=== PATIENT | male | born 1980 | race Caucasian/White ===

== ENCOUNTER 2018-05-25 21:44 | Emergency (ER) | payer MEDICAID, OTHER ==
[~2018-05-25] VITALS: Ht 198.1 cm; Wt 122.5 kg
[2018-05-25 22:03] VITALS: BP 152/96
[2018-05-26] MEDS ORDERED: KETOROLAC TROMETH 60MG/2ML VIAL IM ONE (01:30)
== END 2018-05-26 02:44 | disposition home or self-care (01) ==
LOC: ER 21:49
DX: L03.115 Cellulitis of right lower limb (principal)
CPT/HCPCS: 73630; 96372; 99283; J1885

== ENCOUNTER 2020-06-05 09:16 | Emergency (ER) | payer MEDICAID ==
[~2020-06-05] VITALS: Ht 198.1 cm; Wt 131.5 kg
[2020-06-05] MEDS ORDERED: NITROGLYCERIN 0.4 MG SL TAB SL ONE (09:45)
[2020-06-05] MEDS ORDERED: MORPHINE SULFATE 4 MG/ML SYR/VIAL IV ONE (09:45)
[2020-06-05] MEDS ORDERED: ONDANSETRON HCL 4 MG/2 ML VIAL IV ONE (09:45)
[2020-06-05] MEDS ORDERED: ASPirin 81 mg TAB PO ONE (09:45)
[2020-06-05] MEDS ORDERED: SODIUM CHLORIDE 0.9% 500 ML IV ONE (09:45)
[2020-06-05 10:17] LABS: Albumin 3.4 g/dL (3.4-5.0); Anion Gap 10 (5-15); Blood Urea Nitrogen 8 mg/dL (7-18); Carbon Dioxide 20 mmol/L (21-32); Chloride 103 mmol/L (98-107); Glucose 121 mg/dL (74-106); Magnesium 1.7 mg/dL (1.6-2.6); Potassium 3.5 mmol/L (3.5-5.1); Sodium 133 mmol/L (136-145)
[2020-06-05 10:24] LABS: Alanine Aminotransferase 67 U/L (16-61); Alkaline Phosphatase 71 U/L (45-117); Aspartate Aminotransferase 76 U/L (15-37); BUN/Creatinine Ratio 12.7; Bilirubin, Total 2.4 mg/dL (0.2-1.0); GFR African American 182 mL/min; GFR Non-African American 151 mL/min; Total Protein 8.9 g/dL (6.4-8.2)
[2020-06-05 10:27] LABS: Eosinophils # (auto) 0 10 ^3/uL (0-0.8); Monocytes # (auto) 0.9 10 ^3/uL (0-1.3); Monocytes % (auto) 14.8 % (0.0-12.0); Neutrophils # (auto) 4.2 10 ^3/uL (1.6-8.6)
[2020-06-05 10:32] LABS: INR 1.07 (0.9-1.15); Partial Thromboplastin Time 30.4 sec (23.0-31.2)
[2020-06-05 10:35] LABS: Basophils # (auto) 0.1 10 ^3/uL (0-0.2); Eosinophils % (auto) 0.3 % (0.0-7.0); Hematocrit 46.3 % (41.0-53.0); Hemoglobin 16.2 g/dL (13.5-17.5); Lymphocytes % (auto) 16.4 % (10.0-50.0); Mean Corpuscular Hemoglobin 34.5 pg (28.0-32.0); Mean Corpuscular Volume 98.5 fL (80.0-100.0); Neutrophils % (auto) 67.5 % (37.0-80.0); Nucleated Red Blood Cells % 0.1 %; Platelet Count (auto) 117 10^3/uL (140-450); Red Cell Distribution Width 16.3 % (11.8-14.3); White Blood Cell 6.2 10^3/uL (4.4-10.8)
[2020-06-05 12:00] VITALS: BP 139/87
[2020-06-05] MEDS ORDERED: CARISOPRODOL 350 MG TAB PO ONE (12:30)
== END 2020-06-05 12:50 | disposition home or self-care (01) ==
LOC: ER 09:16
DX: R07.89 Other chest pain (principal); R74.8 Abnormal levels of other serum enzymes; F10.10 Alcohol abuse, uncomplicated; F17.210 Nicotine dependence, cigarettes, uncomplicated
CPT/HCPCS: 36415; 71045; 76705; 80053; 80320; 82962; 83735; 84484; 85025; 85610; 85730; 93005; 96374; 96375; 99285; J2270; J2405; J7030

== ENCOUNTER 2020-10-30 20:17 | Emergency (ER) | payer MEDICAID ==
[~2020-10-30] VITALS: Ht 198.1 cm; Wt 136.1 kg
[2020-10-30 20:40] VITALS: BP 150/70
[2020-10-30 21:17] LABS: Urine Bacteria NONE SEEN /hpf (None Seen); Urine Blood Negative /uL (Negative); Urine Specific Gravity 1.006 (1.001-1.035); Urine WBC 2 /hpf (0 - 3)
[2020-10-30 21:22] LABS: Amphetamine Screen, Urine NEGATIVE (NEGATIVE); Barbiturate Scree,Urine NEGATIVE (NEGATIVE); Benzodiazephine Screen, Urine NEGATIVE (NEGATIVE); Cannabinoid Screen, Urine NEGATIVE (NEGATIVE); Cocaine Screen, Urine NEGATIVE (NEGATIVE); Opiate Scree,Urine NEGATIVE (NEGATIVE); Phencyclidine Screen, Urine NEGATIVE (NEGATIVE)
== END 2020-10-30 22:47 | disposition left against medical advice (07) ==
LOC: EDBD 20:17 → ER 20:27
DX: F10.129 Alcohol abuse with intoxication, unspecified (principal); Z53.21 Procedure and treatment not carried out due to patient leaving prior to being seen by health care provider; Y90.8 Blood alcohol level of 240 mg/100 ml or more
CPT/HCPCS: 80307; 81001

== ENCOUNTER 2020-11-08 23:22 | Emergency (ER) | payer MEDICAID ==
[~2020-11-08] VITALS: Ht 198.1 cm; Wt 133.8 kg
[2020-11-09 01:50] LABS: Basophils # (auto) 0.4 10 ^3/uL (0-0.2); Basophils % (auto) 3.6 % (0.0-2.0); Eosinophils # (auto) 0 10 ^3/uL (0-0.8); Eosinophils % (auto) 0.4 % (0.0-7.0); Hematocrit 47.4 % (41.0-53.0); Hemoglobin 16.6 g/dL (13.5-17.5); Lymphocytes # (auto) 3.1 10 ^3/uL (0.4-5.4); Lymphocytes % (auto) 28.7 % (10.0-50.0); Mean Corpuscular Hemoglobin 34.8 pg (28.0-32.0); Mean Corpuscular Hgb Conc. 35.1 g/dL (32.0-36.0); Mean Corpuscular Volume 99.1 fL (80.0-100.0); Monocytes # (auto) 0.9 10 ^3/uL (0-1.3); Monocytes % (auto) 7.9 % (0.0-12.0); Neutrophils # (auto) 6.5 10 ^3/uL (1.6-8.6); Neutrophils % (auto) 59.4 % (37.0-80.0); Nucleated Red Blood Cells % 0.1 %; Red Blood Cells 4.78 10^6/uL (4.5-5.90); Red Cell Distribution Width 15.4 % (11.8-14.3); White Blood Cell 10.9 10^3/uL (4.4-10.8)
[2020-11-09 02:26] LABS: Potassium 3.3 mmol/L (3.5-5.1)
[2020-11-09 02:32] LABS: Albumin 3.7 g/dL (3.4-5.0); BUN/Creatinine Ratio 10.9; Calcium 8.1 mg/dL (8.5-10.1)
[2020-11-09 02:35] LABS: Bilirubin, Total 2.1 mg/dL (0.2-1.0); Total Protein 8.8 g/dL (6.4-8.2)
[2020-11-09 02:55] LABS: Blood Alcohol 338.9 mg/dL (0-5)
[2020-11-09] MEDS ORDERED: SODIUM CHLORIDE 0.9% 1,000 ML IV ONE ×2 (06:45)
[2020-11-09] MEDS ORDERED: THIAMINE 100mg/ml INJ (200mg/2ml VIAL) IV ONE (06:45)
[2020-11-09 09:30] VITALS: BP 138/77
== END 2020-11-09 10:12 | disposition home or self-care (01) ==
LOC: ER 23:22
DX: F10.139 Alcohol abuse with withdrawal, unspecified (principal); F17.210 Nicotine dependence, cigarettes, uncomplicated; Y90.8 Blood alcohol level of 240 mg/100 ml or more
CPT/HCPCS: 36415; 70450; 80053; 80320; 83735; 85025; 96361; 96374; 99284; J3411

== ENCOUNTER 2021-08-05 20:10 | Emergency (ER) | payer MEDICAID ==
[~2021-08-05] VITALS: Ht 198.1 cm; Wt 127.0 kg
[2021-08-05 20:12] VITALS: BP 135/81
== END 2021-08-05 23:15 | disposition left against medical advice (07) ==
LOC: ER 20:10
DX: S80.11XA Contusion of right lower leg, initial encounter (principal); F10.10 Alcohol abuse, uncomplicated; F17.210 Nicotine dependence, cigarettes, uncomplicated; W20.8XXA Other cause of strike by thrown, projected or falling object, initial encounter; Y93.89 Activity, other specified; Y92.89 Other specified places as the place of occurrence of the external cause; Y99.0 Civilian activity done for income or pay; Y90.9 Presence of alcohol in blood, level not specified
CPT/HCPCS: 73590

== ENCOUNTER 2021-08-25 01:03 | Emergency (ER) | payer MEDICAID ==
[~2021-08-25] VITALS: Ht 188 cm; Wt 119.7 kg
[2021-08-25] MEDS: PANTOPRAZOLE 40mg/50ML NS AE 50 ML IV SCH ×3 (01:48→16:14)
[2021-08-25] MEDS ORDERED: AMIODARONE HCL (50 MG/ ML) 3 ML VIAL IV ONE (02:04)
[2021-08-25] MEDS ORDERED: cefTRIAXone SOD 1,000 MG VL IV ONE (02:30)
[2021-08-25 03:05] LABS: Basophils # (auto) 0 10 ^3/uL (0-0.2); Eosinophils # (auto) 0 10 ^3/uL (0-0.8); Lymphocytes # (auto) 0.4 10 ^3/uL (0.4-5.4); Mean Corpuscular Volume 94.8 fL (80.0-100.0); Monocytes # (auto) 0.8 10 ^3/uL (0-1.3); Nucleated Red Blood Cells % 0.1 %; Red Blood Cells 3.66 10^6/uL (4.5-5.90)
[2021-08-25 03:08] LABS: Basophils % (auto) 0.6 % (0.0-2.0); Hematocrit 34.6 % (41.0-53.0); Hemoglobin 12.5 g/dL (13.5-17.5); Lymphocytes % (auto) 4.6 % (10.0-50.0); Mean Corpuscular Hemoglobin 34.1 pg (28.0-32.0); Monocytes % (auto) 8.6 % (0.0-12.0); Neutrophils # (auto) 7.6 10 ^3/uL (1.6-8.6); Neutrophils % (auto) 86.2 % (37.0-80.0); Red Cell Distribution Width 16.9 % (11.8-14.3); White Blood Cell 8.8 10^3/uL (4.4-10.8)
[2021-08-25 03:27] LABS: Lactic Acid w/Reflex 5.7 mmol/L (0.4-2.0)
[2021-08-25 03:30] LABS: Albumin 2.6 g/dL (3.4-5.0); BUN/Creatinine Ratio 5.1; Calcium 7.4 mg/dL (8.5-10.1); Potassium 4.5 mmol/L (3.5-5.1)
[2021-08-25 03:33] LABS: Bilirubin, Total 12.8 mg/dL (0.2-1.0); Total Protein 7.5 g/dL (6.4-8.2)
[2021-08-25] MEDS ORDERED: LACTULOSE 20Gm/30ML SOLN PO ONE (03:45)
[2021-08-25] MEDS ORDERED: AMIODARONE HCL 150 MG in D5W 5% 100 ML IV ONE (04:45)
[2021-08-25 04:50] LABS: INR 1.49 (0.9-1.15)
[2021-08-25] MEDS ORDERED: ONDANSETRON HCL 4 MG/2 ML VIAL IV PRN (10:45)
[2021-08-25] MEDS ORDERED: FOLIC ACID 1 MG in D5W 5% 50 ML INJ SCH (10:45)
[2021-08-25] MEDS ORDERED: PHYTONADIONE(VitK) ORAL Susp 5mg/5ml(1mg/ml) PO ONE (10:45)
[2021-08-25] MEDS ORDERED: SODIUM CHLORIDE 0.9% 1,000 ML IV ONE (10:45)
[2021-08-25 11:31] LABS: Eosinophils # (auto) 0 10 ^3/uL (0-0.8); Eosinophils % (auto) 0.1 % (0.0-7.0); Lymphocytes # (auto) 0.7 10 ^3/uL (0.4-5.4); White Blood Cell 7.6 10^3/uL (4.4-10.8)
[2021-08-25 11:32] LABS: Basophils # (auto) 0.2 10 ^3/uL (0-0.2); Basophils % (auto) 2.5 % (0.0-2.0); Hematocrit 33.6 % (41.0-53.0); Hemoglobin 11.9 g/dL (13.5-17.5); Lymphocytes % (auto) 8.9 % (10.0-50.0); Mean Corpuscular Hemoglobin 33.4 pg (28.0-32.0); Mean Corpuscular Hgb Conc. 35.5 g/dL (32.0-36.0); Mean Corpuscular Volume 94.1 fL (80.0-100.0); Monocytes # (auto) 0.7 10 ^3/uL (0-1.3); Monocytes % (auto) 9.4 % (0.0-12.0); Neutrophils % (auto) 79.1 % (37.0-80.0); Nucleated Red Blood Cells % 0.1 %; Red Blood Cells 3.57 10^6/uL (4.5-5.90); Red Cell Distribution Width 16.3 % (11.8-14.3)
[2021-08-25] MEDS: THIAMINE 100mg/ml INJ (200mg/2ml VIAL) IV SCH (11:54)
[2021-08-25] MEDS: LACTULOSE 20Gm/30ML SOLN PO SCH ×3 (12:00→18:00)
[2021-08-26] MEDS: PANTOPRAZOLE 40mg/50ML NS AE 50 ML IV SCH (01:48)
[2021-08-26] MEDS: LACTULOSE 20Gm/30ML SOLN PO SCH (01:48)
[2021-08-26] MEDS ORDERED: LORazepam 2MG/ML-1ML VIAL IV ONE (08:30)
[2021-08-26] MEDS ORDERED: PANTOPRAZOLE 40 MG/10 ML VIAL INJ IV ONE (10:00)
[2021-08-26] MEDS ORDERED: metroNIDAZOLE 500MG/100ML 100 ML IV ONE (10:00)
[2021-08-26] MEDS ORDERED: cefTRIAXone 1GM/50ML D5W 50 ML IV ONE (10:00)
[2021-08-26] MEDS ORDERED: chlordiazePOXIDE HCL 5 MG CAP PO ONE (10:00)
[2021-08-26 11:22] VITALS: BP 141/77
[2021-08-26] MEDS: THIAMINE 100mg/ml INJ (200mg/2ml VIAL) IV SCH (12:03)
== END 2021-08-26 12:19 | disposition short-term general hospital (02) ==
LOC: ER 01:03 → EDBD 01:03 → ER 08-26 12:19
DX: K92.2 Gastrointestinal hemorrhage, unspecified (principal); K70.9 Alcoholic liver disease, unspecified; K72.90 Hepatic failure, unspecified without coma; I47.1 Supraventricular tachycardia; R51.9 Headache, unspecified; Z20.822 Contact with and (suspected) exposure to COVID-19
CPT/HCPCS: 36415; 70450; 71045; 71250; 74176; 80053; 82140; 83605; 83880; 84484; 85025; 85610; 86850; 86900; 86901; 87426; 93005; 96361; 96365; 96367; 96375; 99291; C9113; J0282; J0696; J2060; J3411; J3430; J7060

== ENCOUNTER 2021-10-11 18:11 | Emergency (ER) | payer MEDICAID ==
[~2021-10-11] VITALS: Ht 198.1 cm; Wt 0.5 kg
[2021-10-11 18:57] VITALS: BP 105/66
[2021-10-11 19:51] LABS: Basophils # (auto) 0.2 10 ^3/uL (0-0.2); Basophils % (auto) 2.1 % (0.0-2.0); Eosinophils # (auto) 0.1 10 ^3/uL (0-0.8); Eosinophils % (auto) 0.9 % (0.0-7.0); Hematocrit 33.5 % (41.0-53.0); Hemoglobin 11.1 g/dL (13.5-17.5); Lymphocytes # (auto) 3.6 10 ^3/uL (0.4-5.4); Lymphocytes % (auto) 30.4 % (10.0-50.0); Mean Corpuscular Hemoglobin 32.3 pg (28.0-32.0); Mean Corpuscular Hgb Conc. 33.1 g/dL (32.0-36.0); Mean Corpuscular Volume 97.6 fL (80.0-100.0); Monocytes # (auto) 1.1 10 ^3/uL (0-1.3); Monocytes % (auto) 9.2 % (0.0-12.0); Neutrophils # (auto) 6.8 10 ^3/uL (1.6-8.6); Neutrophils % (auto) 57.4 % (37.0-80.0); Red Blood Cells 3.44 10^6/uL (4.5-5.90); Red Cell Distribution Width 15.8 % (11.8-14.3); White Blood Cell 11.8 10^3/uL (4.4-10.8)
[2021-10-11 20:07] LABS: BUN/Creatinine Ratio 10.1; Calcium 8.8 mg/dL (8.5-10.1); Magnesium 1.9 mg/dL (1.6-2.6); Potassium 3.6 mmol/L (3.5-5.1)
[2021-10-11 20:10] LABS: Bilirubin, Total 3.6 mg/dL (0.2-1.0); Total Protein 8.2 g/dL (6.4-8.2)
[2021-10-11] MEDS ORDERED: SODIUM CHLORIDE 0.9% 1,000 ML IV ONE (21:15)
[2021-10-24] MEDS ORDERED: DISU1TAB PO (13:47)
== END 2021-10-12 01:31 | disposition home or self-care (01) ==
LOC: ER 18:11
DX: Z00.00 Encounter for general adult medical examination without abnormal findings (principal); F10.10 Alcohol abuse, uncomplicated; F12.10 Cannabis abuse, uncomplicated
CPT/HCPCS: 36415; 74176; 80053; 80320; 83605; 83690; 83735; 84484; 85025; 96360; 99285; J7030; 93005

== ENCOUNTER 2021-10-29 12:23 | Day surgery (SDC) | payer MEDICAID ==
[~2021-10-29] VITALS: Ht 198.1 cm; Wt 122.5 kg
[~2021-10-29 12:23] MED LIST: DISU1TAB PO
[2021-10-29] MEDS ORDERED: MIDAZOLAM HCL 2MG/2ML 2ml VIAL (1mg/ml) ONE (12:57)
[2021-10-29] MEDS ORDERED: fentaNYL CITRATE 100 MCG/2 ML VL ONE (12:57)
[2021-10-29] MEDS ORDERED: LIDOCAINE VISCOUS 2% 15ML UD ONE (13:07)
[2021-10-29] MEDS ORDERED: PROPOFOL 10 MG/ML 20 ML IV ONE (13:28)
[2021-10-29] MEDS ORDERED: DexAMETHasone SOD PHOS 10MG/1ML VIAL INJ ONE (13:28)
[2021-10-29 14:05] LABS: Basophils # (auto) 0.1 10 ^3/uL (0-0.2); Eosinophils # (auto) 0.1 10 ^3/uL (0-0.8); Eosinophils % (auto) 0.9 % (0.0-7.0); Hematocrit 30.4 % (41.0-53.0); Hemoglobin 10.2 g/dL (13.5-17.5); Lymphocytes # (auto) 1.7 10 ^3/uL (0.4-5.4); Lymphocytes % (auto) 22.7 % (10.0-50.0); Mean Corpuscular Hemoglobin 32.2 pg (28.0-32.0); Mean Corpuscular Hgb Conc. 33.5 g/dL (32.0-36.0); Mean Corpuscular Volume 96.2 fL (80.0-100.0); Monocytes # (auto) 0.9 10 ^3/uL (0-1.3); Monocytes % (auto) 12.7 % (0.0-12.0); Neutrophils # (auto) 4.6 10 ^3/uL (1.6-8.6); Neutrophils % (auto) 62.7 % (37.0-80.0); Red Blood Cells 3.16 10^6/uL (4.5-5.90); Red Cell Distribution Width 14.6 % (11.8-14.3); White Blood Cell 7.4 10^3/uL (4.4-10.8)
[2021-10-29 15:10] VITALS: BP 131/86
== END 2021-10-29 15:20 | disposition home or self-care (01) ==
LOC: GI 12:23
PROVIDERS: ATTEND Internal Medicine Gastroenterology
DX: K70.30 Alcoholic cirrhosis of liver without ascites (principal); K76.6 Portal hypertension; K31.89 Other diseases of stomach and duodenum; K29.70 Gastritis, unspecified, without bleeding; K44.9 Diaphragmatic hernia without obstruction or gangrene; K29.80 Duodenitis without bleeding; I10 Essential (primary) hypertension; E03.9 Hypothyroidism, unspecified; G89.29 Other chronic pain; F41.9 Anxiety disorder, unspecified; F32.A Depression, unspecified; Z87.891 Personal history of nicotine dependence; Z20.822 Contact with and (suspected) exposure to COVID-19
CPT/HCPCS: 36415; 43235; 85025; J1100; J2250; J2704; J3010; U0003; 43239; 99152

== ENCOUNTER 2021-12-31 16:19 | Emergency (ER) | payer MEDICAID ==
[~2021-12-31] VITALS: Ht 198.1 cm; Wt 125.0 kg
[2021-12-31 16:29] VITALS: BP 139/80
== END 2021-12-31 20:48 | disposition left against medical advice (07) ==
LOC: ER 16:19
DX: R56.9 Unspecified convulsions (principal); Z53.21 Procedure and treatment not carried out due to patient leaving prior to being seen by health care provider
CPT/HCPCS: 93005

== ENCOUNTER 2022-05-20 11:33 | Emergency (ER) | payer MEDICAID ==
[~2022-05-20] VITALS: Ht 198.1 cm; Wt 100.0 kg
[2022-05-20 13:14] VITALS: BP 124/61
== END 2022-05-20 15:01 | disposition home or self-care (01) ==
LOC: ER 11:33
DX: S39.012A Strain of muscle, fascia and tendon of lower back, initial encounter (principal); R07.89 Other chest pain; F17.210 Nicotine dependence, cigarettes, uncomplicated; F10.90 Alcohol use, unspecified, uncomplicated; W18.39XA Other fall on same level, initial encounter; Y93.89 Activity, other specified; Y92.89 Other specified places as the place of occurrence of the external cause; Y99.8 Other external cause status
CPT/HCPCS: 71111; 72100; 93005

== ENCOUNTER 2022-05-26 13:32 | Emergency (ER) | payer MEDICAID ==
[~2022-05-26] VITALS: Ht 198.1 cm; Wt 114.2 kg
[2022-05-26] MEDS ORDERED: CYCL-837 PO (18:39)
[2022-05-26 18:59] VITALS: BP 119/61
== END 2022-05-26 19:01 | disposition home or self-care (01) ==
LOC: ER 13:32
DX: S20.219A Contusion of unspecified front wall of thorax, initial encounter (principal); F17.210 Nicotine dependence, cigarettes, uncomplicated; F10.90 Alcohol use, unspecified, uncomplicated; W18.09XA Striking against other object with subsequent fall, initial encounter; Y93.89 Activity, other specified; Y92.89 Other specified places as the place of occurrence of the external cause; Y99.8 Other external cause status
CPT/HCPCS: 71045

== ENCOUNTER 2023-06-04 08:59 | Emergency (ER) | payer MEDICAID ==
[~2023-06-04] VITALS: Ht 198.1 cm; Wt 106.7 kg
[~2023-06-04 08:59] MED LIST changes: +CYCL-837 PO
[2023-06-04 09:00] VITALS: TEMP 99.1
[2023-06-04 09:27] LABS: Basophils # (auto) 0 10 ^3/uL (0-0.2); Basophils % (auto) 0.6 % (0.0-2.0); Eosinophils # (auto) 0 10 ^3/uL (0-0.8); Eosinophils % (auto) 0.7 % (0.0-7.0); Hematocrit 34.8 % (41.0-53.0); Hemoglobin 11.5 g/dL (13.5-17.5); Lymphocytes # (auto) 1.2 10 ^3/uL (0.4-5.4); Lymphocytes % (auto) 23.5 % (10.0-50.0); Mean Corpuscular Hemoglobin 30.4 pg (28.0-32.0); Mean Corpuscular Hgb Conc. 33.2 g/dL (32.0-36.0); Mean Corpuscular Volume 91.7 fL (80.0-100.0); Monocytes # (auto) 0.6 10 ^3/uL (0-1.3); Monocytes % (auto) 12.3 % (0.0-12.0); Neutrophils # (auto) 3.3 10 ^3/uL (1.6-8.6); Neutrophils % (auto) 62.9 % (37.0-80.0); Nucleated Red Blood Cells % 0.1 %; Red Cell Distribution Width 17.1 % (11.8-14.3); White Blood Cell 5.2 10^3/uL (4.4-10.8)
[2023-06-04 09:30] VITALS: PULSE 74; RESP 18; O2SAT 98
[2023-06-04] MEDS: LORazepam 2MG/ML-1ML VIAL IV ONE (09:34)
[2023-06-04] MEDS: levETIRAcetam 1000 mg/100ml 100 ML IV ONE (09:34)
[2023-06-04 09:40] LABS: INR 1.21 (0.9-1.15); Partial Thromboplastin Time 33.3 SEC (24.5-34.5); Prothrombin Time 12.5 sec (9.3-11.8)
[2023-06-04 09:42] LABS: Alanine Aminotransferase 59 U/L (7-40); Alkaline Phosphatase 197 U/L (46-116); Anion Gap 9 (5-15); BUN/Creatinine Ratio 9.1 (10.0-20.0); Blood Urea Nitrogen 5 mg/dL (9-23); Calcium 9.2 mg/dL (8.5-10.1); Carbon Dioxide 21 mmol/L (20-30); Chloride 107 mmol/L (98-107); Glucose 126 mg/dL (74-106); Potassium 3.8 mmol/L (3.5-5.1); Sodium 137 mmol/L (136-145)
[2023-06-04 09:43] LABS: Total Protein 7.1 g/dL (5.7-8.2)
[2023-06-04 09:53] LABS: Aspartate Aminotransferase 93 U/L (13-40)
[2023-06-04 09:54] LABS: Amphetamine Screen, Urine Neg (NEGATIVE); Barbiturate Scree,Urine Neg (NEGATIVE); Benzodiazephine Screen, Urine Neg (NEGATIVE); Cocaine Screen, Urine Neg (NEGATIVE); Opiate Scree,Urine Neg (NEGATIVE); Phencyclidine Screen, Urine Neg (NEGATIVE)
[2023-06-04 09:55] LABS: Cannabinoid Screen, Urine Neg (NEGATIVE)
[2023-06-04 10:00] VITALS: BP 129/66; PULSE 71; RESP 11; O2SAT 97
[2023-06-04] MEDS ORDERED: CHL10C PO (10:17)
== END 2023-06-04 10:51 | disposition home or self-care (01) ==
LOC: ER 08:59
DX: K70.9 Alcoholic liver disease, unspecified (principal); F10.139 Alcohol abuse with withdrawal, unspecified; R56.9 Unspecified convulsions; F17.210 Nicotine dependence, cigarettes, uncomplicated; K21.9 Gastro-esophageal reflux disease without esophagitis; Y90.8 Blood alcohol level of 240 mg/100 ml or more
CPT/HCPCS: 36415; 80053; 80307; 80320; 85025; 85610; 85730; 96365; 96375; 99284; J1953; J2060

== ENCOUNTER 2023-08-25 16:49 | Emergency (ER) | payer MEDICAID ==
[~2023-08-25] VITALS: Ht 198.1 cm; Wt 105.0 kg
[~2023-08-25 16:49] MED LIST changes: +CHL10C PO; -DISU1TAB PO; +DISU250T8 PO
[2023-08-25 16:53] VITALS: BP 122/69; PULSE 92; RESP 16
== END 2023-08-26 01:09 | disposition home or self-care (01) ==
LOC: EDBD 16:49 → ER 16:49
DX: G40.909 Epilepsy, unspecified, not intractable, without status epilepticus (principal); F17.210 Nicotine dependence, cigarettes, uncomplicated; F10.90 Alcohol use, unspecified, uncomplicated; Y90.0 Blood alcohol level of less than 20 mg/100 ml

== ENCOUNTER 2023-09-30 09:33 | Inpatient (IN) | payer MEDICAID ==
[2023-09-30] VITALS (7 sets, daily range): BP systolic 117–143; BP diastolic 73–87; PULSE 59–69; RESP 18; TEMP 97.9–98.5; O2SAT 94–97
[~2023-09-30] VITALS: Ht 198.1 cm; Wt 109.5 kg
[2023-09-30] MEDS: SODIUM CHLORIDE 0.9% 1,000 ML IV ONE (10:18)
[2023-09-30] MEDS: IOHEXOL 300 MG/ML 100ML BOTTLE IJ ONE (10:48)
[2023-09-30 10:53] LABS: Basophils # (auto) 0.1 10 ^3/uL (0-0.2); Basophils % (auto) 2.5 % (0.0-2.0); Eosinophils # (auto) 0 10 ^3/uL (0-0.8); Eosinophils % (auto) 0.6 % (0.0-7.0); Hematocrit 32.8 % (41.0-53.0); Hemoglobin 10.6 g/dL (13.5-17.5); Lymphocytes # (auto) 1.7 10 ^3/uL (0.4-5.4); Lymphocytes % (auto) 39.2 % (10.0-50.0); Mean Corpuscular Hemoglobin 28.1 pg (28.0-32.0); Mean Corpuscular Hgb Conc. 32.3 g/dL (32.0-36.0); Monocytes # (auto) 0.8 10 ^3/uL (0-1.3); Neutrophils # (auto) 1.7 10 ^3/uL (1.6-8.6); Neutrophils % (auto) 39.7 % (37.0-80.0); Nucleated Red Blood Cells % 0.1 %; Red Blood Cells 3.77 10^6/uL (4.5-5.90); White Blood Cell 4.3 10^3/uL (4.4-10.8)
[2023-09-30 11:09] LABS: Alanine Aminotransferase 59 U/L (7-40); Albumin 3.8 g/dL (3.2-4.8); Alkaline Phosphatase 123 U/L (46-116); Anion Gap 9 (5-15); Aspartate Aminotransferase 123 U/L (13-40); Bilirubin, Total 3.6 mg/dL (0.2-1.0); Blood Urea Nitrogen 8 mg/dL (9-23); Calcium 8.5 mg/dL (8.5-10.1); Carbon Dioxide 21 mmol/L (20-30); Chloride 114 mmol/L (98-107); Glucose 112 mg/dL (74-106); Potassium 3.7 mmol/L (3.5-5.1); Sodium 144 mmol/L (136-145); Total Protein 7.2 g/dL (5.7-8.2)
[2023-09-30 11:15] LABS: INR 1.13 (0.9-1.15); Prothrombin Time 11.9 sec (9.3-11.8)
[2023-09-30 11:17] LABS: Blood Alcohol 316.8 mg/dL (<10)
[2023-09-30] MEDS: PANTOPRAZOLE 40 MG/10 ML VIAL INJ IV ONE (12:44)
[2023-09-30] MEDS: LACTULOSE 20Gm/30ML SOLN PO ONE ×2 (12:44→14:46)
[2023-09-30] MEDS: KETOROLAC TROMETH 30 MG/ML 1ML VIAL IV ONE (12:44)
[2023-09-30] MEDS ORDERED: ONDANSETRON HCL 4 MG/2 ML VIAL IV PRN (14:00)
[2023-09-30] MEDS ORDERED: MORPHINE SULFATE INJ 2 MG/ml SYRG IV PRN (14:00)
[2023-09-30] MEDS ORDERED: NITROGLYCERIN 0.4 MG SL TAB SL PRN (14:00)
[2023-09-30] MEDS ORDERED: LORazepam 2MG/ML-1ML VIAL IV PRN ×3 (14:00→21:30)
[2023-09-30] MEDS ORDERED: DOCUSATE SOD 100 MG CAP PO PRN (14:00)
[2023-09-30] MEDS: LACTULOSE 20Gm/30ML SOLN PO SCH (14:45)
[2023-09-30] MEDS: chlordiazePOXIDE HCL 25 MG CAP PO SCH (14:46)
[2023-09-30] MEDS: levETIRAcetam 1000 mg/100ml 100 ML IV ONE (14:49)
[2023-09-30] MEDS: PANTOPRAZOLE 40mg/50ML NS AE 50 ML IV SCH (14:50)
[2023-09-30] MEDS: PANTOPRAZOLE 80 MG in SODIUM CHL 0.9% 100 ML IV ONE (15:02)
[2023-09-30] MEDS: cefTRIAXone 1GM/50ML D5W 50 ML IV ONE (15:10)
[2023-09-30] MEDS: OCTREOTIDE ACETATE 100 MCG in SODIUM CHL 0.9% 50 ML IV ONE (15:23)
[2023-09-30] MEDS: SODIUM CHLORIDE 0.9% 1,000 ML IV SCH (16:07)
[2023-09-30 16:49] LABS: % Iron Saturation 22.9 % (20-55)
[2023-09-30 17:05] LABS: Ferritin 22.6 ng/mL (22-322); Folate (Folic Acid) 10.61 ng/mL (>5.38)
[2023-09-30] MEDS: FOLIC ACID 1 MG, MAGNESIUM SULF SDV 50% 8 MEQ, MULTIPLE VITAMIN 10 ML, THIAMINE INJ 100... INJ SCH (18:04)
[2023-09-30] MEDS: OCTREOTIDE ACETATE 500 MCG in SODIUM CHL 0.9% 99 ML IV SCH (18:05)
[2023-09-30] MEDS ORDERED: levETIRAcetam 1000 mg/100ml 100 ML IV SCH (22:00)
[2023-10-01] VITALS (9 sets, daily range): BP systolic 112–162; BP diastolic 67–89; PULSE 56–67; RESP 14–19; TEMP 97.7–98.3; O2SAT 96–98
[2023-10-01 00:26] LABS: Hemoglobin 9.4 g/dL (13.5-17.5)
[2023-10-01 00:27] LABS: Hematocrit 28.6 % (41.0-53.0)
[2023-10-01] MEDS: MORPHINE SULFATE INJ 2 MG/ml SYRG IV PRN (05:41)
[2023-10-01 06:51] LABS: Eosinophils # (auto) 0 10 ^3/uL (0-0.8); Hemoglobin 9.3 g/dL (13.5-17.5); Monocytes # (auto) 0.4 10 ^3/uL (0-1.3); Neutrophils # (auto) 1.2 10 ^3/uL (1.6-8.6); Nucleated Red Blood Cells % 0.4 %; White Blood Cell 2.6 10^3/uL (4.4-10.8)
[2023-10-01 06:57] LABS: Basophils # (auto) 0 10 ^3/uL (0-0.2); Basophils % (auto) 1.4 % (0.0-2.0); Hematocrit 28.2 % (41.0-53.0); Lymphocytes % (auto) 38.2 % (10.0-50.0); Mean Corpuscular Hemoglobin 28.7 pg (28.0-32.0); Mean Corpuscular Hgb Conc. 32.9 g/dL (32.0-36.0); Mean Corpuscular Volume 87.2 fL (80.0-100.0); Monocytes % (auto) 14.6 % (0.0-12.0); Neutrophils % (auto) 44.8 % (37.0-80.0); Red Blood Cells 3.24 10^6/uL (4.5-5.90)
[2023-10-01 07:09] LABS: Red Cell Distribution Width 20.2 % (11.8-14.3)
[2023-10-01 07:12] LABS: Alanine Aminotransferase 64 U/L (7-40); Albumin 3.3 g/dL (3.2-4.8); Alkaline Phosphatase 108 U/L (46-116); Anion Gap 8 (5-15); Aspartate Aminotransferase 163 U/L (13-40); BUN/Creatinine Ratio 12.8 (10.0-20.0); Blood Urea Nitrogen 6 mg/dL (9-23); Calcium 8.1 mg/dL (8.5-10.1); Carbon Dioxide 21 mmol/L (20-30); Chloride 111 mmol/L (98-107); Glucose 94 mg/dL (74-106); Potassium 3.9 mmol/L (3.5-5.1); Sodium 140 mmol/L (136-145)
[2023-10-01 07:13] LABS: Bilirubin, Total 4.8 mg/dL (0.2-1.0); Total Protein 6.5 g/dL (5.7-8.2)
[2023-10-01] MEDS: cefTRIAXone 1GM/50ML D5W 50 ML IV SCH (09:06)
[2023-10-01] MEDS: chlordiazePOXIDE HCL 25 MG CAP PO SCH (09:07)
[2023-10-01 13:44] LABS: Hemoglobin 10.2 g/dL (13.5-17.5)
[2023-10-01 13:46] LABS: Hematocrit 31.2 % (41.0-53.0)
[2023-10-01 16:06] LABS: Hematocrit 30.3 % (41.0-53.0)
[2023-10-01] MEDS ORDERED: LORazepam 2MG/ML-1ML VIAL IV PRN (20:15)
[2023-10-01 22:21] LABS: Hematocrit 30.8 % (41.0-53.0)
[2023-10-02] VITALS (7 sets, daily range): BP systolic 120–157; BP diastolic 70–78; PULSE 52–67; RESP 18–20; TEMP 97.9–98.7; O2SAT 94–99
[2023-10-02] MEDS: chlordiazePOXIDE HCL 25 MG CAP PO SCH (10:27)
[2023-10-02 21:45] LABS: Basophils # (auto) 0 10 ^3/uL (0-0.2); Eosinophils # (auto) 0.1 10 ^3/uL (0-0.8); Lymphocytes # (auto) 0.9 10 ^3/uL (0.4-5.4); Monocytes # (auto) 0.5 10 ^3/uL (0-1.3)
[2023-10-02 21:48] LABS: Basophils % (auto) 0.7 % (0.0-2.0); Eosinophils % (auto) 1.9 % (0.0-7.0); Hematocrit 30.5 % (41.0-53.0); Hemoglobin 10.1 g/dL (13.5-17.5); Lymphocytes % (auto) 25.1 % (10.0-50.0); Mean Corpuscular Hemoglobin 28.9 pg (28.0-32.0); Mean Corpuscular Hgb Conc. 33.2 g/dL (32.0-36.0); Monocytes % (auto) 15.3 % (0.0-12.0); Nucleated Red Blood Cells % 0.2 %; Red Blood Cells 3.51 10^6/uL (4.5-5.90); Red Cell Distribution Width 19.6 % (11.8-14.3); White Blood Cell 3.5 10^3/uL (4.4-10.8)
[2023-10-02 21:53] LABS: Alanine Aminotransferase 50 U/L (7-40); Albumin 3.2 g/dL (3.2-4.8); Alkaline Phosphatase 110 U/L (46-116); Anion Gap 6 (5-15); Aspartate Aminotransferase 102 U/L (13-40); BUN/Creatinine Ratio 11.8 (10.0-20.0); Blood Urea Nitrogen 6 mg/dL (9-23); Calcium 8.7 mg/dL (8.7-10.4); Carbon Dioxide 21 mmol/L (20-30); Chloride 108 mmol/L (98-107); Glucose 96 mg/dL (74-106); Potassium 3.9 mmol/L (3.5-5.1)
[2023-10-02 21:54] LABS: Bilirubin, Total 5.9 mg/dL (0.2-1.0); Total Protein 6.6 g/dL (5.7-8.2)
[2023-10-02 21:57] LABS: Sodium 135 mmol/L (136-145)
[2023-10-03 01:18] VITALS: BP 146/80; PULSE 60; RESP 18; TEMP 98.4; O2SAT 93
[2023-10-03] MEDS: chlordiazePOXIDE HCL 25 MG CAP PO SCH (06:42)
[2023-10-03 08:00] VITALS: PULSE 82
[2023-10-03 09:00] VITALS: BP 134/77; PULSE 61; RESP 18; TEMP 98.2; O2SAT 99
[2023-10-03] MEDS ORDERED: PANTOPRAZOLE 40 MG TAB PO ONE (12:00)
[2023-10-03] MEDS: PHYTONADIONE (VIT K)10 MG/ML 1ML VIAL SUBCUT ONE (12:18)
[2023-10-03] MEDS: PANTOPRAZOLE 40 MG TAB PO ONE (12:23)
[2023-10-03 13:00] VITALS: BP 127/75; PULSE 54; RESP 20; TEMP 98; O2SAT 97
[2023-10-03 17:00] VITALS: BP 145/87; PULSE 56; RESP 20; TEMP 98; O2SAT 98
[2023-10-03] MEDS: SUCRALFATE 1 GM TAB PO SCH (19:17)
[2023-10-03 21:00] VITALS: BP 151/83; PULSE 61; RESP 18; TEMP 98.2; O2SAT 96
[2023-10-04] VITALS (8 sets, daily range): BP systolic 115–158; BP diastolic 66–85; PULSE 52–74; RESP 16–20; TEMP 97.7–98.4; O2SAT 96–99
[2023-10-04] MEDS ORDERED: PANTOPRAZOLE 40 MG TAB PO SCH (06:00)
[2023-10-04] MEDS: PANTOPRAZOLE 40 MG TAB PO SCH (06:15)
[2023-10-04] MEDS: PHYTONADIONE (VIT K)10 MG/ML 1ML VIAL SUBCUT ONE (12:35)
[2023-10-05] VITALS (7 sets, daily range): BP systolic 134–140; BP diastolic 74–88; PULSE 52–63; RESP 16–18; TEMP 97.8–98.8; O2SAT 96–100
[2023-10-05] MEDS ORDERED: CYCLOBENZAPRINE HCL 10 MG TAB PO PRN (07:45)
[2023-10-05 07:58] LABS: Eosinophils # (auto) 0.1 10 ^3/uL (0-0.8); Hemoglobin 9.8 g/dL (13.5-17.5); Monocytes # (auto) 0.6 10 ^3/uL (0-1.3); Neutrophils # (auto) 1.5 10 ^3/uL (1.6-8.6)
[2023-10-05 08:00] LABS: Basophils # (auto) 0.1 10 ^3/uL (0-0.2); Basophils % (auto) 1.5 % (0.0-2.0); Eosinophils % (auto) 3.1 % (0.0-7.0); Hematocrit 29.2 % (41.0-53.0); Lymphocytes # (auto) 1.2 10 ^3/uL (0.4-5.4); Lymphocytes % (auto) 35.3 % (10.0-50.0); Mean Corpuscular Hemoglobin 29.2 pg (28.0-32.0); Mean Corpuscular Hgb Conc. 33.4 g/dL (32.0-36.0); Mean Corpuscular Volume 87.4 fL (80.0-100.0); Monocytes % (auto) 17.6 % (0.0-12.0); Neutrophils % (auto) 42.5 % (37.0-80.0); Nucleated Red Blood Cells % 0.1 %; Red Blood Cells 3.34 10^6/uL (4.5-5.90); White Blood Cell 3.5 10^3/uL (4.4-10.8)
[2023-10-05 08:01] LABS: Red Cell Distribution Width 20.1 % (11.8-14.3)
[2023-10-05 08:09] LABS: Chloride 110 mmol/L (98-107); Sodium 137 mmol/L (136-145)
[2023-10-05 08:10] LABS: Anion Gap 6 (5-15); Carbon Dioxide 21 mmol/L (20-30)
[2023-10-05 08:15] LABS: BUN/Creatinine Ratio 12.3 (10.0-20.0); Blood Urea Nitrogen 7 mg/dL (9-23); Glucose 83 mg/dL (74-106)
[2023-10-05] MEDS: PHYTONADIONE (VIT K)10 MG/ML 1ML VIAL SUBCUT ONE (12:15)
[2023-10-05] MEDS ORDERED: hydrOXYzine 25 MG TAB or CAP PO PRN (17:45)
[2023-10-06 08:30] VITALS: BP 126/74; PULSE 60; RESP 20; TEMP 97.5; O2SAT 95
[2023-10-06] MEDS: THIAMINE HCL 100 MG TAB PO SCH (09:48)
[2023-10-06] MEDS: MULTIPLE VITAMIN TAB PO SCH (09:48)
[2023-10-06] MEDS: SERTRALINE HCL 50 MG TAB PO SCH (09:49)
[2023-10-06] MEDS ORDERED: SERT25TA84 PO (12:19)
[2023-10-06] MEDS ORDERED: LACT10PA2 PO (12:19)
[2023-10-06] MEDS ORDERED: HYDR-4924 PO (12:19)
[2023-10-06 13:00] VITALS: BP 135/71; PULSE 64; RESP 16; TEMP 98.3; O2SAT 96
== END 2023-10-06 14:50 | disposition home or self-care (01) | DRG 347 ==
LOC: ER 09:33 → OVERFLOW 14:06 → WEST WING 16:56
PROVIDERS: ADMIT Nurse Practitioner Family; ATTEND Nurse Practitioner Acute Care
PROC: 30233R1 Transfusion of Nonautologous Platelets into Peripheral Vein, Percutaneous Approach (ICD-10-PCS; principal; 2023-09-30)
DX: S22.059A Unspecified fracture of T5-T6 vertebra, initial encounter for closed fracture (principal); K70.40 Alcoholic hepatic failure without coma; D69.6 Thrombocytopenia, unspecified; K76.82 Hepatic encephalopathy; G40.409 Other generalized epilepsy and epileptic syndromes, not intractable, without status epilepticus; S20.212A Contusion of left front wall of thorax, initial encounter; E03.9 Hypothyroidism, unspecified; F10.239 Alcohol dependence with withdrawal, unspecified; F17.210 Nicotine dependence, cigarettes, uncomplicated; F32.A Depression, unspecified; F41.9 Anxiety disorder, unspecified; H11.33 Conjunctival hemorrhage, bilateral; H57.02 Anisocoria; S00.83XA Contusion of other part of head, initial encounter; K70.10 Alcoholic hepatitis without ascites; K70.30 Alcoholic cirrhosis of liver without ascites; W18.39XA Other fall on same level, initial encounter; Y93.89 Activity, other specified; Y92.89 Other specified places as the place of occurrence of the external cause; Y99.8 Other external cause status; F10.229 Alcohol dependence with intoxication, unspecified; Z56.0 Unemployment, unspecified; Z91.51 Personal history of suicidal behavior; Y90.8 Blood alcohol level of 240 mg/100 ml or more
CPT/HCPCS: 36415; 70450; 70486; 70545; 70547; 70551; 71250; 71260; 74177; 80048; 80053; 80320; 82140; 82607; 82728; 82746; 83540; 83550; 83615; 84443; 85014; 85018; 85025; 85045; 85049; 85610; 86850; 86900; 86901; 95819; 97110; 97116; 97163; 97530; G0378; J1885; J2470; J3430

== ENCOUNTER 2023-12-13 14:26 | Inpatient (IN) | payer MEDICAID ==
[~2023-12-13] VITALS: Ht 198.1 cm; Wt 104.2 kg
[~2023-12-13 14:26] MED LIST changes: +HYDR-4924 PO; +LACT10PA2 PO; +SERT25TA84 PO
[2023-12-13 14:57] LABS: Basophils # (auto) 0.1 10 ^3/uL (0-0.2); Eosinophils # (auto) 0.1 10 ^3/uL (0-0.8); Hemoglobin 8.1 g/dL (13.5-17.5); Monocytes # (auto) 0.6 10 ^3/uL (0-1.3); Neutrophils # (auto) 2.1 10 ^3/uL (1.6-8.6); Nucleated Red Blood Cells % 0.1 %; Platelet Count (auto) 76 10^3/uL (140-450); Red Blood Cells 3.06 10^6/uL (4.5-5.90)
[2023-12-13 14:59] LABS: Basophils % (auto) 1.4 % (0.0-2.0); Eosinophils % (auto) 1.6 % (0.0-7.0); Lymphocytes # (auto) 1.8 10 ^3/uL (0.4-5.4); Lymphocytes % (auto) 38.5 % (10.0-50.0); Mean Corpuscular Hemoglobin 26.5 pg (28.0-32.0); Mean Corpuscular Hgb Conc. 32.4 g/dL (32.0-36.0); Mean Corpuscular Volume 81.8 fL (80.0-100.0); Monocytes % (auto) 12.6 % (0.0-12.0); Neutrophils % (auto) 45.9 % (37.0-80.0); Red Cell Distribution Width 25.8 % (11.8-14.3); White Blood Cell 4.7 10^3/uL (4.4-10.8)
[2023-12-13 15:06] LABS: Chloride 115 mmol/L (98-107); Potassium 3.8 mmol/L (3.5-5.1); Sodium 145 mmol/L (136-145)
[2023-12-13 15:07] LABS: Anion Gap 12 (5-15); Calcium 8.7 mg/dL (8.7-10.4); Carbon Dioxide 18 mmol/L (20-30)
[2023-12-13 15:12] LABS: BUN/Creatinine Ratio 16.7 (10.0-20.0); Blood Urea Nitrogen 10 mg/dL (9-23); Glucose 111 mg/dL (74-106)
[2023-12-13 15:24] LABS: Blood Alcohol 437.1 mg/dL (<10)
[2023-12-13 15:28] LABS: Anisocytosis Moderate; Platelet Estimate Decreased
[2023-12-14] VITALS (7 sets, daily range): BP systolic 118–142; BP diastolic 51–79; PULSE 62–91; RESP 15–18; TEMP 98–98.9; O2SAT 95–100
[2023-12-14] MEDS: FOLIC ACID 1 MG, MAGNESIUM SULF SDV 50% 8 MEQ, MULTIPLE VITAMIN 10 ML, THIAMINE INJ 100... INJ SCH (00:14)
[2023-12-14] MEDS: SODIUM CHLORIDE 0.9% 1,000 ML IV ONE ×2 (02:09→05:03)
[2023-12-14] MEDS: FUROSEMIDE 20 MG/2 ML VIAL IV ONE (02:32)
[2023-12-14] MEDS: THIAMINE 100mg/ml INJ (200mg/2ml VIAL) IV ONE (02:32)
[2023-12-14] MEDS: levETIRAcetam 500 MG TAB PO SCH (02:33)
[2023-12-14] MEDS: LEVOTHYROXINE SODIUM 25 MCG TAB PO SCH (06:09)
[2023-12-14 06:36] LABS: Alanine Aminotransferase 25 U/L (7-40); Albumin 3.2 g/dL (3.2-4.8); Alkaline Phosphatase 108 U/L (46-116); Anion Gap 11 (5-15); Aspartate Aminotransferase 52 U/L (13-40); BUN/Creatinine Ratio 18.2 (10.0-20.0); Blood Urea Nitrogen 8 mg/dL (9-23); Carbon Dioxide 21 mmol/L (20-30); Chloride 113 mmol/L (98-107); Glucose 83 mg/dL (74-106); Potassium 3.8 mmol/L (3.5-5.1); Sodium 145 mmol/L (136-145)
[2023-12-14 06:39] LABS: Eosinophils # (auto) 0 10 ^3/uL (0-0.8); Hemoglobin 7.8 g/dL (13.5-17.5); Mean Corpuscular Hemoglobin 26.8 pg (28.0-32.0); Monocytes # (auto) 0.5 10 ^3/uL (0-1.3)
[2023-12-14 06:43] LABS: Basophils # (auto) 0 10 ^3/uL (0-0.2); Basophils % (auto) 1.3 % (0.0-2.0); Eosinophils % (auto) 1.3 % (0.0-7.0); Hematocrit 23.6 % (41.0-53.0); Lymphocytes # (auto) 1.3 10 ^3/uL (0.4-5.4); Mean Corpuscular Hgb Conc. 32.8 g/dL (32.0-36.0); Mean Corpuscular Volume 81.5 fL (80.0-100.0); Monocytes % (auto) 14.2 % (0.0-12.0); Neutrophils # (auto) 1.7 10 ^3/uL (1.6-8.6); Neutrophils % (auto) 47.2 % (37.0-80.0); Nucleated Red Blood Cells % 0.2 %; Platelet Count (auto) 66 10^3/uL (140-450); White Blood Cell 3.7 10^3/uL (4.4-10.8)
[2023-12-14 06:53] LABS: Calcium 8.3 mg/dL (8.7-10.4)
[2023-12-14 07:45] LABS: Red Cell Distribution Width 26.2 % (11.8-14.3)
[2023-12-14] MEDS: FERROUS SULFATE 325mg EC TAB PO SCH (08:44)
[2023-12-14] MEDS: LACTULOSE 20Gm/30ML SOLN PO SCH (10:36)
[2023-12-14] MEDS: SPIRONOLACTONE 25 MG TAB PO SCH (10:37)
[2023-12-14 10:48] LABS: Anisocytosis Moderate
[2023-12-14 10:53] LABS: Platelet Estimate Decreased
[2023-12-14] MEDS ORDERED: PANT40T PO (13:04)
[2023-12-14] MEDS ORDERED: IBUP1TAB5 PO (13:04)
[2023-12-14] MEDS ORDERED: GABA-1250 PO (13:04)
[2023-12-14] MEDS: PANTOPRAZOLE 40 MG/10 ML VIAL INJ IV ONE (16:17)
[2023-12-14] MEDS: OCTREOTIDE ACETATE 100 MCG in SODIUM CHL 0.9% 50 ML IV ONE (17:40)
[2023-12-14] MEDS: ONDANSETRON HCL 4 MG/2 ML VIAL IV PRN (17:56)
[2023-12-14] MEDS: OCTREOTIDE ACETATE 500 MCG in SODIUM CHL 0.9% 99 ML IV SCH (17:58)
[2023-12-14] MEDS: PANTOPRAZOLE 40 MG/10 ML VIAL INJ IV SCH (21:23)
[2023-12-14] MEDS: LORazepam 2MG/ML-1ML VIAL IV PRN (21:23)
[2023-12-14] MEDS: SUCRALFATE 1 GM/10 ML ORAL SUSP GT SCH (22:00)
[2023-12-14] MEDS: levETIRAcetam 500 mg/100ml 100 ML IV ONE (22:56)
[2023-12-15] VITALS (11 sets, daily range): BP systolic 106–158; BP diastolic 57–78; PULSE 54–78; RESP 14–18; TEMP 97.8–98.5; O2SAT 95–100
[2023-12-15 06:27] LABS: Basophils # (auto) 0 10 ^3/uL (0-0.2); Eosinophils # (auto) 0 10 ^3/uL (0-0.8); Lymphocytes # (auto) 0.9 10 ^3/uL (0.4-5.4); Neutrophils # (auto) 0.9 10 ^3/uL (1.6-8.6)
[2023-12-15 06:31] LABS: Basophils % (auto) 0.9 % (0.0-2.0); Eosinophils % (auto) 1.8 % (0.0-7.0); Hematocrit 20.3 % (41.0-53.0); Lymphocytes % (auto) 40.8 % (10.0-50.0); Mean Corpuscular Hemoglobin 26.9 pg (28.0-32.0); Mean Corpuscular Hgb Conc. 33.1 g/dL (32.0-36.0); Mean Corpuscular Volume 81.2 fL (80.0-100.0); Monocytes # (auto) 0.3 10 ^3/uL (0-1.3); Monocytes % (auto) 15.6 % (0.0-12.0); Neutrophils % (auto) 40.9 % (37.0-80.0); Nucleated Red Blood Cells % 0.1 %; Platelet Count (auto) 46 10^3/uL (140-450); White Blood Cell 2.2 10^3/uL (4.4-10.8)
[2023-12-15 06:36] LABS: INR 1.27 (0.9-1.15); Partial Thromboplastin Time 31.9 SEC (24.5-34.5); Prothrombin Time 13.2 sec (9.3-11.8)
[2023-12-15 06:48] LABS: Alanine Aminotransferase 24 U/L (7-40); Albumin 2.8 g/dL (3.2-4.8); Alkaline Phosphatase 103 U/L (46-116); Anion Gap 6 (5-15); Aspartate Aminotransferase 51 U/L (13-40); BUN/Creatinine Ratio 17.6 (10.0-20.0); Blood Urea Nitrogen 9 mg/dL (9-23); Calcium 7.9 mg/dL (8.7-10.4); Carbon Dioxide 22 mmol/L (20-30); Chloride 109 mmol/L (98-107); Glucose 77 mg/dL (74-106); Lipase 25 U/L (12-53); Magnesium 1.4 mg/dL (1.6-2.6); Potassium 4.4 mmol/L (3.5-5.1); Sodium 137 mmol/L (136-145)
[2023-12-15 06:49] LABS: Bilirubin, Total 2.6 mg/dL (0.2-1.0); Total Protein 5.4 g/dL (5.7-8.2)
[2023-12-15 07:11] LABS: Hemoglobin 6.7 g/dL (13.5-17.5); Red Cell Distribution Width 25.8 % (11.8-14.3)
[2023-12-15 07:36] LABS: Platelet Estimate Markedly Decreased
[2023-12-15 07:39] LABS: Ovalocytes FEW
[2023-12-15 07:42] LABS: Anisocytosis Moderate
[2023-12-15] MEDS: PANTOPRAZOLE 40mg/50ML NS AE 50 ML IV SCH (10:30)
[2023-12-15 13:00] LABS: Triglycerides 76 mg/dL (< 150)
[2023-12-15 13:01] LABS: LDL Cholesterol 65 mg/dL (< 100)
[2023-12-15 13:02] LABS: Cholesterol 117 mg/dL (< 200); HDL Cholesterol 37 mg/dL (40-59)
[2023-12-15 16:38] LABS: Hematocrit 23.2 % (41.0-53.0); Hemoglobin 7.6 g/dL (13.5-17.5)
[2023-12-15] MEDS: MAGNESIUM SULFATE 1GM/100ML 100 ML IV SCH (17:18)
[2023-12-15] MEDS: MORPHINE SULFATE INJ 2 MG/ml SYRG IV PRN (19:36)
[2023-12-15] MEDS: SUCRALFATE 1 GM/10 ML ORAL SUSP PO SCH (19:49)
[2023-12-15] MEDS: levETIRAcetam 500 mg/100ml 100 ML IV SCH (23:00)
[2023-12-16] VITALS (11 sets, daily range): BP systolic 114–157; BP diastolic 66–86; PULSE 49–96; RESP 11–24; TEMP 98–98.8; O2SAT 94–100
[2023-12-16 06:30] LABS: Basophils # (auto) 0 10 ^3/uL (0-0.2); Eosinophils # (auto) 0.1 10 ^3/uL (0-0.8); Lymphocytes # (auto) 0.7 10 ^3/uL (0.4-5.4); Monocytes # (auto) 0.3 10 ^3/uL (0-1.3); Neutrophils # (auto) 0.8 10 ^3/uL (1.6-8.6)
[2023-12-16 06:33] LABS: Basophils % (auto) 1.2 % (0.0-2.0); Eosinophils % (auto) 2.8 % (0.0-7.0); Hematocrit 22.1 % (41.0-53.0); Hemoglobin 7.4 g/dL (13.5-17.5); Lymphocytes % (auto) 37.9 % (10.0-50.0); Mean Corpuscular Hemoglobin 27.3 pg (28.0-32.0); Mean Corpuscular Hgb Conc. 33.5 g/dL (32.0-36.0); Mean Corpuscular Volume 81.5 fL (80.0-100.0); Monocytes % (auto) 17.5 % (0.0-12.0); Neutrophils % (auto) 40.6 % (37.0-80.0); Nucleated Red Blood Cells % 0.1 %; Platelet Count (auto) 44 10^3/uL (140-450); Red Blood Cells 2.72 10^6/uL (4.5-5.90)
[2023-12-16 06:44] LABS: Alanine Aminotransferase 33 U/L (7-40); Albumin 2.9 g/dL (3.2-4.8); Alkaline Phosphatase 104 U/L (46-116); Anion Gap 7 (5-15); Aspartate Aminotransferase 75 U/L (13-40); BUN/Creatinine Ratio 13.2 (10.0-20.0); Blood Urea Nitrogen 7 mg/dL (9-23); Calcium 7.9 mg/dL (8.7-10.4); Carbon Dioxide 21 mmol/L (20-30); Chloride 107 mmol/L (98-107); Glucose 88 mg/dL (74-106); Magnesium 1.5 mg/dL (1.6-2.6); Potassium 3.7 mmol/L (3.5-5.1); Sodium 135 mmol/L (136-145)
[2023-12-16 06:45] LABS: Bilirubin, Total 3.7 mg/dL (0.2-1.0); Total Protein 5.6 g/dL (5.7-8.2)
[2023-12-16 07:44] LABS: Red Cell Distribution Width 24.2 % (11.8-14.3); White Blood Cell 1.9 10^3/uL (4.4-10.8)
[2023-12-16] MEDS ORDERED: SODIUM CHLORIDE LOCK 10 ML ONE (10:56)
[2023-12-16] MEDS: LIDOCAINE VISCOUS 2% 15ML UD ONE (13:19)
[2023-12-16] MEDS: fentaNYL CITRATE 100 MCG/2 ML VL ONE (13:20)
[2023-12-16] MEDS: MIDAZOLAM HCL 5 MG/ML-1ML VIAL ONE (13:20)
[2023-12-16] MEDS: diphenhdrAMINE HCL 50 MG/1 ML VL ONE (13:20)
[2023-12-16] MEDS: MAGNESIUM SULFATE 1GM/100ML 100 ML IV SCH (15:20)
[2023-12-16] MEDS: SUCRALFATE 1 GM/10 ML ORAL SUSP GT SCH (17:26)
[2023-12-16] MEDS: PANTOPRAZOLE 40 MG/10 ML VIAL INJ IV SCH (21:44)
[2023-12-17] VITALS (8 sets, daily range): BP systolic 121–130; BP diastolic 58–74; PULSE 55–74; RESP 16–19; TEMP 98.1–99.2; O2SAT 96–98
[2023-12-17 07:05] LABS: Alanine Aminotransferase 37 U/L (7-40); Alkaline Phosphatase 112 U/L (46-116); Anion Gap 7 (5-15); BUN/Creatinine Ratio 11.1 (10.0-20.0); Blood Urea Nitrogen 6 mg/dL (9-23); Calcium 8.4 mg/dL (8.7-10.4); Carbon Dioxide 21 mmol/L (20-30); Chloride 109 mmol/L (98-107); Glucose 91 mg/dL (74-106); Magnesium 1.5 mg/dL (1.6-2.6); Potassium 3.9 mmol/L (3.5-5.1); Sodium 137 mmol/L (136-145)
[2023-12-17 07:06] LABS: Albumin 3.1 g/dL (3.2-4.8); Aspartate Aminotransferase 68 U/L (13-40)
[2023-12-17 07:07] LABS: Basophils # (auto) 0 10 ^3/uL (0-0.2); Bilirubin, Total 3.7 mg/dL (0.2-1.0); Eosinophils # (auto) 0.1 10 ^3/uL (0-0.8); Lymphocytes # (auto) 0.8 10 ^3/uL (0.4-5.4); Monocytes # (auto) 0.4 10 ^3/uL (0-1.3); Platelet Count (auto) 55 10^3/uL (140-450); Total Protein 5.8 g/dL (5.7-8.2); White Blood Cell 2.5 10^3/uL (4.4-10.8)
[2023-12-17 07:11] LABS: Basophils % (auto) 0.8 % (0.0-2.0); Eosinophils % (auto) 2.6 % (0.0-7.0); Hematocrit 23.8 % (41.0-53.0); Hemoglobin 7.9 g/dL (13.5-17.5); Lymphocytes % (auto) 30.6 % (10.0-50.0); Mean Corpuscular Hemoglobin 27.5 pg (28.0-32.0); Mean Corpuscular Hgb Conc. 33.2 g/dL (32.0-36.0); Mean Corpuscular Volume 82.9 fL (80.0-100.0); Monocytes % (auto) 15.5 % (0.0-12.0); Neutrophils # (auto) 1.3 10 ^3/uL (1.6-8.6); Neutrophils % (auto) 50.5 % (37.0-80.0); Nucleated Red Blood Cells % 0.2 %; Red Blood Cells 2.87 10^6/uL (4.5-5.90)
[2023-12-17 07:15] LABS: Red Cell Distribution Width 24.1 % (11.8-14.3)
[2023-12-17] MEDS: PANTOPRAZOLE 40 MG TAB PO SCH (17:15)
[2023-12-17] MEDS: levETIRAcetam 500 MG TAB PO SCH (22:32)
[2023-12-17] MEDS: SUCRALFATE 1 GM/10 ML ORAL SUSP PO SCH (22:32)
[2023-12-17] MEDS: MAGNESIUM OXIDE 400 MG TAB PO SCH (22:32)
[2023-12-18 01:16] VITALS: BP 109/57; PULSE 72; RESP 18; TEMP 98.6; O2SAT 95
[2023-12-18 05:00] VITALS: BP 111/61; PULSE 68; RESP 18; TEMP 98.7; O2SAT 93
[2023-12-18 07:04] LABS: Alkaline Phosphatase 116 U/L (46-116); Anion Gap 8 (5-15); Calcium 8.8 mg/dL (8.7-10.4); Carbon Dioxide 20 mmol/L (20-30); Chloride 109 mmol/L (98-107); Glucose 85 mg/dL (74-106); Magnesium 1.3 mg/dL (1.6-2.6); Potassium 3.6 mmol/L (3.5-5.1); Sodium 137 mmol/L (136-145)
[2023-12-18 07:05] LABS: Albumin 3.1 g/dL (3.2-4.8); BUN/Creatinine Ratio 9.3 (10.0-20.0); Blood Urea Nitrogen < 5 mg/dL (9-23)
[2023-12-18 07:06] LABS: Bilirubin, Total 3.5 mg/dL (0.2-1.0); Total Protein 5.9 g/dL (5.7-8.2)
[2023-12-18 07:32] LABS: Alanine Aminotransferase 34 U/L (7-40); Aspartate Aminotransferase 52 U/L (13-40)
[2023-12-18 07:37] LABS: Hematocrit 23.8 % (41.0-53.0); Hemoglobin 8.2 g/dL (13.5-17.5); Mean Corpuscular Hemoglobin 28.4 pg (28.0-32.0); Mean Corpuscular Hgb Conc. 34.4 g/dL (32.0-36.0); Mean Corpuscular Volume 82.5 fL (80.0-100.0); Red Blood Cells 2.88 10^6/uL (4.5-5.90)
[2023-12-18 07:41] LABS: Platelet Count (auto) 60 10^3/uL (140-450)
[2023-12-18 07:48] LABS: Band Neutrophils % (manual) 0; Basophils % (manual) 0 (0.0-2.0); Blast Cells 0; Metamyelocytes % 0; Myelocytes % 0; Promyelocytes % 0; Reactive Lymphocytes 0; Red Cell Distribution Width 25.1 % (11.8-14.3)
[2023-12-18 08:00] VITALS: PULSE 66; RESP 18; O2SAT 97
[2023-12-18 09:00] VITALS: BP 113/58; PULSE 66; RESP 16; TEMP 98.1; O2SAT 97
[2023-12-18] MEDS: THIAMINE HCL 100 MG TAB PO SCH (09:35)
[2023-12-18] MEDS: MAGNESIUM SULFATE 1GM/100ML 100 ML IV SCH (09:35)
[2023-12-18] MEDS: MULTIPLE VITAMIN TAB PO SCH (09:35)
[2023-12-18] MEDS: FOLIC ACID 1 MG TAB PO SCH (09:35)
[2023-12-18 09:40] LABS: Eosinophils % (manual) 1 (0-7); Lymphocytes % (manual) 31 (10.0-50.0); Monocytes % (manual) 17 (0-12)
[2023-12-18 09:41] LABS: Anisocytosis Moderate; Platelet Estimate Decreased
[2023-12-18 13:00] VITALS: BP 108/54; PULSE 69; RESP 16; TEMP 98.5; O2SAT 98
[2023-12-18] MEDS ORDERED: THIA100T10 PO (14:24)
[2023-12-18] MEDS ORDERED: PANT40TA2 PO (14:24)
[2023-12-18] MEDS ORDERED: FOLI-119 PO (14:24)
[2023-12-18] MEDS ORDERED: MULTTAB99 PO (14:24)
[2023-12-18] MEDS ORDERED: SUCR1TAB31 OR (14:24)
[2023-12-18] MEDS ORDERED: MAGN400T27 PO (14:28)
[2023-12-18] MEDS ORDERED: KEP500T PO (14:28)
[2023-12-18] MEDS ORDERED: LEVO25TA6 PO (14:28)
[2023-12-18 14:29] VITALS: BP 113/61; PULSE 66; RESP 16; TEMP 98.1; O2SAT 97
== END 2023-12-18 15:05 | disposition home or self-care (01) | DRG 242 ==
LOC: ER 14:26 → EDBD 14:26 → OVERFLOW 21:29 → EAST 12-14 11:48
PROVIDERS: ADMIT Nurse Practitioner; ATTEND Internal Medicine Geriatric Medicine
PROC: 30233N1 Transfusion of Nonautologous Red Blood Cells into Peripheral Vein, Percutaneous Approach (ICD-10-PCS; 2023-12-15)
PROC: 0DB68ZX Excision of Stomach, Via Natural or Artificial Opening Endoscopic, Diagnostic (ICD-10-PCS; 2023-12-16)
PROC: 0DB98ZX Excision of Duodenum, Via Natural or Artificial Opening Endoscopic, Diagnostic (ICD-10-PCS; principal; 2023-12-16 13:16)
DX: K22.11 Ulcer of esophagus with bleeding (principal); K76.82 Hepatic encephalopathy; K76.6 Portal hypertension; D62 Acute posthemorrhagic anemia; K25.4 Chronic or unspecified gastric ulcer with hemorrhage; K70.9 Alcoholic liver disease, unspecified; G40.909 Epilepsy, unspecified, not intractable, without status epilepticus; K26.4 Chronic or unspecified duodenal ulcer with hemorrhage; E03.9 Hypothyroidism, unspecified; F10.229 Alcohol dependence with intoxication, unspecified; F10.239 Alcohol dependence with withdrawal, unspecified; K31.9 Disease of stomach and duodenum, unspecified; K44.9 Diaphragmatic hernia without obstruction or gangrene; K74.60 Unspecified cirrhosis of liver; F17.210 Nicotine dependence, cigarettes, uncomplicated; Z79.899 Other long term (current) drug therapy; Z91.199 Patient's noncompliance with other medical treatment and regimen due to unspecified reason; Y90.8 Blood alcohol level of 240 mg/100 ml or more
CPT/HCPCS: 36415; 43239; 80048; 80053; 80061; 80320; 82140; 83690; 83735; 83880; 84443; 85007; 85014; 85018; 85025; 85027; 85610; 85730; 86850; 86900; 86901; 86920; 87081; 93005; 96361; 96365; 96375; 99291; G0378; J2250; J2405; J2470

== ENCOUNTER 2023-12-22 13:23 | Emergency (ER) | payer MEDICAID ==
[~2023-12-22] VITALS: Ht 185.4 cm; Wt 100.0 kg
[~2023-12-22 13:23] MED LIST changes: +FOLI-119 PO; +GABA-1250 PO; +KEP500T PO; +LEVO25TA6 PO; +MAGN400T27 PO; +MULTTAB99 PO; +PANT40T PO; +PANT40TA2 PO; +SUCR1TAB31 OR; +THIA100T10 PO
[2023-12-22] MEDS: SODIUM CHLORIDE 0.9% 1,000 ML IV ONE (14:30)
[2023-12-22] MEDS: ONDANSETRON HCL 4 MG/2 ML VIAL IV ONE (14:30)
[2023-12-22] MEDS: FAMOTIDINE (10MG/ML) 2ML VL IV ONE (14:30)
[2023-12-22 15:07] LABS: Basophils # (auto) 0.1 10 ^3/uL (0-0.2); Eosinophils # (auto) 0 10 ^3/uL (0-0.8); Hemoglobin 8.5 g/dL (13.5-17.5); Lymphocytes # (auto) 1.8 10 ^3/uL (0.4-5.4); Monocytes # (auto) 0.7 10 ^3/uL (0-1.3)
[2023-12-22 15:09] LABS: Basophils % (auto) 1.8 % (0.0-2.0); Eosinophils % (auto) 0.7 % (0.0-7.0); Hematocrit 25.5 % (41.0-53.0); Lymphocytes % (auto) 37.8 % (10.0-50.0); Mean Corpuscular Hemoglobin 27.2 pg (28.0-32.0); Mean Corpuscular Hgb Conc. 33.5 g/dL (32.0-36.0); Mean Corpuscular Volume 81.3 fL (80.0-100.0); Neutrophils % (auto) 43.7 % (37.0-80.0); Nucleated Red Blood Cells % 0.1 %; Platelet Count (auto) 110 10^3/uL (140-450); Red Blood Cells 3.14 10^6/uL (4.5-5.90); White Blood Cell 4.7 10^3/uL (4.4-10.8)
[2023-12-22 15:15] LABS: Red Cell Distribution Width 24.9 % (11.8-14.3)
[2023-12-22 15:27] LABS: Alanine Aminotransferase 37 U/L (7-40); Albumin 3.7 g/dL (3.2-4.8); Alkaline Phosphatase 127 U/L (46-116); Anion Gap 12 (5-15); Aspartate Aminotransferase 69 U/L (13-40); BUN/Creatinine Ratio 19.1 (10.0-20.0); Bilirubin, Total 2.2 mg/dL (0.2-1.0); Blood Alcohol 286.5 mg/dL (<10); Blood Urea Nitrogen 9 mg/dL (9-23); Calcium 8.5 mg/dL (8.7-10.4); Carbon Dioxide 20 mmol/L (20-30); Chloride 113 mmol/L (98-107); Glucose 106 mg/dL (74-106); Potassium 3.7 mmol/L (3.5-5.1); Sodium 145 mmol/L (136-145); Total Protein 6.9 g/dL (5.7-8.2)
[2023-12-22 18:10] VITALS: BP 147/82; PULSE 77; RESP 18; TEMP 98; O2SAT 97
== END 2023-12-22 18:11 | disposition home or self-care (01) ==
LOC: ER 13:23 → EDBD 13:23 → EDUNIT# 13:23 → ER 18:11
DX: F10.129 Alcohol abuse with intoxication, unspecified (principal); F17.210 Nicotine dependence, cigarettes, uncomplicated; R56.9 Unspecified convulsions; E03.9 Hypothyroidism, unspecified; W19.XXXA Unspecified fall, initial encounter
CPT/HCPCS: 36415; 70450; 71046; 80053; 80320; 84484; 85025

== ENCOUNTER 2024-02-24 03:01 | Inpatient (IN) | payer MEDICAID ==
[~2024-02-24] VITALS: Ht 198.1 cm; Wt 132.4 kg
--- NOTE | 2024-02-24 04:47 | ED.PDOC ---
History of Present Illness HPI Comments A 44 year old male presents to the ED with a chief complaint of bilateral leg swelling onset 1 week. Patient states he was discharged from [facility] ([facility] about 1 week ago and shortly after began experiencing swelling. Patient has a past medical history of CHF, liver cirrhosis, GI bleed, seizure. He noticed swelling has worsen making it difficult to walk. No other symptoms or modifying factors present at this time. Chief Complaint: Lower Extremity Time Seen by MD: 04:37 Primary Care Provider: HOLLI Mckeon Notes: Medications, Allergies Allergies: Coded Allergies: NO KNOWN ALLERGIES (Unverified , 01/02/13) Home Meds Active Scripts Magnesium Oxide (Mgo) 400 Mg Tab, 400 MG PO DAILY for 10 Days, #10 TAB Prov:LATESHA SAMANO MD 12/18/23 Levothyroxine Sodium (Levothyroxine Sodium) 25 Mcg Tab, 25 MCG PO QAM@0600 for 30 Days, #30 TAB Prov:LATESHA SAMANO MD 12/18/23 Levetiracetam (KEPPRA TABLET) 500 Mg Tb, 500 MG PO BID for 30 Days, #60 TAB Prov:LATESHA SAMANO MD 12/18/23 Pantoprazole Sodium Sesquihydr (Protonix) 40 Mg Tab, 40 MG PO DAILY, #30 TAB Prov:LATESHA SAMANO MD 12/18/23 Folic Acid (Folic Acid) 1 Mg Tab, 1 MG PO DAILY for 30 Days, #30 TAB Prov:LATESHA SAMANO MD 12/18/23 Multiple Vitamin (Mvi Tab) 1 Tab Tb, 1 TAB PO DAILY for 30 Days, #30 TAB Prov:LATESHA ASMANO MD 12/18/23 Sucralfate (CARAFATE) 1 Gm Tab, 1 GM OR QIDACHS for 30 Days, #120 TAB Prov:LATESHA SAMANO MD 12/18/23 Thiamine Hcl (VITAMIN B-1) 100 Mg Tb, 100 MG PO DAILY for 30 Days, #30 TAB Prov:LATESHA SAMANO MD 12/18/23 Hydroxyzine HCl (Hydroxyzine Hydrochloride) 25 Mg Tab, 25 MG PO Q8HP PRN for 30 Days, #90 TAB Prov:RITA WEBB NP 10/06/23 Sertraline Hcl (Zoloft) 25 Mg Tab, 1 TAB PO DAILY, #30 TAB 2 Refills Prov:RITA WEBB NP 10/06/23 Lactulose (Lactulose) 10 Gm Jorge, 10 GM PO BID for 30 Days, #10 PACK Prov:RITA WEBB NP 10/06/23 Chlordiazepoxide Hcl (Ni-1) (I (Librium) 10 Mg Cap, 10 MG PO BID for 5 Days, #10 CAP Prov:WON LAZAR MD 06/04/23 Cyclobenzaprine Hcl (Cyclobenzaprine Hcl) 5 Mg Tab, 1 TAB PO TID PRN, #30 TAB Prov:LOC MAHER 05/26/22 Reported Medications Gabapentin (Gabapentin) 300 Mg Cap, 1 CAP PO TID 12/14/23 Pantoprazole Sodium Sesquihydr (Pantoprazole Sodium) 40 Mg Tab, 1 TAB PO BID 12/14/23 Disulfiram (DISULFIRAM) 250 Mg Tab, 250 MG PO BID, TAB 10/24/21 Information Source: Patient Mode of Arrival: Ambulatory Severity: Moderate Timing: Weeks Duration: Since onset Prehospital treatment: None Past Medical History PAST MEDICAL HISTORY: CHF, Liver, Seizures, Thyroid Surgical History: Denies all surgeries Family History Family History: Reviewed,noncontributory to illness Social History Smoker: Cigarettes Alcohol: Heavy Drugs: Denies Drug Use Lives In: Home Constitutional: denies: chills, diaphoresis, fatigue, fever, malaise, sweats, weakness, others EENTM: denies: blurred vision, double vision, ear bleeding, ear discharge, ear drainage, ear pain, ear ringing, eye pain, eye redness, hearing loss, mouth pain, mouth swelling, nasal discharge, nose bleeding, nose congestion, nose pain, photophobia, tearing, throat pain, throat swelling, voice changes, others Respiratory: denies: cough, hemoptysis, orthopnea, SOB at rest, shortness of breath, SOB with excertion, stridor, wheezing, others Cardiovascular: denies: chest pain, dizzy spells, diaphoresis, Dyspnea on exertion, edema, irregular heart beat, left arm pain, lightheadedness, palpitations, PND, syncope, others Gastrointestinal: denies: abdomen distended, abdominal pain, blood streaked bowels, constipated, diarrhea, dysphagia, difficulty swallowing, hematemesis, melena, nausea, poor appetite, poor fluid intake, rectal bleeding, rectal pain, vomiting, others Genitourinary: denies: burning, dysuria, flank pain, frequency, hematuria, incontinence, penile discharge, penile sore, pain, testicle pain, testicle swelling, urgency, others Neurological: denies: dizziness, fainting, headache, left sided numbness, left sided weakness, numbness, paresthesia, pre-existing deficit, right sided numbness, right sided weakness, seizure, speech problems, tingling, tremors, weakness, others Musculoskeletal: reports: others (bilateral leg swelling); denies: back pain, gout, joint pain, joint swelling, muscle pain, muscle stiffness, neck pain Integumetry: denies: bruises, change in color, change in hair/nails, dryness, laceration, lesions, lumps, rash, wounds, others Allergic/Immunocompromised: denies: Difficulty Healing, Frequent Infections, Hives, Itching, others Hematologic/Lymphatic: denies: anemia, blood clots, easy bleeding, easy bruising, swollen glands, others Endocrine: denies: excessive hunger, excessive sweating, excessive thirst, excessive urination, flushing, intolerance to cold, intolerance to heat, unexplained weight gain, unexplained weight loss, others Psychiatric: denies: anxiety, bipolar disorder, depression, hopeless, panic disorder, schizophrenia, sleepless, suicidal, others All Other Systems: Reviewed and Negative Physical Exam General Appearance: Moderate Distress, Normal HEENT: Normal ENT Inspection, Pharynx Normal, Scleral Icterus (L) (Bilateral), Scleral Icterus (R), TMs Normal Neck: Full Range of Motion, Non-Tender, Normal, Normal Inspection Respiratory: Chest Non-Tender, Lungs Clear, No Accessory Muscle Use, No Respiratory Distress, Normal Breath Sounds Cardiovascular: No Edema, No JVD, No Murmur, No Gallop, Normal Peripheral Pulses, Regular Rate/Rhythm Breast Exam: Deferred Gastrointestinal: Diffuse, Distended (Positive fluid wave with anasarca), No Organomegaly, Non Tender, No Pulsatile Mass, Normal Bowel Sounds, Soft Genitalia: Deferred Pelvic: Deferred Rectal: Deferred Extremities: No calf tenderness, Normal capillary refill, Normal inspection, Normal range of motion, Non-tender, No pedal edema Musculoskeletal : Apperance: Normal Neurologic: Alert, 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 Was a procedure done?: No EKG EKG : [place]: Normal Cardiac Rhythm: NSR Hypertrophy: RVH Differential Dx Considerations may include: Cirrhosis malignancy electrolyte imbalance congestive heart failure X-Ray, Labs, Meds, VS Vital Signs Date Time Temp Pulse Resp B/P (MAP) Pulse Ox O2 Delivery O2 Flow Rate FiO2 02/24/24 05:27 98.4 85 18 127/69 (88) 98.4 02/24/24 05:27 89 17 97 Room Air* 0 21 02/24/24 05:12 84 02/24/24 03:16 99.1 105 16 138/78 (98) 96 Lab Test 02/24/24 05:04 Range/Units White Blood Count 6.1 4.4-10.8 10^3/uL Red Blood Count 2.99 L 4.5-5.90 10^6/uL Hemoglobin 8.2 L 13.5-17.5 g/dL Hematocrit 25.4 L 41.0-53.0 % Mean Corpuscular Volume 85.1 80.0-100.0 fL Mean Corpuscular Hemoglobin 27.4 L 28.0-32.0 pg Mean Corpuscular Hemoglobin Concent 32.2 32.0-36.0 g/dL Red Cell Distribution Width 26.5 H 11.8-14.3 % Platelet Count 146 140-450 10^3/uL Mean Platelet Volume 8.2 6.9-10.8 fL Neutrophils (%) (Auto) 70.8 37.0-80.0 % Lymphocytes (%) (Auto) 16.0 10.0-50.0 % Monocytes (%) (Auto) 9.7 0.0-12.0 % Eosinophils (%) (Auto) 1.3 0.0-7.0 % Basophils (%) (Auto) 2.2 H 0.0-2.0 % Neutrophils # (Auto) 4.3 1.6-8.6 10 ^3/uL Lymphocytes # (Auto) 1.0 0.4-5.4 10 ^3/uL Monocytes # (Auto) 0.6 0-1.3 10 ^3/uL Eosinophils # (Auto) 0.1 0-0.8 10 ^3/uL Basophils # (Auto) 0.1 0-0.2 10 ^3/uL Nucleated Red Blood Cells 0.0 % Platelet Estimate Pending Lactic Acid Level Pending Ammonia Pending Troponin I High Sensitivity Pending Plasma/Serum Blood Alcohol < 3.0 <10 mg/dL [address] [address] Ph: [phone] DIAGNOSTIC IMAGING Diagnostic Imaging Report : [id number] Signed PATIENT: JIMBO EDOUARD ACCT: [id number] UNIT: [id number] : 1980 LOC: ER ROOM / BED: / AGE / SEX: 44 / M ADM STATUS: REG ER SERVICE 8 ORDERING PHYSICIAN: YOLANDA ANTONIO MD PROCEDURE(s): CXRP - CHEST PORTABLE REASON: leg swelling ORDER NUMBER(s): [id number], ACCESSION NUMBER(s): [id number] CHEST RADIOGRAPH Indication: leg swelling Technique: Single frontal view of the chest was obtained COMPARISON: XY CHEST XRAY 1 VIEW on DOS: 05/26/22, CXRP on DOS: 08/25/21, CHEST PORTABLE on DOS: 08/25/21 FINDINGS: Lines and Tubes: None Lungs: Right lower lobe airspace disease. Pleura: No effusion. No pneumothorax. Cardiomediastinal contours: Unremarkable Bones: Unremarkable IMPRESSION: Right lower lobe airspace disease ATED BY: ZACHERY RODRIGUEZ MD DICTATED DATE/TIME: 02/24/24527 SIGNED BY: ZACHERY RODRIGUEZ MD SIGNED DATE/TIME: 02/24/24527 CC: [address] [address] Ph: [phone] DIAGNOSTIC IMAGING Diagnostic Imaging Report : [id number] Signed PATIENT: JIMBO EDOUARD ACCT: [id number] UNIT: [id number] : 1980 LOC: ER ROOM / BED: / AGE / SEX: 44 / M ADM STATUS: REG ER SERVICE 0449 ORDERING PHYSICIAN: YOLANDA ANOTNIO MD PROCEDURE(s): CXRP - CHEST PORTABLE REASON: leg swelling ORDER NUMBER(s): [id number], ACCESSION NUMBER(s): [id number] CHEST RADIOGRAPH Indication: leg swelling Technique: Single frontal view of the chest was obtained COMPARISON: XY CHEST XRAY 1 VIEW on DOS: 05/26/22, CXRP on DOS: 08/25/21, CHEST PORTABLE on DOS: 08/25/21 FINDINGS: Lines and Tubes: None Lungs: Right lower lobe airspace disease. Pleura: No effusion. No pneumothorax. Cardiomediastinal contours: Unremarkable Bones: Unremarkable IMPRESSION: Right lower lobe airspace disease ATED BY: ZACHERY RODRIGUEZ MD DICTATED DATE/TIME: 02/24/24527 SIGNED BY: ZACHERY RODRIGUEZ MD SIGNED DATE/TIME: 02/24/24527 CC: Hemoglobin is 8.2. Alcohol level is less than three. The patient was placed on Zosyn for right lower lobe airspace disease. He was diuresed with 80 mg of Lasix IV. Labs are pending. The patient will be admitted to the hospitalist for further evaluation and care. Time of 1ST Reevaluation: 05:07 Reevaluation 1ST: Unchanged Patient Education/Counseling: Diagnosis, Treatment, Prognosis Family Education/Counseling: Diagnosis, Treatment, Prognosis Departure 1 Departure Time of Disposition: 05:51 Impression: Primary Impression: Alcoholic liver disease Additional Impressions: Ascites Qualified Codes: K70.31 - Alcoholic cirrhosis of liver with ascites Anasarca Peripheral edema Disposition: ADMITTED INPATIENT Admit to: Tele Condition: Guarded Critical Care Note Critical Care Time?: Yes (55 min-critical care time only) Stability Stability form required: No I personally scribed for YOLANDA ANTONIO MD ([email or web address]) on 02/24/24 at 04:47. Electronically submitted by Janet Clemons ([email or web address]). I personally scribed for YOLANDA ANTONIO MD ([email or web address]) on 02/24/24 at 05:17. Electronically submitted by Janet Clemons ([email or web address]). I personally scribed for YOLANDA ANTONIO MD ([email or web address]) on 02/24/24 at 05:43. Electronically submitted by Janet Clemons ([email or web address]). YOLANDA ANTONIO MD Feb 24, 2024 04:47
--- NOTE | 2024-02-24 05:15 | ECG ---
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
[2024-02-24 05:16] LABS: Eosinophils # (auto) 0.1 10 ^3/uL (0-0.8); Hemoglobin 8.2 g/dL (13.5-17.5); Monocytes # (auto) 0.6 10 ^3/uL (0-1.3); White Blood Cell 6.1 10^3/uL (4.4-10.8)
[2024-02-24 05:17] LABS: Basophils # (auto) 0.1 10 ^3/uL (0-0.2); Basophils % (auto) 2.2 % (0.0-2.0); Eosinophils % (auto) 1.3 % (0.0-7.0); Hematocrit 25.4 % (41.0-53.0); Mean Corpuscular Hemoglobin 27.4 pg (28.0-32.0); Mean Corpuscular Hgb Conc. 32.2 g/dL (32.0-36.0); Mean Corpuscular Volume 85.1 fL (80.0-100.0); Monocytes % (auto) 9.7 % (0.0-12.0); Neutrophils # (auto) 4.3 10 ^3/uL (1.6-8.6); Neutrophils % (auto) 70.8 % (37.0-80.0); Platelet Count (auto) 146 10^3/uL (140-450); Red Blood Cells 2.99 10^6/uL (4.5-5.90)
[2024-02-24 05:27] VITALS: PULSE 89; RESP 17; O2SAT 97
--- NOTE | 2024-02-24 05:29 | DVH ---
Exam: CT CT AB PEL WO CON-NO ORAL OR IV History: ascites Comparison Study: None available at time of dictation. Technique: Multidetector spiral CT of the abdomen and pelvis was performed from lung bases to pubic s ymphysis. Imaging was performed without intravenous contrast. Coronal and sagittal multiplanar refor mats were obtained from the axial data set by the technologist. Radiation Dose : 1. Abdomen/Pelvis: CTDIvol 24.7 mGy, DLP 1351.4 mGy*cm. Findings: Evaluation of vasculature and solid organs is limited due to lack of intravenous contrast use. Lung Bases: Patchy right middle lobe opacities. Visualized portions of the heart and pericardium are unremarkable. Liver: The liver is small in size with a nodular contour consistent with cirrhosis. Gallbladder and Biliary Tree: Gallstones. No biliary ductal dilatation. Spleen: Measures 15.3 cm Pancreas: The pancreas is grossly unremarkable. Adrenal Glands: Unremarkable Kidneys: Kidneys are unremarkable without calculi or hydronephrosis. GI tract: The stomach is grossly normal in appearance. No evidence of small bowel wall thickening or abnormal dilatation to suggest bowel obstruction. The colon is unremarkable. The appendix is not vi sualized, however no inflammatory changes in the right lower quadrant to suggest acute appendicitis. Peritoneum/mesentery/retroperitoneum. No evidence of free intraperitoneal air. Moderate abdominopelvi c ascites. No suspicious lymphadenopathy. Abdominal Wall: Diffuse soft tissue edema. Vasculature: The visualized abdominal aorta is normal in size and caliber. Evaluation of abdominal a nd pelvic vessels is limited due to lack of intravenous contrast. Multiple portosystemic collaterals noted. Urinary Bladder: Grossly unremarkable for degree of distention. Pelvic Organs: Unremarkable Musculoskeletal: No aggressive focal bony lesions, acute fractures or dislocation. There is anterior wedge compression deformity of the L1 and L2 vertebral bodies. IMPRESSION: 1. Cirrhosis and sequelae of portal hypertension. 2. Moderate abdominopelvic ascites. 3. Body wall anasarca. 4. Cholelithiasis.
[2024-02-24 05:31] LABS: Red Cell Distribution Width 26.5 % (11.8-14.3)
--- NOTE | 2024-02-24 05:32 | DVH ---
CHEST RADIOGRAPH Indication: leg swelling Technique: Single frontal view of the chest was obtained COMPARISON: XY CHEST XRAY 1 VIEW on DOS: 05/26/22, CXRP on DOS: 08/25/21, CHEST PORTABLE on DOS: 2 FINDINGS: Lines and Tubes: None Lungs: Right lower lobe airspace disease. Pleura: No effusion. No pneumothorax. Cardiomediastinal contours: Unremarkable Bones: Unremarkable IMPRESSION: Right lower lobe airspace disease
[2024-02-24] MEDS: FUROSEMIDE 100 MG/10ML VIAL IV ONE (06:01)
[2024-02-24 06:27] LABS: Anisocytosis Moderate; Platelet Estimate Adequate
[2024-02-24 06:28] LABS: Large Platelets FEW; Stomatocytes Few; Target Cell FEW
[2024-02-24] MEDS: AZITHROMYCIN 500MG/ 250ML 250 ML IV ONE (06:30)
[2024-02-24 06:32] VITALS: TEMP 98.1
[2024-02-24 06:52] LABS: Urine Bacteria None Seen /hpf (None Seen)
[2024-02-24 06:58] LABS: Urine Blood Negative /uL (Negative); Urine Clarity Clear (Clear); Urine Color Colorless (Yellow); Urine Protein, UAD Negative (Negative); Urine Specific Gravity 1.005 (1.001-1.035); Urine Urobilinogen Normal (Negative); Urine WBC <1 /hpf (0 - 3); Urine pH 6.5 (5.0-9.0)
[2024-02-24 07:12] LABS: Amphetamine Screen, Urine Neg (NEGATIVE)
[2024-02-24 07:13] LABS: Barbiturate Scree,Urine Neg (NEGATIVE); Benzodiazephine Screen, Urine Neg (NEGATIVE); Cannabinoid Screen, Urine Neg (NEGATIVE); Cocaine Screen, Urine Neg (NEGATIVE); Opiate Scree,Urine Neg (NEGATIVE); Phencyclidine Screen, Urine Neg (NEGATIVE)
[2024-02-24] MEDS ORDERED: LORazepam 0.5 MG TAB PO PRN (08:45)
[2024-02-24] MEDS ORDERED: HYDROcodone-ACET 5/325MG TAB PO PRN (08:45)
[2024-02-24] MEDS ORDERED: NITROGLYCERIN 0.4 MG SL TAB SL PRN (08:45)
[2024-02-24] MEDS ORDERED: ONDANSETRON HCL 4 MG/2 ML VIAL IV PRN (08:45)
[2024-02-24] MEDS ORDERED: TEMAZEPAM 15 MG CAP PO PRN (08:45)
[2024-02-24] MEDS ORDERED: ACETAMINOPHEN 325 MG TAB PO PRN (08:45)
[2024-02-24] MEDS ORDERED: MORPHINE SULFATE INJ 2 MG/ml SYRG IV PRN ×2 (08:45)
[2024-02-24] MEDS ORDERED: MAALOX PLUS or MAALOX 30 ML PO PRN (08:45)
[2024-02-24] MEDS ORDERED: DOCUSATE SOD 100 MG CAP PO PRN (08:45)
--- NOTE | 2024-02-24 08:53 | DVHHP2 ---
History of Present Illness Reason for Visit: leg swelling History of Present Illness 44-year-old obese patient with a past medical history of CHF liver disease seizures and thyroid disorders comes to the ED with complaints of stating that he has been having severe bilateral leg swelling patient is diagnosed with a history of liver cirrhosis unknown with stage also states that due to the cirrhosis he has had multiple episodes GI bleeding usually upper GI bleeding patient as of now has complaints of continued weakness difficulty managing the swelling and fluid management patient states he was recently at another hospital therefore about a week and then discharged about a week ago after which patient had continuing worsening affect came here for evaluation ED recommended the patient be admitted for further evaluation and treatment Cardiovascular: CHF, HTN Hepatobiliary: Cirrhosis Review of Systems Constitutional: Yes: Weakness; No: Fever, Chills, Sweats, Malaise, Other Eyes: No: Pain, Vision change, Conjunctivae inflammation, Eyelid inflammation, Other, Redness ENT: No: Ear pain, Ear discharge, Nose pain, Nose discharge, Nose congestion, Mouth pain, Mouth swelling, Throat pain, Throat swelling, Other Respiratory: Cough, Shortness of breath; No: Dry, SOB with excertion, Wheezing, Hemoptysis, Pleuritic Pain, Sputum, Wheezing, Other Cardiovascular: No: Chest Pain, Palpitations, Orthopnea, Paroxysmal Noc. Dyspnea, Edema, Lt Headedness, Other Gastrointestinal: No: Nausea, Vomiting, Abdominal Pain, Diarrhea, Constipation, Melena, Hematochezia, Other Genitourinary: No Dysuria, No Frequency, No Incontinence, No Hematuria, No Retention, No Other Musculoskeletal: leg pain; No: other, neck pain, shoulder pain, arm pain, back pain, hand pain, foot pain Skin: No: Rash, Lesions, Jaundice, Bruising, Other Neurological: No: Weakness, Numbness, Incoordination, Change in speech, Confusion, Seizures, Other Allergies: Coded Allergies: NO KNOWN ALLERGIES (Unverified , 01/02/13) Exam Vital Signs Vital Signs Date Time Temp Pulse Resp B/P (MAP) Pulse Ox O2 Delivery O2 Flow Rate FiO2 02/24/24 07:25 Room Air* 0 21 02/24/24 07:15 80 13 108/54 (72) 100 02/24/24 06:32 98.1 98.1 General Appearance: Alert, Oriented X3, mild distress HEENT: Atraumatic, PERRLA, EOMI Respiratory: Clear to auscultation, Normal air movement Cardiovascular: Regular rate, Normal S1, Normal S2 Abdominal: Normal bowel sounds, Soft, No tenderness Extremities: No clubbing (2+ edema ), No cyanosis Skin: No rashes Neuro: Normal gait, Normal speech Psych/Mental Status: Mental status NL, Mood NL Labs/Xrays Labs Test 02/24/24 07:55 02/24/24 06:51 02/24/24 05:04 Range/Units Troponin I High Sensitivity 52 </=54 ng/L Urine Color Colorless Yellow Urine Clarity Clear Clear Urine pH 6.5 5.0-9.0 Urine Specific [place] 1.005 1.001-1.035 Urine Protein Negative Negative Urine Ketones Negative Negative Urine Blood Negative Negative /uL Urine Nitrite Negative Negative Urine Bilirubin Negative Negative Urine Urobilinogen Normal Negative mg/dL Urine Leukocyte Esterase Negative Negative /uL Urine RBC None seen 0 - 3 /hpf Urine WBC <1 0 - 3 /hpf Urine Squamous Epithelial Cells None seen <5 /hpf Urine Bacteria None seen None Seen /hpf Urine Glucose Normal Normal mg/dL Urine Opiates Screen Neg NEGATIVE Urine Fentanyl Screen Neg NEGATIVE Urine Barbiturates Screen Neg NEGATIVE Urine Phencyclidine Screen Neg NEGATIVE Urine Amphetamines Screen Neg NEGATIVE Urine Benzodiazepines Screen Neg NEGATIVE Urine Cocaine Screen Neg NEGATIVE Urine Cannabinoids Screen Neg NEGATIVE White Blood Count 6.1 4.4-10.8 10^3/uL Red Blood Count 2.99 L 4.5-5.90 10^6/uL Hemoglobin 8.2 L 13.5-17.5 g/dL Hematocrit 25.4 L 41.0-53.0 % Mean Corpuscular Volume 85.1 80.0-100.0 fL Mean Corpuscular Hemoglobin 27.4 L 28.0-32.0 pg Mean Corpuscular Hemoglobin Concent 32.2 32.0-36.0 g/dL Red Cell Distribution Width 26.5 H 11.8-14.3 % Platelet Count 146 140-450 10^3/uL Mean Platelet Volume 8.2 6.9-10.8 fL Neutrophils (%) (Auto) 70.8 37.0-80.0 % Lymphocytes (%) (Auto) 16.0 10.0-50.0 % Monocytes (%) (Auto) 9.7 0.0-12.0 % Eosinophils (%) (Auto) 1.3 0.0-7.0 % Basophils (%) (Auto) 2.2 H 0.0-2.0 % Neutrophils # (Auto) 4.3 1.6-8.6 10 ^3/uL Lymphocytes # (Auto) 1.0 0.4-5.4 10 ^3/uL Monocytes # (Auto) 0.6 0-1.3 10 ^3/uL Eosinophils # (Auto) 0.1 0-0.8 10 ^3/uL Basophils # (Auto) 0.1 0-0.2 10 ^3/uL Nucleated Red Blood Cells 0.0 % Platelet Estimate Adequate Large Platelets Few Poikilocytosis (manual) Slight Anisocytosis (manual) Moderate Target Cells Few Stomatocytes Few Schistocytes Few Lactic Acid Level 1.5 0.4-2.0 mmol/L Ammonia 46 H 11-32 umol/L Plasma/Serum Blood Alcohol < 3.0 <10 mg/dL Assessment/Plan Assessment/Plan Admit to Tele Acute on chronic CHF exacerbation Continue with home medications Monitor for fluid signs of overload Patient takes diuretics at home We will increase the doses here Lasix b.i.d. IV Acute management of fluid balance Patient with elevated troponin in the setting of anemia and CHF expansion of the heart suspected this is demand ischemia unlikely to need Cardiology however Cardiology will be placed just in case Anticoagulation to be held just in case bleed due to anemia and H&H being below 9 History of liver cirrhosis due to alcohol use Patient with elevated ammonia Unsure if patient is compliant to taking medications We will restart patient's home medication of lactulose 10 g b.i.d. Patient with history of esophageal bleeding GI bleeding currently H&H show signs of anemia Monitor H&H and a daily basis patient not acutely bleeding at this point in time we will continue with medications at home including sucralfate And b.i.d. Protonix Patient also takes medications for basic management Continue with home medications including thiamine Hydroxyzine Librium Folic acid History of seizures we will continue with medications Keppra History of thyroid disorder we will continue with medication levothyroxine history of depression continue with medications Zoloft Plan discussed with: Patient My Orders Orders - FLORENTIN GALVEZ MD Procedure Category Date Status Time Gabapentin Capsule PHA 02/24/24 Transmitted (Neurontin Capsule) 14:00 Levetiracetam Tablet PHA 02/24/24 Transmitted (Keppra Tablet) 10:00 Levothyroxine Tablet PHA 02/25/24 Transmitted (Synthroid Tablet) 06:00 Multiple Vitamin PHA 02/24/24 Verified Tablet (Mvi Tab) 10:00 Pantoprazole Tablet PHA 02/24/24 Verified (Protonix Tablet) 10:00 Sucralfate Tab PHA 02/24/24 Verified (Carafate Tab) 11:30 Thiamine Tab PHA 02/24/24 Verified 10:00 (Nf) Chlordiazepoxide PHA 02/24/24 Verified Hcl (Ni-1) (I (Cecilia 10:00 (Nf) Cyclobenzaprine PHA 02/24/24 Verified Hcl 08:45 (Nf) Folic Acid PHA 02/24/24 Verified 10:00 (Nf) Hydroxyzine Hcl PHA 02/24/24 Verified (Hydroxyzine Hydroc 08:45 (Nf) Lactulose PHA 02/24/24 Verified 10:00 (Nf) Magnesium Oxide PHA 02/24/24 Verified (Mgo) 10:00 (Nf) Sertraline Hcl PHA 02/24/24 Verified (Zoloft) 10:00 Admit ADMIT 02/24/24 Verified 08:37 Code Status CODE 02/24/24 Verified 08:37 Vital Signs [facility] 02/24/24 Verified 08:37 Review Orders With [facility] 02/24/24 Verified Adm. 08:37 Consistent DIET 02/24/24 Verified Carb(Ccho)Diabetes Breakfast Lorazepam Tablet PHA 02/24/24 Verified (Ativan Tablet) 08:45 Alum & Mag PHA 02/24/24 Verified Hydrox-Simethicone 08:45 Docusate Sodium PHA 02/24/24 Verified Capsule (Colace 08:45 Acetaminophen Tablet PHA 02/24/24 Verified (Tylenol Tablet) 08:45 Temazepam (Restoril) PHA 02/24/24 Verified 08:45 Notify Of Changes [facility] 02/24/24 Verified From Base 08:37 Advance Directive [facility] 02/24/24 Verified 08:37 Basic Metabolic Panel LAB 02/25/24 Verified 04:00 Complete Blood Count LAB 02/25/24 Verified 04:00 Patient Condition ORDERS 02/24/24 Verified 08:37 Allergies BERT 02/24/24 Verified 08:37 Hydrocodone-Acet PHA 02/24/24 Verified 5/325mg Tab ([place] 08:45 Ondansetron Hcl [facility] 02/24/24 Verified (Zofran) 08:45 Morphine 2mg Iv Q4hprn [facility] 02/24/24 Verified 08:45 Nitroglycerin [facility] 02/24/24 Verified Sublingual (Ntrostat 08:45 Morphine Sulfate [facility] 02/24/24 Verified Injection 08:45 Stat Ekg For Chest [facility] 02/24/24 Verified Pain 08:37 Notify Md Of Changes [facility] 02/24/24 Verified From Base 08:37 Financial Wellness Coach For [facility] 02/24/24 Verified 24 Hours 08:37 Emergency Dysrhythmia [facility] 02/24/24 Verified Protocol 08:37 Rhythm Strips Once [facility] 02/24/24 Verified Every Shift 08:37 Oxygen By Nasal RT 02/24/24 Verified Cannula 08:37 * Cardiology Consult CONS 02/24/24 Verified 08:37 Problem List: (1) Acute on chronic combined systolic (congestive) and diastolic (congestive) heart failure (2) Seizure disorder (3) Ascites (4) Anasarca (5) Alcoholic liver disease (6) Anemia (7) Elevated liver enzymes (8) Musculoskeletal chest pain (9) Chest wall pain Date of Service: Feb 24, 2024 Billing Provider: FLORENTIN GALVEZ MD Common Visit Codes: 96232-AYNPWHG INP/OBS CARE (HIGH) FLORENTIN GALVEZ MD Feb 24, 2024 08:53
[2024-02-24] MEDS ORDERED: hydrOXYzine 25 MG TAB or CAP PO PRN (09:30)
[2024-02-24] MEDS ORDERED: CYCLOBENZAPRINE HCL 10 MG TAB PO PRN (09:30)
[2024-02-24] MEDS: levETIRAcetam 500 MG TAB PO SCH (10:31)
[2024-02-24] MEDS: MAGNESIUM OXIDE 400 MG TAB PO SCH (10:31)
[2024-02-24] MEDS: LACTULOSE 20Gm/30ML SOLN PO SCH (10:31)
[2024-02-24] MEDS: FOLIC ACID 1 MG TAB PO SCH (10:31)
[2024-02-24] MEDS: SERTRALINE HCL 50 MG TAB PO SCH (10:32)
[2024-02-24] MEDS: PANTOPRAZOLE 40 MG TAB PO SCH (10:32)
[2024-02-24] MEDS: THIAMINE HCL 100 MG TAB PO SCH (10:37)
[2024-02-24] MEDS: MULTIPLE VITAMIN TAB PO SCH (10:37)
[2024-02-24] MEDS: CHLORDIAZEPOXIDE HCL PO SCH (10:42)
[2024-02-24] MEDS: chlordiazePOXIDE HCL 5 MG CAP ONE (10:48)
[2024-02-24] MEDS: SUCRALFATE 1 GM TAB PO SCH (11:09)
[2024-02-24 14:00] VITALS: BP 135/78; PULSE 71; RESP 11; O2SAT 100
[2024-02-24] MEDS: GABAPENTIN 300 MG CAP PO SCH (14:00)
[2024-02-25] MEDS ORDERED: LEVOTHYROXINE SODIUM 25 MCG TAB PO SCH (06:00)
== END 2024-02-24 14:48 | disposition left against medical advice (07) | DRG 194 ==
LOC: ER 03:01 → OVERFLOW 08:37
PROVIDERS: ADMIT Hospitalist; ATTEND Hospitalist
DX: I11.0 Hypertensive heart disease with heart failure (principal); K70.31 Alcoholic cirrhosis of liver with ascites; I50.33 Acute on chronic diastolic (congestive) heart failure; I50.9 Heart failure, unspecified; E66.9 Obesity, unspecified; F17.210 Nicotine dependence, cigarettes, uncomplicated; F32.A Depression, unspecified; Z79.899 Other long term (current) drug therapy; Z68.33 Body mass index [BMI] 33.0-33.9, adult; R60.1 Generalized edema; R07.89 Other chest pain; G40.909 Epilepsy, unspecified, not intractable, without status epilepticus; D64.9 Anemia, unspecified
CPT/HCPCS: 36415; 71045; 74176; 80307; 80320; 81001; 82140; 83605; 84484; 85025; 93005; 99291; G0378

== ENCOUNTER 2024-08-10 13:11 | Emergency (ER) | payer MEDICAID ==
[~2024-08-10] VITALS: Ht 198.1 cm; Wt 90.9 kg
--- NOTE | 2024-08-10 13:25 | ED.PDOC ---
HPI (NEURO) HPI Comments 44 year old male ELIAS presents to the ED with chief complaint of seizures. EMS reports patient was witnessed by friend to have had a seizure today lasting around 1 minutes along with a previous one happening last night. EMS relays that the patient was post-ictal upon their arrival, but patient's mentation improved upon arrival to the ED. EMS states that the patient has history of seizures, but needs to cook pickled meat his Keppra as he has been out for a few days. Patient notes he also has some bilateral leg swelling. Patient denies any chest pain, SOB, head injury, dizziness, headache, N/V, or fever. Time Seen by MD: 13:21 Primary Care Provider: HOLLI Mckeon Notes: Nurses Notes, Collar Folder Operator Notes, Medications, Allergies Information Source: Patient, Emergency Med Personnel Mode of Arrival: EMS Severity: Moderate Timing: Hours Duration: Minutes Prehospital treatment: None Seizure Location: Generalized Onset: At rest Circumstances: Spontaneous Before: Normal During: LOC After: Confusion History of: Seizure Disorder Past Medical History PAST MEDICAL HISTORY: CHF, Liver, Seizures, Thyroid Surgical History: Denies all surgeries Family History Family History: Reviewed,noncontributory to illness Social History Smoker: Cigarettes Alcohol: Heavy Drugs: Denies Drug Use Lives In: Home Constitutional: denies: chills, diaphoresis, fatigue, fever, malaise, sweats, weakness, others EENTM: denies: blurred vision, double vision, ear bleeding, ear discharge, ear drainage, ear pain, ear ringing, eye pain, eye redness, hearing loss, mouth pain, mouth swelling, nasal discharge, nose bleeding, nose congestion, nose pain, photophobia, tearing, throat pain, throat swelling, voice changes, others Respiratory: denies: cough, hemoptysis, orthopnea, SOB at rest, shortness of breath, SOB with excertion, stridor, wheezing, others Cardiovascular: denies: chest pain, dizzy spells, diaphoresis, Dyspnea on exertion, edema, irregular heart beat, left arm pain, lightheadedness, palpitations, PND, syncope, others Gastrointestinal: denies: abdomen distended, abdominal pain, blood streaked bowels, constipated, diarrhea, dysphagia, difficulty swallowing, hematemesis, melena, nausea, poor appetite, poor fluid intake, rectal bleeding, rectal pain, vomiting, others Genitourinary: denies: burning, dysuria, flank pain, frequency, hematuria, incontinence, penile discharge, penile sore, pain, testicle pain, testicle swelling, urgency, others Neurological: reports: seizure; denies: dizziness, fainting, headache, left sided numbness, left sided weakness, numbness, paresthesia, pre-existing deficit, right sided numbness, right sided weakness, speech problems, tingling, tremors, weakness, others Musculoskeletal: reports: others (Bilateral leg swelling); denies: back pain, gout, joint pain, joint swelling, muscle pain, muscle stiffness, neck pain Integumetry: denies: bruises, change in color, change in hair/nails, dryness, laceration, lesions, lumps, rash, wounds, others Allergic/Immunocompromised: denies: Difficulty Healing, Frequent Infections, Hives, Itching, others Hematologic/Lymphatic: denies: anemia, blood clots, easy bleeding, easy bruising, swollen glands, others Endocrine: denies: excessive hunger, excessive sweating, excessive thirst, excessive urination, flushing, intolerance to cold, intolerance to heat, unexplained weight gain, unexplained weight loss, others Psychiatric: denies: anxiety, bipolar disorder, depression, hopeless, panic disorder, schizophrenia, sleepless, suicidal, others All Other Systems: Reviewed and Negative Physical Exam General Appearance: Moderate Distress, Normal HEENT: Normal ENT Inspection, Pharynx Normal, TMs Normal Neck: Full Range of Motion, Non-Tender, Normal, Normal Inspection Respiratory: Chest Non-Tender, Lungs Clear, No Accessory Muscle Use, No Respiratory Distress, Normal Breath Sounds Cardiovascular: No Edema, No JVD, No Murmur, No Gallop, Normal Peripheral Pulses, Regular Rate/Rhythm Breast Exam: Deferred Gastrointestinal: No Organomegaly, Non Tender, No Pulsatile Mass, Normal Bowel Sounds, Soft Genitalia: Deferred Pelvic: Deferred Rectal: Deferred Extremities: No calf tenderness, Normal capillary refill, Normal inspection, Normal range of motion, Non-tender, No pedal edema Musculoskeletal : Apperance: Normal Neurologic: worm packer II-XII nml as Tested, Disoriented (For about 15 minutes in the ER later became normal answering all questions), No Motor Deficits, Normal Affect, Normal Mood, No Sensory Deficits Cerebellar Function: NOT DONE Reflexes: NOT DONE Skin: Dry, Normal Color, Warm Peripheral Pulses: 3+ Radial (R), 3+ Radial (L) Lymphatic: No Adenopathy Was a procedure done? Was a procedure done?: No Differential Diagnosis (SZ) Seizure: Psychogenic Seizure, Closed Head Injury, CVA/TIA X-Ray, Labs, Meds, VS Vital Signs Date Time Temp Pulse Resp B/P (MAP) Pulse Ox O2 Delivery O2 Flow Rate FiO2 08/10/24 16:00 97.8 84 18 108/45 (66) 96 97.8 08/10/24 16:00 88 08/10/24 13:40 80 20 98 Room Air* 0 21 08/10/24 13:40 97.6 80 20 123/68 (86) 98 97.6 08/10/24 13:15 97.7 86 16 144/72 (96) 100 97.7 Lab Test 08/10/24 15:09 Range/Units White Blood Count 4.7 4.4-10.8 10^3/uL Red Blood Count 3.69 L 4.5-5.90 10^6/uL Hemoglobin 9.9 L 13.5-17.5 g/dL Hematocrit 29.7 L 41.0-53.0 % Mean Corpuscular Volume 80.5 80.0-100.0 fL Mean Corpuscular Hemoglobin 26.8 L 28.0-32.0 pg Mean Corpuscular Hemoglobin Concent 33.3 32.0-36.0 g/dL Red Cell Distribution Width 22.8 H 11.8-14.3 % Platelet Count 103 L 140-450 10^3/uL Mean Platelet Volume 7.5 6.9-10.8 fL Neutrophils (%) (Auto) 49.4 37.0-80.0 % Lymphocytes (%) (Auto) 36.8 10.0-50.0 % Monocytes (%) (Auto) 11.1 0.0-12.0 % Eosinophils (%) (Auto) 1.7 0.0-7.0 % Basophils (%) (Auto) 1.0 0.0-2.0 % Neutrophils # (Auto) 2.3 1.6-8.6 10 ^3/uL Lymphocytes # (Auto) 1.7 0.4-5.4 10 ^3/uL Monocytes # (Auto) 0.5 0-1.3 10 ^3/uL Eosinophils # (Auto) 0.1 0-0.8 10 ^3/uL Basophils # (Auto) 0 0-0.2 10 ^3/uL Nucleated Red Blood Cells 0.1 % Sodium Level 147 H 136-145 mmol/L Potassium Level 3.7 3.5-5.1 mmol/L Chloride Level 113 H 98-107 mmol/L Carbon Dioxide Level 22 20-31 mmol/L Anion Gap 12 5-15 Blood Urea Nitrogen 9 9-23 mg/dL Creatinine 0.64 L 0.700-1.30 mg/dL Glomerular Filtration Rate Calc 120 >90 mL/min BUN/Creatinine Ratio 14.1 10.0-20.0 Serum Glucose 109 H 74-106 mg/dL Calcium Level 8.9 8.7-10.4 mg/dL Current Medications Medications (Trade) Dose Ordered Sig/Johnnie Route Start Time Stop Time Status Last Admin Levetiracetam 100 ml @ 400 mls/hr ONCE ONCE IV 08/10/24 14:15 08/10/24 14:29 DC 08/10/24 14:17 Patient initially postictal. More alert as time went by. Vitals stable. No sign of distress. Answering questions. Was given Keppra. He is comfortable. No sign of any injury. Sodium is slightly elevated. Was told to drink plenty of fluids. CT of the head reviewed does not show any acute changes. WBC within normal limits. Saturation pristine on room air. Continue monitoring. Explained to the patient at 3:40 pm that everything is normal reviewed the labs imaging. Was told to follow up with his primary care physician. Was told to come back if there is any problem. Time of 1ST Reevaluation: 14:21 Reevaluation 1ST: Unchanged Time of 2ND Reevaluation: 15:38 Reevaluation 2ND: Improved Patient Education/Counseling: Diagnosis, Treatment Family Education/Counseling: No Family Present Additional Information The following tests were ordered, and results were reviewed by me: Additional Information was gathered from interviewing the following independent historians: I reviewed and agreed with the following test results read by other providers: I discussed treatment and results with medical personnel and: patient Comprehensive systems review obtained and negative except for what is stated in the HPI. Departure 1 Departure Time of Disposition: 15:41 Impression: Primary Impression: Metabolic encephalopathy Additional Impression: Seizure disorder Disposition: 01 HOME / SELF CARE / HOMELESS Condition: Good Discharged With: Self Comments Spoke to and examined patient at 1321, discussing treatment plan at this time. Critical Care Note Critical Care Time?: No Stability Stability form required: No Heart Score Heart Score: Heart Score Response (Comments) Value History N/A 0 EKG N/A 0 Age N/A 0 Risk Factors N/A 0 Troponin N/A 0 Total 0 I personally scribed for WILLIAMS BOYCE MD ([email or web address]) on 08/10/24 at 13:25. Electronically submitted by Shemar Siddiqui ([email or web address]). WILLIAMS BOYCE MD August 10, 2024 13:25
[2024-08-10 13:40] VITALS: PULSE 80; RESP 20; O2SAT 98
[2024-08-10] MEDS: levETIRAcetam 1000 mg/100ml 100 ML IV ONE (14:17)
[2024-08-10 15:18] LABS: Eosinophils # (auto) 0.1 10 ^3/uL (0-0.8); Hemoglobin 9.9 g/dL (13.5-17.5); Lymphocytes # (auto) 1.7 10 ^3/uL (0.4-5.4); Platelet Count (auto) 103 10^3/uL (140-450)
[2024-08-10 15:20] LABS: Basophils # (auto) 0 10 ^3/uL (0-0.2); Eosinophils % (auto) 1.7 % (0.0-7.0); Hematocrit 29.7 % (41.0-53.0); Lymphocytes % (auto) 36.8 % (10.0-50.0); Mean Corpuscular Hemoglobin 26.8 pg (28.0-32.0); Mean Corpuscular Hgb Conc. 33.3 g/dL (32.0-36.0); Mean Corpuscular Volume 80.5 fL (80.0-100.0); Monocytes # (auto) 0.5 10 ^3/uL (0-1.3); Monocytes % (auto) 11.1 % (0.0-12.0); Neutrophils # (auto) 2.3 10 ^3/uL (1.6-8.6); Neutrophils % (auto) 49.4 % (37.0-80.0); Nucleated Red Blood Cells % 0.1 %; Red Blood Cells 3.69 10^6/uL (4.5-5.90); White Blood Cell 4.7 10^3/uL (4.4-10.8)
[2024-08-10 15:21] LABS: Red Cell Distribution Width 22.8 % (11.8-14.3)
[2024-08-10 15:31] LABS: Anion Gap 12 (5-15); Carbon Dioxide 22 mmol/L (20-31); Potassium 3.7 mmol/L (3.5-5.1)
[2024-08-10 15:32] LABS: Calcium 8.9 mg/dL (8.7-10.4); Chloride 113 mmol/L (98-107); Sodium 147 mmol/L (136-145)
--- NOTE | 2024-08-10 15:32 | DVH ---
EXAM: CT HEAD WITHOUT CONTRAST INDICATION: S/P SEIZURE TECHNIQUE: CT of the head without intravenous contrast. Radiation Dose Information: CT Dose: CTDI volume is 59.67 mGy. Dose-length product is 1175.79 mGy*cm The dose indicators for CT are the volume Computed Tomography (CT) Dose Index (CTDIvol) and the Dose Length Product (DLP), and are measured in units of mGy and mGy-cm, respectively. These indicators are not patient dose, but values generated from the CT scanner acquisition factors. The report includes radiation exposure data for exposures received during this examination. COMPARISON: CT HEAD WITHOUT CONTRAST on DOS: 12/22/23, CT HEAD WITHOUT CONTRAST on DOS: 11/01/23, CT HEA D WITHOUT CONTRAST on DOS: 09/30/23 FINDINGS: There is no evidence of acute intracranial hemorrhage, extra-axial collection, mass effect, midline s hift, herniation or hydrocephalus. The ventricles, sulci and cisterns are age appropriate. The armstrong-white differentiation is intact. Patchy periventricular and subcortical white matter hypoattenuation is nonspecific but may be related to small vessel ischemic disease. The visualized paranasal sinuses and mastoid air cells are clear. The surrounding soft tissues and osseous structures are unremarkable. IMPRESSION: 1. No acute intracranial hemorrhage 2. No CT findings of territorial ischemia. 3. No CT findings of intracranial mass or mass effect 4. No significant change from 12/22/2023.
[2024-08-10 15:37] LABS: BUN/Creatinine Ratio 14.1 (10.0-20.0); Blood Urea Nitrogen 9 mg/dL (9-23)
[2024-08-10 15:38] LABS: Glucose 109 mg/dL (74-106)
[2024-08-10 16:00] VITALS: BP 108/45; PULSE 88; RESP 18; TEMP 97.8; O2SAT 96
== END 2024-08-10 17:00 | disposition home or self-care (01) ==
LOC: EDUNIT# 13:11 → EDBD 13:11 → ER 13:18
DX: G93.41 Metabolic encephalopathy (principal); G40.909 Epilepsy, unspecified, not intractable, without status epilepticus; I50.9 Heart failure, unspecified; F17.210 Nicotine dependence, cigarettes, uncomplicated
CPT/HCPCS: 36415; 70450; 80048; 85025; 96365; 99285; J1953

== ENCOUNTER 2024-10-03 12:35 | Inpatient (IN) | payer MEDICAID ==
[~2024-10-03] VITALS: Ht 180.3 cm; Wt 102.9 kg
[2024-10-03] MEDS: FUROSEMIDE 40 MG/4 ML VIAL IV ONE (13:00)
--- NOTE | 2024-10-03 13:04 | ED.PDOC ---
Musculoskeletal HPI Comments 44 y.o male with PMHx of CHF, liver cirrhosis, and seizures, presents to the ED via EMS for a chief complaint of bilateral leg swelling associated with nausea and vomiting that started 3 days ago. Patient reports spontaneous onset of swelling which he has had in the past and was treated for at the hospital. Patient at this time denies any water pill use. Patient denies chest pain, SOB, fever, chills. Time Seen by MD: 12:57 Primary Care Provider: GARRETT Reviewed Notes: Nurses Notes, Livestock Laborer Notes, Medications, Allergies Allergies: Coded Allergies: NO KNOWN ALLERGIES (Unverified , 01/02/13) Home Meds Active Scripts Magnesium Oxide (Mgo) 400 Mg Tab, 400 MG PO DAILY for 10 Days, #10 TAB Prov:LATESHA SAMANO MD 12/18/23 Levothyroxine Sodium (Levothyroxine Sodium) 25 Mcg Tab, 25 MCG PO QAM@0600 for 30 Days, #30 TAB Prov:LATESHA SAMANO MD 12/18/23 Levetiracetam (KEPPRA TABLET) 500 Mg Tb, 500 MG PO BID for 30 Days, #60 TAB Prov:LATESHA SAMANO MD 12/18/23 Pantoprazole Sodium Sesquihydr (Protonix) 40 Mg Tab, 40 MG PO DAILY, #30 TAB Prov:LATESHA SAMANO MD 12/18/23 Folic Acid (Folic Acid) 1 Mg Tab, 1 MG PO DAILY for 30 Days, #30 TAB Prov:LATESHA SAMANO MD 12/18/23 Multiple Vitamin (Mvi Tab) 1 Tab Tb, 1 TAB PO DAILY for 30 Days, #30 TAB Prov:LATESHA SAMANO MD 12/18/23 Sucralfate (CARAFATE) 1 Gm Tab, 1 GM OR QIDACHS for 30 Days, #120 TAB Prov:LATESHA SAMANO MD 12/18/23 Thiamine Hcl (VITAMIN B-1) 100 Mg Tb, 100 MG PO DAILY for 30 Days, #30 TAB Prov:LATESHA SAMANO MD 12/18/23 Hydroxyzine HCl (Hydroxyzine Hydrochloride) 25 Mg Tab, 25 MG PO Q8HP PRN for 30 Days, #90 TAB Prov:RITA WEBB NP 10/06/23 Sertraline Hcl (Zoloft) 25 Mg Tab, 1 TAB PO DAILY, #30 TAB 2 Refills Prov:RITA WEBB NP 10/06/23 Lactulose (Lactulose) 10 Gm Jorge, 10 GM PO BID for 30 Days, #10 PACK Prov:RITA WEBB HYDRAMATIC MECHANIC 10/06/23 Chlordiazepoxide Hcl (Ni-1) (I (Librium) 10 Mg Cap, 10 MG PO BID for 5 Days, #10 CAP Prov:WON LAZAR MD 06/04/23 Cyclobenzaprine Hcl (Cyclobenzaprine Hcl) 5 Mg Tab, 1 TAB PO TID PRN, #30 TAB Prov:LOC MAHER 05/26/22 Reported Medications Gabapentin (Gabapentin) 300 Mg Cap, 1 CAP PO TID 12/14/23 Pantoprazole Sodium Sesquihydr (Pantoprazole Sodium) 40 Mg Tab, 1 TAB PO BID 12/14/23 Disulfiram (DISULFIRAM) 250 Mg Tab, 250 MG PO BID, TAB 10/24/21 Information Source: Patient, Emergency Med Personnel Mode of Arrival: EMS Location: Bilateral Extremity Location: Foot, Leg Severity: Moderate Able to Move Extremity: No Bear Weight: Limited Pain: Mild Mechanism: None Circumstances: Spontaneous Symptoms: Swelling DVT Risk Factors: CHF Associated signs and symptoms: Swelling Past Medical History PAST MEDICAL HISTORY: CHF, Liver, Seizures, Thyroid Surgical History: Denies all surgeries Family History Family History: Reviewed,noncontributory to illness Social History Smoker: Cigarettes Alcohol: Heavy Drugs: Denies Drug Use Lives In: Home Constitutional: denies: chills, diaphoresis, fatigue, fever, malaise, sweats, weakness, others EENTM: denies: blurred vision, double vision, ear bleeding, ear discharge, ear drainage, ear pain, ear ringing, eye pain, eye redness, hearing loss, mouth pain, mouth swelling, nasal discharge, nose bleeding, nose congestion, nose pain, photophobia, tearing, throat pain, throat swelling, voice changes, others Respiratory: denies: cough, hemoptysis, orthopnea, SOB at rest, shortness of breath, SOB with excertion, stridor, wheezing, others Cardiovascular: denies: chest pain, dizzy spells, diaphoresis, Dyspnea on exertion, edema, irregular heart beat, left arm pain, lightheadedness, palpitations, PND, syncope, others Gastrointestinal: reports: nausea, vomiting; denies: abdomen distended, abdominal pain, blood streaked bowels, constipated, diarrhea, dysphagia, difficulty swallowing, hematemesis, melena, poor appetite, poor fluid intake, rectal bleeding, rectal pain, others Genitourinary: denies: burning, dysuria, flank pain, frequency, hematuria, incontinence, penile discharge, penile sore, pain, testicle pain, testicle swelling, urgency, others Neurological: denies: dizziness, fainting, headache, left sided numbness, left sided weakness, numbness, paresthesia, pre-existing deficit, right sided numbness, right sided weakness, seizure, speech problems, tingling, tremors, weakness, others Musculoskeletal: reports: others (bilateral lower extremity swelling ); denies: back pain, gout, joint pain, joint swelling, muscle pain, muscle stiffness, neck pain Integumetry: denies: bruises, change in color, change in hair/nails, dryness, laceration, lesions, lumps, rash, wounds, others Allergic/Immunocompromised: denies: Difficulty Healing, Frequent Infections, Hives, Itching, others Hematologic/Lymphatic: denies: anemia, blood clots, easy bleeding, easy bruisin g, swollen glands, others Endocrine: denies: excessive hunger, excessive sweating, excessive thirst, excessive urination, flushing, intolerance to cold, intolerance to heat, unexplained weight gain, unexplained weight loss, others Psychiatric: denies: anxiety, bipolar disorder, depression, hopeless, panic disorder, schizophrenia, sleepless, suicidal, others All Other Systems: Reviewed and Negative Physical Exam General Appearance: Moderate Distress HEENT: Normal ENT Inspection, Pharynx Normal, TMs Normal Neck: Full Range of Motion, Non-Tender, Normal, Normal Inspection Respiratory: Chest Non-Tender, Lungs Clear, No Accessory Muscle Use, No Respiratory Distress, Normal Breath Sounds Cardiovascular: No Edema, No JVD, No Murmur, No Gallop, Normal Peripheral Pulses, Regular Rate/Rhythm Breast Exam: Deferred Gastrointestinal: No Organomegaly, Non Tender, No Pulsatile Mass, Normal Bowel Sounds, Soft Genitalia: Deferred Pelvic: Deferred Rectal: Deferred Extremities: No calf tenderness, Normal capillary refill, Normal inspection, Normal range of motion, Non-tender, No pedal edema Musculoskeletal : Apperance: Normal Neurologic: Alert, agricultural education teacher II-XII nml as Tested, No Motor Deficits, Normal Affect, Normal Mood, No Sensory Deficits Cerebellar Function: Normal Reflexes: Normal Skin: Dry, Normal Color, Warm Lymphatic: No Adenopathy Was a procedure done? Was a procedure done?: No Differential Diagnosis EXT Differential Diagnosis: Cellulitis, CHF, Deep Vein Thrombosis, Gout X-Ray, Labs, Meds, VS Vital Signs Date Time Temp Pulse Resp B/P (MAP) Pulse Ox O2 Delivery O2 Flow Rate FiO2 10/03/24 12:42 98.6 84 16 146/86 (106) 97 98.6 Lab Test 10/03/24 13:32 Range/Units White Blood Count Pending Red Blood Count Pending Hemoglobin Pending Hematocrit Pending Mean Corpuscular Volume Pending Mean Corpuscular Hemoglobin Pending Mean Corpuscular Hemoglobin Concent Pending Red Cell Distribution Width Pending Platelet Count Pending Mean Platelet Volume Pending Neutrophils (%) (Auto) Pending Lymphocytes (%) (Auto) Pending Monocytes (%) (Auto) Pending Basophils (%) (Auto) Pending Neutrophils # (Auto) Pending Lymphocytes # (Auto) Pending Monocytes # (Auto) Pending Prothrombin Time 13.3 H 9.3-11.8 sec Prothrombin Time INR 1.29 H 0.9-1.15 Activated Partial Thromboplast Time 32.2 24.5-34.5 SEC Sodium Level 136 136-145 mmol/L Potassium Level 4.2 3.5-5.1 mmol/L Chloride Level 108 H 98-107 mmol/L Carbon Dioxide Level 17 L 20-31 mmol/L Anion Gap 11 5-15 Blood Urea Nitrogen 9 9-23 mg/dL Creatinine 0.47 L 0.700-1.30 mg/dL Glomerular Filtration Rate Calc 132 >90 mL/min BUN/Creatinine Ratio 19.1 10.0-20.0 Serum Glucose 103 74-106 mg/dL Calcium Level 8.9 8.7-10.4 mg/dL Total Bilirubin 4.4 H 0.2-1.0 mg/dL Aspartate Amino Transferase (AST) 71 H 13-40 U/L Alanine Aminotransferase (ALT) 31 7-40 U/L Alkaline Phosphatase 110 46-116 U/L Ammonia 124 *H 11-32 umol/L Total Protein 6.8 5.7-8.2 g/dL Albumin 3.5 3.2-4.8 g/dL EXAM: XY CHEST TWO VIEWS ROUTINE IMPRESSION: 1. New small left pleural effusion, etiology unknown. 2. Chronic superior endplate compression fracture of T11. The patient's chemistry panel is within normal limits. The ammonia level is elevated at 124 The INR is 1.29 The patient's diagnosis acute hepatic encephalopathy Also bilateral leg edema Images Reviewed?: Images reviewed and evaluated by me Time of 1ST Reevaluation: 13:30 Reevaluation 1ST: Unchanged Patient Education/Counseling: Diagnosis, Treatment, Prognosis Family Education/Counseling: No Family Present Departure 1 Departure Time of Disposition: 14:35 Impression: Primary Impression: Bilateral leg edema Additional Impressions: Pleural effusion, left Hepatic encephalopathy Disposition: ADMITTED INPATIENT Admit to: [facility] Condition: Fair Critical Care Note Critical Care Time?: Yes (45 min-critical care time only) Stability Stability form required: Yes Unstable for transfer: Telemetry monitoring (Telemetry monitoring required), ED Physician Assesment (Clinical assesment) I personally scribed for WON LAZAR MD ([email or web address]) on 10/03/24 at 13:04. Electronically submitted by Carrie Castro ([facility]). I personally scribed for WON LAZAR MD ([email or web address]) on 10/03/24 at 14:01. Electronically submitted by Carrie Castro ([facility]). WON LAZAR MD Oct 03, 2024 13:04
--- NOTE | 2024-10-03 13:55 | DVH ---
EXAM: XY CHEST TWO VIEWS ROUTINE HISTORY: weakness COMPARISON: XY CHEST TWO VIEWS ROUTINE on DOS: 12/22/23, CT scan of the abdomen and pelvis dated 02/23. TECHNIQUE: Frontal and lateral views of the chest were performed. FINDINGS: There is a new small left pleural effusion. The right lung is clear. No pneumothorax or pulmonary bashir ma. The heart is not enlarged. There is a chronic mild superior endplate compression fracture of T 11. IMPRESSION: 1. New small left pleural effusion, etiology unknown. 2. Chronic superior endplate compression fracture of T11.
[2024-10-03 14:19] LABS: Alanine Aminotransferase 31 U/L (7-40); Alkaline Phosphatase 110 U/L (46-116); Calcium 8.9 mg/dL (8.7-10.4); Glucose 103 mg/dL (74-106); Potassium 4.2 mmol/L (3.5-5.1)
[2024-10-03 14:20] LABS: Albumin 3.5 g/dL (3.2-4.8); Anion Gap 11 (5-15); BUN/Creatinine Ratio 19.1 (10.0-20.0); Bilirubin, Total 4.4 mg/dL (0.2-1.0); Blood Urea Nitrogen 9 mg/dL (9-23); Carbon Dioxide 17 mmol/L (20-31); Chloride 108 mmol/L (98-107); INR 1.29 (0.9-1.15); Partial Thromboplastin Time 32.2 SEC (24.5-34.5); Prothrombin Time 13.3 sec (9.3-11.8); Sodium 136 mmol/L (136-145); Total Protein 6.8 g/dL (5.7-8.2)
[2024-10-03 15:58] LABS: Mean Corpuscular Volume 66.6 fL (80.0-100.0)
[2024-10-03 16:03] LABS: Hematocrit 20.9 % (41.0-53.0); Mean Corpuscular Hemoglobin 20.7 pg (28.0-32.0)
[2024-10-03 16:07] LABS: Hemoglobin 6.5 g/dL (13.5-17.5)
[2024-10-03 17:15] LABS: Total Cells Counted 100.0 (100)
[2024-10-03 17:16] LABS: Anisocytosis Slight
[2024-10-03 20:15] LABS: Total Iron Binding Capacity 363.0 ug/dL (250-425)
[2024-10-03 20:16] LABS: Iron 25.0 ug/dL (65-175)
[2024-10-04] VITALS (13 sets, daily range): BP systolic 115–161; BP diastolic 53–89; PULSE 64–76; RESP 16–19; TEMP 97.4–98.6; O2SAT 98–100
--- NOTE | 2024-10-04 04:18 | DVHHP2 ---
History of Present Illness Reason for Visit: Leg swelling History of Present Illness 44-year-old male presents for evaluation of leg swelling. Patient reports a two day history of noticing his lower extremities become swollen. Reports increased fatigue as well. Denies shortness or breath or chest pain. Denies any history of congestive heart failure. He does have a history of liver cirrhosis. Past Medical History Liver cirrhosis, seizures, thyroid disease Past Surgical History Denies Family History Noncontributory Smoke: <1 pack per day ALCOHOL: heavy Drugs: None Review of Systems Review of Systems Review of systems are currently negative otherwise addressed in HPI. Allergies: Coded Allergies: NO KNOWN ALLERGIES (Unverified , 01/02/13) Medications Current Medications Medications Dose Ordered Sig/Johnnie Route Start Time Stop Time Status Last Admin Dose Admin Lactulose 30 ml BID PO 10/03/24 22:00 Pantoprazole Sodium 40 mg DAILY@0600 PO 10/04/24 06:00 Levetiracetam 500 mg BID PO 10/03/24 22:00 Levothyroxine Sodium 25 mcg QAM@0600 PO 10/04/24 06:00 Gabapentin 300 mg TID PO 10/03/24 22:00 Furosemide 40 mg DAILY IV 10/04/24 10:00 UNV Exam Vital Signs Vital Signs Date Time Temp Pulse Resp B/P (MAP) Pulse Ox O2 Delivery O2 Flow Rate FiO2 10/04/24 02:24 98.3 74 16 144/77 (99) 100 98.3 Exam Gen: 44-year-old male in mild distress Skin: Warm, dry, jaundice, no rash. HEENT: Normocephalic atraumatic, mucous membranes moist and pink. Neck: Cervical and supraclavicular nodes normal without enlargement, trachea is midline, thyroid gland is normal without masses. Pulmonary: Clear to auscultation and percussion bilaterally. Cardiac: Regular rate and rhythm. No murmur Abdomen: Soft, nontender, nondistended, bowel sounds present all 4 quadrants, no guarding, no rigidity, no organomegaly. Extremities: No cyanosis, clubbing, plus two bilateral pedal edema Neuro: Cranial nerves II through XII grossly intact, normal affect and speech, no focal motor deficits. Labs/Xrays ORDERING PHYSICIAN: WON LAZAR MD PROCEDURE(s): CXR2 - CHEST TWO VIEWS ROUTINE REASON: weakness ORDER NUMBER(s): [id number], ACCESSION NUMBER(s): [id number] EXAM: XY CHEST TWO VIEWS ROUTINE HISTORY: weakness COMPARISON: XY CHEST TWO VIEWS ROUTINE on DOS: 12/22/23, CT scan of the abdomen and pelvis dated 02/24/2024. TECHNIQUE: Frontal and lateral views of the chest were performed. FINDINGS: There is a new small left pleural effusion. The right lung is clear. No pneumothorax or pulmonary edema. The heart is not enlarged. There is a chronic mild superior endplate compression fracture of T11. IMPRESSION: 1. New small left pleural effusion, etiology unknown. 2. Chronic superior endplate compression fracture of T11. Labs Test 10/03/24 15:35 10/03/24 13:32 Range/Units White Blood Count 3.4 L 4.4-10.8 10^3/uL Red Blood Count 3.14 L 4.5-5.90 10^6/uL Hemoglobin 6.5 *L 13.5-17.5 g/dL Hematocrit 20.9 L 41.0-53.0 % Mean Corpuscular Volume 66.6 L 80.0-100.0 fL Mean Corpuscular Hemoglobin 20.7 L 28.0-32.0 pg Mean Corpuscular Hemoglobin Concent 31.0 L 32.0-36.0 g/dL Red Cell Distribution Width 25.9 H 11.8-14.3 % Platelet Count 95 L 140-450 10^3/uL Mean Platelet Volume 8.2 6.9-10.8 fL Neutrophils (%) (Auto) 37.0-80.0 % Lymphocytes (%) (Auto) 10.0-50.0 % Monocytes (%) (Auto) 0.0-12.0 % Basophils (%) (Auto) 0.0-2.0 % Neutrophils # (Auto) 1.6-8.6 10 ^3/uL Lymphocytes # (Auto) 0.4-5.4 10 ^3/uL Monocytes # (Auto) 0-1.3 10 ^3/uL Differential Total Cells Counted 100.0 100 Neutrophils % (Manual) 76 37.0-80.0 Band Neutrophils % (Manual) 2 Lymphocytes % (Manual) 15 10.0-50.0 Monocytes % (Manual) 7 0-12 Eosinophils % (Manual) 0 0-7 Basophils % (Manual) 0 0.0-2.0 Metamyelocytes % (manual) 0 Myelocytes % (Manual) 0 Promyelocytes % (Manual) 0 Blast Cells % (Manual) 0 Reactive Lymphocytes 0 Platelet Estimate Decreased Hypochromasia (manual) Moderate Anisocytosis (manual) Slight Microcytosis Moderate Prothrombin Time 13.3 H 9.3-11.8 sec Prothrombin Time INR 1.29 H 0.9-1.15 Activated Partial Thromboplast Time 32.2 24.5-34.5 SEC Sodium Level 136 136-145 mmol/L Potassium Level 4.2 3.5-5.1 mmol/L Chloride Level 108 H 98-107 mmol/L Carbon Dioxide Level 17 L 20-31 mmol/L Anion Gap 11 5-15 Blood Urea Nitrogen 9 9-23 mg/dL Creatinine 0.47 L 0.700-1.30 mg/dL Glomerular Filtration Rate Calc 132 >90 mL/min BUN/Creatinine Ratio 19.1 10.0-20.0 Serum Glucose 103 74-106 mg/dL Calcium Level 8.9 8.7-10.4 mg/dL Iron Level 25 L 65-175 ug/dL Total Iron Binding Capacity 363 250-425 ug/dL Percent Iron Saturation 6.9 L 20-55 % Total Bilirubin 4.4 H 0.2-1.0 mg/dL Aspartate Amino Transferase (AST) 71 H 13-40 U/L Alanine Aminotransferase (ALT) 31 7-40 U/L Alkaline Phosphatase 110 46-116 U/L Ammonia 124 *H 11-32 umol/L Total Protein 6.8 5.7-8.2 g/dL Albumin 3.5 3.2-4.8 g/dL Assessment/Plan Assessment/Plan Assessment Symptomatic anemia Liver cirrhosis Hyperammonemia Hepatic encephalopathy Leg edema rule out heart failure Small pleural effusion Plan Admit the patient to [facility] to the hospitalist Transfuse 1 unit of packed red cells Lactulose Echocardiogram pending IV Lasix Continue treatment per orders. Plan discussed with: Patient My Orders Orders - CAITLYN VERDE AGACNP Procedure Category Date Status Time Admit ADMIT 10/03/24 Transmitted 19:15 Lactulose Oral PHA 10/03/24 In Process 22:00 Type And Screen BBK 10/03/24 In Process 19:51 Stool Occult Blood LAB 10/03/24 Logged 19:51 Pantoprazole Tablet PHA 10/04/24 In Process (Protonix Tablet) 06:00 Levetiracetam Tablet PHA 10/03/24 In Process (Keppra Tablet) 22:00 Levothyroxine Tablet PHA 10/04/24 In Process (Synthroid Tablet) 06:00 Gabapentin Capsule PHA 10/03/24 In Process (Neurontin Capsule) 22:00 Antibody BBK 10/03/24 In Process Identification 21:51 Furosemide Injection PHA 10/04/24 Logged (Lasix Injection) 10:00 Packedcell-Noactive BBK 10/04/24 Logged Bleeding 04:12 Date of Service: Oct 03, 2024 Billing Provider: CAITLYN VERDE Common Visit Codes: [id number] INP/OBS CARE (HIGH) CAITLYN VERDE Oct 04, 2024 04:18
[2024-10-04] MEDS ORDERED: PATIENTS OWN MEDICATION (Folic Acid 1 MG) PO SCH (10:00)
[2024-10-04 10:09] LABS: Nucleated Red Blood Cells % 0.1 %
[2024-10-04 10:11] LABS: Hematocrit 20.1 % (41.0-53.0); Mean Corpuscular Hemoglobin 20.7 pg (28.0-32.0); Mean Corpuscular Volume 66.2 fL (80.0-100.0)
[2024-10-04 10:19] LABS: Hemoglobin 6.3 g/dL (13.5-17.5)
[2024-10-04 10:25] LABS: Magnesium 1.7 mg/dL (1.6-2.6)
[2024-10-04] MEDS: SUCRALFATE 1 GM/10 ML ORAL SUSP GT SCH (10:53)
[2024-10-04] MEDS: THIAMINE HCL 100 MG TAB PO SCH (10:53)
[2024-10-04] MEDS: PANTOPRAZOLE 40 MG/10 ML VIAL INJ IV SCH ×2 (10:54→15:07)
[2024-10-04] MEDS: FOLIC ACID 1 MG TAB PO SCH (10:54)
[2024-10-04] MEDS: FUROSEMIDE 40 MG/4 ML VIAL IV SCH (10:55)
[2024-10-04] MEDS: LEVOTHYROXINE SODIUM 25 MCG TAB PO SCH (10:55)
[2024-10-04 11:02] LABS: Anisocytosis Moderate
[2024-10-04] MEDS: LACTULOSE 20Gm/30ML SOLN PO SCH ×2 (11:08→15:08)
[2024-10-04] MEDS: levETIRAcetam 500 MG TAB PO SCH (11:09)
[2024-10-04] MEDS: PANTOPRAZOLE 40 MG TAB PO SCH (11:09)
[2024-10-04] MEDS: GABAPENTIN 300 MG CAP PO SCH (11:10)
[2024-10-04 11:36] LABS: Alanine Aminotransferase 25 U/L (7-40); Albumin 3.7 g/dL (3.2-4.8); Alkaline Phosphatase 115 U/L (46-116); Anion Gap 8 (5-15); BUN/Creatinine Ratio 18.0 (10.0-20.0); Blood Urea Nitrogen 11 mg/dL (9-23); Calcium 9.1 mg/dL (8.7-10.4); Glucose 88 mg/dL (74-106); Potassium 3.7 mmol/L (3.5-5.1); Sodium 137 mmol/L (136-145); Total Protein 7.2 g/dL (5.7-8.2)
[2024-10-04 11:38] LABS: Bilirubin, Total 4.1 mg/dL (0.2-1.0); Carbon Dioxide 20 mmol/L (20-31); Chloride 109 mmol/L (98-107)
--- NOTE | 2024-10-04 11:49 | DVH ---
Bilateral lower extremity venous duplex Clinical History: dvt , edema Comparison: None Findings: Duplex Doppler evaluation of the deep venous systems of both lower extremities from the common femora l veins to the popliteal veins including color Doppler and spectral/pulsed waveform analysis was perf ormed. RIGHT SIDE: The common femoral vein demonstrates appropriate compressibility and waveform variability. There is compressibility/patency of the great saphenous vein at the proximal thigh. The femoral vein demonstrates appropriate compressibility and waveform variability. The deep femoral vein demonstrates appropriate compressibility and waveform variability. The popliteal vein demonstrates appropriate compressibility and waveform variability. There is normal compressibility at the tibioperoneal trunk. LEFT SIDE: The common femoral vein demonstrates appropriate compressibility and waveform variability. There is compressibility/patency of the great saphenous vein at the proximal thigh. The femoral vein demonstrates appropriate compressibility and waveform variability. The deep femoral vein demonstrates appropriate compressibility and waveform variability. The popliteal vein demonstrates appropriate compressibility and waveform variability. There is normal compressibility at the tibioperoneal trunk. IMPRESSION: No right or left femoropopliteal venous thrombosis. If clinical concern/symptoms persist or worsen, short-interval follow-up study is suggested. END IMPRESSION:
--- NOTE | 2024-10-04 14:34 | DVHPNRES ---
Progress Note Date Seen: Oct 04, 2024 Resident Creating Document: HUSSEIN VALADEZ RESIDENT Medical Necessity Reason Pt with a Central, PICC or Fol: No Subjective Review of Systems 44-year-old male presents for the evaluation of leg swelling since 30 of September. The patient reports history of loose to seeing his lower extremities becoming swollen. He reports feeling increased fatigue as well. He denies shortness of breath or chest pain. Patient reports he also has a history of liver cirrhosis. PMH: Liver cirrhosis, seizures, thyroid disease, chf PSH: Surgery for broken jaw 1.5 years ago due to seizures Family history: Reviewed and noncontributory Social history: Patient is homeless. He quit smoking 1 month ago. He used to smoke 1 pack per day before that for 4 years. Patient reports drinking 0.5 gal vodka per day before he was diagnosed of liver cirrhosis 3 years ago. Currently feces been awhile he has quit, but his last alcohol intake was 2 beers( 12 oz each on 30 of September). He denies any drug use. Home medication: The patient reports taking tramadol for his back pain he has been having since the past 2 months for broken ribs on the right side during a seizure event. He states he is homeless and has taken no other medication as he not been able to go collect them. ROS: Patient seen and reviewed by me in the bedside. Overnight events reviewed. Patient reports he feels tired since yesterday. He reports he still has the same amount of swelling in his legs. Rest of the ROS negative. Objective vital signs Vital Sign Date Time Temp Pulse Resp B/P (MAP) Pulse Ox O2 Delivery O2 Flow Rate FiO2 10/04/24 14:14 98.1 67 18 120/62 98.1 10/04/24 13:00 100 10/04/24 09:26 Room Air* 0 21 medications Current Medications Medications Dose Ordered Sig/Johnnie Route Start Time Stop Time Status Last Admin Dose Admin Levetiracetam 500 mg BID PO 10/03/24 22:00 10/04/24 11:36 500 MG Levothyroxine Sodium 25 mcg QAM@0600 PO 10/04/24 06:00 10/04/24 10:55 25 MCG Gabapentin 300 mg TID PO 10/03/24 22:00 Furosemide 40 mg DAILY IV 10/04/24 10:00 10/04/24 10:55 40 MG Thiamine HCl 100 mg DAILY PO 10/04/24 10:00 10/04/24 10:53 100 MG Patient Own Medication 1 mg DAILY PO 10/04/24 10:00 UNV Folic Acid 1 mg DAILY PO 10/04/24 10:00 10/04/24 10:54 1 MG Lactulose 30 ml QID PO 10/04/24 12:00 Pantoprazole Sodium 40 mg DAILY IV 10/04/24 12:00 Sucralfate 1 gm QIDACHS PO 10/04/24 17:00 Examination Physical examination: Patient is lying in bed General Appearance: Alert, Oriented X3, Cooperative, No acute distress HEENT: Atraumatic, PERRLA, EOMI, Mucous membrane dry, pallor Respiratory: Clear to auscultation, Normal air movement Cardiovascular: Regular rate, Normal S1, Normal S2, No murmurs, no chest wall tenderness Abdominal: Normal bowel sounds, Soft, No tenderness, No hepatospenomegaly, No masses Extremities: No clubbing, No cyanosis, 2+ edema, Normal pulses, Skin: No rashes, No breakdown, significant pedal Edema of b/l legs up to the knee, pitting, +2 Neuro: Normal gait, Normal speech, Strength at 5/5 X4 ext, Normal tone, Sensation intact, Cranial nerves 3-12 NL, Reflexes 2+ Psych/Mental Status: Mental status NL, Mood NL laboratory and microbiology Laboratory Tests 10/04/24 09:45 10/04/24 08:53 Test 10/04/24 08:53 Range/Units Serum Glucose 88 74-106 mg/dL Labs and/or images reviewed: Labs reviewed by me, Image(s) reviewed by me Problem List/Assessment/Plan Problem List/Assessment/Plan # ? Hepatic encephalopathy due to liver cirrhosis # pancytopenia likely from liver cirrhosis # transaminitis # hyperammonemia - Meld score 15 - maddreys discriminant score 14.7 - Elevated Ammonia - Lactulose 30 ml q.i.d. ordered - Monitor labs # Microcytic, hypochromic Anemia , symptomatic (hemoglobin 6.5) -Blood transfusion ordered -Iron panel -GI consultation done -stool occult blood -monitor H & H # ? acute versus chronic, systolic versus diastolic CHF # medication noncompliance - echocardiogram done - BNP mildly elevated GI prophylaxis: Protonix DVT prophylaxis:SCDs Diet: low-salt diet Goals of care discussed with the patient for more than 27 minutes: Full code status Case discussed with Dr. Pena, patient and nurse. Plan discussed with: Patient, Other (RN) Date of Service: Oct 04, 2024 Billing Provider: VERONICA PENA MD Common Visit Codes: [id number] INP/OBS CARE(HIGH) HUSSEIN VALADEZ RESIDENT Oct 04, 2024 14:34 CHELE GLEZ RESIDENT Oct 04, 2024 16:07 VERONICA PENA MD Oct 04, 2024 22:26
[2024-10-04] MEDS: MAGNESIUM SULFATE 1GM/100ML 100 ML IV ONE (15:27)
[2024-10-04] MEDS: SUCRALFATE 1 GM TAB PO SCH (17:09)
[2024-10-04 22:11] LABS: Hematocrit 19.9 % (41.0-53.0)
[2024-10-04 22:17] LABS: Hemoglobin 6.3 g/dL (13.5-17.5)
--- NOTE | 2024-10-04 22:36 | DVHINCON2 ---
Date of service: Oct 04, [address] Loera Reason for Consultation Anemia History of Present Illness 44-year-old male presents for evaluation of leg swelling. Patient reports a two day history of noticing his lower extremities become swollen. Reports increased fatigue as well. Denies shortness or breath or chest pain. Denies any history of congestive heart failure. He does have a history of liver cirrhosis. Patient has a long-term history of chronic heavy alcohol abuse and has failed rehab in the past His last hospitalization here was for a alcohol-related seizure disorder in November and at that time he had anemia and upper GI bleed Patient stated he did not come for alcoholic related problems this time. He has cut back on his alcohol but did drink three beers over the September 30 weekend. Patient noted increasing pedal edema and mild scleral icterus. He denies any recent aspirin or NSAID use. He has had two previous endoscopies the latest one documented below. He has never had a colonoscopy He denies any nausea vomiting no hematemesis no abdominal pain no bright red blood per rectum or melena Operative Report DATE OF OPERATION: 12/16/23 PROCEDURE: Upper Endoscopy with biopsy. PREOPERATIVE INDICATION: The patient is a 43 -year-old male undergoing endoscopy for upper GI bleed with anemia POSTOPERATIVE DIAGNOSES: 1. 1-2 cm sliding-type hiatal hernia with mild grade a erosive esophagitis 2. Multiple small to medium gastric antral and duodenal bulb ulcers with a lar diallo antral gastric ulcer with overlying eschar but no active bleeding or oozing or visible vessel 3. Mild portal hypertension gastropathy in the proximal stomach otherwise normal examination up to the 2nd and 3rd part of the duodenal There were no esophageal or gastric varices and no fresh or old blood in the stomach Past Medical History Past Medical History Liver cirrhosis, seizures, thyroid disease Past Surgical History Past Surgical History EGD Family History: Alcoholism G8 MOTHER G8 FATHER Family History Family History Noncontributory Social History Smoke: <1 pack per day ALCOHOL: heavy Drugs: None Allergies: Coded Allergies: NO KNOWN ALLERGIES (Unverified , 01/02/13) Home Meds Active Scripts Magnesium Oxide (Mgo) 400 Mg Tab, 400 MG PO DAILY for 10 Days, #10 TAB Prov:LATESHA SAMANO MD 12/18/23 Levothyroxine Sodium (Levothyroxine Sodium) 25 Mcg Tab, 25 MCG PO QAM@0600 for 30 Days, #30 TAB Prov:LATESHA SAMANO MD 12/18/23 Levetiracetam (KEPPRA TABLET) 500 Mg Tb, 500 MG PO BID for 30 Days, #60 TAB Prov:LATESHA SAMANO MD 12/18/23 Pantoprazole Sodium Sesquihydr (Protonix) 40 Mg Tab, 40 MG PO DAILY, #30 TAB Prov:LATESHA SAMANO MD 12/18/23 Folic Acid (Folic Acid) 1 Mg Tab, 1 MG PO DAILY for 30 Days, #30 TAB Prov:LATESHA SAMANO MD 12/18/23 Multiple Vitamin (Mvi Tab) 1 Tab Tb, 1 TAB PO DAILY for 30 Days, #30 TAB Prov:LATESHA SAMANO MD 12/18/23 Sucralfate (CARAFATE) 1 Gm Tab, 1 GM OR QIDACHS for 30 Days, #120 TAB Prov:LATESHA SAMANO MD 12/18/23 Thiamine Hcl (VITAMIN B-1) 100 Mg Tb, 100 MG PO DAILY for 30 Days, #30 TAB Prov:LATESHA SAMANO MD 12/18/23 Hydroxyzine HCl (Hydroxyzine Hydrochloride) 25 Mg Tab, 25 MG PO Q8HP PRN for 30 Days, #90 TAB Prov:RITA WEBB SYSTEM CONFIGURATION SPECIALIST 10/06/23 Sertraline Hcl (Zoloft) 25 Mg Tab, 1 TAB PO DAILY, #30 TAB 2 Refills Prov:RITA WEBB SYSTEM CONFIGURATION SPECIALIST 10/06/23 Lactulose (Lactulose) 10 Gm Jorge, 10 GM PO BID for 30 Days, #10 PACK Prov:RITA WEBB SYSTEM CONFIGURATION SPECIALIST 10/06/23 Chlordiazepoxide Hcl (Ni-1) (I (Librium) 10 Mg Cap, 10 MG PO BID for 5 Days, #10 CAP Prov:WON LAZAR MD 06/04/23 Cyclobenzaprine Hcl (Cyclobenzaprine Hcl) 5 Mg Tab, 1 TAB PO TID PRN, #30 TAB Prov:LOC MAHER 05/26/22 Reported Medications Gabapentin (Gabapentin) 300 Mg Cap, 1 CAP PO TID 12/14/23 Pantoprazole Sodium Sesquihydr (Pantoprazole Sodium) 40 Mg Tab, 1 TAB PO BID 12/14/23 Disulfiram (DISULFIRAM) 250 Mg Tab, 250 MG PO BID, TAB 10/24/21 Current Medications Current Medications Medications (Trade) Dose Ordered Sig/Johnnie Route PRN Reason Start Time Stop Time Status Last Admin Pantoprazole Sodium (Protonix Tablet) 40 mg DAILY@0600 PO 10/04/24 06:00 10/04/24 12:22 DC Levothyroxine Sodium (Synthroid Tablet) 25 mcg QAM@0600 PO 10/04/24 06:00 10/04/24 10:55 Furosemide (Lasix Injection) 40 mg DAILY IV 10/04/24 10:00 10/04/24 10:55 Pantoprazole Sodium (Protonix) 40 mg DAILY IV 10/04/24 10:00 10/04/24 12:23 DC 10/04/24 10:54 Sucralfate (Carafate Susp) 1 gm TID@0600,1130,2200 GT 10/04/24 11:30 10/04/24 12:23 DC 10/04/24 10:53 Thiamine HCl 100 mg DAILY PO 10/04/24 10:00 10/04/24 10:53 Patient Own Medication 1 mg DAILY PO 10/04/24 10:00 UNV Folic Acid 1 mg DAILY PO 10/04/24 10:00 10/04/24 10:54 Lactulose 30 ml QID PO 10/04/24 12:00 10/04/24 17:09 Pantoprazole Sodium (Protonix) 40 mg DAILY IV 10/04/24 12:00 10/04/24 15:07 Sucralfate (Carafate Tab) 1 gm QIDACHS PO 10/04/24 17:00 10/04/24 21:33 Vital Signs Vital Signs Date Time Temp Pulse Resp B/P (MAP) Pulse Ox O2 Delivery O2 Flow Rate FiO2 10/04/24 21:00 98.6 71 18 142/72 (95) 99 98.6 10/04/24 20:18 Room Air* 0 21 Physical Exam Gen: 44-year-old male in no distress; awake and alert HEENT: Normocephalic atraumatic, mucous membranes moist and pink. Pulmonary: Clear to auscultation and percussion bilaterally. Cardiac: Regular rate and rhythm. No murmur Abdomen: Soft, nontender, nondistended, bowel sounds present all 4 quadrants, no guarding, no rigidity, no organomegaly. Extremities: No cyanosis, clubbing, plus two bilateral pedal edema Neuro: Cranial nerves II through XII grossly intact, normal affect and speech, no focal motor deficits. Labs/Diagnostic Data Labs Test 10/04/24 21:38 10/04/24 19:40 10/04/24 09:46 10/04/24 09:45 Range/Units Hemoglobin 6.3 *L 13.5-17.5 g/dL Hematocrit 19.9 L 41.0-53.0 % Stool Occult Blood Negative Negative Stool Occult Blood Sample #3 Negative Lactic Acid Level 1.1 0.4-2.0 mmol/L Ammonia 71 H 11-32 umol/L White Blood Count 3.2 L 4.4-10.8 10^3/uL Red Blood Count 3.04 L 4.5-5.90 10^6/uL Mean Corpuscular Volume 66.2 L 80.0-100.0 fL Mean Corpuscular Hemoglobin 20.7 L 28.0-32.0 pg Mean Corpuscular Hemoglobin Concent 31.2 L 32.0-36.0 g/dL Red Cell Distribution Width 26.4 H 11.8-14.3 % Platelet Count 104 L 140-450 10^3/uL Mean Platelet Volume 8.1 6.9-10.8 fL Neutrophils (%) (Auto) 56.5 37.0-80.0 % Lymphocytes (%) (Auto) 26.7 10.0-50.0 % Monocytes (%) (Auto) 12.9 H 0.0-12.0 % Eosinophils (%) (Auto) 2.8 0.0-7.0 % Basophils (%) (Auto) 1.1 0.0-2.0 % Neutrophils # (Auto) 1.8 1.6-8.6 10 ^3/uL Lymphocytes # (Auto) 0.9 0.4-5.4 10 ^3/uL Monocytes # (Auto) 0.4 0-1.3 10 ^3/uL Eosinophils # (Auto) 0.1 0-0.8 10 ^3/uL Basophils # (Auto) 0 0-0.2 10 ^3/uL Nucleated Red Blood Cells 0.1 % Platelet Estimate Decreased Hypochromasia (manual) Marked Anisocytosis (manual) Moderate Microcytosis Marked Magnesium Level 1.7 1.6-2.6 mg/dL Vitamin B12 Level 1019 H 211-911 pg/mL Folic Acid 9.34 >5.38 ng/mL Plasma/Serum Blood Alcohol < 3.0 <10 mg/dL Test 10/04/24 08:57 10/04/24 08:53 10/04/24 04:56 10/03/24 15:35 Range/Units Thyroid Stimulating Hormone (TSH) 1.36 0.55-4.78 uIU/mL Sodium Level 137 136-145 mmol/L Potassium Level 3.7 3.5-5.1 mmol/L Chloride Level 109 H 98-107 mmol/L Carbon Dioxide Level 20 20-31 mmol/L Anion Gap 8 5-15 Blood Urea Nitrogen 11 9-23 mg/dL Creatinine 0.61 L 0.700-1.30 mg/dL Glomerular Filtration Rate Calc 122 >90 mL/min BUN/Creatinine Ratio 18.0 10.0-20.0 Serum Glucose 88 74-106 mg/dL Calcium Level 9.1 8.7-10.4 mg/dL Total Bilirubin 4.1 H 0.2-1.0 mg/dL Aspartate Amino Transferase (AST) 48 H 13-40 U/L Alanine Aminotransferase (ALT) 25 7-40 U/L Alkaline Phosphatase 115 46-116 U/L Total Protein 7.2 5.7-8.2 g/dL Albumin 3.7 3.2-4.8 g/dL B-Type Natriuretic Peptide 100.27 0-100 pg/mL Differential Total Cells Counted 100.0 100 Neutrophils % (Manual) 76 37.0-80.0 Band Neutrophils % (Manual) 2 Lymphocytes % (Manual) 15 10.0-50.0 Monocytes % (Manual) 7 0-12 Eosinophils % (Manual) 0 0-7 Basophils % (Manual) 0 0.0-2.0 Metamyelocytes % (manual) 0 Myelocytes % (Manual) 0 Promyelocytes % (Manual) 0 Blast Cells % (Manual) 0 Reactive Lymphocytes 0 Test 10/03/24 13:32 Range/Units Prothrombin Time 13.3 H 9.3-11.8 sec Prothrombin Time INR 1.29 H 0.9-1.15 Activated Partial Thromboplast Time 32.2 24.5-34.5 SEC Iron Level 25 L 65-175 ug/dL Total Iron Binding Capacity 363 250-425 ug/dL Percent Iron Saturation 6.9 L 20-55 % CXR IMPRESSION: 1. New small left pleural effusion, etiology unknown. 2. Chronic superior endplate compression fracture of T11. Problems(with codes): (1) Pleural effusion, left (2) Bilateral leg edema (3) Hepatic encephalopathy (4) Seizure disorder (5) Acute on chronic combined systolic (congestive) and diastolic (congestive) heart failure (6) Elevated liver enzymes (7) Anemia (8) Alcoholic liver disease Plan/Recommendation Plan Patient is being transfused 2 units PRBC Protonix 40 mg IV q.12 hours Carafate 1 g p.o. 4 times a day Lactulose 30 mL p.o. twice a day Monitor labs DC aspirin NSAIDs smoking alcohol MELD score is 15 points suggestive of good prognosis Maddrey discrimination function is 14.7 points also suggestive of good prognosis and patient does not need steroids Possible endoscopy on 10/05/2024 if the patient is stable and willing He also might need a colonoscopy for colon cancer screening once medically stabilized Plan discussed with: Patient MARLENE WILKERSON MD Oct 04, 2024 22:36
--- NOTE | 2024-10-04 23:40 | DVH ---
CLINICAL INFORMATION: 44 years old, Male; elevated liver tests. TECHNIQUE: Grayscale sonographic imaging of the right upper quadrant of the abdomen was performed, a ssisted by color Doppler techniques. COMPARISON: None FINDINGS: The gallbladder wall measures 1.7 mm in thickness, within normal limits. There is choleli thiasis.The common bile duct measures 5.6 mm in diameter, within normal limits. The liver demonstrates a nodular contour and increased echogenicity. There is hepatopetal flow. The pancreas is partly obscured, likely by bowel gas. The right kidney measures 12.07 cm. There is no hydronephrosis. Right renal cortical echogenicity and cortical thickness are within normal limits. IMPRESSION: 1. Cholelithiasis without sonographic evidence of acute cholecystitis. 2. Nodular hepatic contour raises the possibility of cirrhosis in the appropriate clinical setting. Increased hepatic echogenicity may reflect hepatic steatosis or intrinsic hepatocellular disease.
[2024-10-05] VITALS (15 sets, daily range): BP systolic 121–144; BP diastolic 59–83; PULSE 65–77; RESP 17–70; TEMP 97.4–99.5; O2SAT 95–100
[2024-10-05 03:51] LABS: Urine Amorphous Crystal FEW /hpf (None Seen); Urine Protein, UAD Negative (Negative)
[2024-10-05 04:03] LABS: Amphetamine Screen, Urine Neg (NEGATIVE); Barbiturate Scree,Urine Neg (NEGATIVE); Benzodiazephine Screen, Urine Neg (NEGATIVE); Cannabinoid Screen, Urine Neg (NEGATIVE); Cocaine Screen, Urine Neg (NEGATIVE); Opiate Scree,Urine Neg (NEGATIVE); Phencyclidine Screen, Urine Neg (NEGATIVE)
[2024-10-05 05:26] LABS: Hematocrit 21.5 % (41.0-53.0)
[2024-10-05 05:29] LABS: Mean Corpuscular Hemoglobin 22.1 pg (28.0-32.0); Mean Corpuscular Volume 68.8 fL (80.0-100.0); Nucleated Red Blood Cells % 0.0 %
[2024-10-05 05:37] LABS: Hemoglobin 6.9 g/dL (13.5-17.5)
[2024-10-05 05:43] LABS: Alanine Aminotransferase 23 U/L (7-40); Alkaline Phosphatase 97 U/L (46-116); Anion Gap 9 (5-15); BUN/Creatinine Ratio 12.3 (10.0-20.0); Carbon Dioxide 20 mmol/L (20-31); Glucose 80 mg/dL (74-106); Magnesium 1.7 mg/dL (1.6-2.6); Potassium 3.8 mmol/L (3.5-5.1); Sodium 138 mmol/L (136-145); Total Protein 5.9 g/dL (5.7-8.2)
[2024-10-05 05:44] LABS: Albumin 3.0 g/dL (3.2-4.8); Bilirubin, Total 5.6 mg/dL (0.2-1.0); Blood Urea Nitrogen 7 mg/dL (9-23); Calcium 8.0 mg/dL (8.7-10.4); Chloride 109 mmol/L (98-107)
[2024-10-05 06:32] LABS: Anisocytosis Moderate
[2024-10-05 06:33] LABS: Ovalocytes FEW
--- NOTE | 2024-10-05 09:22 | DVHPNRES ---
Progress Note Date Seen: Oct 05, 2024 Resident Creating Document: HUSSEIN VALADEZ RESIDENT Medical Necessity Reason Pt with a Central, PICC or Fol: No Subjective Review of Systems 44-year-old male presents for the evaluation of leg swelling since 30 of September. The patient reports history of loose to seeing his lower extremities becoming swollen. He reports feeling increased fatigue as well. He denies shortness of breath or chest pain. Patient reports he also has a history of liver cirrhosis. PMH: Liver cirrhosis, seizures, thyroid disease, chf, gastric ulcers PSH: Surgery for broken jaw 1.5 years ago due to seizures Family history: Reviewed and noncontributory Social history: Patient is homeless. He quit smoking 1 month ago. He used to smoke 1 pack per day before that for 4 years. Patient reports drinking 0.5 gal vodka per day before he was diagnosed of liver cirrhosis 3 years ago. Currently feces been awhile he has quit, but his last alcohol intake was 2 beers( 12 oz each on 30 of September). He denies any drug use. Home medication: The patient reports taking tramadol for his back pain he has been having since the past 2 months for broken ribs on the right side during a seizure event. He states he is homeless and has taken no other medication as he not been able to go collect them. ROS: Patient seen and reviewed by me in the bedside. Overnight events reviewed. Patient reports he feeling better. He passed stool three times yesterday. He reports the swelling in his legs have slightly subsided as well. Absence of any dizziness, confusion, fatigue. Rest of the ROS negative. Objective vital signs Vital Sign Date Time Temp Pulse Resp B/P (MAP) Pulse Ox O2 Delivery O2 Flow Rate FiO2 10/05/24 08:59 97.4 71 18 144/83 (103) 100 97.4 10/04/24 20:18 Room Air* 0 21 Total Intake and Output 10/04/24 10/04/24 10/05/24 15:00 23:00 07:00 Intake Total 300 ml 700 ml Output Total 300 ml Balance 0 ml 700 ml medications Current Medications Medications Dose Ordered Sig/Johnnie Route Start Time Stop Time Status Last Admin Dose Admin Levetiracetam 500 mg BID PO 10/03/24 22:00 10/04/24 21:33 500 MG Levothyroxine Sodium 25 mcg QAM@0600 PO 10/04/24 06:00 10/04/24 10:55 25 MCG Gabapentin 300 mg TID PO 10/03/24 22:00 10/04/24 21:33 300 MG Furosemide 40 mg DAILY IV 10/04/24 10:00 10/04/24 10:55 40 MG Thiamine HCl 100 mg DAILY PO 10/04/24 10:00 10/04/24 10:53 100 MG Patient Own Medication 1 mg DAILY PO 10/04/24 10:00 UNV Folic Acid 1 mg DAILY PO 10/04/24 10:00 10/04/24 10:54 1 MG Lactulose 30 ml QID PO 10/04/24 12:00 10/04/24 17:09 30 ML Pantoprazole Sodium 40 mg DAILY IV 10/04/24 12:00 10/04/24 15:07 40 MG Sucralfate 1 gm QIDACHS PO 10/04/24 17:00 10/04/24 21:33 1 GM Iron Sucrose 110 ml @ 110 mls/hr DAILY@1200 IV 10/05/24 12:00 10/09/24 12:59 Examination Physical examination: Patient is lying in bed General Appearance: Alert, Oriented X3, Cooperative, No acute distress HEENT: Atraumatic, PERRLA, EOMI, Mucous membrane dry, pallor Respiratory: Clear to auscultation, Normal air movement Cardiovascular: Regular rate, Normal S1, Normal S2, No murmurs, no chest wall tenderness Abdominal: Normal bowel sounds, Soft, No tenderness, No hepatospenomegaly, No masses Extremities: No clubbing, No cyanosis, 2+ edema, Normal pulses, Skin: No rashes, No breakdown, significant pedal Edema of b/l legs up to the knee, pitting, +2 Neuro: Normal gait, Normal speech, Strength at 5/5 X4 ext, Normal tone, Sensation intact, Cranial nerves 3-12 NL, Reflexes 2+ Psych/Mental Status: Mental status NL, Mood NL laboratory and microbiology Laboratory Tests 10/05/24 04:42 Test 10/05/24 04:42 Range/Units Serum Glucose 80 74-106 mg/dL Labs and/or images reviewed: Labs reviewed by me, Image(s) reviewed by me Problem List/Assessment/Plan Problem List/Assessment/Plan # ? Hepatic encephalopathy due to liver cirrhosis # pancytopenia likely from liver cirrhosis # transaminitis # hyperammonemia - Meld score 15 - Maddreys discriminant score 14.7 - Elevated Ammonia , trending down - Lactulose 30 ml q.i.d. ordered - Monitor labs - GI on board, EGD done, showed pre-pyloric antral gastric ulcer with the no active bleeding along with mild gastroduodenitis -ultrasound showed nodular hepatic contour like cirrhosis appearing # cholelithiasis without evidence of cholecystitis-outpatient follow up, evident on ultrasound # Microcytic, hypochromic Anemia , symptomatic (hemoglobin 6.9) -Blood transfusion 3 PRBCs so far, ordered if necessary -Iron panel -IV Iron given -GI consultation done suggested endoscopy on today (10/05/2024) -stool occult blood was negative -monitor H & H # mild gastroduodenitis and mild gastropathy # mild hiatal hernia with irregular squamocolumnar junction -evident on EGD done today -Protonix Carafate for now -outpatient follow up for biopsy results -elective colonoscopy and outpatient # ? acute versus chronic, systolic versus diastolic CHF # medication noncompliance - echocardiogram done - BNP mildly elevated GI prophylaxis: Protonix DVT prophylaxis:SCDs Diet: low-salt diet Goals of care discussed with the patient for more than 27 minutes: Full code status Case discussed with Dr. Pena, patient and nurse. Plan discussed with: Patient, Other (RN) Date of Service: Oct 05, 2024 Billing Provider: VERONICA PENA MD Common Visit Codes: [id number] INP/OBS CARE(HIGH) HUSSEIN VALADEZ RESIDENT Oct 05, 2024 09:22 CHELE GLEZ RESIDENT Oct 05, 2024 16:43 VERONICA PENA MD Oct 05, 2024 22:53
[2024-10-05] MEDS ORDERED: fentaNYL CITRATE 100 MCG/2 ML VL ONE (12:51)
[2024-10-05] MEDS ORDERED: PROPOFOL 10 MG/ML 20 ML IV ONE (12:51)
--- NOTE | 2024-10-05 14:35 | DVHOP2 ---
Operative Report DATE OF OPERATION: 10/05/24 PROCEDURE: Upper Endoscopy with biopsy. PREOPERATIVE INDICATION: The patient is a 44 -year-old male undergoing endoscopy for evaluation and anemia and history of peptic ulcer disease and cirrhosis POSTOPERATIVE DIAGNOSES: 1. Patient had a 1-1.5 cm pre-pyloric antral gastric ulcer at the 12 o'clock position which was Otoniel classification C with no visible vessel and no active bleeding 2. Mild gastroduodenitis and mild gastropathy more prominent in the proximal stomach 3. 1 cm sliding-type hiatal hernia with slightly irregular squamocolumnar junction otherwise normal examination up to the 2nd and 3rd part of the duodenum with no active bleeding PROCEDURE PERFORMED BY: Marlene Delgado GI NURSE: Hallie SCOPE: Olympus videoendoscope. ASA CLASS: 3 PREOPERATIVE MEDICATIONS: Mac connor, Dr. Pena PROCEDURE IN DETAIL: After obtaining an informed consent, the patient was placed on left lateral decubitus position. The patient was then sedated with the above medications. A bite block was placed between his teeth. The endoscope was then passed through the oropharynx, into the esophagus, and through the stomach and pylorus up to the second and third part of the duodenum. The endoscope was then withdrawn. The 2nd and 3rd part of the duodenal were normal. Duodenal bulb showed mild duodenitis. Duodenal biopsies were obtained. The pre-pyloric area antrum and body showed mild gastritis. There was a 1-1.5 cm deep pre-pyloric antral gastric ulcer with surrounding gastritis and erythema. This was Otoniel classification C with no visible vessel no active bleeding. Gastric biopsies were obtained around the ulcer and from the body On retroflexion there was mild gastropathy in the proximal stomach. The endoscope was then withdrawn into distal esophagus where the patient had a 1 cm sliding-type hiatal hernia There was no significant esophagitis and no esophageal varices noted. There was no fresh or old blood in the upper GI tract The patient tolerated the procedure well without difficulty. COMPLICATIONS : None SPECIMENS: Duodenal biopsies Gastric biopsies DISPOSITION: Transfer back to floor Stable PLAN: 1. Await for biopsy result 2. Will place pt on Protonix 40 mg bid 3. Carafate 1 g p.o. 4 times a day 4. DC aspirin NSAIDs smoking alcohol 5. Resume GI soft diet advance as tolerated 6. Outpatient follow up with me in my clinic in 2-4 weeks for ongoing management of his chronic liver disease and to discuss elective screening colonoscopy in future MARLENE DELGADO MD Oct 05, 2024 14:35
[2024-10-05] MEDS: IRON SUCROSE COMPLEX 110 ML IV SCH (15:14)
[2024-10-05] MEDS: PANTOPRAZOLE 40 MG TAB PO SCH (16:29)
[2024-10-05 16:38] LABS: Hematocrit 24.5 % (41.0-53.0); Hemoglobin 7.8 g/dL (13.5-17.5)
--- NOTE | 2024-10-05 16:44 | DVHSR ---
APPROVED REPORT EXAM: Two-dimensional and M-mode echocardiogram with Doppler and color Doppler. Blood Pressure: 111/69 mmHg INDICATION Dyspnea Heart Failure EF RISK FACTORS Height: 5'11", Weight: 230 DIMENSIONS LVDd6.2 (3.8-5.7cm)LA (2D)5.6 (1.9-4.0cm)Aortic Root4.2 (2.0-3.7cm) LVDs4.3 (2.5-4.0cm)LA (MM) (1.9-4.0cm)Aortic Cusp Exc2.5 (1.5-2.0cm) EF (%) 60.0 (55-70%)Rt. Atrium4.4 (1.9-4.0cm)Asc. Aorta3.8 cm IVSd1.3 (0.7-1.1cm)RV (D)4.7 (1.8-2.4cm) PWd1.2 (0.7-1.1cm) Mitral Valve MitralMitral Stenosis E wave1.19m/sMV Mean GR.mmHg A wave0.91m/sMV Peak GR.mmHg E/A ratio1.32D MVAcm2 DECEL [id number] 1/2 [place] Aortic Valve Aortic ValveAortic Stenosis V11.06m/Pa Mean GR.7mmHg V21.98m/Pa Peak GR.16mmHg LVOT Diameter2.6 (1.8-2.4cm)Doppler AVA2.84cm2 Pulmonic Valve V21.16m/s Tricuspid Valve TR Velocity2.68m/s [id number] Other Information Quality : Technically LimitedRhythm : Conclusion LVEF 50-55%, mild LVH, mild diastolic dysfunction Right ventricle mildly dilated, normal function Left atrium moderately dilated, right atrium mildly dilated Mild pulmonary hypertension
[2024-10-05 16:54] LABS: Wright Stain Ready for Review
[2024-10-06 01:00] VITALS: BP 123/49; PULSE 76; RESP 18; TEMP 98.2; O2SAT 94
[2024-10-06 05:00] VITALS: BP 119/60; PULSE 77; RESP 20; TEMP 98.1; O2SAT 97
[2024-10-06 06:49] LABS: Alanine Aminotransferase 22 U/L (7-40); Alkaline Phosphatase 92 U/L (46-116); Anion Gap 9 (5-15); BUN/Creatinine Ratio 14.3 (10.0-20.0); Blood Urea Nitrogen 10 mg/dL (9-23); Calcium 8.9 mg/dL (8.7-10.4); Carbon Dioxide 21 mmol/L (20-31); Glucose 85 mg/dL (74-106); Potassium 4.2 mmol/L (3.5-5.1); Sodium 138 mmol/L (136-145); Total Protein 5.8 g/dL (5.7-8.2)
[2024-10-06 06:52] LABS: Albumin 3.0 g/dL (3.2-4.8); Bilirubin, Total 4.9 mg/dL (0.2-1.0); Chloride 108 mmol/L (98-107)
[2024-10-06 07:15] LABS: Hemoglobin 7.7 g/dL (13.5-17.5)
[2024-10-06 07:18] LABS: Hematocrit 23.6 % (41.0-53.0); Mean Corpuscular Hemoglobin 22.6 pg (28.0-32.0); Mean Corpuscular Volume 69.2 fL (80.0-100.0)
[2024-10-06 08:44] LABS: Anisocytosis Moderate; Total Cells Counted 100.0 (100)
[2024-10-06 08:45] LABS: Ovalocytes FEW; Tear Drop Cells FEW
[2024-10-06 09:00] VITALS: BP 121/62; PULSE 70; RESP 18; TEMP 98.9; O2SAT 97
[2024-10-06] MEDS: SPIRONOLACTONE 25 MG TAB PO SCH (10:17)
[2024-10-06] MEDS ORDERED: SPIR25TA PO (10:43)
[2024-10-06 12:15] VITALS: BP 121/62; PULSE 70; RESP 18; TEMP 37.2; O2SAT 97
--- NOTE | 2024-10-06 12:46 | DVHDSRES ---
Discharge Summary Date of Admission Resident Creating Document: HUSSEIN VALADEZ RESIDENT Oct 03, 2024 at 19:15 Date of Discharge: Oct 06, 2024 Admitting Diagnosis # ? Hepatic encephalopathy due to liver cirrhosis Labs/Diagnostic Data: Laboratory Results Test 10/06/24 08:22 10/06/24 04:53 10/05/24 16:18 10/05/24 15:01 Ammonia 94 umol/L (11-32) White Blood Count 3.1 10^3/uL (4.4-10.8) Red Blood Count 3.41 10^6/uL (4.5-5.90) Hemoglobin 7.7 g/dL (13.5-17.5) Hematocrit 23.6 % (41.0-53.0) Mean Corpuscular Volume 69.2 fL (80.0-100.0) Mean Corpuscular Hemoglobin 22.6 pg (28.0-32.0) Mean Corpuscular Hemoglobin Concent 32.7 g/dL (32.0-36.0) Red Cell Distribution Width 27.4 % (11.8-14.3) Platelet Count 105 10^3/uL (140-450) Mean Platelet Volume 8.3 fL (6.9-10.8) Neutrophils (%) (Auto) % (37.0-80.0) Lymphocytes (%) (Auto) % (10.0-50.0) Monocytes (%) (Auto) % (0.0-12.0) Basophils (%) (Auto) % (0.0-2.0) Neutrophils # (Auto) 10 ^3/uL (1.6-8.6) Lymphocytes # (Auto) 10 ^3/uL (0.4-5.4) Monocytes # (Auto) 10 ^3/uL (0-1.3) Differential Total Cells Counted 100.0 (100) Neutrophils % (Manual) 45 (37.0-80.0) Band Neutrophils % (Manual) 1 Lymphocytes % (Manual) 33 (10.0-50.0) Monocytes % (Manual) 19 (0-12) Eosinophils % (Manual) 2 (0-7) Basophils % (Manual) 0 (0.0-2.0) Metamyelocytes % (manual) 0 Myelocytes % (Manual) 0 Promyelocytes % (Manual) 0 Blast Cells % (Manual) 0 Reactive Lymphocytes 0 Platelet Estimate Decreased Hypochromasia (manual) Moderate Anisocytosis (manual) Moderate Microcytosis Marked Tear Drop Cells Few Ovalocytes Few Sodium Level 138 mmol/L (136-145) Potassium Level 4.2 mmol/L (3.5-5.1) Chloride Level 108 mmol/L (98-107) Carbon Dioxide Level 21 mmol/L (20-31) Anion Gap 9 (5-15) Blood Urea Nitrogen 10 mg/dL (9-23) Creatinine 0.70 mg/dL (0.700-1.30) Glomerular Filtration Rate Calc 117 mL/min (>90) BUN/Creatinine Ratio 14.3 (10.0-20.0) Serum Glucose 85 mg/dL (74-106) Calcium Level 8.9 mg/dL (8.7-10.4) Total Bilirubin 4.9 mg/dL (0.2-1.0) Aspartate Amino Transferase (AST) 45 U/L (13-40) Alanine Aminotransferase (ALT) 22 U/L (7-40) Alkaline Phosphatase 92 U/L (46-116) Total Protein 5.8 g/dL (5.7-8.2) Albumin 3.0 g/dL (3.2-4.8) Reticulocyte Count (auto) 1.71 % (0.5-1.5) Miscellaneous Referred Test ( Tmp Sent to [facility] Test 10/05/24 04:42 10/05/24 03:30 10/04/24 19:40 10/04/24 09:46 Eosinophils (%) (Auto) 4.2 % (0.0-7.0) Eosinophils # (Auto) 0.1 10 ^3/uL (0-0.8) Basophils # (Auto) 0 10 ^3/uL (0-0.2) Nucleated Red Blood Cells 0.0 % Schistocytes Few Magnesium Level 1.7 mg/dL (1.6-2.6) Direct Bilirubin 1.3 mg/dL (<0.3) Urine Color Yellow (Yellow) Urine Clarity Clear (Clear) Urine pH 6.5 (5.0-9.0) Urine Specific [place] 1.006 (1.001-1.035) Urine Protein Negative (Negative) Urine Ketones Negative (Negative) Urine Blood Negative /uL (Negative) Urine Nitrite Negative (Negative) Urine Bilirubin Negative (Negative) Urine Urobilinogen 3 mg/dL (Negative) Urine Leukocyte Esterase Trace /uL (Negative) Urine RBC None seen /hpf (0 - 3) Urine Microscopic WBC 6 /HPF (0-3) Urine Squamous Epithelial Cells None seen /hpf (<5) Urine Amorphous Crystals Few /hpf (None Seen) Urine Bacteria None seen /hpf (None Seen) Urine Glucose Normal mg/dL (Normal) Urine Opiates Screen Neg (NEGATIVE) Urine Fentanyl Screen Neg (NEGATIVE) Urine Barbiturates Screen Neg (NEGATIVE) Urine Phencyclidine Screen Neg (NEGATIVE) Urine Amphetamines Screen Neg (NEGATIVE) Urine Benzodiazepines Screen Neg (NEGATIVE) Urine Cocaine Screen Neg (NEGATIVE) Urine Cannabinoids Screen Neg (NEGATIVE) Stool Occult Blood Negative (Negative) Stool Occult Blood Sample #3 (Negative) Lactic Acid Level 1.1 mmol/L (0.4-2.0) Test 10/04/24 09:45 10/04/24 08:57 10/04/24 04:56 10/03/24 13:32 Vitamin B12 Level 1019 pg/mL (211-911) Folic Acid 9.34 ng/mL (>5.38) Plasma/Serum Blood Alcohol < 3.0 mg/dL (<10) Thyroid Stimulating Hormone (TSH) 1.36 uIU/mL (0.55-4.78) B-Type Natriuretic Peptide 100.27 pg/mL (0-100) Prothrombin Time 13.3 sec (9.3-11.8) Prothrombin Time INR 1.29 (0.9-1.15) Activated Partial Thromboplast Time 32.2 SEC (24.5-34.5) Iron Level 25 ug/dL (65-175) Total Iron Binding Capacity 363 ug/dL (250-425) Percent Iron Saturation 6.9 % (20-55) Other Laboratory Tests 10/06/24 04:53 Brief Hx & Hospital Course: 44-year-old male presents for the evaluation of leg swelling since 30 of September. The patient reports history of loose to seeing his lower extremities becoming swollen. He reports feeling increased fatigue as well. He denies shortness of breath or chest pain. Patient reports he also has a history of liver cirrhosis. PMH: Liver cirrhosis, seizures, thyroid disease, chf, gastric ulcers PSH: Surgery for broken jaw 1.5 years ago due to seizures Family history: Reviewed and noncontributory Social history: Patient is homeless. He quit smoking 1 month ago. He used to smoke 1 pack per day before that for 4 years. Patient reports drinking 0.5 gal vodka per day before he was diagnosed of liver cirrhosis 3 years ago. Currently feces been awhile he has quit, but his last alcohol intake was 2 beers( 12 oz each on 30 of September). He denies any drug use. Home medication: The patient reports taking tramadol for his back pain he has been having since the past 2 months for broken ribs on the right side during a seizure event. He states he is homeless and has taken no other medication as he not been able to go collect them. Brief history of hospitalization: Patient had possible hepatic encephalopathy due to liver cirrhosis, pancytopenia likely from liver cirrhosis, transaminitis, hyperammonemia. Meld score was 15 and mattress discriminant score was 14.7. Patient had elevated ammonia trending down and was prescribed lactulose 30 mL q.i.d.. Labs were monitored and GI on board endoscopy was done showed pre-pyloric antral gastric ulcer with no active bleeding along with mild gastroduodenitis. ultrasound showed nodular hepatic contour like cirrhosis appearing. Patient also has cholelithiasis without evidence of cholecystitis Seen in ultrasound,for which outpatient follow-up has been suggested. for patient's microcytic, hypochromic anemia, symptomatic patient received blood transfusion 3 PRBCs. Iron panel was ordered. GI consultation was done and an endoscopy was done That showed antral gastric ulcer, gastroduodenitis. Nonbleeding. Stool occult blood was negative. Hemoglobin was monitored. EGD done, showed, Mild gastroduodenitis gastropathy,mild antral hernia with irregular squamocolumnar junction, obtained biopsies incised outpatient follow-up. Protonix Carafate was given. Outpatient follow up for biopsy results have been counseled to the patient. An elective colonoscopy and follow up in 2-[address] Delgado has been communicated. For possible acute versus chronic systolic versus diastolic CHF, and echocardiogram was done, BNP was mildly elevated. Patient is now stable for discharge and he has been counseled on the cessation of alcohol completely. He understands the need of colonoscopy to find out the cause of his low hemoglobin levels and has communicated he will follow-up. we are discharging the patient in cyclobenzaprine, disulfiram, folic acid, gabapentin, hydroxyzine, lactulose, levetiracetam, levothyroxine, magnesium oxide, multiple vitamin tablets, pantoprazole, sertraline, spironolactone, sucralfate, and thiamine. Physical examination: Patient is lying in bed General Appearance: Alert, Oriented X3, Cooperative, No acute distress HEENT: Atraumatic, PERRLA, EOMI, Mucous membrane moist, pallor Respiratory: Clear to auscultation, Normal air movement Cardiovascular: Regular rate, Normal S1, Normal S2, No murmurs, no chest wall tenderness Abdominal: Normal bowel sounds, Soft, No tenderness, No hepatospenomegaly, No masses Extremities: No clubbing, No cyanosis, 2+ edema, Normal pulses, Skin: No rashes, No breakdown, no swelling Neuro: Normal gait, Normal speech, Strength at 5/5 X4 ext, Normal tone, Sensation intact, Cranial nerves 3-12 NL, Reflexes 2+ Psych/Mental Status: Mental status NL, Mood NL Operations or Procedures EXAM: XY CHEST TWO VIEWS ROUTINE IMPRESSION: 1. New small left pleural effusion, etiology unknown. 2. Chronic superior endplate compression fracture of T11. Bilateral lower extremity venous duplex IMPRESSION: No right or left femoropopliteal venous thrombosis. If clinical concern/symptoms persist or worsen, short-interval follow-up study is suggested. END IMPRESSION: ORDERING PHYSICIAN: MARLENE DELGADO MD PROCEDURE(s): GBUS - GALLBLADDER IMPRESSION: 1. Cholelithiasis without sonographic evidence of acute cholecystitis. 2. Nodular hepatic contour raises the possibility of cirrhosis in the appropriate clinical setting. Increased hepatic echogenicity may reflect hepatic steatosis or intrinsic hepatocellular disease. PROCEDURE: Upper Endoscopy with biopsy. PREOPERATIVE INDICATION: The patient is a 44 -year-old male undergoing endoscopy for evaluation and anemia and history of peptic ulcer disease and cirrhosis POSTOPERATIVE DIAGNOSES: 1. Patient had a 1-1.5 cm pre-pyloric antral gastric ulcer at the 12 o'clock position which was Otoniel classification C with no visible vessel and no active bleeding 2. Mild gastroduodenitis and mild gastropathy more prominent in the proximal stomach 3. 1 cm sliding-type hiatal hernia with slightly irregular squamocolumnar junction otherwise normal examination up to the 2nd and 3rd part of the duodenum with no active bleeding PROCEDURE PERFORMED BY: Marlene Delgado EXAM: Two-dimensional and M-mode echocardiogram with Doppler and color Doppler. Blood Pressure: 111/69 mmHg INDICATION Dyspnea Heart Failure EF RISK FACTORS Height: 5'11", Weight: 230 DIMENSIONS LVDd 6.2 (3.8-5.7cm) LA (2D) 5.6 (1.9-4.0cm) Aortic Root 4.2 (2.0- 3.7cm) LVDs 4.3 (2.5-4.0cm) LA (MM) (1.9-4.0cm) Aortic Cusp Exc 2.5 (1.5- 2.0cm) EF (%) 60.0 (55-70%) Rt. Atrium 4.4 (1.9-4.0cm) Asc. Aorta 3.8 cm IVSd 1.3 (0.7-1.1cm) RV (D) 4.7 (1.8-2.4cm) PWd 1.2 (0.7-1.1cm) Mitral Valve Mitral Mitral Stenosis E wave 1.19m/s MV Mean GR. mmHg A wave 0.91m/s MV Peak GR. mmHg E/A ratio 1.3 2D MVA cm2 DECEL Time 269ms PRESS 1/2 Time ms Aortic Valve Aortic Valve Aortic Stenosis V1 1.06m/s AO Mean GR. 7mmHg V2 1.98m/s AO Peak GR. 16mmHg LVOT Diameter 2.6 (1.8-2.4cm) Doppler JOSE 2.84cm2 Pulmonic Valve V2 1.16m/s Tricuspid Valve TR Velocity 2.68m/s RVSP 37mmHg Other Information Quality : Technically Limited Rhythm : Conclusion LVEF 50-55%, mild LVH, mild diastolic dysfunction Right ventricle mildly dilated, normal function Left atrium moderately dilated, right atrium mildly dilated Mild pulmonary hypertension SIGNED BY: TRA SOSA MD SIGNED DATE/TIME: 10/05/24 0557 Condition at Discharge: Stable Final Diagnosis/Problems List # ? Hepatic encephalopathy due to liver cirrhosis # pancytopenia likely from liver cirrhosis # transaminitis # hyperammonemia # cholelithiasis without evidence of cholecystitis-outpatient follow up, evident on ultrasound # Microcytic, hypochromic Anemia , symptomatic # mild gastroduodenitis and mild gastropathy # mild hiatal hernia with irregular squamocolumnar junction # ? chronic, systolic versus diastolic CHF, # medication noncompliance Discharge Disposition: Home Discharge Instruct/Medications Diet: Consistent carbohydrate, Cardiac 2g Na,low cholest Activity: No Restrictions, As Tolerated Follow Up/Referral: follow up in discharge clinic in 1 week, PCP in 1 week and GI doctor in 2-4 weeks Medications: as per emr Scheduled Disulfiram (Disulfiram), 250 MG PO BID, (Reported) Folic Acid (Folic Acid), 1 MG PO DAILY Gabapentin (Gabapentin), 1 CAP PO TID, (Reported) Lactulose (Lactulose), 10 GM PO BID Levetiracetam (Keppra Tablet), 500 MG PO BID Levothyroxine Sodium (Levothyroxine Sodium), 25 MCG PO QAM@0600 Magnesium Oxide (Mgo), 400 MG PO DAILY Multiple Vitamin (Mvi Tab), 1 TAB PO DAILY Pantoprazole Sodium Sesquihydr (Pantoprazole Sodium), 1 TAB PO BID, (Reported) Pantoprazole Sodium Sesquihydr (Protonix), 40 MG PO DAILY Sertraline Hcl (Zoloft), 1 TAB PO DAILY Spironolactone (Aldactone), 1 TAB PO DAILY Sucralfate (Carafate), 1 GM OR QIDACHS Thiamine Hcl (Vitamin B-1), 100 MG PO DAILY Scheduled PRN Cyclobenzaprine Hcl (Cyclobenzaprine Hcl), 1 TAB PO TID PRN Hydroxyzine HCl (Hydroxyzine Hydrochloride), 25 MG PO Q8HP PRN Discontinued Medications Chlordiazepoxide Hcl (Ni-1) (I (Librium), 10 MG PO BID Discharge Statement: "Patient was advised to return to the ER or call 911 if any headaches, dizziness, shortness of breath, chest pain, abdominal pain, bleeding, fevers, or worsening of medical condition. Patient was counseled about treatment plan, medications, possible side effects, patientverbalized understanding. All questions were answered to the best of my ability. This discharge took greater then 30 minutes in planning, reviewing documentation, counseling the patient, and discussing with other team members." ASSESSMENT ASSESSMENT Assessment # ? Hepatic encephalopathy due to liver cirrhosis # pancytopenia likely from liver cirrhosis # transaminitis # hyperammonemia # cholelithiasis without evidence of cholecystitis-outpatient follow up, evident on ultrasound # Microcytic, hypochromic Anemia , symptomatic (hemoglobin 6.9) # mild gastroduodenitis and mild gastropathy # mild hiatal hernia with irregular squamocolumnar junction # ? acute versus chronic, systolic versus diastolic CHF # medication noncompliance Date of Service: Oct 06, 2024 Billing Provider: VERONICA PENNINGTON MD Common Visit Codes: 63967-PCI/OBS DISCH DAY >30min HUSSEIN VALADEZ RESIDENT Oct 06, 2024 12:46 CHELE GLEZ RESIDENT Oct 06, 2024 18:03 VERONICA PENNINGTON MD Oct 07, 2024 07:38
[2024-10-06 13:00] VITALS: BP 118/61; PULSE 68; RESP 18; TEMP 98.3; O2SAT 99
--- NOTE | 2024-10-06 21:17 | DVHPN2 ---
Progress Note - Dictate Date Seen: Oct 06, 2024 (Late entryPatient seen at bedside at 9:30 a.m.) Medical Necessity Reason Pt with a Central, PICC or Fol: No Subjective Patient seen at bedside resting comfortably No new complaints He is tolerating a diet No active GI bleeding , hemoglobin stable at 7.7 EGD findings discussed with patient vital signs Vital Sign Date Time Temp Pulse Resp B/P (MAP) Pulse Ox O2 Delivery O2 Flow Rate FiO2 10/06/24 13:00 98.3 68 18 118/61 (80) 99 98.3 10/06/24 08:05 Room Air* 0 21 Total Intake and Output 10/05/24 10/05/24 10/06/24 15:00 23:00 07:00 Intake Total 325 ml 240 ml 600 ml Output Total 3025 ml Balance -2700 ml 240 ml 600 ml medications Current Medications Medications Dose Ordered Sig/Johnnie Route Start Time Stop Time Status Last Admin Dose Admin Patient Own Medication 1 mg DAILY PO 10/04/24 10:00 UNV objective Gen: 44-year-old male in no distress; awake and alert HEENT: Normocephalic atraumatic, mucous membranes moist and pink. Pulmonary: Clear to auscultation and percussion bilaterally. Cardiac: Regular rate and rhythm. No murmur Abdomen: Soft, nontender, nondistended, bowel sounds present all 4 quadrants, no guarding, no rigidity, no organomegaly. Extremities: No cyanosis, clubbing, plus two bilateral pedal edema Neuro: Cranial nerves II through XII grossly intact, normal affect and speech, no focal motor deficits. laboratory and microbiology Laboratory Tests 10/06/24 04:53 Test 10/06/24 04:53 Range/Units Serum Glucose 85 74-106 mg/dL Problems(with codes): (1) Acute on chronic combined systolic (congestive) and diastolic (congestive) heart failure (2) Elevated liver enzymes (3) Pleural effusion, left (4) Bilateral leg edema (5) Hepatic encephalopathy (6) Metabolic encephalopathy (7) Anemia (8) Alcoholic liver disease (9) Seizure disorder Prognosis Plan Protonix 40 mg p.o. twice a day Carafate 1 g p.o. twice a day DC aspirin NSAIDs smoking alcohol Advance diet as tolerated Outpatient follow up with me to discuss results and also consider elective screening colonoscopy Discharge planning will be initiated by hospitalist today Dietary Evaluation Review Comments: 1. iron supplement for anemia, 2. Follow 2g NA diet, texture as tolearted . 3. monitor PO intake. and updated labs Expected Outcomes/Goals: improved nutrition status, gradual wt loss Plan discussed with: Patient MARLENE WILKERSON MD Oct 06, 2024 21:17
== END 2024-10-06 12:55 | disposition home or self-care (01) ==
LOC: EDBD 12:35 → ER 12:35 → OVERFLOW 19:15 → CENTRAL 10-04 08:49
PROVIDERS: ADMIT Internal Medicine; ATTEND Internal Medicine
PROC: 30233N1 Transfusion of Nonautologous Red Blood Cells into Peripheral Vein, Percutaneous Approach (ICD-10-PCS; 2024-10-04)
PROC: 0DB68ZX Excision of Stomach, Via Natural or Artificial Opening Endoscopic, Diagnostic (ICD-10-PCS; 2024-10-05)
PROC: 0DB98ZX Excision of Duodenum, Via Natural or Artificial Opening Endoscopic, Diagnostic (ICD-10-PCS; principal; 2024-10-05 13:38)
DX: K74.60 Unspecified cirrhosis of liver (principal); I50.43 Acute on chronic combined systolic (congestive) and diastolic (congestive) heart failure; D61.818 Other pancytopenia; D50.9 Iron deficiency anemia, unspecified; F17.210 Nicotine dependence, cigarettes, uncomplicated; F10.10 Alcohol abuse, uncomplicated; K25.9 Gastric ulcer, unspecified as acute or chronic, without hemorrhage or perforation; K76.82 Hepatic encephalopathy; K29.70 Gastritis, unspecified, without bleeding; K29.80 Duodenitis without bleeding; K80.20 Calculus of gallbladder without cholecystitis without obstruction; R74.01 Elevation of levels of liver transaminase levels; K29.90 Gastroduodenitis, unspecified, without bleeding; K44.9 Diaphragmatic hernia without obstruction or gangrene; K31.9 Disease of stomach and duodenum, unspecified; Z91.148 Patient's other noncompliance with medication regimen for other reason; Y90.0 Blood alcohol level of less than 20 mg/100 ml
CPT/HCPCS: 36415; 43239; 71046; 76705; 80053; 80307; 80320; 81001; 82140; 82248; 82270; 82607; 82746; 83540; 83550; 83605; 83735; 83880; 84443; 85007; 85014; 85018; 85025; 85027; 85045; 85610; 85730; 86850; 86870; 86900; 86901; 86902; 86922; 93306; 93970; 99291; G0378; J1756; J2470; J2704

== ENCOUNTER 2024-10-10 02:23 | Emergency (ER) | payer MEDICAID ==
[~2024-10-10] VITALS: Ht 198.1 cm; Wt 118.0 kg
[~2024-10-10 02:23] MED LIST changes: -CHL10C PO; +SPIR25TA PO
[2024-10-10] MEDS: ACETAMINOPHEN 325 MG TAB PO ONE (03:04)
[2024-10-10] MEDS: IOHEXOL 300 MG/ML 100ML BOTTLE IJ ONE (03:15)
--- NOTE | 2024-10-10 03:49 | ED.PDOC ---
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 Factors N/A 0 Troponin N/A 0 Total 0 I personally scribed for LORENZA WONG MD ([email or web address]) on 10/10/24 at 03:49. Electronically submitted by Fredy Eaton ([email or web address]). I personally scribed for LORENZA WONG MD ([email or web address]) on 10/10/24 at 04:32. Electronically submitted by Fredy Eaton ([email or web address]). LORENZA WONG MD Oct 10, 2024 03:49
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
--- NOTE | 2024-10-10 04:16 | DVH ---
Exam: CT CT CHEST/AB/PL W CON- IV ONLY History: CHEST PAIN, ABDOMINAL PAIN, TRAUMA Comparison Study: CT CT CHEST/AB/PL W CON- IV ONLY on DOS: 09/30/23 Technique: Multidetector spiral CT of the chest, abdomen and pelvis was performed from lower neck to pubic symphysis. Intravenous contrast was administered during this examination. Portal venous imagi ng was obtained. Axial, coronal and sagittal multiplanar reformats were performed by the technologist on a separate workstation. Radiation Dose : 1. Chest/Abdomen/Pelvis: CTDIvol 66.97 mGy, DLP 3150.1 mGy*cm. Findings: Lower neck: Normal thyroid. Lungs: No focal consolidation, pleural effusion or pneumothorax. Incidentally noted 2.5 x 1.8 cm cyst ic near water attenuation structure right of midline within the soft tissues of the back at the level of the cervicothoracic junction, likely representing a sebaceous cyst. A similar cystic lesion measu ring 1.4 cm is noted within the subcutaneous soft tissues of the back posteriorly adjacent to the pos terior 7th intercostal space. Heart/Vascular Structures: Normal heart size. No pericardial effusion. Lymph Nodes: No adenopathy Pleura: No pleural effusion or significant pneumothorax. Liver: Cirrhotic liver morphology. Otherwise normal size. No focal lesions. Normal hepatic vascular enhancement. Multiple collateral vessels noted adjacent to the splenic hilum and within the central upper abdomen, consistent with sequelae of cirrhosis and portal venous hypertension. Gallbladder and Biliary Tree: Cholelithiasis. Spleen: Unremarkable Pancreas: The pancreas is normal in appearance without focal lesions or abnormal enhancement. Adrenal Glands: Unremarkable Kidneys: Kidneys demonstrate normal symmetric enhancement without focal lesions, calculi or hydroneph rosis. Bladder: Unremarkable Bowel: The stomach is grossly normal in appearance. Small bowel and colon are normal in caliber and d istribution. The appendix is not visualized; however, no secondary findings of acute appendicitis id entified. Ascites: Absent Lymphadenopathy: No mesenteric, retroperitoneal or periportal lymphadenopathy. Abdominal Wall and Mesentery: Unremarkable. Vasculature: The visualized abdominal aorta is normal in size and caliber. Abdominal and pelvic vess els demonstrate normal enhancement. Pelvic Organs: Unremarkable Musculoskeletal: Mildly displaced acute to subacute appearing posterior left 11th and 12th rib fractu res. No aggressive focal bony lesions, acute fractures or dislocation. IMPRESSION: 1. No acute findings involving the chest, abdomen or pelvis. 2. Cirrhotic liver morphology and multiple collateral vessels consistent with sequelae of portal veno us hypertension. 3. Cholelithiasis. 4. Acute to subacute appearing posterior left 11th and 12th rib fractures with mild displacement.
[2024-10-10 04:21] LABS: Hemoglobin 8.6 g/dL (13.5-17.5); Mean Corpuscular Hemoglobin 23.0 pg (28.0-32.0)
[2024-10-10 04:22] LABS: Potassium 4.1 mmol/L (3.5-5.1); Sodium 145 mmol/L (136-145)
[2024-10-10 04:23] LABS: Anion Gap 11 (5-15); Carbon Dioxide 21 mmol/L (20-31)
[2024-10-10 04:25] LABS: Hematocrit 27.0 % (41.0-53.0); Mean Corpuscular Volume 72.5 fL (80.0-100.0)
[2024-10-10 04:28] LABS: BUN/Creatinine Ratio 22.2 (10.0-20.0); Blood Urea Nitrogen 12 mg/dL (9-23); Glucose 99 mg/dL (74-106)
[2024-10-10 04:35] VITALS: BP 133/80; PULSE 86; RESP 18; TEMP 98.9
[2024-10-10 04:39] LABS: Calcium 8.6 mg/dL (8.7-10.4); Chloride 113 mmol/L (98-107)
[2024-10-10 05:01] VITALS: O2SAT 98
[2024-10-10 05:11] LABS: Anisocytosis Moderate; Total Cells Counted 100.0 (100)
== END 2024-10-10 05:06 | disposition home or self-care (01) ==
LOC: EDBD 02:23 → EDUNIT# 02:23 → ER 02:23
DX: S09.93XA Unspecified injury of face, initial encounter (principal); R07.89 Other chest pain; I50.9 Heart failure, unspecified; K74.60 Unspecified cirrhosis of liver; Z59.00 Homelessness unspecified; Z79.899 Other long term (current) drug therapy; Y08.89XA Assault by other specified means, initial encounter; Y93.89 Activity, other specified; Y92.89 Other specified places as the place of occurrence of the external cause; Y99.8 Other external cause status
CPT/HCPCS: 36415; 70450; 70480; 71260; 74177; 80048; 84484; 85007; 85027; 99285; Q9967

== ENCOUNTER 2024-10-19 10:59 | Emergency (ER) | payer MEDICAID ==
[~2024-10-19] VITALS: Ht 198.1 cm; Wt 107.0 kg
[2024-10-19 11:15] VITALS: TEMP 98.1
--- NOTE | 2024-10-19 11:31 | ECG ---
[facility] Test Date: 2024-10-19 Test Time: 11:30:07 Pat Name: JIMBO EDOUARD Department: ER Room: Gender: M [employer]: : 1980 Requested By: AMENA MENDENHALL Order Number: [id number] Reading MD: Alexandru Patterson Measurements Intervals [place]us Rate: 73 P: -29 NE: 172 QRS: 13 QRSD: 105 T: 8 QT: 435 QTc: 480 Interpretive Statements Sinus rhythm Borderline ST depression, inferior leads Borderline prolonged QT interval Electronically Signed On 10-19-2024 17:03:01 PDT by Alexandru Patterson Please click the below link to view image of tracing.
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
[2024-10-19 12:08] VITALS: BP 130/77; PULSE 63; RESP 18; O2SAT 98
--- NOTE | 2024-10-19 12:08 | DVH ---
XY CHEST PORTABLE, HISTORY: b/l leg swelling COMPARISON: XY CHEST PORTABLE on DOS: 02/24/24, XY CHEST XRAY 1 VIEW on DOS: 05/26/22, CXRP on DOS: XY CHEST PORTABLE on DOS: 02/24/24, XY CHEST XRAY 1 VIEW on DOS: 05/26/22, CXRP on DOS: 08/25/21 TECHNICAL DATA: 1 view of the chest was obtained. FINDINGS: Lines and tubes: None Cardiomediastinal silhouette: normal Pulmonary vasculature: normal Lung expansion: normal Lung airspace: normal Lung interstitium: normal Pleura: normal Pneumothorax: no Bones: Unremarkable Other: no IMPRESSION: No acute intrathoracic abnormality.
[2024-10-19] MEDS: FUROSEMIDE 100 MG/10ML VIAL IV ONE (12:15)
[2024-10-19 12:37] LABS: Hemoglobin 8.4 g/dL (13.5-17.5); Mean Corpuscular Hemoglobin 23.4 pg (28.0-32.0); Nucleated Red Blood Cells % 0.1 %
[2024-10-19 12:39] LABS: Hematocrit 25.9 % (41.0-53.0); Mean Corpuscular Volume 72.2 fL (80.0-100.0)
[2024-10-19 12:46] LABS: Urine Protein, UAD TRACE (Negative)
[2024-10-19 12:54] LABS: Alanine Aminotransferase 28 U/L (7-40); Albumin 3.8 g/dL (3.2-4.8); Alkaline Phosphatase 105 U/L (46-116); Anion Gap 11 (5-15); BUN/Creatinine Ratio 18.0 (10.0-20.0); Bilirubin, Total 2.0 mg/dL (0.2-1.0); Blood Urea Nitrogen 11 mg/dL (9-23); Calcium 9.0 mg/dL (8.7-10.4); Carbon Dioxide 23 mmol/L (20-31); Chloride 114 mmol/L (98-107); Glucose 82 mg/dL (74-106); Potassium 3.9 mmol/L (3.5-5.1); Sodium 148 mmol/L (136-145); Total Protein 7.1 g/dL (5.7-8.2)
[2024-10-19] MEDS ORDERED: cefTRIAXone 1GM/50ML D5W 50 ML IV ONE (13:30)
[2024-10-19 13:52] LABS: Anisocytosis Moderate
[2024-10-19] MEDS ORDERED: FURO1TAB33 PO (14:12)
[2024-10-19] MEDS ORDERED: CEPH500T PO (14:12)
== END 2024-10-19 14:06 | disposition left against medical advice (07) ==
LOC: ER 10:59
DX: K74.60 Unspecified cirrhosis of liver (principal); R60.0 Localized edema; D64.9 Anemia, unspecified; D69.6 Thrombocytopenia, unspecified; N39.0 Urinary tract infection, site not specified; F10.10 Alcohol abuse, uncomplicated; I25.2 Old myocardial infarction; I50.9 Heart failure, unspecified; N18.9 Chronic kidney disease, unspecified; Z79.899 Other long term (current) drug therapy
CPT/HCPCS: 36415; 71045; 80053; 81001; 83880; 84484; 85025; 93005; 96374; 99285; J1938

== ENCOUNTER 2024-10-20 11:30 | Inpatient (IN) | payer MEDICAID ==
[~2024-10-20] VITALS: Ht 198.1 cm; Wt 102.2 kg
[~2024-10-20 11:30] MED LIST changes: +CEPH500T PO; +FURO1TAB33 PO
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
[2024-10-20 12:08] LABS: Hematocrit 26.1 % (41.0-53.0); Hemoglobin 8.4 g/dL (13.5-17.5); Mean Corpuscular Hemoglobin 23.2 pg (28.0-32.0); Mean Corpuscular Volume 72.2 fL (80.0-100.0); Nucleated Red Blood Cells % 0.1 %
[2024-10-20] MEDS: THIAMINE 100mg/ml INJ (200mg/2ml VIAL) IV ONE (12:09)
[2024-10-20 12:19] LABS: Potassium 3.6 mmol/L (3.5-5.1)
[2024-10-20 12:21] LABS: Anion Gap 10 (5-15); Calcium 8.7 mg/dL (8.7-10.4); Carbon Dioxide 24 mmol/L (20-31); Chloride 114 mmol/L (98-107); Sodium 148 mmol/L (136-145)
--- NOTE | 2024-10-20 12:23 | DVH ---
INDICATION: sob TECHNIQUE: Frontal view of the chest. COMPARISON: XY CHEST PORTABLE on DOS: 10/19/24, XY CHEST PORTABLE on DOS: 02/24/24, XY CHEST XRAY 1 EW on DOS: 05/26/22, CXRP on DOS: 08/25/21, CHEST PORTABLE on DOS: 08/25/21 FINDINGS: Small left pleural effusion. The heart and mediastinal contours are grossly unremarkable. The lung s are clear. The bony structures of the chest are intact without fracture. IMPRESSION: 1. Small left pleural effusion. Cardiomegaly with CHF.
[2024-10-20 12:26] LABS: BUN/Creatinine Ratio 16.4 (10.0-20.0); Blood Urea Nitrogen 9 mg/dL (9-23); Glucose 88 mg/dL (74-106)
[2024-10-20] MEDS: FUROSEMIDE 20 MG/2 ML VIAL IV ONE (12:33)
[2024-10-20 12:36] LABS: Urine Protein, UAD 1+ (Negative)
[2024-10-20 12:38] LABS: Anisocytosis Marked
[2024-10-20 12:51] VITALS: RESP 12
[2024-10-20] MEDS ORDERED: ONDANSETRON HCL 4 MG/2 ML VIAL IV PRN (15:00)
--- NOTE | 2024-10-20 16:15 | DVHHP2 ---
History of Present Illness Reason for Visit: Leg swelling History of Present Illness 44-year-old male presents for evaluation of leg swelling. Patient reports a four day history of worsening lower extremity swelling. Patient has a history of congestive heart failure and reports being compliant with his Lasix. Patient was seen yesterday for the same symptoms and left AMA because he did not want to wait in the emergency room. Reports mild shortness for breath. No chest pain. No other acute complaints. Past Medical History CHF, liver disease, mi, seizures, her Past Surgical History Denies Family History Noncontributory Smoke: Quit ALCOHOL: heavy Drugs: None Lives: with Family Review of Systems Review of Systems Review of systems are currently negative otherwise addressed in HPI. Allergies: Coded Allergies: NO KNOWN ALLERGIES (Unverified , 01/02/13) Medications Current Medications Medications Dose Ordered Sig/Johnnie Route Start Time Stop Time Status Last Admin Dose Admin Furosemide 20 mg DAILY IV 10/21/24 10:00 Spironolactone 25 mg DAILY PO 10/21/24 10:00 Levetiracetam 500 mg BID PO 10/20/24 22:00 Folic Acid 1 mg DAILY PO 10/21/24 10:00 Levothyroxine Sodium 25 mcg QAM@0600 PO 10/21/24 06:00 Pantoprazole Sodium 40 mg DAILY@0600 PO 10/21/24 06:00 Ondansetron HCl 4 mg Q4HP PRN IV 10/20/24 15:00 Acetaminophen 650 mg Q6HP PRN PO 10/20/24 15:00 Exam Vital Signs Vital Signs Date Time Temp Pulse Resp B/P (MAP) Pulse Ox O2 Delivery O2 Flow Rate FiO2 10/20/24 14:30 59 12 137/74 (95) 97 10/20/24 12:51 Room Air* 0 21 10/20/24 12:41 97.7 97.7 Exam Gen: 44-year-old male in mild distress Skin: Warm, dry, normal color and texture, no rash. HEENT: Normocephalic atraumatic, mucous membranes moist and pink. Neck: Cervical and supraclavicular nodes normal without enlargement, trachea is midline, thyroid gland is normal without masses. Pulmonary: Clear to auscultation and percussion bilaterally. Cardiac: Regular rate and rhythm. No murmur Abdomen: Soft, nontender, nondistended, bowel sounds present all 4 quadrants, no guarding, no rigidity, no organomegaly. Extremities: No cyanosis, clubbing, plus two bilateral lower extremity edema Neuro: Cranial nerves II through XII grossly intact, normal affect and speech, no focal motor deficits. Labs/Xrays ORDERING PHYSICIAN: CAITLYN VERDE PROCEDURE(s): ECIDC - ECHO 2D MODE CARDIAC DOP REASON: ef ORDER NUMBER(s): [id number], ACCESSION NUMBER(s): [id number] APPROVED REPORT EXAM: Two-dimensional and M-mode echocardiogram with Doppler and color Doppler. Blood Pressure: 111/69 mmHg INDICATION Dyspnea Heart Failure EF RISK FACTORS Height: 5'11", Weight: 230 DIMENSIONS LVDd 6.2 (3.8-5.7cm) LA (2D) 5.6 (1.9-4.0cm) Aortic Root 4.2 (2.0- 3.7cm) LVDs 4.3 (2.5-4.0cm) LA (MM) (1.9-4.0cm) Aortic Cusp Exc 2.5 (1.5- 2.0cm) EF (%) 60.0 (55-70%) Rt. Atrium 4.4 (1.9-4.0cm) Asc. Aorta 3.8 cm IVSd 1.3 (0.7-1.1cm) RV (D) 4.7 (1.8-2.4cm) PWd 1.2 (0.7-1.1cm) Mitral Valve Mitral Mitral Stenosis E wave 1.19m/s MV Mean GR. mmHg A wave 0.91m/s MV Peak GR. mmHg E/A ratio 1.3 2D MVA cm2 DECEL Time 269ms PRESS 1/2 Time ms Aortic Valve Aortic Valve Aortic Stenosis V1 1.06m/s AO Mean GR. 7mmHg V2 1.98m/s AO Peak GR. 16mmHg LVOT Diameter 2.6 (1.8-2.4cm) Doppler JOSE 2.84cm2 Pulmonic Valve V2 1.16m/s Tricuspid Valve TR Velocity 2.68m/s RVSP 37mmHg Other Information Quality : Technically Limited Rhythm : Conclusion LVEF 50-55%, mild LVH, mild diastolic dysfunction Right ventricle mildly dilated, normal function Left atrium moderately dilated, right atrium mildly dilated Mild pulmonary hypertension ORDERING PHYSICIAN: WILLIAMS BOYCE MD PROCEDURE(s): CXRP - CHEST PORTABLE REASON: sob ORDER NUMBER(s): [id number], ACCESSION NUMBER(s): [id number] INDICATION: sob TECHNIQUE: Frontal view of the chest. COMPARISON: XY CHEST PORTABLE on DOS: 10/19/24, XY CHEST PORTABLE on DOS: 02/24/24, XY CHEST XRAY 1 VIEW on DOS: 05/26/22, CXRP on DOS: 08/25/21, CHEST PORTABLE on DOS: 08/25/21 FINDINGS: Small left pleural effusion. The heart and mediastinal contours are grossly unremarkable. The lungs are clear. The bony structures of the chest are intact without fracture. IMPRESSION: 1. Small left pleural effusion. Cardiomegaly with CHF. Labs Test 10/20/24 11:59 10/20/24 11:53 Range/Units Urine Color Yellow Yellow Urine Clarity Clear Clear Urine pH 6.0 5.0-9.0 Urine Specific [place] 1.025 1.001-1.035 Urine Protein 1+ H Negative Urine Ketones Negative Negative Urine Blood Trace H Negative /uL Urine Nitrite Negative Negative Urine Bilirubin Negative Negative Urine Urobilinogen 4 H Negative mg/dL Urine Leukocyte Esterase Negative Negative /uL Urine RBC 4 0 - 3 /hpf Urine Microscopic WBC 5 H 0-3 /HPF Urine Squamous Epithelial Cells Few <5 /hpf Urine Bacteria Few H None Seen /hpf Urine Mucus Few None Seen Urine Glucose Normal Normal mg/dL White Blood Count 2.8 L 4.4-10.8 10^3/uL Red Blood Count 3.61 L 4.5-5.90 10^6/uL Hemoglobin 8.4 L 13.5-17.5 g/dL Hematocrit 26.1 L 41.0-53.0 % Mean Corpuscular Volume 72.2 L 80.0-100.0 fL Mean Corpuscular Hemoglobin 23.2 L 28.0-32.0 pg Mean Corpuscular Hemoglobin Concent 32.2 32.0-36.0 g/dL Red Cell Distribution Width 31.7 H 11.8-14.3 % Platelet Count 117 L 140-450 10^3/uL Mean Platelet Volume 8.2 6.9-10.8 fL Neutrophils (%) (Auto) 33.3 L 37.0-80.0 % Lymphocytes (%) (Auto) 47.7 10.0-50.0 % Monocytes (%) (Auto) 16.1 H 0.0-12.0 % Eosinophils (%) (Auto) 0.4 0.0-7.0 % Basophils (%) (Auto) 2.5 H 0.0-2.0 % Neutrophils # (Auto) 0.9 L 1.6-8.6 10 ^3/uL Lymphocytes # (Auto) 1.4 0.4-5.4 10 ^3/uL Monocytes # (Auto) 0.5 0-1.3 10 ^3/uL Eosinophils # (Auto) 0 0-0.8 10 ^3/uL Basophils # (Auto) 0.1 0-0.2 10 ^3/uL Nucleated Red Blood Cells 0.1 % Platelet Estimate Decreased Hypochromasia (manual) Moderate Poikilocytosis (manual) Slight Anisocytosis (manual) Marked Microcytosis Moderate Schistocytes Few Sodium Level 148 H 136-145 mmol/L Potassium Level 3.6 3.5-5.1 mmol/L Chloride Level 114 H 98-107 mmol/L Carbon Dioxide Level 24 20-31 mmol/L Anion Gap 10 5-15 Blood Urea Nitrogen 9 9-23 mg/dL Creatinine 0.55 L 0.700-1.30 mg/dL Glomerular Filtration Rate Calc 126 >90 mL/min BUN/Creatinine Ratio 16.4 10.0-20.0 Serum Glucose 88 74-106 mg/dL Calcium Level 8.7 8.7-10.4 mg/dL Troponin I High Sensitivity 21 </=54 ng/L B-Type Natriuretic Peptide 51.42 0-100 pg/mL Plasma/Serum Blood Alcohol 352.7 H <10 mg/dL SEPSIS Sepsis Screen Date sepsis recognized/suspect: Oct 20, 2024 Time Sepsis recognized/suspect: 1200 Recent Procedure: No On Antibiotic Therapy: No Respiratory Rate >20: No Heart Rate >90: No Temp<36 C (96.8 F) or >38.3 C: No SBP <90 or MAP <65 mmHG: No New Acute Mental Status Change: No Is the patient on CPAP, BIPAP,: No Physician Orders Electrocardigram (10/20/24 11:43) Chest Portable (10/20/24 11:44) Furosemide Injection (Lasix Injection) (10/21/24 10:00) Spironolactone (Aldactone) (10/21/24 10:00) Levetiracetam Tablet (Keppra Tablet) (10/20/24 22:00) Folic Acid Tablet (10/21/24 10:00) Levothyroxine Tablet (Synthroid Tablet) (10/21/24 06:00) Pantoprazole Tablet (Protonix Tablet) (10/21/24 06:00) Basic Metabolic Panel (10/21/24 04:00) Admit (10/20/24 14:54) Ondansetron Hcl (Zofran) (10/20/24 15:00) Cardiac Diet-2gna,Lofat,Lochol (10/20/24 Dinner) Condition: Stable (10/20/24 14:54) Acetaminophen Tablet (Tylenol Tablet) (10/20/24 15:00) Bedrest With Bathroom Privileg (10/20/24 14:54) Vital Signs Date Time Temp Pulse Resp B/P (MAP) Pulse Ox O2 Delivery O2 Flow Rate FiO2 10/20/24 14:30 59 12 137/74 (95) 97 10/20/24 12:51 12 Room Air* 0 21 10/20/24 12:41 97.7 67 12 136/71 (92) 94 97.7 10/20/24 12:33 136/71 10/20/24 11:39 98.7 62 16 132/77 (95) 97 98.7 10/20/24 11:39 59 Laboratory Tests Test 10/20/24 11:53 White Blood Count 2.8 10^3/uL (4.4-10.8) L Medications Medications Dose Ordered Sig/Johnnie Route Start Time Stop Time Status Last Admin Dose Admin Furosemide 20 mg ONCE ONCE IV 10/20/24 11:45 10/20/24 11:47 DC 10/20/24 12:33 20 MG Thiamine HCl 100 mg ONCE ONCE IV 10/20/24 11:45 10/20/24 11:47 DC 10/20/24 12:09 100 MG Assessment/Plan Assessment/Plan Assessment Acute on chronic congestive heart failure Hypertension Alcohol intoxication Plan Admit the patient to Med surge to the hospitalist DARRELL Lasix Resume home medications Continue treatment per orders. Plan discussed with: Patient My Orders Orders - CAITLYN VERDE Procedure Category Date Status Time Furosemide Injection PHA 10/21/24 In Process (Lasix Injection) 10:00 Spironolactone PHA 10/21/24 In Process (Aldactone) 10:00 Levetiracetam Tablet PHA 10/20/24 In Process (Keppra Tablet) 22:00 Folic Acid Tablet PHA 10/21/24 In Process 10:00 Levothyroxine Tablet PHA 10/21/24 In Process (Synthroid Tablet) 06:00 Pantoprazole Tablet PHA 10/21/24 In Process (Protonix Tablet) 06:00 Basic Metabolic Panel LAB 10/21/24 Verified 04:00 Admit ADMIT 10/20/24 Transmitted 14:54 Ondansetron Hcl PHA 10/20/24 In Process (Zofran) 15:00 Cardiac DIET 10/20/24 Transmitted Diet-2gna,Lofat,Lochol Dinner Condition: Stable BERT 10/20/24 In Process 14:54 Acetaminophen Tablet PHA 10/20/24 In Process (Tylenol Tablet) 15:00 Bedrest With Bathroom BERT 10/20/24 In Process Privileg 14:54 Date of Service: Oct 20, 2024 Billing Provider: CAITLYN VERDE Common Visit Codes: [id number] INP/OBS CARE (HIGH) CAITLYN VERDE Oct 20, 2024 16:15
[2024-10-20 16:36] VITALS: RESP 18; O2SAT 97
[2024-10-20 17:00] VITALS: BP 141/82; PULSE 60; RESP 18; TEMP 97.7; O2SAT 98
--- NOTE | 2024-10-20 18:46 | ECG ---
[facility] Test Date: 2024-10-20 Test Time: 11:37:51 Pat Name: JIMBO EDOUARD Department: ED Room: 0284 Gender: M Medical Claims Specialist: OMAR : 1980 Requested By: WILLIAMS BOYCE Order Number: [id number] Reading MD: Measurements Intervals [place] Rate: 59 P: -67 MI: 181 QRS: 31 QRSD: 130 T: 48 QT: 495 QTc: 491 Interpretive Statements Sinus or ectopic atrial rhythm IVCD, consider atypical LBBB Please click the below link to view image of tracing.
[2024-10-20 20:00] VITALS: RESP 18; O2SAT 97
[2024-10-20 21:00] VITALS: BP_SYST 119; BP_SYST 125; BP_DIAS 76; BP_DIAS 84; PULSE 78; PULSE 79; RESP 18; TEMP 97.5; TEMP 98.6; O2SAT 96; O2SAT 97
[2024-10-20] MEDS: levETIRAcetam 500 MG TAB PO SCH (21:10)
[2024-10-21 01:00] VITALS: BP 138/88; PULSE 77; RESP 18; TEMP 97.8; O2SAT 93
[2024-10-21 05:00] VITALS: BP 134/79; PULSE 65; RESP 18; TEMP 98; O2SAT 96
[2024-10-21] MEDS: LEVOTHYROXINE SODIUM 25 MCG TAB PO SCH (05:06)
[2024-10-21] MEDS: PANTOPRAZOLE 40 MG TAB PO SCH (05:06)
[2024-10-21 05:42] LABS: Potassium 3.7 mmol/L (3.5-5.1)
[2024-10-21 05:43] LABS: Anion Gap 9 (5-15); Carbon Dioxide 25 mmol/L (20-31)
[2024-10-21 05:48] LABS: BUN/Creatinine Ratio 17.0 (10.0-20.0); Blood Urea Nitrogen 9 mg/dL (9-23); Calcium 8.6 mg/dL (8.7-10.4); Chloride 111 mmol/L (98-107); Glucose 76 mg/dL (74-106); Sodium 145 mmol/L (136-145)
[2024-10-21 09:04] VITALS: BP 131/74; PULSE 68; RESP 19; TEMP 97.5; O2SAT 97
[2024-10-21] MEDS: FUROSEMIDE 20 MG/2 ML VIAL IV SCH (09:41)
[2024-10-21] MEDS: FOLIC ACID 1 MG TAB PO SCH (09:41)
[2024-10-21] MEDS: SPIRONOLACTONE 25 MG TAB PO SCH (09:41)
[2024-10-21 10:42] LABS: Hepatitis B Surface Antigen Negative (Negative); Hepatitis C Antibody Negative (Negative)
--- NOTE | 2024-10-21 11:17 | DVH ---
INDICATION: cirrhosis, ascites TECHNIQUE: Multiple real-time sonographic images were obtained of the right upper quadrant. COMPARISON: US GALLBLADDER on DOS: 10/04/24 FINDINGS: The liver demonstrates heterogeneous echotexture without focal mass lesions. The liver kelsie ures 13 cm. There is no intrahepatic or extrahepatic ductal dilatation. The gallbladder is without evidence of stone or sludge. The gallbladder wall measures 0.2mm and is within normal limits. The right kidney measures 14 cm. The right kidney is normal in contour, size, and shape. The echog enicity is normal. There is no hydronephrosis. The pancreas is not well visualized due to overlying bowel gas. IMPRESSION: Hepatic steatosis/ hepatic cirrhosis
[2024-10-21 11:55] LABS: Alanine Aminotransferase 25 U/L (7-40); Alkaline Phosphatase 113 U/L (46-116); Anion Gap 9 (5-15); BUN/Creatinine Ratio 15.1 (10.0-20.0); Carbon Dioxide 24 mmol/L (20-31); Glucose 83 mg/dL (74-106); Potassium 3.6 mmol/L (3.5-5.1); Sodium 143 mmol/L (136-145); Total Protein 6.3 g/dL (5.7-8.2)
[2024-10-21 11:56] LABS: Albumin 3.2 g/dL (3.2-4.8)
[2024-10-21 11:59] LABS: Bilirubin, Total 2.5 mg/dL (0.2-1.0); Blood Urea Nitrogen 8 mg/dL (9-23); Calcium 8.6 mg/dL (8.7-10.4); Chloride 110 mmol/L (98-107); Magnesium 1.6 mg/dL (1.6-2.6)
[2024-10-21 13:00] VITALS: BP 153/86; PULSE 66; RESP 20; TEMP 98.1; O2SAT 96
[2024-10-21] MEDS ORDERED: LORazepam 2MG/ML-1ML VIAL IV PRN (14:30)
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
--- NOTE | 2024-10-21 15:32 | DVH ---
CHEST RADIOGRAPH Indication: chest pain, r/o rib fx Technique: XY RIBS BILATERAL Comparison: None FINDINGS: The cardiac silhouette is unremarkable. The lungs demonstrate left lower lobe / retrocardiac airspace opacification. The pulmonary vasculature is unremarkable. There is no pleural effusion. There is no pneumothorax. No identifiable rib fracture. T11 compression deformity with 20% loss height. T6 compression deformity with 50% loss height. These were present on previous CT from 10/10/2024. IMPRESSION: Left lower lobe / retrocardiac airspace opacification
[2024-10-21 15:53] LABS: INR 1.17 (0.9-1.15); Partial Thromboplastin Time 33.7 SEC (24.5-34.5); Prothrombin Time 12.2 sec (9.3-11.8)
[2024-10-21 17:00] VITALS: BP 161/87; PULSE 65; RESP 16; TEMP 97.9; O2SAT 99
[2024-10-21 21:00] VITALS: BP 147/75; PULSE 63; RESP 16; TEMP 98.5; O2SAT 95
[2024-10-22] VITALS (7 sets, daily range): BP systolic 128–146; BP diastolic 57–80; PULSE 63–85; RESP 15–19; TEMP 97.8–99.4; O2SAT 92–99
[2024-10-22 07:33] LABS: Hemoglobin 7.8 g/dL (13.5-17.5)
[2024-10-22 07:35] LABS: Hematocrit 23.1 % (41.0-53.0); Mean Corpuscular Hemoglobin 24.0 pg (28.0-32.0); Mean Corpuscular Volume 71.6 fL (80.0-100.0)
[2024-10-22 07:38] LABS: Alanine Aminotransferase 22 U/L (7-40); Alkaline Phosphatase 108 U/L (46-116); Anion Gap 9 (5-15); BUN/Creatinine Ratio 16.7 (10.0-20.0); Blood Urea Nitrogen 9 mg/dL (9-23); Carbon Dioxide 23 mmol/L (20-31); Glucose 76 mg/dL (74-106); Potassium 3.7 mmol/L (3.5-5.1); Sodium 140 mmol/L (136-145); Total Protein 5.9 g/dL (5.7-8.2)
[2024-10-22 07:39] LABS: Calcium 8.6 mg/dL (8.7-10.4); Chloride 108 mmol/L (98-107)
[2024-10-22 07:44] LABS: Albumin 3.0 g/dL (3.2-4.8); Bilirubin, Total 3.3 mg/dL (0.2-1.0)
[2024-10-22 08:59] LABS: Total Cells Counted 100.0 (100)
[2024-10-22 09:00] LABS: Anisocytosis Marked
[2024-10-22] MEDS: MULTIPLE VITAMIN TAB PO SCH (10:54)
[2024-10-22] MEDS: THIAMINE HCL 100 MG TAB PO SCH (10:54)
[2024-10-22] MEDS: ACETAMINOPHEN 325 MG TAB PO PRN (11:01)
--- NOTE | 2024-10-22 13:28 | DVH ---
CT HEAD WITHOUT CONTRAST INDICATION: S/P fall EXAM DATE: 10/22/2024 12:29 PM COMPARISON: CT HEAD WITHOUT CONTRAST on DOS: 10/10/24, CT HEAD WITHOUT CONTRAST on DOS: 08/10/24, CT HE AD WITHOUT CONTRAST on DOS: 12/22/23 RADIATION DOSE: CTDIvol: 56.96 mGy, DLP: 913.05 mGy*cm PROCEDURE: CT scans of the head were obtained from the vertex to the skull base. Sagittal and coronal reconstructions were provided. All CT scans at this medical facility are performed using dose modulation techniques as appropriate t o a performed exam including the following: Automated exposure control was utilized; adjustment of th e MA and/or KV according to patient size; and use of iterative reconstruction technique. FINDINGS: There is sulcal and ventricular prominence. The brainshows normal morphology and armstrong-whi te matter differentiation, without intracranial hemorrhage, extra-axial fluid collection, mass effect or acute large vessel infarct. The ventricles are normal in size. The basal cisterns are patent. The skull and visible facial bones are intact. The paranasal sinuses, mastoid air cells and middle ear c avities are well-aerated. The soft tissues of the scalp are unremarkable. IMPRESSION: No acute intracranial abnormality.
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
[2024-10-23 01:00] VITALS: BP 132/68; PULSE 71; RESP 18; TEMP 97.9; O2SAT 97
[2024-10-23 05:00] VITALS: BP 137/70; PULSE 67; RESP 18; TEMP 98; O2SAT 97
[2024-10-23 08:46] VITALS: BP 120/77; PULSE 41; RESP 3; RESP 84; TEMP 98.6; O2SAT 62; O2SAT 97
[2024-10-23 12:51] VITALS: BP 138/82; PULSE 83; RESP 14; TEMP 98; O2SAT 98
[2024-10-23] MEDS ORDERED: LEVO25TA6 PO (12:57)
[2024-10-23] MEDS ORDERED: KEP500T PO (12:57)
[2024-10-23] MEDS ORDERED: THIA100T10 PO (12:57)
[2024-10-23] MEDS ORDERED: MULTTAB99 PO (12:57)
[2024-10-23] MEDS ORDERED: SPIR25TA PO (12:57)
[2024-10-23] MEDS ORDERED: FOLI-119 PO (12:57)
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
[2024-10-23 14:50] VITALS: BP 141/74; TEMP 36.7
[2024-10-23 16:43] VITALS: BP 139/77; PULSE 66; RESP 18; TEMP 98.7; O2SAT 100
== END 2024-10-23 18:32 | disposition home or self-care (01) | DRG 816 ==
LOC: EDBD 11:30 → ER 11:32 → OVERFLOW 14:54 → WEST WING 16:55
PROVIDERS: ADMIT Internal Medicine; ATTEND Internal Medicine
DX: T51.91XA Toxic effect of unspecified alcohol, accidental (unintentional), initial encounter (principal); J90 Pleural effusion, not elsewhere classified; I50.32 Chronic diastolic (congestive) heart failure; K70.30 Alcoholic cirrhosis of liver without ascites; E03.9 Hypothyroidism, unspecified; F10.129 Alcohol abuse with intoxication, unspecified; T14.90XA Injury, unspecified, initial encounter; K80.20 Calculus of gallbladder without cholecystitis without obstruction; Z87.891 Personal history of nicotine dependence; Z59.00 Homelessness unspecified; K76.0 Fatty (change of) liver, not elsewhere classified; F10.139 Alcohol abuse with withdrawal, unspecified; S00.12XA Contusion of left eyelid and periocular area, initial encounter; S00.11XA Contusion of right eyelid and periocular area, initial encounter; Y92.89 Other specified places as the place of occurrence of the external cause; X58.XXXA Exposure to other specified factors, initial encounter; Y93.89 Activity, other specified; Y99.8 Other external cause status; Y08.89XA Assault by other specified means, initial encounter; Y90.8 Blood alcohol level of 240 mg/100 ml or more
CPT/HCPCS: 36415; 70450; 71045; 71111; 76705; 80048; 80053; 80320; 81001; 82140; 83735; 83880; 84484; 85007; 85025; 85027; 85610; 85730; 86803; 87081; 87340; 93005; 96374; 96375; 99291; 99292; G0378

== ENCOUNTER 2024-10-31 22:42 | Inpatient (IN) | payer MEDICAID ==
[~2024-10-31] VITALS: Ht 198.1 cm; Wt 100.0 kg
[2024-11-01] MEDS ORDERED: SODIUM CHLORIDE 0.9% 1,000 ML IV ONE
[2024-11-01] MEDS: levETIRAcetam 1000 mg/100ml 100 ML IV ONE
--- NOTE | 2024-11-01 00:31 | ED.PDOC ---
History of Present Illness HPI Comments 44-year-old male is brought in by ambulance from private residence for chief complaint of seizure. Per EMS report, son called on patient's behalf after witnessing the patient have a tonic-clonic seizure of 30 seconds induration, this evening. Onset was stated to have occurred following consumption of 6 tall cans of beer prior in addition to patient being his Keppra medication for over the past 2 weeks. No signs of trauma noted initial assessment on scene. Patient denies having any additional acute symptoms at this time. Significant history for anemia, diastolic CHF, gallstones, liver cirrhosis, IA, seizures, hypothyroidism, and alcohol abuse. REVIEW OF SYSTEMS: General: No fever, no chills, HEENT: No neck pain, no blurred vision Cardiac: No chest pain. No palpitations. Lungs: No shortness of breath, GI: No abdominal pain, no vomiting Musculoskeletal: No joint pain , no back pain Skin: No rash, no wound Neuro: + Seizure. No headache, no dizziness, no syncope PHYSICAL EXAM: General: Awake, alert and oriented. No acute distress. Smells of alcohol. Skin: Skin in warm, dry and intact without rashes or lesions. HEENT: The head is normocephalic and atraumatic. Conjunctivae are clear without exudates or hemorrhage. Sclera is non-icteric. Neck: Normal range of motion. No JVD. Cardiac: Regular rate Respiratory: No signs of respiratory distress. No Stridor. Extremities: Upper and lower extremities are atraumatic in appearance without deformity. Neurological: The patient is awake, alert and oriented to person, place, and time with slurred speech. Speech is clear. There is no facial asymmetry. Psychiatric: Appropriate mood and affect. Good judgement and insight. Chief Complaint: Seizure Time Seen by MD: 23:40 Primary Care Provider: UNKNOWN Reviewed Notes: Nurses Notes, Eligibility Services Representative Notes, Medications, Allergies Allergies: Coded Allergies: NO KNOWN ALLERGIES (Unverified , 01/02/13) Home Meds Active Scripts Thiamine Hcl (VITAMIN B-1) 100 Mg Tb, 100 MG PO DAILY for 30 Days, #30 TAB Prov:MICHELLE SAMUELS RESIDENT 10/23/24 Spironolactone (Aldactone) 25 Mg Tab, 25 MG PO DAILY for 30 Days, #30 TAB Prov:MICHELLE SAMUELS RESIDENT 10/23/24 Multiple Vitamin (Mvi Tab) 1 Tab Tb, 1 TAB PO DAILY for 30 Days, #30 TAB Prov:MICHELLE SAMUELS [facility] 10/23/24 Levothyroxine Sodium (Levothyroxine Sodium) 25 Mcg Tab, 25 MCG PO QAM@0600 for 30 Days, #30 TAB Prov:MICHELLE SAMUELS RESIDENT 10/23/24 Levetiracetam (KEPPRA TABLET) 500 Mg Tb, 500 MG PO BID for 30 Days, #60 TAB Prov:MICHELLE SAMUELS RESIDENT 10/23/24 Folic Acid (Folic Acid) 1 Mg Tab, 1 MG PO DAILY for 30 Days, #30 TAB Prov:MICHELLE SAMUELS [facility] 10/23/24 Cephalexin Monohydrate (Cephalexin) 500 Mg Tab, 1 TAB PO TID for 7 Days, #21 TAB Prov:AMENA MENDENHALL DO 10/19/24 Furosemide (Lasix) 20 Mg Tb, 1 TAB PO BID for 5 Days, #10 TAB 5 Refills Prov:AMENA MENDENHALL 10/19/24 Spironolactone (Aldactone) 25 Mg Tab, 1 TAB PO DAILY for 30 Days, #30 TAB 1 Refill Prov:CHELE GLEZ [facility] 10/06/24 Magnesium Oxide (Mgo) 400 Mg Tab, 400 MG PO DAILY for 10 Days, #10 TAB Prov:LATESHA SAMANO MD 12/18/23 Levothyroxine Sodium (Levothyroxine Sodium) 25 Mcg Tab, 25 MCG PO QAM@0600 for 30 Days, #30 TAB Prov:LATESHA SAMANO MD 12/18/23 Levetiracetam (KEPPRA TABLET) 500 Mg Tb, 500 MG PO BID for 30 Days, #60 TAB Prov:LATESHA SAMANO MD 12/18/23 Pantoprazole Sodium Sesquihydr (Protonix) 40 Mg Tab, 40 MG PO DAILY, #30 TAB Prov:LATESHA SAMANO MD 12/18/23 Folic Acid (Folic Acid) 1 Mg Tab, 1 MG PO DAILY for 30 Days, #30 TAB Prov:LATESHA SAMANO MD 12/18/23 Multiple Vitamin (Mvi Tab) 1 Tab Tb, 1 TAB PO DAILY for 30 Days, #30 TAB Prov:LATESHA SAMANO MD 12/18/23 Sucralfate (CARAFATE) 1 Gm Tab, 1 GM OR QIDACHS for 30 Days, #120 TAB Prov:LATESHA SAMANO MD 12/18/23 Thiamine Hcl (VITAMIN B-1) 100 Mg Tb, 100 MG PO DAILY for 30 Days, #30 TAB Prov:LATESHA SAMANO MD 12/18/23 Hydroxyzine HCl (Hydroxyzine Hydrochloride) 25 Mg Tab, 25 MG PO Q8HP PRN for 30 Days, #90 TAB Prov:RITA WEBB NP 10/06/23 Sertraline Hcl (Zoloft) 25 Mg Tab, 1 TAB PO DAILY, #30 TAB 2 Refills Prov:RITA WEBB NP 10/06/23 Lactulose (Lactulose) 10 Gm Jorge, 10 GM PO BID for 30 Days, #10 PACK Prov:RITA WEBB CHILD MONITOR 10/06/23 Cyclobenzaprine Hcl (Cyclobenzaprine Hcl) 5 Mg Tab, 1 TAB PO TID PRN, #30 TAB Prov:LOC MAHER 05/26/22 Reported Medications Gabapentin (Gabapentin) 300 Mg Cap, 1 CAP PO TID 12/14/23 Pantoprazole Sodium Sesquihydr (Pantoprazole Sodium) 40 Mg Tab, 1 TAB PO BID 12/14/23 Disulfiram (DISULFIRAM) 250 Mg Tab, 250 MG PO BID, TAB 10/24/21 Information Source: Patient, Emergency Med Personnel Mode of Arrival: EMS Severity: Moderate Timing: Hours Duration: Other (Seconds) Prehospital treatment: 12 Lead EKG, Accucheck, Instructor Bridge Past Medical History PAST MEDICAL HISTORY: Anemia, CHF (Diastolic), Gallstones, Liver (Cirrhosis), IA, Seizures, Thyroid (Hypothyroidism) Surgical History: Denies all surgeries Family History Family History: Reviewed,noncontributory to illness Social History Smoker: Quit Less Than 1 Year Alcohol: Heavy Drugs: Denies Drug Use Lives In: Homeless Was a procedure done? Was a procedure done?: No Differential Dx Considerations may include: Differential diagnoses considered include but are not limited to epilepsy/seizure disorder, CELL BUILDER infection, electrolyte disturbance, CVA, TBI, drug toxicity or overdose, hypoxia, hypertensive emergency, brain tumor/mass, syncope, movement disorder, other X-Ray, Labs, Meds, VS Vital Signs Date Time Temp Pulse Resp B/P (MAP) Pulse Ox O2 Delivery O2 Flow Rate FiO2 10/31/24 22:48 98.1 91 20 145/88 98 98.1 Lab Test 11/01/24 00:12 Range/Units White Blood Count 3.7 L 4.4-10.8 10^3/uL Red Blood Count 3.26 L 4.5-5.90 10^6/uL Hemoglobin 7.7 L 13.5-17.5 g/dL Hematocrit 23.5 L 41.0-53.0 % Mean Corpuscular Volume 72.1 L 80.0-100.0 fL Mean Corpuscular Hemoglobin 23.5 L 28.0-32.0 pg Mean Corpuscular Hemoglobin Concent 32.6 32.0-36.0 g/dL Red Cell Distribution Width 31.4 H 11.8-14.3 % Platelet Count 72 L 140-450 10^3/uL Mean Platelet Volume 8.4 6.9-10.8 fL Neutrophils (%) (Auto) 37.0-80.0 % Lymphocytes (%) (Auto) 10.0-50.0 % Monocytes (%) (Auto) 0.0-12.0 % Basophils (%) (Auto) 0.0-2.0 % Neutrophils # (Auto) 1.6-8.6 10 ^3/uL Lymphocytes # (Auto) 0.4-5.4 10 ^3/uL Monocytes # (Auto) 0-1.3 10 ^3/uL Differential Total Cells Counted 100.0 100 Neutrophils % (Manual) 37 37.0-80.0 Band Neutrophils % (Manual) 0 Lymphocytes % (Manual) 59 H 10.0-50.0 Monocytes % (Manual) 4 0-12 Eosinophils % (Manual) 0 0-7 Basophils % (Manual) 0 0.0-2.0 Metamyelocytes % (manual) 0 Myelocytes % (Manual) 0 Promyelocytes % (Manual) 0 Blast Cells % (Manual) 0 Reactive Lymphocytes 0 Platelet Estimate Decreased Hypochromasia (manual) Slight Poikilocytosis (manual) Slight Anisocytosis (manual) Slight Microcytosis Moderate Schistocytes Few Sodium Level 148 H 136-145 mmol/L Potassium Level 3.8 3.5-5.1 mmol/L Chloride Level 117 H 98-107 mmol/L Carbon Dioxide Level 21 20-31 mmol/L Anion Gap 10 5-15 Blood Urea Nitrogen 11 9-23 mg/dL Creatinine 0.56 L 0.700-1.30 mg/dL Glomerular Filtration Rate Calc 125 >90 mL/min BUN/Creatinine Ratio 19.6 10.0-20.0 Serum Glucose 102 74-106 mg/dL Calcium Level 8.4 L 8.7-10.4 mg/dL Total Bilirubin 1.7 H 0.2-1.0 mg/dL Aspartate Amino Transferase (AST) 67 H 13-40 U/L Alanine Aminotransferase (ALT) 27 7-40 U/L Alkaline Phosphatase 123 H 46-116 U/L Total Protein 6.7 5.7-8.2 g/dL Albumin 3.6 3.2-4.8 g/dL Levetiracetam Level Pending Plasma/Serum Blood Alcohol 442.8 *H <10 mg/dL Time of 1ST Reevaluation: 00:10 Reevaluation 1ST: Unchanged Patient Education/Counseling: Treatment, Need For Follow Up Family Education/Counseling: No Family Present SEPSIS Sepsis Screen Date sepsis recognized/suspect: Oct 31, 2024 Time Sepsis recognized/suspect: 2257 Recent Procedure: No On Antibiotic Therapy: No Respiratory Rate >20: No Heart Rate >90: Yes Temp<36 C (96.8 F) or >38.3 C: No SBP <90 or MAP <65 mmHG: No New Acute Mental Status Change: No Is the patient on CPAP, BIPAP,: No Physician Orders Drug Screen (10/31/24 23:48) Urinalysis (10/31/24 23:48) Levetiracetam (Keppra) (10/31/24 23:48) Seizure Precautions (10/31/24 ) Titrate Oxygen (10/31/24 23:48) Oxygen (10/31/24 ) Continous Pulse Oximetry (10/31/24 23:48) Saline Lock (10/31/24 23:48) Instructor Bridge (10/31/24 ) Vital Signs Date Time Temp Pulse Resp B/P (MAP) Pulse Ox O2 Delivery O2 Flow Rate FiO2 10/31/24 22:48 98.1 91 20 145/88 98 98.1 Laboratory Tests Test 11/01/24 00:12 White Blood Count 3.7 10^3/uL (4.4-10.8) L Departure 1 Departure Time of Disposition: 02:25 Impression: Primary Impression: Severe anemia Additional Impression: Breakthrough seizure Disposition: ADMITTED INPATIENT Condition: Guarded Comments Extensive evaluation was performed in attempt to identify or rule out: (See differential diagnosis section) The following tests were ordered, and results were reviewed by me and discussed with patient: (See diagnostic results section) The following test were independently interpreted by me: N/A I reviewed and agreed with the following test results read by other providers: N/A I reviewed the following notes from the pt's past medical encounters: December 22, 2023, October 19, 2024, and October 20, 2024 is for seizure, lower extremity swelling, and acute on chronic CHF, respectively Additional information was gathered from interviewing the following independent historians: EMS personnel Discussion of management or test interpretation with external physician/other qualified health healthcare advisory services manager: N/A Addressed one or more chronic illnesses with severe exacerbation, progression, or side effects of treatment: Seizure disorder, an acute or chronic illness that poses a threat to life or bodily function: Severe anemia Decision regarding hospitalization or escalation of hospital level of care: Risk and benefits of admission for further treatment of patient's condition was considered. Due to patient's current clinical condition, high risk of decline and poor outcome if discharged and need for further inpatient management and monitoring, patient will be admitted to the hospital. Drug therapy requiring intensive monitoring for toxicity: IV levetiracetam Parenteral controlled substances: N/A Decision regarding elective major surgery with identified patient or procedure risk factors: N/A Decision regarding emergency major surgery: N/A Decision not to resuscitate or to de-escalate care because of poor prognosis: N/A Diagnosis or treatment significantly limited by social determinants of health: N/A Critical Care Note Critical Care Time?: No Stability Stability form required: No Heart Score Heart Score: Heart Score Response (Comments) Value History N/A 0 EKG N/A 0 Age N/A 0 Risk Factors N/A 0 Troponin N/A 0 Total 0 I personally scribed for LORENZA WONG MD ([email or web address]) on 11/01/24 at 00:31. Electronically submitted by Fredy Eaton ([email or web address]). I personally scribed for LORENZA WONG MD ([email or web address]) on 11/01/24 at 01:33. Electronically submitted by Fredy Eaton ([email or web address]). I personally scribed for LORENZA WONG MD ([email or web address]) on 11/01/24 at 01:36. Electronically submitted by Fredy Eaton ([email or web address]). LORENZA WONG MD Nov 01, 2024 00:31
[2024-11-01 00:40] LABS: Mean Corpuscular Hemoglobin 23.5 pg (28.0-32.0)
[2024-11-01 00:42] LABS: Hematocrit 23.5 % (41.0-53.0); Hemoglobin 7.7 g/dL (13.5-17.5); Mean Corpuscular Volume 72.1 fL (80.0-100.0)
[2024-11-01 00:43] LABS: Alanine Aminotransferase 27 U/L (7-40); Albumin 3.6 g/dL (3.2-4.8); Anion Gap 10 (5-15); BUN/Creatinine Ratio 19.6 (10.0-20.0); Blood Urea Nitrogen 11 mg/dL (9-23); Carbon Dioxide 21 mmol/L (20-31); Glucose 102 mg/dL (74-106); Potassium 3.8 mmol/L (3.5-5.1); Total Protein 6.7 g/dL (5.7-8.2)
[2024-11-01 00:59] LABS: Alkaline Phosphatase 123 U/L (46-116); Bilirubin, Total 1.7 mg/dL (0.2-1.0); Calcium 8.4 mg/dL (8.7-10.4); Chloride 117 mmol/L (98-107); Sodium 148 mmol/L (136-145)
[2024-11-01 01:12] LABS: Anisocytosis Slight; Total Cells Counted 100.0 (100)
[2024-11-01] MEDS ORDERED: ONDANSETRON HCL 4 MG/2 ML VIAL IV PRN (04:30)
[2024-11-01] MEDS ORDERED: LORazepam 2MG/ML-1ML VIAL IV PRN (04:30)
--- NOTE | 2024-11-01 04:58 | DVHHP2 ---
History of Present Illness Reason for Visit: Seizure activity History of Present Illness 44-year-old male presents for evaluation of seizure activity. Patient reports having a witnessed tonic-clonic seizure lasting approximately 30 seconds. Patient is currently alert and oriented. Patient reports being out of his medication Keppra for the past two weeks. Patient reports being drinking alcohol this afternoon. No oral trauma or incontinence. No other acute complaints. Past Medical History CHF, liver cirrhosis, mi, seizures, thyroid, anemia Past Surgical History Denies Family History Noncontributory Smoke: No ALCOHOL: heavy Drugs: None Lives: with Family Review of Systems Review of Systems Review of systems are currently negative otherwise addressed in HPI. Allergies: Coded Allergies: NO KNOWN ALLERGIES (Unverified , 01/02/13) Medications Current Medications Medications Dose Ordered Sig/Johnnie Route Start Time Stop Time Status Last Admin Dose Admin Chlordiazepoxide HCl 25 mg Q6HPRN PRN PO 11/01/24 04:30 Thiamine HCl 100 mg DAILY PO 11/01/24 10:00 Folic Acid 1 mg DAILY PO 11/01/24 10:00 Furosemide 20 mg DAILY PO 11/01/24 10:00 Gabapentin 300 mg TID PO 11/01/24 06:00 Levetiracetam 500 mg BID PO 11/01/24 10:00 Levothyroxine Sodium 25 mcg QAM@0600 PO 11/01/24 06:00 Pantoprazole Sodium 40 mg DAILY@0600 PO 11/01/24 06:00 Lorazepam 1 mg Q5MINP PRN IV 11/01/24 04:30 Ondansetron HCl 4 mg Q4HP PRN IV 11/01/24 04:30 Exam Vital Signs Vital Signs Date Time Temp Pulse Resp B/P (MAP) Pulse Ox O2 Delivery O2 Flow Rate FiO2 10/31/24 22:48 98.1 91 20 145/88 98 98.1 Exam Gen: 44-year-old male in mild distress Skin: Warm, dry, normal color and texture, no rash. HEENT: Normocephalic atraumatic, mucous membranes moist and pink. Neck: Cervical and supraclavicular nodes normal without enlargement, trachea is midline, thyroid gland is normal without masses. Pulmonary: Clear to auscultation and percussion bilaterally. Cardiac: Regular rate and rhythm. No murmur Abdomen: Soft, nontender, nondistended, bowel sounds present all 4 quadrants, no guarding, no rigidity, no organomegaly. Extremities: No cyanosis, clubbing, no edema Neuro: Cranial nerves II through XII grossly intact, normal affect and speech, no focal motor deficits. Labs/Xrays Labs Test 11/01/24 00:12 Range/Units White Blood Count 3.7 L 4.4-10.8 10^3/uL Red Blood Count 3.26 L 4.5-5.90 10^6/uL Hemoglobin 7.7 L 13.5-17.5 g/dL Hematocrit 23.5 L 41.0-53.0 % Mean Corpuscular Volume 72.1 L 80.0-100.0 fL Mean Corpuscular Hemoglobin 23.5 L 28.0-32.0 pg Mean Corpuscular Hemoglobin Concent 32.6 32.0-36.0 g/dL Red Cell Distribution Width 31.4 H 11.8-14.3 % Platelet Count 72 L 140-450 10^3/uL Mean Platelet Volume 8.4 6.9-10.8 fL Neutrophils (%) (Auto) 37.0-80.0 % Lymphocytes (%) (Auto) 10.0-50.0 % Monocytes (%) (Auto) 0.0-12.0 % Basophils (%) (Auto) 0.0-2.0 % Neutrophils # (Auto) 1.6-8.6 10 ^3/uL Lymphocytes # (Auto) 0.4-5.4 10 ^3/uL Monocytes # (Auto) 0-1.3 10 ^3/uL Differential Total Cells Counted 100.0 100 Neutrophils % (Manual) 37 37.0-80.0 Band Neutrophils % (Manual) 0 Lymphocytes % (Manual) 59 H 10.0-50.0 Monocytes % (Manual) 4 0-12 Eosinophils % (Manual) 0 0-7 Basophils % (Manual) 0 0.0-2.0 Metamyelocytes % (manual) 0 Myelocytes % (Manual) 0 Promyelocytes % (Manual) 0 Blast Cells % (Manual) 0 Reactive Lymphocytes 0 Platelet Estimate Decreased Hypochromasia (manual) Slight Poikilocytosis (manual) Slight Anisocytosis (manual) Slight Microcytosis Moderate Schistocytes Few Sodium Level 148 H 136-145 mmol/L Potassium Level 3.8 3.5-5.1 mmol/L Chloride Level 117 H 98-107 mmol/L Carbon Dioxide Level 21 20-31 mmol/L Anion Gap 10 5-15 Blood Urea Nitrogen 11 9-23 mg/dL Creatinine 0.56 L 0.700-1.30 mg/dL Glomerular Filtration Rate Calc 125 >90 mL/min BUN/Creatinine Ratio 19.6 10.0-20.0 Serum Glucose 102 74-106 mg/dL Calcium Level 8.4 L 8.7-10.4 mg/dL Total Bilirubin 1.7 H 0.2-1.0 mg/dL Aspartate Amino Transferase (AST) 67 H 13-40 U/L Alanine Aminotransferase (ALT) 27 7-40 U/L Alkaline Phosphatase 123 H 46-116 U/L Total Protein 6.7 5.7-8.2 g/dL Albumin 3.6 3.2-4.8 g/dL Plasma/Serum Blood Alcohol 442.8 *H <10 mg/dL SEPSIS Sepsis Screen Date sepsis recognized/suspect: Oct 31, 2024 Time Sepsis recognized/suspect: 2257 Recent Procedure: No On Antibiotic Therapy: No Respiratory Rate >20: No Heart Rate >90: Yes Temp<36 C (96.8 F) or >38.3 C: No SBP <90 or MAP <65 mmHG: No New Acute Mental Status Change: No Is the patient on CPAP, BIPAP,: No Physician Orders Drug Screen (10/31/24 23:48) Urinalysis (10/31/24 23:48) Levetiracetam (Keppra) (10/31/24 23:48) Seizure Precautions (10/31/24 ) Titrate Oxygen (10/31/24 23:48) Oxygen (10/31/24 ) Continous Pulse Oximetry (10/31/24 23:48) Saline Lock (10/31/24 23:48) Ultrasound Sonographer (10/31/24 ) Stool Occult Blood (11/01/24 02:26) Chlordiazepoxide Hcl Capsule (Librium Ca (11/01/24 04:30) Type And Screen (11/01/24 04:27) Iron Panel (11/01/24 04:27) Stool Occult Blood (11/01/24 04:27) Thiamine Tab (11/01/24 10:00) Folic Acid Tablet (11/01/24 10:00) Furosemide Tablet (Lasix Tablet) (11/01/24 10:00) Gabapentin Capsule (Neurontin Capsule) (11/01/24 06:00) Levetiracetam Tablet (Keppra Tablet) (11/01/24 10:00) Levothyroxine Tablet (Synthroid Tablet) (11/01/24 06:00) Pantoprazole Tablet (Protonix Tablet) (11/01/24 06:00) Seizure Precautions In Place (11/01/24 04:27) Lorazepam 2mg/Ml Inj (Ativan Inj) (11/01/24 04:30) Admit (11/01/24 04:27) Ondansetron Hcl (Zofran) (11/01/24 04:30) Complete Blood Count (11/02/24 04:00) Comprehensive Metabolic Panel (11/02/24 04:00) Condition: Stable (11/01/24 04:27) Bedrest With Bathroom Privileg (11/01/24 04:27) Ammonia (11/01/24 04:27) Hepatic Diet (50gmpro,2gmna) (11/01/24 Breakfast) Vital Signs Date Time Temp Pulse Resp B/P (MAP) Pulse Ox O2 Delivery O2 Flow Rate FiO2 10/31/24 22:48 98.1 91 20 145/88 98 98.1 Laboratory Tests Test 11/01/24 00:12 White Blood Count 3.7 10^3/uL (4.4-10.8) L Assessment/Plan Assessment/Plan Assessment Toxic encephalopathy Seizure activity Liver cirrhosis Pancytopenia secondary to the above Transaminitis Plan Admit the patient to [facility] to the hospitalist Seizure precautions in place Resume home medications Continue treatment per orders. Plan discussed with: Patient My Orders Orders - CAITLYN VERDE AGACNP Procedure Category Date Status Time Chlordiazepoxide Hcl PHA 11/01/24 In Process Capsule (Librium Ca 04:30 Type And Screen BBK 11/01/24 Logged 04:27 Iron Panel LAB 11/01/24 In Process 04:27 Stool Occult Blood LAB 11/01/24 Logged 04:27 Thiamine Tab PHA 11/01/24 In Process 10:00 Folic Acid Tablet PHA 11/01/24 In Process 10:00 Furosemide Tablet PHA 11/01/24 In Process (Lasix Tablet) 10:00 Gabapentin Capsule PHA 11/01/24 In Process (Neurontin Capsule) 06:00 Levetiracetam Tablet PHA 11/01/24 In Process (Keppra Tablet) 10:00 Levothyroxine Tablet PHA 11/01/24 In Process (Synthroid Tablet) 06:00 Pantoprazole Tablet PHA 11/01/24 In Process (Protonix Tablet) 06:00 Seizure Precautions BERT 11/01/[address] 04:27 Lorazepam 2mg/Ml Inj PHA 11/01/24 In Process (Ativan Inj) 04:30 Admit ADMIT 11/01/24 Transmitted 04:27 Ondansetron Hcl PHA 11/01/24 In Process (Zofran) 04:30 Complete Blood Count LAB 11/02/24 Verified 04:00 Comprehensive LAB 11/02/24 Verified Metabolic Panel 04:00 Condition: Stable BERT 11/01/24 In Process 04:27 Bedrest With Bathroom BERT 11/01/24 In Process Privileg 04:27 Ammonia LAB 11/01/24 Logged 04:27 Hepatic Diet DIET 11/01/24 Transmitted (50gmpro,2gmna) Breakfast Date of Service: Nov 01, 2024 Billing Provider: CAITLYN VERDE Common Visit Codes: [id number] INP/OBS CARE (HIGH) CAITLYN VERDE Nov 01, 2024 04:58
[2024-11-01 05:07] LABS: Total Iron Binding Capacity 368.0 ug/dL (250-425)
[2024-11-01 05:13] LABS: Iron 29.0 ug/dL (65-175)
[2024-11-01 05:28] VITALS: BP 120/56; RESP 20; TEMP 97.8; O2SAT 98
[2024-11-01 06:00] VITALS: PULSE 66
[2024-11-01] MEDS ORDERED: LEVOTHYROXINE SODIUM 25 MCG TAB PO SCH (06:00)
[2024-11-01] MEDS ORDERED: PANTOPRAZOLE 40 MG TAB PO SCH (06:00)
[2024-11-01] MEDS: GABAPENTIN 300 MG CAP PO SCH (06:00)
[2024-11-01] MEDS: LEVOTHYROXINE SODIUM 25 MCG TAB PO SCH (06:11)
[2024-11-01] MEDS ORDERED: FUROSEMIDE 20 MG TAB PO SCH (10:00)
[2024-11-01] MEDS ORDERED: levETIRAcetam 500 MG TAB PO SCH (10:00)
[2024-11-01] MEDS ORDERED: THIAMINE HCL 100 MG TAB PO SCH (10:00)
[2024-11-01] MEDS ORDERED: FOLIC ACID 1 MG TAB PO SCH (10:00)
[2024-11-06] MEDS ORDERED: CHL25C PO (13:51)
[2024-11-06] MEDS ORDERED: GABA-1250 PO (14:04)
== END 2024-11-01 09:10 | disposition left against medical advice (07) | DRG 53 ==
LOC: ER 22:42 → EDBD 22:42 → OVERFLOW 11-01 04:27 → ER 11-01 04:34 → OVERFLOW 11-01 08:52
PROVIDERS: ADMIT Hospitalist; ATTEND Hospitalist
DX: G40.909 Epilepsy, unspecified, not intractable, without status epilepticus (principal); G92.9 Unspecified toxic encephalopathy; D61.818 Other pancytopenia; I50.32 Chronic diastolic (congestive) heart failure; K74.60 Unspecified cirrhosis of liver; E03.9 Hypothyroidism, unspecified; K80.20 Calculus of gallbladder without cholecystitis without obstruction; Z53.29 Procedure and treatment not carried out because of patient's decision for other reasons; Z87.891 Personal history of nicotine dependence; Z59.00 Homelessness unspecified; I25.2 Old myocardial infarction
CPT/HCPCS: 36415; 80053; 80320; 82140; 82542; 83540; 83550; 85007; 85027; 86850; 86870; 86900; 86901; G0378

== ENCOUNTER 2024-11-01 13:52 | Emergency (ER) | payer MEDICAID ==
[~2024-11-01] VITALS: Ht 198.1 cm; Wt 98.0 kg
[2024-11-01 14:00] VITALS: BP 122/63; PULSE 84; RESP 12; TEMP 98.3; O2SAT 96
--- NOTE | 2024-11-01 14:37 | ED.PDOC ---
HPI (NEURO) HPI Comments 44y M who presents to the ED via EMS for chief complaint of seizure like activity. Pt states he was at via EMS last night for seizure like activity s/p ETOH intoxication. Pt had noted ETOH level of 423 but left AMA. Pt states he went home to drink and states he was at [employer] 30 minutes prior and had witnessed tonic clonic seizure and friend drove pt to the ED for further evaluation. Pt now in the ED, has noted oral trauma and states he does not want to be a bother and unsure if he wants to be evaluated and treated at . Pt in wheelchair and is alert and oriented and able to answer all questions. Chief Complaint: Seizure Time Seen by MD: 14:25 Primary Care Provider: UNKNOWN Reviewed Notes: Nurses Notes, Medications, Allergies Information Source: Patient, Friend Mode of Arrival: Wheelchair Brought in by: friend Severity: Moderate Dizziness/Weakness Severity: Unable to do activities Headache Severity: Moderate Timing: Hours Duration: Since onset Prehospital treatment: None Weakness Location: Generalized Onset: At rest Circumstances: Spontaneous Symptoms: Imbalance, Weakness Before: Normal During: LOC, Trauma: Tongue After: Confusion History of: Seizure Disorder, Substance abuse Modifying factors: Change in position Associated Signs and Symptoms: Weakness Past Medical History PAST MEDICAL HISTORY: Anemia, CHF, Gallstones, Liver, [place], Seizures, Thyroid Surgical History: Denies all surgeries Family History Family History: Family hx of liver renu Social History Smoker: Quit Less Than 1 Year Alcohol: Heavy Drugs: Denies Drug Use Lives In: Homeless Constitutional: reports: malaise, weakness; denies: chills, diaphoresis, fatigue, fever, sweats, others EENTM: reports: others (Tongue trauma); denies: blurred vision, double vision, ear bleeding, ear discharge, ear drainage, ear pain, ear ringing, eye pain, eye redness, hearing loss, mouth pain, mouth swelling, nasal discharge, nose bleeding, nose congestion, nose pain, photophobia, tearing, throat pain, throat swelling, voice changes Respiratory: denies: cough, hemoptysis, orthopnea, SOB at rest, shortness of breath, SOB with excertion, stridor, wheezing, others Cardiovascular: denies: chest pain, dizzy spells, diaphoresis, Dyspnea on exertion, edema, irregular heart beat, left arm pain, lightheadedness, palpitations, PND, syncope, others Gastrointestinal: denies: abdomen distended, abdominal pain, blood streaked bowels, constipated, diarrhea, dysphagia, difficulty swallowing, hematemesis, melena, nausea, poor appetite, poor fluid intake, rectal bleeding, rectal pain, vomiting, others Genitourinary: denies: burning, dysuria, flank pain, frequency, hematuria, inc ontinence, penile discharge, penile sore, pain, testicle pain, testicle swelling, urgency, others Neurological: reports: seizure; denies: dizziness, fainting, headache, left sided numbness, left sided weakness, numbness, paresthesia, pre-existing deficit, right sided numbness, right sided weakness, speech problems, tingling, tremors, weakness, others Musculoskeletal: denies: back pain, gout, joint pain, joint swelling, muscle pain, muscle stiffness, neck pain, others Integumetry: denies: bruises, change in color, change in hair/nails, dryness, laceration, lesions, lumps, rash, wounds, others Allergic/Immunocompromised: denies: Difficulty Healing, Frequent Infections, Hives, Itching, others Hematologic/Lymphatic: denies: anemia, blood clots, easy bleeding, easy bruising, swollen glands, others Endocrine: denies: excessive hunger, excessive sweating, excessive thirst, excessive urination, flushing, intolerance to cold, intolerance to heat, unexplained weight gain, unexplained weight loss, others Psychiatric: denies: anxiety, bipolar disorder, depression, hopeless, panic disorder, schizophrenia, sleepless, suicidal, others All Other Systems: Reviewed and Negative Physical Exam General Appearance: No Apparent Distress HEENT: Pharynx Normal, TMs Normal, Other (Tongue trauma ) Neck: Full Range of Motion, Non-Tender, Normal, Normal Inspection Respiratory: Chest Non-Tender, Lungs Clear, No Accessory Muscle Use, No Respiratory Distress, Normal Breath Sounds Cardiovascular: No Edema, No JVD, No Murmur, No Gallop, Normal Peripheral Pulses, Regular Rate/Rhythm Breast Exam: Deferred Gastrointestinal: No Organomegaly, Non Tender, No Pulsatile Mass, Normal Bowel Sounds, Soft Genitalia: Deferred Pelvic: Deferred Rectal: Deferred Extremities: No calf tenderness, Normal capillary refill, Normal inspection, Normal range of motion, Non-tender, No pedal edema Musculoskeletal : Apperance: Normal Neurologic: Alert, machine overhauler II-XII nml as Tested, No Motor Deficits, Normal Affect, Normal Mood, No Sensory Deficits Cerebellar Function: Normal Reflexes: Normal Skin: Dry, Normal Color, Warm Lymphatic: No Adenopathy Was a procedure done? Was a procedure done?: No Differential Diagnosis (SZ) Seizure: Alcohol Withdrawl, Anticonvulsant Withdrawl, Closed Head Injury, CVA/TIA, Drug Ingestion, Idiopathic, Syncope, Encephalopathy, Epilepsy-Break Through X-Ray, Labs, Meds, VS Vital Signs Date Time Temp Pulse Resp B/P (MAP) Pulse Ox O2 Delivery O2 Flow Rate FiO2 11/01/24 14:00 98.3 84 12 122/63 96 98.3 Lab Test 11/01/24 14:55 Range/Units White Blood Count 3.6 L 4.4-10.8 10^3/uL Red Blood Count 3.49 L 4.5-5.90 10^6/uL Hemoglobin 8.3 L 13.5-17.5 g/dL Hematocrit 25.2 L 41.0-53.0 % Mean Corpuscular Volume 72.2 L 80.0-100.0 fL Mean Corpuscular Hemoglobin 23.6 L 28.0-32.0 pg Mean Corpuscular Hemoglobin Concent 32.7 32.0-36.0 g/dL Red Cell Distribution Width 30.8 H 11.8-14.3 % Platelet Count 71 L 140-450 10^3/uL Mean Platelet Volume 9.0 6.9-10.8 fL Neutrophils (%) (Auto) 37.0-80.0 % Lymphocytes (%) (Auto) 10.0-50.0 % Monocytes (%) (Auto) 0.0-12.0 % Basophils (%) (Auto) 0.0-2.0 % Neutrophils # (Auto) 1.6-8.6 10 ^3/uL Lymphocytes # (Auto) 0.4-5.4 10 ^3/uL Monocytes # (Auto) 0-1.3 10 ^3/uL Differential Total Cells Counted Pending Neutrophils % (Manual) Pending Band Neutrophils % (Manual) Pending Lymphocytes % (Manual) Pending Monocytes % (Manual) Pending Eosinophils % (Manual) Pending Basophils % (Manual) Pending Metamyelocytes % (manual) Pending Myelocytes % (Manual) Pending Promyelocytes % (Manual) Pending Blast Cells % (Manual) Pending Reactive Lymphocytes Pending Platelet Estimate Pending Sodium Level 149 H 136-145 mmol/L Potassium Level 3.7 3.5-5.1 mmol/L Chloride Level 117 H 98-107 mmol/L Carbon Dioxide Level 23 20-31 mmol/L Anion Gap 9 5-15 Blood Urea Nitrogen 10 9-23 mg/dL Creatinine 0.65 L 0.700-1.30 mg/dL Glomerular Filtration Rate Calc 120 >90 mL/min BUN/Creatinine Ratio 15.4 10.0-20.0 Serum Glucose 94 74-106 mg/dL Calcium Level 8.1 L 8.7-10.4 mg/dL Plasma/Serum Blood Alcohol 380.8 H <10 mg/dL Current Medications Medications (Trade) Dose Ordered Sig/Johnnie Route Start Time Stop Time Status Last Admin Sodium Chloride 1,000 ml @ 1,000 mls/hr Q1H ONCE IV 11/01/24 14:45 11/01/24 15:44 DC 11/01/24 15:09 IV Hep-Lock was established The patient was given a 1 L bolus of normal saline The chemistry panel is within normal limits The alcohol level is 380 The CBC shows anemia with a hemoglobin of 8.3 and hematocrit 25.2 The patient now states that he is leaving against medical advice The patient is alert and oriented and able to ambulate and the patient has now signed out against medical advice we did explain to him that he could have another seizure but the patient states that he is leaving Time of 1ST Reevaluation: 15:50 Reevaluation 1ST: Improved Patient Education/Counseling: Diagnosis, Treatment, Prognosis Family Education/Counseling: No Family Present Departure 1 Departure Time of Disposition: 15:50 Impression: Primary Impression: Alcohol abuse Additional Impression: Breakthrough seizure Disposition: 07 LEFT AGAINST MEDICAL ADVICE Condition: Fair Critical Care Note Critical Care Time?: No Stability Stability form required: No Heart Score Heart Score: Heart Score Response (Comments) Value History N/A 0 EKG N/A 0 Age N/A 0 Risk Factors N/A 0 Troponin N/A 0 Total 0 I personally scribed for WON LAZAR MD ([email or web address]) on 11/01/24 at 14:37. Electronically submitted by Sohan [email or web address]). WON LAZAR MD Nov 01, 2024 14:37
[2024-11-01 15:09] LABS: Hemoglobin 8.3 g/dL (13.5-17.5)
[2024-11-01] MEDS: SODIUM CHLORIDE 0.9% 1,000 ML IV ONE (15:09)
[2024-11-01 15:12] LABS: Hematocrit 25.2 % (41.0-53.0); Mean Corpuscular Hemoglobin 23.6 pg (28.0-32.0); Mean Corpuscular Volume 72.2 fL (80.0-100.0)
[2024-11-01 15:19] LABS: Potassium 3.7 mmol/L (3.5-5.1)
[2024-11-01 15:20] LABS: Anion Gap 9 (5-15); Carbon Dioxide 23 mmol/L (20-31)
[2024-11-01 15:24] LABS: Calcium 8.1 mg/dL (8.7-10.4); Chloride 117 mmol/L (98-107); Sodium 149 mmol/L (136-145)
[2024-11-01 15:25] LABS: BUN/Creatinine Ratio 15.4 (10.0-20.0); Blood Urea Nitrogen 10 mg/dL (9-23); Glucose 94 mg/dL (74-106)
[2024-11-01 16:50] LABS: Total Cells Counted 100.0 (100)
[2024-11-01 16:51] LABS: Anisocytosis Moderate; Nucleated Red Blood Cells % 1.0 %
== END 2024-11-01 15:45 | disposition left against medical advice (07) ==
LOC: ER 13:52
DX: G40.909 Epilepsy, unspecified, not intractable, without status epilepticus (principal); F10.10 Alcohol abuse, uncomplicated; I50.9 Heart failure, unspecified; I21.9 Acute myocardial infarction, unspecified; Z87.891 Personal history of nicotine dependence; Z86.2 Personal history of diseases of the blood and blood-forming organs and certain disorders involving the immune mechanism; Z59.00 Homelessness unspecified; Y90.8 Blood alcohol level of 240 mg/100 ml or more
CPT/HCPCS: 36415; 80048; 80320; 82947; 85007; 85027; 96360; 99283; J7030

== ENCOUNTER 2024-11-01 19:38 | Inpatient (IN) | payer MEDICAID ==
[~2024-11-01] VITALS: Ht 198.1 cm; Wt 100.0 kg
--- NOTE | 2024-11-01 19:54 | ED.PDOC ---
History of Present Illness HPI Comments 44-year-old male with a history of CHF, COPD, seizures, and alcohol abuse, was brought in by ambulance with a chief complaint seizure-like activity with associated severe alcohol consumption. Patient was noted to have a are made from [facility] this morning, as well as earlier this afternoon, but has since returned to for the same chief complaint. EMS notes the patient is noncompliant with his Keppra medication, in his noted to have drank pint of vodka a earlier this afternoon. Patient is noted to have minor trauma to his bottom lip, and was found unresponsive on the sidewalk. Patient alert and oriented x4 and denies any abdominal pain, chest pain, headache, blurry vision, generalized weakness, or any other associated symptoms, modifiers at this time. Chief Complaint: ETOH Time Seen by MD: 19:50 Primary Care Provider: UNKNOWN Reviewed Notes: Nurses Notes, Powerhouse Oiler Notes, Medications, Allergies Allergies: Coded Allergies: NO KNOWN ALLERGIES (Unverified , 01/02/13) Home Meds Active Scripts Thiamine Hcl (VITAMIN B-1) 100 Mg Tb, 100 MG PO DAILY for 30 Days, #30 TAB Prov:[facility] 10/23/24 Spironolactone (Aldactone) 25 Mg Tab, 25 MG PO DAILY for 30 Days, #30 TAB Prov:[facility] 10/23/24 Multiple Vitamin (Mvi Tab) 1 Tab Tb, 1 TAB PO DAILY for 30 Days, #30 TAB Prov:[facility] 10/23/24 Levothyroxine Sodium (Levothyroxine Sodium) 25 Mcg Tab, 25 MCG PO QAM@0600 for 30 Days, #30 TAB Prov:[facility] 10/23/24 Levetiracetam (KEPPRA TABLET) 500 Mg Tb, 500 MG PO BID for 30 Days, #60 TAB Prov:[facility] 10/23/24 Folic Acid (Folic Acid) 1 Mg Tab, 1 MG PO DAILY for 30 Days, #30 TAB Prov:[facility] 10/23/24 Cephalexin Monohydrate (Cephalexin) 500 Mg Tab, 1 TAB PO TID for 7 Days, #21 TAB Prov:AMENA MENDENHALL DO 10/19/24 Furosemide (Lasix) 20 Mg Tb, 1 TAB PO BID for 5 Days, #10 TAB 5 Refills Prov:AMENA MENDENHALL 10/19/24 Spironolactone (Aldactone) 25 Mg Tab, 1 TAB PO DAILY for 30 Days, #30 TAB 1 Refill Prov:CHELE GLEZ RESIDENT 10/06/24 Magnesium Oxide (Mgo) 400 Mg Tab, 400 MG PO DAILY for 10 Days, #10 TAB Prov:LATESHA SAMANO MD 12/18/23 Levothyroxine Sodium (Levothyroxine Sodium) 25 Mcg Tab, 25 MCG PO QAM@0600 for 30 Days, #30 TAB Prov:LATESHA SAMANO MD 12/18/23 Levetiracetam (KEPPRA TABLET) 500 Mg Tb, 500 MG PO BID for 30 Days, #60 TAB Prov:LATESHA SAMANO MD 12/18/23 Pantoprazole Sodium Sesquihydr (Protonix) 40 Mg Tab, 40 MG PO DAILY, #30 TAB Prov:LATESHA SAMANO MD 12/18/23 Folic Acid (Folic Acid) 1 Mg Tab, 1 MG PO DAILY for 30 Days, #30 TAB Prov:LATESHA SAMANO MD 12/18/23 Multiple Vitamin (Mvi Tab) 1 Tab Tb, 1 TAB PO DAILY for 30 Days, #30 TAB Prov:LATESHA SAMANO MD 12/18/23 Sucralfate (CARAFATE) 1 Gm Tab, 1 GM OR QIDACHS for 30 Days, #120 TAB Prov:LATESHA SAMANO MD 12/18/23 Thiamine Hcl (VITAMIN B-1) 100 Mg Tb, 100 MG PO DAILY for 30 Days, #30 TAB Prov:LATESHA SAMANO MD 12/18/23 Hydroxyzine HCl (Hydroxyzine Hydrochloride) 25 Mg Tab, 25 MG PO Q8HP PRN for 30 Days, #90 TAB Prov:RITA WEBB SIEBEL ARCHITECT 10/06/23 Sertraline Hcl (Zoloft) 25 Mg Tab, 1 TAB PO DAILY, #30 TAB 2 Refills Prov:RITA WEBB [employer] ARCHITECT 10/06/23 Lactulose (Lactulose) 10 Gm Jorge, 10 GM PO BID for 30 Days, #10 PACK Prov:RITA WEBB [employer] ARCHITECT 10/06/23 Cyclobenzaprine Hcl (Cyclobenzaprine Hcl) 5 Mg Tab, 1 TAB PO TID PRN, #30 TAB Prov:LOC MAHER 05/26/22 Reported Medications Gabapentin (Gabapentin) 300 Mg Cap, 1 CAP PO TID 12/14/23 Pantoprazole Sodium Sesquihydr (Pantoprazole Sodium) 40 Mg Tab, 1 TAB PO BID 12/14/23 Disulfiram (DISULFIRAM) 250 Mg Tab, 250 MG PO BID, TAB 10/24/21 Information Source: Patient, Emergency Med Personnel Mode of Arrival: EMS Severity: Mild Timing: Hours Duration: Since onset, Hours Prehospital treatment: 12 Lead EKG, Accucheck, Armature Straightener Vital Signs Vital Signs Date Time Temp Pulse Resp B/P (MAP) Pulse Ox O2 Delivery O2 Flow Rate FiO2 11/01/24 19:42 98.3 94 22 161/78 96 98.3 Physical Exam PHYSICAL EXAM: General: Awake, alert and oriented. No acute distress. Skin: Skin in warm, dry and intact without rashes or lesions. HEENT: The head is normocephalic and atraumatic. Conjunctivae are clear without exudates or hemorrhage. Sclera is non-icteric. Dried blood in her lower lip Neck: Normal range of motion. No JVD. Cardiac: Regular rate Respiratory: No signs of respiratory distress. No Stridor. Extremities: Upper and lower extremities are atraumatic in appearance without deformity. Neurological: The patient is awake, alert and oriented to person, place, and time with normal speech. Speech is somewhat slurred. There is no facial asymmetry. Review of Systems: REVIEW OF SYSTEMS: No fever, no chills, or fatigue HEENT: No sore throat, no earache, no congestion, no neck pain. Cardiac: Positive chest pain. No palpitations. Lungs: No shortness of breath, no cough. GI: No nausea, no vomiting, no diarrhea, no constipation, no abdominal pain : No dysuria, frequency, or urgency. No hematuria. Musculoskeletal: No joint pain , no joint swelling, no extremity edema. Skin: No rash, no itching. Neuro: No headache, no dizziness, no weakness, positive seizure disorder Past Medical History PAST MEDICAL HISTORY: Anemia, CHF, Gallstones, Liver, [place], Seizures, Thyroid Surgical History: Denies all surgeries Family History Family History: Family hx of liver renu Social History Smoker: Quit Less Than 1 Year Alcohol: Heavy Drugs: Denies Drug Use Lives In: Homeless Was a procedure done? Was a procedure done?: No Differential Dx Considerations may include: Differential diagnoses considered include acute ischemic coronary syndrome, aortic dissection, cardiac tamponade, mediastinitis, pulmonary embolus, pneumothorax, tension pneumothorax, esophageal rupture, coronary artery vasospasm, myocarditis, pericarditis, pneumonia, pulmonary edema, esophageal tear, pancreatitis, aortic stenosis, dilated cardiomyopathy, hypertrophic cardiomyopathy, mitral valve prolapse, malignancy, pleuritis, pneumomediastinum, primary pulmonary hypertension, cholecystitis, esophageal spasm, esophagus, gastritis, GERD, peptic ulcer disease, costochondritis, fibromyalgia, rib fracture, herpes zoster, radicular syndromes, thoracic outlet syndrome, somatization. X-Ray, Labs, Meds, VS Vital Signs Date Time Temp Pulse Resp B/P (MAP) Pulse Ox O2 Delivery O2 Flow Rate FiO2 11/01/24 19:42 98.3 94 22 161/78 96 98.3 Lab Test 11/01/24 21:16 11/01/24 20:05 Range/Units Troponin I High Sensitivity 22 23 </=54 ng/L White Blood Count 3.8 L 4.4-10.8 10^3/uL Red Blood Count 3.26 L 4.5-5.90 10^6/uL Hemoglobin 7.6 L 13.5-17.5 g/dL Hematocrit 23.4 L 41.0-53.0 % Mean Corpuscular Volume 71.9 L 80.0-100.0 fL Mean Corpuscular Hemoglobin 23.4 L 28.0-32.0 pg Mean Corpuscular Hemoglobin Concent 32.5 32.0-36.0 g/dL Red Cell Distribution Width 31.7 H 11.8-14.3 % Platelet Count 61 L 140-450 10^3/uL Mean Platelet Volume 8.5 6.9-10.8 fL Neutrophils (%) (Auto) 32.5 L 37.0-80.0 % Lymphocytes (%) (Auto) 54.3 H 10.0-50.0 % Monocytes (%) (Auto) 10.8 0.0-12.0 % Eosinophils (%) (Auto) 0.5 0.0-7.0 % Basophils (%) (Auto) 1.9 0.0-2.0 % Neutrophils # (Auto) 1.2 L 1.6-8.6 10 ^3/uL Lymphocytes # (Auto) 2.0 0.4-5.4 10 ^3/uL Monocytes # (Auto) 0.4 0-1.3 10 ^3/uL Eosinophils # (Auto) 0 0-0.8 10 ^3/uL Basophils # (Auto) 0.1 0-0.2 10 ^3/uL Nucleated Red Blood Cells 0.1 % Platelet Estimate Pending Sodium Level 147 H 136-145 mmol/L Potassium Level 3.8 3.5-5.1 mmol/L Chloride Level 117 H 98-107 mmol/L Carbon Dioxide Level 20 20-31 mmol/L Anion Gap 10 5-15 Blood Urea Nitrogen 11 9-23 mg/dL Creatinine 0.73 0.700-1.30 mg/dL Glomerular Filtration Rate Calc 116 >90 mL/min BUN/Creatinine Ratio 15.1 10.0-20.0 Serum Glucose 99 74-106 mg/dL Calcium Level 7.9 L 8.7-10.4 mg/dL Total Bilirubin 2.0 H 0.2-1.0 mg/dL Aspartate Amino Transferase (AST) 89 H 13-40 U/L Alanine Aminotransferase (ALT) 34 7-40 U/L Alkaline Phosphatase 110 46-116 U/L Total Protein 6.5 5.7-8.2 g/dL Albumin 3.4 3.2-4.8 g/dL PATIENT: JIMBO EDOUARD ACCT: [id number] UNIT: [id number] : 1980 LOC: ER ROOM / BED: / AGE / SEX: 44 / M ADM STATUS: REG ER SERVICE 47 ORDERING PHYSICIAN: LORENZA WONG MD PROCEDURE(s): CXR1 - CHEST XRAY 1 VIEW REASON: Chest pain ORDER NUMBER(s): [id number], ACCESSION NUMBER(s): [id number] CHEST RADIOGRAPH Indication: Chest pain Technique: Single frontal view of the chest was obtained Comparison: XY RIBS BILATERAL on DOS: 10/21/24, XY CHEST PORTABLE on DOS: 10/20/24, XY CHEST PORTABLE on DOS: 10/19/24 FINDINGS: Lines and Tubes: None Lungs: Decreasing left pleural Pleura: Decreasing left pleural effusion compared to 10/20/2024 No pneumothorax. Cardiomediastinal contours: Unremarkable Bones: No acute osseous abnormality. IMPRESSION: 1. Improving left pleural effusion. Time of 1ST Reevaluation: 20:20 Reevaluation 1ST: Unchanged Patient Education/Counseling: Diagnosis, Treatment, Need For Follow Up Family Education/Counseling: No Family Present SEPSIS Sepsis Screen Date sepsis recognized/suspect: Nov 01, 2024 Time Sepsis recognized/suspect: 1939 Recent Procedure: No On Antibiotic Therapy: No Respiratory Rate >20: Yes Heart Rate >90: Yes Temp<36 C (96.8 F) or >38.3 C: No SBP <90 or MAP <65 mmHG: No New Acute Mental Status Change: No Is the patient on CPAP, BIPAP,: No Physician Orders Electrocardigram (11/01/24 19:48) Chest Xray 1 View (11/01/24 19:48) Troponin-I Hs (11/01/24 22:48) Electrocardigram (11/01/24 20:48) Electrocardigram (11/01/24 22:48) Folic Acid... (11/01/24 22:00) Vital Signs Date Time Temp Pulse Resp B/P (MAP) Pulse Ox O2 Delivery O2 Flow Rate FiO2 11/01/24 19:42 98.3 94 22 161/78 96 98.3 Laboratory Tests Test 11/01/24 20:05 White Blood Count 3.8 10^3/uL (4.4-10.8) L Departure 1 Departure Time of Disposition: 20:54 Impression: Primary Impression: Seizure disorder Additional Impressions: Alcohol abuse Severe anemia Hypernatremia Disposition: ADMITTED INPATIENT Condition: Stable Comments 44-year-old male with a history of seizure disorder, alcohol abuse Patient to be admitted for further treatment and stabilization of seizure disorder, impending alcohol withdrawal Critical Care Note Critical Care Time?: No Stability Stability form required: No Heart Score Heart Score: Heart Score Response (Comments) Value History N/A 0 EKG N/A 0 Age N/A 0 Risk Factors N/A 0 Troponin N/A 0 Total 0 I personally scribed for LORENZA WONG MD ([email or web address]) on 11/01/24 at 19:54. Electronically submitted by Garry Camejo ([email or web address]). I personally scribed for LORENZA WONG MD ([email or web address]) on 11/01/24 at 21:59. Electronically submitted by Garry Camejo ([email or web address]). LORENZA WONG MD Nov 01, 2024 19:54
[2024-11-01] MEDS: levETIRAcetam 500 MG TAB PO ONE (21:00)
[2024-11-01] MEDS ORDERED: FOLIC ACID 1 MG, MULTIPLE VITAMIN 10 ML, MAGNESIUM SULF SDV 50% 8 MEQ, THIAMINE INJ 100... INJ SCH (21:29)
--- NOTE | 2024-11-01 21:33 | DVH ---
CHEST RADIOGRAPH Indication: Chest pain Technique: Single frontal view of the chest was obtained Comparison: XY RIBS BILATERAL on DOS: 10/21/24, XY CHEST PORTABLE on DOS: 10/20/24, XY CHEST PORTABLE o n DOS: 10/19/24 FINDINGS: Lines and Tubes: None Lungs: Decreasing left pleural Pleura: Decreasing left pleural effusion compared to 10/20/2024 No pneumothorax. Cardiomediastinal contours: Unremarkable Bones: No acute osseous abnormality. IMPRESSION: 1. Improving left pleural effusion.
[2024-11-01] MEDS: FOLIC ACID 1 MG, MULTIPLE VITAMIN 10 ML, MAGNESIUM SULF SDV 50% 8 MEQ, THIAMINE INJ 100... INJ ONE (22:00)
--- NOTE | 2024-11-01 23:05 | DVHHPRES ---
History of Present Illness Resident Creating Document: DAVID PATRICK RESIDENT History of Present Illness Eyal Haque is a 44 year old male with past medical history of CHF, COPD, seizures, liver cirrhosis and alcohol abuse disorder. The patient was brought to the ED via EMS with a chief complaint of 2 days of multiples seizure- like episodes associated severe alcohol consumption. He was found today unresponsive on the sidewalk. Patient left [facility] AMA this morning; now, he returns to the ED with the same complaint. Patient reports head and face trauma to his bottom lip, he does not recall the episode. The patient report being non-compliant with his Keppra medication, and reported have drank pint of vodka earlier this afternoon. The patient denies any abdominal pain, chest pain, headache, blurry vision, generalized weakness, or any other associated symptoms. Inial Labs showed Hb 7.6 mg/dl , WBC 3.8, Platelets 61, Neutrophils 2.1. 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 Past Surgical History: None Family History: Other (Cirrhosis ) Smoke: Quit (Quit about 1 year ago.) ALCOHOL: heavy Drugs: None Lives: Homeless Review of Systems Constitutional: No: Fever, Chills, Sweats, Weakness, Malaise, Other Eyes: No: Pain, Vision change, Conjunctivae inflammation, Eyelid inflammation, Other, Redness ENT: No: Ear pain, Ear discharge, Nose pain, Nose discharge, Nose congestion, Mouth pain, Mouth swelling, Throat pain, Throat swelling, Other Respiratory: No: Cough, Dry, Shortness of breath, SOB with excertion, Wheezing, Hemoptysis, Pleuritic Pain, Sputum, Wheezing, Other Cardiovascular: No: Chest Pain, Palpitations, Orthopnea, Paroxysmal Noc. Dyspnea, Edema, Lt Headedness, Other Gastrointestinal: No: Nausea, Vomiting, Abdominal Pain, Diarrhea, Constipation, Melena, Hematochezia, Other Genitourinary: No Dysuria, No Frequency, No Incontinence, No Hematuria, No Retention, No Other Musculoskeletal: No: other, neck pain, shoulder pain, arm pain, back pain, hand pain, leg pain, foot pain Neurological: Seizures (Multiple seizures episodes. ); No: Weakness, Numbness, Incoordination, Change in speech, Confusion, Other Allergies: Coded Allergies: NO KNOWN ALLERGIES (Unverified , 01/02/13) Exam Vital Signs Vital Signs Date Time Temp Pulse Resp B/P (MAP) Pulse Ox O2 Delivery O2 Flow Rate FiO2 11/01/24 19:42 98.3 94 22 161/78 96 98.3 General Appearance: Alert, Oriented X3, Cooperative, No acute distress, Other (Strong alcohol smell) HEENT: Atraumatic, PERRLA, Mucous membr. moist/pink Respiratory: Clear to auscultation, Normal air movement Cardiovascular: Regular rate, Normal S1, Normal S2, No murmurs Abdominal: Normal bowel sounds, Soft, No tenderness, No hepatospenomegaly Extremities: No clubbing, No cyanosis, No edema, Normal pulses, No tenderness/swelling Skin: No rashes, No breakdown, No significant lesion Neuro: Normal gait, Normal speech, Strength at 5/5 X4 ext, Normal tone, Sensation intact, Cranial nerves 3-12 NL Psych/Mental Status: Mental status NL, Mood NL Labs/Xrays Labs Test 11/01/24 21:16 Range/Units Troponin I High Sensitivity 22 </=54 ng/L SEPSIS Sepsis Screen Date sepsis recognized/suspect: Nov 01, 2024 Time Sepsis recognized/suspect: 1939 Recent Procedure: No On Antibiotic Therapy: No Respiratory Rate >20: Yes Heart Rate >90: Yes Temp<36 C (96.8 F) or >38.3 C: No SBP <90 or MAP <65 mmHG: No New Acute Mental Status Change: No Is the patient on CPAP, BIPAP,: No Physician Orders Electrocardigram (11/01/24 19:48) Chest Xray 1 View (11/01/24 19:48) Troponin-I Hs (11/01/24 22:48) Electrocardigram (11/01/24 20:48) Electrocardigram (11/01/24 22:48) Folic Acid... (11/01/24 22:00) Admit (11/01/24 23:01) Code Status (11/01/24 23:01) Vital Signs .PER UNIT PROTOCOL (11/01/24 23:01) Review Orders With Adm. (11/01/24 23:01) Bedrest With Bathroom Privileg (11/01/24 23:01) Npo (Nothing By Mouth) Diet (11/02/24 Breakfast) Notify Md Of Changes From Base (11/01/24 23:01) Advance Directive (11/01/24 23:01) Patient Condition (11/01/24 23:01) Allergies (11/01/24 23:01) Notify Md Of Changes From Base (11/01/24 23:01) Oxygen By Face Mask (11/01/24 23:01) Complete Blood Count (11/01/24 23:01) Comprehensive Metabolic Panel (11/01/24 23:01) Vital Signs Date Time Temp Pulse Resp B/P (MAP) Pulse Ox O2 Delivery O2 Flow Rate FiO2 11/01/24 19:42 98.3 94 22 161/78 96 98.3 Assessment/Plan Assessment/Plan #Seizure disorder, rule out alcohol withdrawal #Alcohol abuse disorder #Alcohol withdrawal #Toxic encephalopathy Banana bag Folic acid IV fluids Alcohol abuse counseling #Head and facial trauma Head CT scan #Alcohol liver disease #Alcohol Cirrhosis Bilirubin AST/ALT #Pancitopenia Anemia: Hb 7.6mg/dl Thrombocytopenia, platelet 61 WBC 3.8 NPO diet DVT prophylaxis-Deambulating PUD prophylaxis Protonic Goals of care discussed with the patient > 35 min. Discussed plan of care with Dr. Kinney Code status: Full code PCP: Not established yet, F/U in discharge clinic Plan discussed with: Patient, the patient agrees with the plan. Plan discussed with: Patient My Orders Orders - DAVID PATRICK RESIDENT Procedure Category Date Status Time Admit ADMIT 11/01/24 Verified 23:01 Code Status CODE 11/01/24 Verified 23:01 Vital Signs [facility] 11/01/24 Verified 23:01 Review Orders With [facility] 11/01/24 Verified Adm. 23:01 Bedrest With Bathroom [facility] 11/01/24 Verified Privileg 23:01 Npo (Nothing By DIET 11/02/24 Verified Mouth) Diet Breakfast Notify Md Of Changes [facility] 11/01/24 Verified From Base 23:01 Advance Directive [facility] 11/01/24 Verified 23:01 Patient Condition ORDERS 11/01/24 Verified 23:01 Allergies [facility] 11/01/24 Verified 23:01 Notify Of Changes [facility] 11/01/24 Verified From Base 23:01 Oxygen By Face Mask RT 11/01/24 Verified 23:01 Complete Blood Count LAB 11/01/24 Verified 23:01 Comprehensive LAB 11/01/24 Verified Metabolic Panel 23:01 Common Visit Codes: 45806-WOCHYET INP/OBS CARE (HIGH) Secondary Visit Codes: 85527-CHEGFSZH CARE PLAN 30 MINUTES DAVID PATRICK RESIDENT Nov 01, 2024 23:05
[2024-11-01 23:12] LABS: Hemoglobin 7.6 g/dL (13.5-17.5)
[2024-11-01 23:14] LABS: Hematocrit 23.4 % (41.0-53.0); Mean Corpuscular Hemoglobin 23.4 pg (28.0-32.0); Mean Corpuscular Volume 71.9 fL (80.0-100.0); Nucleated Red Blood Cells % 0.1 %
[2024-11-01 23:24] LABS: Alanine Aminotransferase 34 U/L (7-40); Albumin 3.4 g/dL (3.2-4.8); Alkaline Phosphatase 110 U/L (46-116); Anion Gap 10 (5-15); BUN/Creatinine Ratio 15.1 (10.0-20.0); Blood Urea Nitrogen 11 mg/dL (9-23); Carbon Dioxide 20 mmol/L (20-31); Glucose 99 mg/dL (74-106); Potassium 3.8 mmol/L (3.5-5.1); Total Protein 6.5 g/dL (5.7-8.2)
[2024-11-01 23:25] LABS: Bilirubin, Total 2.0 mg/dL (0.2-1.0); Calcium 7.9 mg/dL (8.7-10.4); Chloride 117 mmol/L (98-107); Sodium 147 mmol/L (136-145)
[2024-11-02 00:03] LABS: Anisocytosis Moderate
[2024-11-02] MEDS: SODIUM CHLORIDE 0.9% 2,750 ML IV ONE (03:30)
--- NOTE | 2024-11-02 04:05 | DVH ---
EXAM: CT HEAD W WO CONTRAST INDICATION: head trauma TECHNIQUE: CT of the head without intravenous contrast. Radiation Dose Information: CT Dose: CTDI volume is 55.51 mGy. Dose-length product is 890.01 mGy*cm The dose indicators for CT are the volume Computed Tomography (CT) Dose Index (CTDIvol) and the Dose Length Product (DLP), and are measured in units of mGy and mGy-cm, respectively. These indicators are not patient dose, but values generated from the CT scanner acquisition factors. The report includes radiation exposure data for exposures received during this examination. COMPARISON: CT HEAD WITHOUT CONTRAST on DOS: 10/22/24, CT HEAD WITHOUT CONTRAST on DOS: 10/10/24, CT HE AD WITHOUT CONTRAST on DOS: 08/10/24 FINDINGS: There is no evidence of acute intracranial hemorrhage, extra-axial collection, mass effect, midline s hift, herniation or hydrocephalus. The ventricles, sulci and cisterns are age appropriate. The armstrong-white differentiation is intact. Mild cerebellar atrophy. The visualized paranasal sinuses and mastoid air cells are clear. The surrounding soft tissues and osseous structures are unremarkable. IMPRESSION: 1. No acute intracranial abnormality.
--- NOTE | 2024-11-02 04:30 | DVH ---
XY CHEST TWO VIEWS ROUTINE CLINICAL HISTORY: Chest trauma COMPARISON: XY CHEST XRAY 1 VIEW on DOS: 11/01/24 TECHNIQUE: Frontal and lateral view of the chest was obtained FINDINGS: Lines and Tubes: None Lungs: No focal consolidation. Pleura: No effusion. No pneumothorax. Cardiomediastinal contours: Unremarkable Bones: No acute osseous abnormality. IMPRESSION: 1. No acute cardiopulmonary disease.
--- NOTE | 2024-11-02 08:51 | DVHPNRES ---
Progress Note Date Seen: Nov 02, 2024 Resident Creating Document: HUSSEIN VALADEZ RESIDENT Medical Necessity Reason Pt with a Central, PICC or Fol: No Subjective Review of Systems Eyal Haque is a 44 year old male with past medical history of CHF, COPD, seizures, liver cirrhosis and alcohol abuse disorder. The patient was brought to the ED via EMS with a chief complaint of 2 days of multiples seizure- like episodes associated severe alcohol consumption. He was found today unresponsive on the sidewalk. Patient left [facility] this morning; now, he returns to the ED with the same complaint. Patient reports head and face trauma to his bottom lip, he does not recall the episode. The patient report being non-compliant with his Keppra medication, and reported have drank pint of vodka earlier this afternoon. The patient denies any abdominal pain, chest pain, headache, blurry vision, generalized weakness, or any other associated symptoms. Past Medical History CHF, liver disease, mi, seizures, hypothyroidism Past Surgical History Denies Family History Noncontributory Smoke: Quit ALCOHOL: heavily drinks alcohol still in his last drink was yesterday before coming to the emergency. Patient drinks 1.5 L of vodka in 3 days' time Drugs: None Lives: with Family Home medications: Noncompliant, does not take any ROS: Patient was seen by me at the lobby today. He has no new active complaints. CIWA score was 5. We will be repleting him with thiamine, folic acid and continuing his Keppra medication. We are adding furosemide 20 mg per oral and Aldactone 25 mg per oral as well. Objective vital signs Vital Sign Date Time Temp Pulse Resp B/P (MAP) Pulse Ox O2 Delivery O2 Flow Rate FiO2 11/02/24 00:10 97.7 64 16 126/81 (96) 100 97.7 medications Current Medications Medications Dose Ordered Sig/Johnnie Route Start Time Stop Time Status Last Admin Dose Admin Levetiracetam 250 mg BID PO 11/02/24 10:00 Examination General Appearance: Alert, Oriented X3, Cooperative, No acute distress, Other (Strong alcohol smell) HEENT: Atraumatic, PERRLA, Mucous membr. moist/pink Respiratory: Clear to auscultation, Normal air movement Cardiovascular: Regular rate, Normal S1, Normal S2, No murmurs Abdominal: Normal bowel sounds, Soft, No tenderness, No hepatospenomegaly Extremities: No clubbing, No cyanosis, No edema, Normal pulses, +2 edema b/l Skin: No rashes, No breakdown, No significant lesion Neuro: Normal gait, Normal speech, Strength at 5/5 X4 ext, Normal tone, Sensation intact, Cranial nerves 3-12 NL Psych/Mental Status: Mental status NL, Mood NL laboratory and microbiology Laboratory Tests 11/01/24 20:05 Test 11/01/24 20:05 Range/Units Serum Glucose 99 74-106 mg/dL Labs and/or images reviewed: Labs reviewed by me, Image(s) reviewed by me Problem List/Assessment/Plan Problem List/Assessment/Plan #Seizure disorder, rule out alcohol withdrawal # Alcohol intoxication # possible alcohol withdrawal #Toxic encephalopathy -folic acid, thiamine supplement -Banana bag -IV fluids -Alcohol abuse counseling -Urine toxicology -ciwa score:5 #Head and facial trauma -Head CT scan-normal # Compensated alcoholic liver cirrhosis # Hepatic steatosis/ hepatic cirrhosis -as seen in CT abd/pelv -out patient follow-up with GI -Ammonia -pt/inr #Pancytopenia -Anemia: Hb 7.6mg/dl -Thrombocytopenia, platelet 61 -WBC 3.8 # Chronic diastolic CHF Hfpef-50-55% -continue Lasix -Lasix 20mg po -Aldactone 25mg po # history of hypothyroidism -Levothyroxine given #cholelithiasis without cholecystitis -Outpatient follow up Goals of care discussed with the patient for more than 27 minutes: Full code status Case discussed with DrAisha patient and nurse. Plan discussed with: Patient, Other (rn) My Orders My Orders Orders - HUSSEIN VALADEZ RESIDENT Procedure Category Date Status Time Blood Alcohol LAB 11/02/24 Logged 07:39 Iron Panel LAB 11/02/24 Logged 07:44 Covid19 Antigen Tracy LAB 11/02/24 Logged Rapid Influenza A&B LAB 11/02/24 Logged 08:34 Thyroid Stimulating LAB 11/02/24 Logged Hormone 08:34 PTPTT LAB 11/02/24 Logged 08:34 Vitamin B12 LAB 11/02/24 Logged 08:34 Folate (Folic Acid) LAB 11/02/24 Logged 08:34 Ammonia LAB 11/02/24 Logged 08:44 Date of Service: Nov 02, 2024 Billing Provider: SAVITA MACIAS MD Common Visit Codes: [id number] INP/OBS CARE(HIGH) HUSSEIN VALADEZ RESIDENT Nov 02, 2024 08:51 SAVITA MACIAS MD Nov 14, 2024 02:30
[2024-11-02] MEDS: THIAMINE 100mg/ml INJ (200mg/2ml VIAL) IV ONE (16:16)
[2024-11-02] MEDS: SPIRONOLACTONE 25 MG TAB PO ONE (16:27)
[2024-11-02] MEDS: FUROSEMIDE 20 MG TAB PO ONE (16:27)
[2024-11-02 16:38] VITALS: BP 136/74; PULSE 65; RESP 20; TEMP 98.2; O2SAT 98
[2024-11-02 20:16] LABS: INR 1.14 (0.9-1.15); Iron 97.0 ug/dL (65-175); Partial Thromboplastin Time 32.2 SEC (24.5-34.5); Prothrombin Time 11.9 sec (9.3-11.8)
[2024-11-02 20:19] LABS: Total Iron Binding Capacity 385.0 ug/dL (250-425)
[2024-11-02 20:23] LABS: Ferritin 14.5 ng/mL (22-322)
[2024-11-02] MEDS ORDERED: levETIRAcetam 500 MG TAB PO SCH (22:00)
--- NOTE | 2024-11-04 06:57 | DVHDSRES ---
Discharge Summary Date of Admission Resident Creating Document: HUSSEIN VALADEZ RESIDENT Nov 01, 2024 at 23:03 Date of Discharge: Nov 02, 2024 Admitting Diagnosis Seizure due to alcohol withdrawal Labs/Diagnostic Data: Laboratory Results Test 11/02/24 19:37 11/01/24 20:05 Prothrombin Time 11.9 sec (9.3-11.8) Prothrombin Time INR 1.14 (0.9-1.15) Activated Partial Thromboplast Time 32.2 SEC (24.5-34.5) Hemoglobin A1c < 3.8 % A1C (<5.7) Iron Level 97 ug/dL (65-175) Total Iron Binding Capacity 385 ug/dL (250-425) Percent Iron Saturation 25.2 % (20-55) Ferritin 14.5 ng/mL (22-322) Ammonia 65 umol/L (11-32) Troponin I High Sensitivity 24 ng/L (</=54) B-Type Natriuretic Peptide 50.36 pg/mL (0-100) Vitamin B12 Level 867 pg/mL (211-911) Vitamin D 25-Hydroxy 35.7 ng/mL (30.0-100) Folic Acid 10.45 ng/mL (>5.38) Thyroid Stimulating Hormone (TSH) 0.78 uIU/mL (0.55-4.78) Plasma/Serum Blood Alcohol 301.5 mg/dL (<10) White Blood Count 3.8 10^3/uL (4.4-10.8) Red Blood Count 3.26 10^6/uL (4.5-5.90) Hemoglobin 7.6 g/dL (13.5-17.5) Hematocrit 23.4 % (41.0-53.0) Mean Corpuscular Volume 71.9 fL (80.0-100.0) Mean Corpuscular Hemoglobin 23.4 pg (28.0-32.0) Mean Corpuscular Hemoglobin Concent 32.5 g/dL (32.0-36.0) Red Cell Distribution Width 31.7 % (11.8-14.3) Platelet Count 61 10^3/uL (140-450) Mean Platelet Volume 8.5 fL (6.9-10.8) Neutrophils (%) (Auto) 32.5 % (37.0-80.0) Lymphocytes (%) (Auto) 54.3 % (10.0-50.0) Monocytes (%) (Auto) 10.8 % (0.0-12.0) Eosinophils (%) (Auto) 0.5 % (0.0-7.0) Basophils (%) (Auto) 1.9 % (0.0-2.0) Neutrophils # (Auto) 1.2 10 ^3/uL (1.6-8.6) Lymphocytes # (Auto) 2.0 10 ^3/uL (0.4-5.4) Monocytes # (Auto) 0.4 10 ^3/uL (0-1.3) Eosinophils # (Auto) 0 10 ^3/uL (0-0.8) Basophils # (Auto) 0.1 10 ^3/uL (0-0.2) Nucleated Red Blood Cells 0.1 % Platelet Estimate Decreased Hypochromasia (manual) Slight Anisocytosis (manual) Moderate Microcytosis Moderate Schistocytes Few Sodium Level 147 mmol/L (136-145) Potassium Level 3.8 mmol/L (3.5-5.1) Chloride Level 117 mmol/L (98-107) Carbon Dioxide Level 20 mmol/L (20-31) Anion Gap 10 (5-15) Blood Urea Nitrogen 11 mg/dL (9-23) Creatinine 0.73 mg/dL (0.700-1.30) Glomerular Filtration Rate Calc 116 mL/min (>90) BUN/Creatinine Ratio 15.1 (10.0-20.0) Serum Glucose 99 mg/dL (74-106) Calcium Level 7.9 mg/dL (8.7-10.4) Total Bilirubin 2.0 mg/dL (0.2-1.0) Aspartate Amino Transferase (AST) 89 U/L (13-40) Alanine Aminotransferase (ALT) 34 U/L (7-40) Alkaline Phosphatase 110 U/L (46-116) Total Protein 6.5 g/dL (5.7-8.2) Albumin 3.4 g/dL (3.2-4.8) Other Laboratory Tests 11/01/24 20:05 Brief Hx & Hospital Course: Eyal Haque is a 44 year old male with past medical history of CHF, COPD, seizures, liver cirrhosis and alcohol abuse disorder. The patient was brought to the ED via EMS with a chief complaint of 2 days of multiples seizure- like episodes associated severe alcohol consumption. He was found today unresponsive on the sidewalk. Patient left [facility] A[facility] this morning; now, he returns to the ED with the same complaint. Patient reports head and face trauma to his bottom lip, he does not recall the episode. The patient report being non-compliant with his Keppra medication, and reported have drank pint of vodka earlier this afternoon. The patient denies any abdominal pain, chest pain, headache, blurry vision, generalized weakness, or any other associated symptoms. Past Medical History CHF, liver disease, mi, seizures, hypothyroidism Past Surgical History Denies Family History Noncontributory Smoke: Quit ALCOHOL: heavily drinks alcohol still in his last drink was yesterday before coming to the emergency. Patient drinks 1.5 L of vodka in 3 days' time Drugs: None Lives: with Family Home medications: Noncompliant, does not take any Brief history of hospitalization: The patient came in with a seizure disorder possibly due to alcohol withdrawal and intoxication. he had a pt of vodka the day before he came to the emergency, 3 episodes of seizure in the past 2 days before coming to the emergency and had been noncompliant with his Keppra medication. We prescribed the patient folic acid, thiamine supplement, banana bag, IV fluids and counseled him regarding cessation of alcohol. His CIWA score was 5 when I examined him. Patient had reported headed facial trauma during his seizure episode and a CT head was done which came back normal. Patient has a history of have been stated alcohol liver cirrhosis, hepatic steatosis, hepatic cirrhosis which was seen on CT abdomen and pelvis in his last visit. We have counseled him regarding outpatient follow up with GI. Patient's serum alcohol was 301.5. We tried to Follow labs such as PT/INR, ammonia, B12 and a folate levels, iron panel for his low hemoglobin of 7.6, TSH was ordered but the patient had left AMA and returned back. I sent out the test again the patient left AMA once again. Operations or Procedures cxr: IMPRESSION: 1. Improving left pleural effusion. ------ CT HEAD W WO CONTRAST INDICATION: head trauma IMPRESSION: No acute intracranial abnormality. Condition at Discharge: Undetermined Final Diagnosis/Problems List alcohol intoxication without poisoning acute toxic encephalopathy Seizure due to alcohol withdrawal Alcohol dependence History of CHF Discharge Disposition: AMA Discharge Instruct/Medications Scheduled Cephalexin Monohydrate (Cephalexin), 1 TAB PO TID Disulfiram (Disulfiram), 250 MG PO BID, (Reported) Folic Acid (Folic Acid), 1 MG PO DAILY Folic Acid (Folic Acid), 1 MG PO DAILY Furosemide (Lasix), 1 TAB PO BID Gabapentin (Gabapentin), 1 CAP PO TID, (Reported) Lactulose (Lactulose), 10 GM PO BID Levetiracetam (Keppra Tablet), 500 MG PO BID Levetiracetam (Keppra Tablet), 500 MG PO BID Levothyroxine Sodium (Levothyroxine Sodium), 25 MCG PO QAM@0600 Levothyroxine Sodium (Levothyroxine Sodium), 25 MCG PO QAM@0600 Magnesium Oxide (Mgo), 400 MG PO DAILY Multiple Vitamin (Mvi Tab), 1 TAB PO DAILY Multiple Vitamin (Mvi Tab), 1 TAB PO DAILY Pantoprazole Sodium Sesquihydr (Pantoprazole Sodium), 1 TAB PO BID, (Reported) Pantoprazole Sodium Sesquihydr (Protonix), 40 MG PO DAILY Sertraline Hcl (Zoloft), 1 TAB PO DAILY Spironolactone (Aldactone), 1 TAB PO DAILY Spironolactone (Aldactone), 25 MG PO DAILY Sucralfate (Carafate), 1 GM OR QIDACHS Thiamine Hcl (Vitamin B-1), 100 MG PO DAILY Thiamine Hcl (Vitamin B-1), 100 MG PO DAILY Scheduled PRN Cyclobenzaprine Hcl (Cyclobenzaprine Hcl), 1 TAB PO TID PRN Gabapentin (Gabapentin), 1 CAP PO TID PRN Hydroxyzine HCl (Hydroxyzine Hydrochloride), 25 MG PO Q8HP PRN Discharge Statement: "Patient was advised to return to the ER or call 911 if any headaches, dizziness, shortness of breath, chest pain, abdominal pain, bleeding, fevers, or worsening of medical condition. Patient was counseled about treatment plan, medications, possible side effects, patientverbalized understanding. All questions were answered to the best of my ability. This discharge took greater then 30 minutes in planning, reviewing documentation, counseling the patient, and discussing with other team members." ASSESSMENT ASSESSMENT Assessment HUSSEIN VALADEZ RESIDENT Nov 04, 2024 06:57
[2024-11-06] MEDS ORDERED: CHL25C PO (13:51)
[2024-11-06] MEDS ORDERED: GABA-1250 PO (14:04)
== END 2024-11-02 22:22 | disposition left against medical advice (07) | DRG 53 ==
LOC: ER 19:38 → EDBD 19:38 → OVERFLOW 23:03
PROVIDERS: ADMIT Student in an Organized Health Care Education/Training Program; ATTEND Emergency Medicine
DX: G40.909 Epilepsy, unspecified, not intractable, without status epilepticus (principal); G92.8 Other toxic encephalopathy; D61.818 Other pancytopenia; I50.32 Chronic diastolic (congestive) heart failure; E87.0 Hyperosmolality and hypernatremia; K70.30 Alcoholic cirrhosis of liver without ascites; K76.0 Fatty (change of) liver, not elsewhere classified; J44.9 Chronic obstructive pulmonary disease, unspecified; E03.9 Hypothyroidism, unspecified; F10.229 Alcohol dependence with intoxication, unspecified; F10.239 Alcohol dependence with withdrawal, unspecified; K80.20 Calculus of gallbladder without cholecystitis without obstruction; Z53.29 Procedure and treatment not carried out because of patient's decision for other reasons; Z91.148 Patient's other noncompliance with medication regimen for other reason; Z59.00 Homelessness unspecified; Z87.891 Personal history of nicotine dependence; I25.2 Old myocardial infarction
CPT/HCPCS: 36415; 70470; 71045; 71046; 80053; 80320; 82140; 82306; 82607; 82728; 82746; 83036; 83540; 83550; 83880; 84443; 84484; 85025; 85610; 85730; G0378

== ENCOUNTER 2024-11-03 01:46 | Inpatient (IN) | payer MEDICAID ==
[~2024-11-03] VITALS: Ht 182.9 cm; Wt 104.0 kg
--- NOTE | 2024-11-03 02:25 | ED.PDOC ---
HPI (NEURO) HPI Comments 44-year-old male with a history of CHF, COPD, hypertension, seizures disorder, non-compliance and alcohol abuse, was brought in by emergency services with a chief complaint of a seizure. Per EMS patient stated his friend woke him up off the floor due to a possible unwitnessed seizure. Patient was noted to have been admitted for [facility] yesterday but eloped from the hospital with IV still inserted. Patient is currently alert and oriented x4. Patient noted to having 2 shots of hard liquor before arrival to the ED, and was noted to have bilateral leg/pedal pitting edema at this time. Patient denies any nausea, vomiting, diarrhea, loss of consciousness, blurry vision, dysuria, hematuria, or other associated symptoms, modifying at this time. PHYSICAL EXAM: General: Awake, alert and oriented. No acute distress. Skin: Skin in warm, dry and intact without rashes or lesions. HEENT: The head is normocephalic and atraumatic. Conjunctivae are clear without exudates or hemorrhage. Sclera is non-icteric. Neck: Normal range of motion. No JVD. Cardiac: Regular rate Respiratory: No signs of respiratory distress. No Stridor. Extremities: Bilateral leg/pedal 2+ pitting edema Neurological: The patient is awake, alert and oriented to person, place, and time with normal speech. Speech is clear. There is no facial asymmetry. Normal gait REVIEW OF SYSTEMS: General: No fever, no chills, or fatigue HEENT: No sore throat, no earache, no congestion, no neck pain. Cardiac: No chest pain. No palpitations. Lungs: No shortness of breath, no cough. GI: No nausea, no vomiting, no diarrhea, no constipation, no abdominal pain : No dysuria, frequency, or urgency. No hematuria. Musculoskeletal: No joint pain , no joint swelling, no extremity edema. Skin: No rash, no itching. Neuro: No headache, no dizziness, no weakness, + seizure Chief Complaint: Seizure Time Seen by MD: 02:20 Primary Care Provider: UNKNOWN Reviewed Notes: Nurses Notes, Computer Applications Developer Notes, Medications, Allergies Information Source: Patient, Emergency Med Personnel Mode of Arrival: EMS Severity: Moderate Dizziness/Weakness Severity: Does not affect activitie Headache Severity: Moderate Timing: Hours Duration: Since onset, Hours Prehospital treatment: 12 Lead EKG, Accucheck, Vessel Scrapper Helper Seizure Quality: Single Episodes Headache Quality: Throbbing Headache Location: Generalized Weakness Location: Generalized Numbness Location: Generalized Seizure Location: Generalized Onset: At rest Circumstances: Spontaneous Symptoms: None Before: Normal During: Awake After: Normal Mentation History of: Hypertension, Seizure Disorder Modifying factors: Nothing Associated Signs and Symptoms: None Past Medical History PAST MEDICAL HISTORY: Anemia, CHF, Gallstones, Liver, [place], Seizures, Thyroid Surgical History: Denies all surgeries Family History Family History: Family hx of liver renu Social History Smoker: Quit Less Than 1 Year Alcohol: Heavy Drugs: Denies Drug Use Lives In: Homeless Was a procedure done? Was a procedure done?: No Differential Diagnosis (SZ) Seizure: Psychogenic Seizure, Alcohol Withdrawl, Closed Head Injury, CVA/TIA, Drug Ingestion, Eclampsia, Meningitis, Syncope, Encephalopathy CVA: CVA, Drug Overdose, Electrolyte Imbalance, Encephalopathy, TIA General Weakness: Anemia, CVA, Dehydration, Electrolyte imbalance, Encephalopathy, Hypoglycemia, Hypotension, Pulmonary embolus, Repiratory failure, TIA Headache: Cluster, Migraine, Closed Head Injury, CVA, Epidural Hemorrhage, Intracerebral Hemorrhage, Subarachnoid Hemorrhage, Subdural Hemorrhage, Meningitis, Post-Traumatic, Trigeminal Neuralgia X-Ray, Labs, Meds, VS Vital Signs Date Time Temp Pulse Resp B/P (MAP) Pulse Ox O2 Delivery O2 Flow Rate FiO2 11/03/24 04:00 64 16 99 Room Air* 0 21 11/03/24 03:58 64 16 99 Room Air 11/03/24 03:58 97.3 64 16 150/86 (107) 99 97.3 11/03/24 01:56 98.4 72 17 155/77 97 98.4 Lab Test 11/03/24 03:52 Range/Units White Blood Count 3.5 L 4.4-10.8 10^3/uL Red Blood Count 3.37 L 4.5-5.90 10^6/uL Hemoglobin 7.9 L 13.5-17.5 g/dL Hematocrit 24.5 L 41.0-53.0 % Mean Corpuscular Volume 72.7 L 80.0-100.0 fL Mean Corpuscular Hemoglobin 23.5 L 28.0-32.0 pg Mean Corpuscular Hemoglobin Concent 32.3 32.0-36.0 g/dL Red Cell Distribution Width 31.4 H 11.8-14.3 % Platelet Count 69 L 140-450 10^3/uL Mean Platelet Volume 8.8 6.9-10.8 fL Neutrophils (%) (Auto) 32.8 L 37.0-80.0 % Lymphocytes (%) (Auto) 53.8 H 10.0-50.0 % Monocytes (%) (Auto) 11.7 0.0-12.0 % Eosinophils (%) (Auto) 0.5 0.0-7.0 % Basophils (%) (Auto) 1.2 0.0-2.0 % Neutrophils # (Auto) 1.2 L 1.6-8.6 10 ^3/uL Lymphocytes # (Auto) 1.9 0.4-5.4 10 ^3/uL Monocytes # (Auto) 0.4 0-1.3 10 ^3/uL Eosinophils # (Auto) 0 0-0.8 10 ^3/uL Basophils # (Auto) 0 0-0.2 10 ^3/uL Nucleated Red Blood Cells 0.0 % Platelet Estimate Decreased Hypochromasia (manual) Slight Anisocytosis (manual) Moderate Microcytosis Moderate Sodium Level 147 H 136-145 mmol/L Potassium Level 3.8 3.5-5.1 mmol/L Chloride Level 114 H 98-107 mmol/L Carbon Dioxide Level 23 20-31 mmol/L Anion Gap 10 5-15 Blood Urea Nitrogen 11 9-23 mg/dL Creatinine 0.72 0.700-1.30 mg/dL Glomerular Filtration Rate Calc 116 >90 mL/min BUN/Creatinine Ratio 15.3 10.0-20.0 Serum Glucose 90 74-106 mg/dL Calcium Level 8.3 L 8.7-10.4 mg/dL Plasma/Serum Blood Alcohol 289.7 H <10 mg/dL Current Medications Medications (Trade) Dose Ordered Sig/Johnnie Route Start Time Stop Time Status Last Admin Levetiracetam (Keppra Tablet) 500 mg ONCE ONCE PO 11/03/24 02:30 11/03/24 02:39 DC 11/03/24 05:25 Time of 1ST Reevaluation: 02:51 Reevaluation 1ST: Unchanged Patient Education/Counseling: Diagnosis, Treatment, Need For Follow Up Family Education/Counseling: No Family Present Departure 1 Departure Time of Disposition: 05:01 Impression: Primary Impression: Hypernatremia Additional Impressions: Seizure disorder Pancytopenia Alcohol abuse CHF (congestive heart failure) Disposition: 09 ADMITTED INPATIENT Condition: Guarded Comments 44-year-old male with repeated visits to the ED for seizures. Patient recently admitted for pancytopenia, CHF, alcohol abuse. Patient repeatedly leaves AMA or elopes. Patient presents today reporting another seizure and head injury after leaving He appears to be neurologically intact. He states he wants to be re- admitted and will not leave. Critical Care Note Critical Care Time?: No Stability Stability form required: No Heart Score Heart Score: Heart Score Response (Comments) Value History N/A 0 EKG N/A 0 Age N/A 0 Risk Factors N/A 0 Troponin N/A 0 Total 0 I personally scribed for LORENZA WONG MD ([email or web address]) on 11/03/24 at 02:25. Electronically submitted by Garry Camejo ([email or web address]). I personally scribed for LORENZA WONG MD ([email or web address]) on 11/03/24 at 02:25. Electronically submitted by Garry Camejo ([email or web address]). LORENZA WONG MD Nov 03, 2024 02:25
[2024-11-03 04:00] VITALS: PULSE 64; RESP 16; O2SAT 99
[2024-11-03 04:24] LABS: Hematocrit 24.5 % (41.0-53.0); Hemoglobin 7.9 g/dL (13.5-17.5); Nucleated Red Blood Cells % 0.0 %
[2024-11-03 04:26] LABS: Mean Corpuscular Hemoglobin 23.5 pg (28.0-32.0); Mean Corpuscular Volume 72.7 fL (80.0-100.0)
[2024-11-03 04:30] LABS: Potassium 3.8 mmol/L (3.5-5.1)
[2024-11-03 04:31] LABS: Anion Gap 10 (5-15); Carbon Dioxide 23 mmol/L (20-31)
[2024-11-03 04:32] LABS: Calcium 8.3 mg/dL (8.7-10.4); Chloride 114 mmol/L (98-107); Sodium 147 mmol/L (136-145)
[2024-11-03 04:36] LABS: BUN/Creatinine Ratio 15.3 (10.0-20.0); Blood Urea Nitrogen 11 mg/dL (9-23); Glucose 90 mg/dL (74-106)
[2024-11-03 04:50] LABS: Anisocytosis Moderate
[2024-11-03] MEDS: levETIRAcetam 500 MG TAB PO ONE (05:25)
[2024-11-03] MEDS: FUROSEMIDE 20 MG TAB PO ONE (05:25)
--- NOTE | 2024-11-03 06:56 | DVHHP2 ---
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 According to the patient and ED records, he had four s eizures over the past two days and was found on the floor by his roommate earlier today. He was reportedly postictal, and EMS brought him in for evaluation. Patient states he was seen in the ED yesterday but left prior to full evaluation. He has a history of multiple recent hospitalizations, including an admission on November 01, 2024, for seizure activity and another in September 2024 for alcohol intoxication and seizures. He admits he was supposed to be started on antiseizure medication after his last discharge but has not yet filled the prescription. He also admits to drinking a few shots of alcohol prior to this presentation. He denies black stools but reports spitting up some blood yesterday. He has a known history of GI bleeding and had an EGD three months a go. He received a blood transfusion two months ago. In the ED, labs were notable for hemoglobin 7.9, hematocrit 24.8platelets 90K, creatinine 0.93, sodium 140, calcium 8.3, and blood alcohol level 289.7. He was given one unit of PRBCs in the ED. GI bleeding appears to be ongoing, likely upper GI source given history. He is alert but appears fatigued. Plan is for GI consult, re-initiation of seizure prophylaxis, and close monitoring. Past Medical History See HPI above Past Surgical History See HPI above Family History Reviewed, non-contributory to the management of this case. Past Social History Patient does admit to drinking prior to arrival to the ED denies drug use Review of Systems Constitutional: No: Fever, Chills, Sweats, Weakness, Malaise, Other Eyes: No: Pain, Vision change, Conjunctivae inflammation, Eyelid inflammation, Other, Redness ENT: No: Ear pain, Ear discharge, Nose pain, Nose discharge, Nose congestion, Mouth pain, Mouth swelling, Throat pain, Throat swelling, Other Respiratory: No: Cough, Dry, Shortness of breath, SOB with excertion, Wheezing, Hemoptysis, Pleuritic Pain, Sputum, Wheezing, Other Cardiovascular: No: Chest Pain, Palpitations, Orthopnea, Paroxysmal Noc. Dyspnea, Edema, Lt Headedness, Other Gastrointestinal: No: Nausea, Vomiting, Abdominal Pain, Diarrhea, Constipation, Melena, Hematochezia, Other Genitourinary: No Dysuria, No Frequency, No Incontinence, No Hematuria, No Retention, No Other Musculoskeletal: No: other, neck pain, shoulder pain, arm pain, back pain, hand pain, leg pain, foot pain Skin: No: Rash, Lesions, Jaundice, Bruising, Other Neurological: Seizures; No: Weakness, Numbness, Incoordination, Change in speech, Confusion, Other Allergies: Coded Allergies: NO KNOWN ALLERGIES (Unverified , 01/02/13) Exam Vital Signs Vital Signs Date Time Temp Pulse Resp B/P (MAP) Pulse Ox O2 Delivery O2 Flow Rate FiO2 11/03/24 04:00 64 16 99 Room Air* 0 21 11/03/24 03:58 97.3 150/86 (107) 97.3 General Appearance: Alert, Oriented X3, Cooperative, No acute distress HEENT: Atraumatic, PERRLA, EOMI, Mucous membr. moist/pink Respiratory: Clear to auscultation, Normal air movement Cardiovascular: Regular rate, Normal S1, Normal S2, No murmurs Abdominal: Normal bowel sounds, Soft, No tenderness, No hepatospenomegaly, No masses Extremities: No clubbing, No cyanosis, No edema, Normal pulses, No tenderness/swelling Skin: No rashes, No breakdown, No significant lesion Neuro: Other (Neuro nonfocal mild tremor seen on exam) Labs/Xrays I reviewed labs, imaging CT scan abdomen pelvis, EKG and all diagnostic studies on this patient from ED records and the medical chart Labs Test 11/03/24 03:52 Range/Units White Blood Count 3.5 L 4.4-10.8 10^3/uL Red Blood Count 3.37 L 4.5-5.90 10^6/uL Hemoglobin 7.9 L 13.5-17.5 g/dL Hematocrit 24.5 L 41.0-53.0 % Mean Corpuscular Volume 72.7 L 80.0-100.0 fL Mean Corpuscular Hemoglobin 23.5 L 28.0-32.0 pg Mean Corpuscular Hemoglobin Concent 32.3 32.0-36.0 g/dL Red Cell Distribution Width 31.4 H 11.8-14.3 % Platelet Count 69 L 140-450 10^3/uL Mean Platelet Volume 8.8 6.9-10.8 fL Neutrophils (%) (Auto) 32.8 L 37.0-80.0 % Lymphocytes (%) (Auto) 53.8 H 10.0-50.0 % Monocytes (%) (Auto) 11.7 0.0-12.0 % Eosinophils (%) (Auto) 0.5 0.0-7.0 % Basophils (%) (Auto) 1.2 0.0-2.0 % Neutrophils # (Auto) 1.2 L 1.6-8.6 10 ^3/uL Lymphocytes # (Auto) 1.9 0.4-5.4 10 ^3/uL Monocytes # (Auto) 0.4 0-1.3 10 ^3/uL Eosinophils # (Auto) 0 0-0.8 10 ^3/uL Basophils # (Auto) 0 0-0.2 10 ^3/uL Nucleated Red Blood Cells 0.0 % Platelet Estimate Decreased Hypochromasia (manual) Slight Anisocytosis (manual) Moderate Microcytosis Moderate Sodium Level 147 H 136-145 mmol/L Potassium Level 3.8 3.5-5.1 mmol/L Chloride Level 114 H 98-107 mmol/L Carbon Dioxide Level 23 20-31 mmol/L Anion Gap 10 5-15 Blood Urea Nitrogen 11 9-23 mg/dL Creatinine 0.72 0.700-1.30 mg/dL Glomerular Filtration Rate Calc 116 >90 mL/min BUN/Creatinine Ratio 15.3 10.0-20.0 Serum Glucose 90 74-106 mg/dL Calcium Level 8.3 L 8.7-10.4 mg/dL Plasma/Serum Blood Alcohol 289.7 H <10 mg/dL SEPSIS Sepsis Screen Date sepsis recognized/suspect: Nov 03, 2024 Time Sepsis recognized/suspect: 358 Recent Procedure: No On Antibiotic Therapy: No Respiratory Rate >20: No Heart Rate >90: No Temp<36 C (96.8 F) or >38.3 C: No SBP <90 or MAP <65 mmHG: No New Acute Mental Status Change: No Is the patient on CPAP, BIPAP,: No Physician Orders * Chief Medical Officer Consult (11/03/24 ) Levothyroxine Tablet (Synthroid Tablet) (11/04/24 06:00) Multiple Vitamin Tablet (Mvi Tab) (11/03/24 10:00) Spironolactone (Aldactone) (11/03/24 10:00) Sucralfate Tab (Carafate Tab) (11/03/24 07:00) Admit (11/03/24 06:47) Allergies (11/03/24 06:47) Code Status (11/03/24 06:47) Ondansetron Hcl (Zofran) (11/03/24 07:00) Docusate Sodium Capsule (Colace Capsule) (11/03/24 07:00) Vital Signs Date Time Temp Pulse Resp B/P (MAP) Pulse Ox O2 Delivery O2 Flow Rate FiO2 11/03/24 04:00 64 16 99 Room Air* 0 21 11/03/24 03:58 64 16 99 Room Air 11/03/24 03:58 97.3 64 16 150/86 (107) 99 97.3 11/03/24 01:56 98.4 72 17 155/77 97 98.4 Laboratory Tests Test 11/03/24 03:52 White Blood Count 3.5 10^3/uL (4.4-10.8) L Medications Medications Dose Ordered Sig/Johnnie Route Start Time Stop Time Status Last Admin Dose Admin Levetiracetam 500 mg ONCE ONCE PO 11/03/24 02:30 11/03/24 02:39 DC 11/03/24 05:25 500 MG Assessment/Plan Assessment/Plan 44 male with Recurrent seizures and symptomatic anemia secondary to suspected upper GI bleed in the setting of alcohol-related liver disease. acute breakthrough Seizure Disorder poorly controlled and medication non compliance Restart antiepileptic therapy (levetiracetam 500 BID, ) Neurology consult if with continued seizures and for medication selection and follow-up Monitor for further seizures with q4h neuro checks Maintain fall precautions acute Symptomatic Anemia likely secondary to GI bleed ordered Transfused 1 unit PRBCs Monitor CBCs and vital signs GI consult placed for possible repeat EGD ordered Stool guaiac to confirm ongoing bleeding acute upper gi bleed clr liquid diet for now hl protonix gi consult fu results acute Alcohol Use Disorder acute intoxication CIWA protocol and thiamine/folate/multivitamin supplementation Monitor for withdrawal; consider lorazepam PRN Social work referral for rehab options upon stabilization ordered banana bag ordered librium Cirrhosis of Liver alcohol-related Monitor LFTs, INR, bilirubin Consider starting lactulose if signs of encephalopathy GI consult for upper GI bleed evaluation and cirrhosis management Pancytopenia likely related to chronic liver disease and alcohol use Monitor CBC daily Avoid NSAIDs and other marrow-suppressive medications Transfuse platelets if <10K or <50K with active bleeding Hypothyroidism not on meds cont levothyroxine COPD stable, no signs of exacerbation Monitor oxygen saturation Continue home inhalers if used CHF with preserved EF history of diastolic heart failure Monitor for signs of volume overload Daily weights, I/Os Maintain euvolemia CHRONIC PROBLEM LIST Seizure disorder Alcoholic cirrhosis CHF, diastolic COPD Pancytopenia Hypothyroidism Anemia, chronic FEN/PPx Fluids: IV fluids as needed; cautious rehydration Electrolytes: Monitor sodium, potassium, calcium, magnesium Nutrition: clr liquid diet; folate, thiamine, multivitamin in banana bag DVT prophylaxis: Hold pharmacologic prophylaxis if bleeding; use SCDs GI prophylaxis: Pantoprazole IV BID Disposition: Admit to telemetry for seizure monitoring, transfusion support, GI evaluation, and stabilization. Social work Plan discussed with: Patient, Other (records) My Orders Orders - TRIP ADHIKARI DNP Procedure Category Date Status Time Levothyroxine Tablet PHA 11/04/24 Verified (Synthroid Tablet) 06:00 Multiple Vitamin PHA 11/03/24 Verified Tablet (Mvi Tab) 10:00 Spironolactone PHA 11/03/24 Verified (Aldactone) 10:00 Sucralfate Tab PHA 11/03/24 Verified (Carafate Tab) 07:00 Admit ADMIT 11/03/24 Verified 06:47 Allergies BERT 11/03/24 Verified 06:47 Code Status CODE 11/03/24 Verified 06:47 Ondansetron Hcl PHA 11/03/24 Verified (Zofran) 07:00 Docusate Sodium PHA 11/03/24 Verified Capsule (Colace 07:00 Date of Service: Nov 03, 2024 Billing Provider: TRIP ADHIKARI DNP Common Visit Codes: [id number] INP/OBS CARE (HIGH) TRIP ADHIKARI DNP Nov 03, 2024 06:56
[2024-11-03] MEDS ORDERED: DOCUSATE SOD 100 MG CAP PO PRN (07:00)
[2024-11-03] MEDS ORDERED: NITROGLYCERIN 0.4 MG SL TAB SL PRN (07:00)
[2024-11-03] MEDS ORDERED: ONDANSETRON HCL 4 MG/2 ML VIAL IV PRN (07:00)
[2024-11-03] MEDS: SPIRONOLACTONE 25 MG TAB PO SCH (07:29)
[2024-11-03] MEDS: MULTIPLE VITAMIN TAB PO SCH (07:29)
[2024-11-03] MEDS: SUCRALFATE 1 GM TAB PO SCH (07:29)
[2024-11-03] MEDS: PANTOPRAZOLE 40 MG/10 ML VIAL INJ IV ONE (07:31)
[2024-11-03] MEDS: HYDROcodone-ACET 5/325MG TAB PO PRN (08:00)
[2024-11-03] MEDS: ACETAMINOPHEN 325 MG TAB PO PRN (08:15)
[2024-11-03] MEDS: LORazepam 2MG/ML-1ML VIAL IV SCH (08:57)
[2024-11-03] MEDS: SODIUM CHLORIDE 0.9% 1,000 ML IV ONE (08:58)
[2024-11-03] MEDS ORDERED: FUROSEMIDE 20 MG/2 ML VIAL IV SCH (18:00)
--- NOTE | 2024-11-03 20:48 | DVHPN2 ---
Subjective Admitted this morning for alcohol intoxication and confusion. Changes from previous H/P or p: No Changes Eyes: No Pain, No Vision change, No Conjunctivae inflammation, No Eyelid inflammation, No Other, No Redness ENT: No Ear pain, No Ear discharge, No Nose pain, No Nose discharge, No Nose congestion, No Mouth pain, No Mouth swelling, No Throat pain, No Throat swelling, No Other Cardiovascular: No Chest Pain, No Palpitations, No Orthopnea, No Paroxysmal Noc. Dyspnea, No Edema, No Lt Headedness, No Other Respiratory: No Cough, No Dry, No Shortness of breath, No SOB with excertion, No Wheezing, No Hemoptysis, No Pleuritic Pain, No Sputum, No Other Gastrointestinal: No Nausea, No Vomiting, No Abdominal Pain, No Diarrhea, No Constipation, No Melena, No Hematochezia, No Other Genitourinary: No Dysuria, No Frequency, No Incontinence, No Hematuria, No Retention, No Other Musculoskeletal: No other, No neck pain, No shoulder pain, No arm pain, No back pain, No hand pain, No leg pain, No foot pain Skin: No Rash, No Lesions, No Jaundice, No Bruising, No Other Objective Vitals Vital Signs Date Time Temp Pulse Resp B/P (MAP) Pulse Ox O2 Delivery O2 Flow Rate FiO2 11/03/24 20:10 98.5 87 16 99/66 (77) 97 98.5 11/03/24 04:00 Room Air* 0 21 Exam Appears disheveled and unkept. Alert and awake oriented to name only. Sitting in the chair. No acute cardiopulmonary distress. HEENT pupils equal round react to light. Neck supple no JVD. Heart regular rate and rhythm S1-S2. Lungs fair air movement poor inspiratory effort no wheezing. Abdomen soft nontender positive bowel sounds. Extremities no edema positive pulses. Neurologic no focal deficits. Medications Current Medications Medications Dose Ordered Sig/Johnnie Route Start Time Stop Time Status Last Admin Dose Admin Levothyroxine Sodium 25 mcg QAM@0600 PO 11/04/24 06:00 Multivitamins 1 tab DAILY PO 11/03/24 10:00 11/03/24 07:29 1 TAB Spironolactone 25 mg DAILY PO 11/03/24 10:00 11/03/24 07:29 25 MG Sucralfate 1 gm QIDACHS PO 11/03/24 07:00 11/03/24 17:20 1 GM Ondansetron HCl 4 mg Q4HP PRN IV 11/03/24 07:00 Docusate Sodium 100 mg BIDPRN PRN PO 11/03/24 07:00 Nitroglycerin 0.4 mg Q5MINP PRN SL 11/03/24 07:00 Levetiracetam 100 ml @ 400 mls/hr BID IV 11/03/24 22:00 Pantoprazole Sodium 40 mg BID IV 11/03/24 22:00 Acetaminophen 650 mg Q4HP PRN PO 11/03/24 07:45 11/03/24 08:15 650 MG Acetaminophen/ Hydrocodone Bitart 1 tab Q6HPRN PRN PO 11/03/24 07:45 Cancel Chlordiazepoxide HCl 50 mg Q8H PO 11/03/24 08:00 11/04/24 00:01 11/03/24 17:20 50 MG Chlordiazepoxide HCl 50 mg Q12HR PO 11/04/24 10:00 11/04/24 22:01 Chlordiazepoxide HCl 25 mg Q12HR PO 11/05/24 10:00 11/05/24 22:01 Chlordiazepoxide HCl 25 mg QAM PO 11/06/24 07:00 11/06/24 07:01 Laboratory Results Laboratory Tests 11/03/24 03:52 Chemistry Test 11/03/24 03:52 Calcium Level 8.3 mg/dL (8.7-10.4) L Assessment/Plan Assessment/Plan We will DC the around the clock Ativan. Use Ativan only as needed. Continue alcohol withdrawal protocol and Librium as he is on. [facility] consultation for alcohol use disorder and help with the discharge planning. Otherwise continue empiric seizure medications and supportive care and treatment as he is on. Further clinical management per clinical course. Discussed with the nurse regarding care plan. Plan discussed with: Patient, Other My Orders Orders - CASPER MCKEON MD Procedure Category Date Status Time * [facility] CONS 11/03/24 Transmitted Consult 13:57 Urinalysis LAB 11/03/24 Logged 13:59 Problem List: (1) Seizure disorder (2) Alcohol abuse (3) Breakthrough seizure Date of Service: Nov 03, 2024 Billing Provider: CASPER MCKEON MD Common Visit Codes: [id number] INP/OBS CARE(MOD) CASPER MCKEON MD Nov 03, 2024 20:48
[2024-11-03] MEDS: levETIRAcetam 500 mg/100ml 100 ML IV SCH (22:35)
[2024-11-03] MEDS: PANTOPRAZOLE 40 MG/10 ML VIAL INJ IV SCH (22:35)
[2024-11-04] VITALS (9 sets, daily range): BP systolic 118–149; BP diastolic 70–89; PULSE 61–76; RESP 16–18; TEMP 97.5–99.1; O2SAT 98–100
[2024-11-04] MEDS: LEVOTHYROXINE SODIUM 25 MCG TAB PO SCH (05:55)
[2024-11-04 06:37] LABS: Mean Corpuscular Volume 72.6 fL (80.0-100.0)
[2024-11-04 06:42] LABS: Hematocrit 22.0 % (41.0-53.0); Hemoglobin 7.2 g/dL (13.5-17.5); Mean Corpuscular Hemoglobin 23.6 pg (28.0-32.0)
[2024-11-04 06:53] LABS: Alanine Aminotransferase 30 U/L (7-40); Alkaline Phosphatase 99 U/L (46-116); Anion Gap 9 (5-15); BUN/Creatinine Ratio 22.4 (10.0-20.0); Blood Urea Nitrogen 13 mg/dL (9-23); Carbon Dioxide 22 mmol/L (20-31); Glucose 75 mg/dL (74-106); Potassium 4.0 mmol/L (3.5-5.1); Sodium 143 mmol/L (136-145); Total Protein 5.7 g/dL (5.7-8.2)
[2024-11-04 06:58] LABS: Albumin 3.0 g/dL (3.2-4.8); Bilirubin, Total 2.9 mg/dL (0.2-1.0); Calcium 7.9 mg/dL (8.7-10.4); Chloride 112 mmol/L (98-107)
[2024-11-04 08:03] LABS: Total Cells Counted 100.0 (100)
[2024-11-04 08:04] LABS: Anisocytosis Moderate
[2024-11-04] MEDS: THIAMINE HCL 100 MG TAB PO SCH (10:28)
--- NOTE | 2024-11-04 22:34 | DVHPN2 ---
Subjective Patient's mentation is back to normal baseline status today. Comfortable in bed without distress. No seizures. Changes from previous H/P or p: No Changes Eyes: No Pain, No Vision change, No Conjunctivae inflammation, No Eyelid inflammation, No Other, No Redness ENT: No Ear pain, No Ear discharge, No Nose pain, No Nose discharge, No Nose congestion, No Mouth pain, No Mouth swelling, No Throat pain, No Throat swelling, No Other Cardiovascular: No Chest Pain, No Palpitations, No Orthopnea, No Paroxysmal Noc. Dyspnea, No Edema, No Lt Headedness, No Other Respiratory: No Cough, No Dry, No Shortness of breath, No SOB with excertion, No Wheezing, No Hemoptysis, No Pleuritic Pain, No Sputum, No Other Gastrointestinal: No Nausea, No Vomiting, No Abdominal Pain, No Diarrhea, No Constipation, No Melena, No Hematochezia, No Other Genitourinary: No Dysuria, No Frequency, No Incontinence, No Hematuria, No Retention, No Other Musculoskeletal: No other, No neck pain, No shoulder pain, No arm pain, No back pain, No hand pain, No leg pain, No foot pain Skin: No Rash, No Lesions, No Jaundice, No Bruising, No Other Objective Vitals Vital Signs Date Time Temp Pulse Resp B/P (MAP) Pulse Ox O2 Delivery O2 Flow Rate FiO2 11/04/24 21:00 97.5 66 18 147/89 (108) 98 97.5 11/04/24 08:00 Room Air* 0 21 Intake/Output Intake and Output 11/04/24 07:00 Intake Total 1000 ml Balance 1000 ml Intake Oral 0 ml IV Total 1000 ml Exam Comfortable in bed. Alert awake oriented to place and person without distress. HEENT pupils equal round react to light. Neck supple no JVD. Heart regular rate and rhythm S1-S2. Lungs fair air movement poor inspiratory effort no wheezing. Abdomen soft nontender positive bowel sounds. Extremities no edema positive pulses. Neurologic no focal deficits. Medications Current Medications Medications Dose Ordered Sig/Johnnie Route Start Time Stop Time Status Last Admin Dose Admin Levothyroxine Sodium 25 mcg QAM@0600 PO 11/04/24 06:00 11/04/24 05:55 25 MCG Multivitamins 1 tab DAILY PO 11/03/24 10:00 11/04/24 10:28 1 TAB Sucralfate 1 gm QIDACHS PO 11/03/24 07:00 11/04/24 17:56 1 GM Ondansetron HCl 4 mg Q4HP PRN IV 11/03/24 07:00 Docusate Sodium 100 mg BIDPRN PRN PO 11/03/24 07:00 Nitroglycerin 0.4 mg Q5MINP PRN SL 11/03/24 07:00 Levetiracetam 100 ml @ 400 mls/hr BID IV 11/03/24 22:00 11/04/24 10:30 400 MLS/HR Pantoprazole Sodium 40 mg BID IV 11/03/24 22:00 11/04/24 10:30 40 MG Acetaminophen 650 mg Q4HP PRN PO 11/03/24 07:45 11/03/24 08:15 650 MG Acetaminophen/ Hydrocodone Bitart 1 tab Q6HPRN PRN PO 11/03/24 07:45 Cancel Thiamine HCl 100 mg DAILY PO 11/04/24 10:00 11/04/24 10:28 100 MG Spironolactone 25 mg BID PO 11/04/24 22:00 Chlordiazepoxide HCl 25 mg Q8HR PO 11/04/24 14:00 11/04/24 14:40 25 MG Laboratory Results Laboratory Tests 11/04/24 04:44 Chemistry Test 11/04/24 04:44 Albumin 3.0 g/dL (3.2-4.8) L Calcium Level 7.9 mg/dL (8.7-10.4) L Total Protein 5.7 g/dL (5.7-8.2) LFT Test 11/04/24 04:44 Alanine Aminotransferase (ALT) 30 U/L (7-40) Alkaline Phosphatase 99 U/L (46-116) Aspartate Amino Transferase (AST) 69 U/L (13-40) H Total Bilirubin 2.9 mg/dL (0.2-1.0) H Assessment/Plan Assessment/Plan Cut down his Librium dose given his symptoms have improved. Once again counseled regarding alcohol cessation and is seeking help with the rehab programs. Otherwise continue rest of supportive care and treatment. If he remains seizure-free and stable consider discharge soon. Discussed with the patient. Plan discussed with: Patient My Orders Orders - CASPER MCKEON MD Procedure Category Date Status Time Mrsa Screen ABHISHEK 11/04/24 Uncollected 00:26 Spironolactone PHA 11/04/24 In Process (Aldactone) 22:00 Chlordiazepoxide Hcl PHA 11/04/24 In Process Capsule (Librium Ca 14:00 Cardiac DIET 11/04/24 Transmitted Diet-2gna,Lofat,Lochol Lunch Comprehensive LAB 11/05/24 Verified Metabolic Panel 04:00 Complete Blood Count LAB 11/05/24 Verified 04:00 Ammonia LAB 11/05/24 Verified 04:00 Pt Request For Service PT 11/04/24 Logged 11:27 Problem List: (1) Pancytopenia (2) Breakthrough seizure (3) Alcohol abuse (4) Seizure disorder Date of Service: Nov 04, 2024 Billing Provider: CASPER MCKEON MD Common Visit Codes: [id number] INP/OBS CARE(MOD) CASPER MCKEON MD Nov 04, 2024 22:34
[2024-11-04] MEDS: SPIRONOLACTONE 25 MG TAB PO SCH (22:52)
[2024-11-05] VITALS (7 sets, daily range): BP systolic 134–144; BP diastolic 65–87; PULSE 65–84; RESP 16–19; TEMP 97.5–98.4; O2SAT 97–100
[2024-11-05 10:44] LABS: Hemoglobin 8.0 g/dL (13.5-17.5)
[2024-11-05 10:46] LABS: Hematocrit 24.5 % (41.0-53.0); Mean Corpuscular Hemoglobin 23.5 pg (28.0-32.0); Mean Corpuscular Volume 72.4 fL (80.0-100.0); Nucleated Red Blood Cells % 0.1 %
[2024-11-05 10:51] LABS: Alanine Aminotransferase 27 U/L (7-40); Alkaline Phosphatase 103 U/L (46-116); Anion Gap 8 (5-15); BUN/Creatinine Ratio 15.0 (10.0-20.0); Carbon Dioxide 22 mmol/L (20-31); Glucose 104 mg/dL (74-106); Potassium 3.7 mmol/L (3.5-5.1); Sodium 141 mmol/L (136-145); Total Protein 5.9 g/dL (5.7-8.2)
[2024-11-05 10:54] LABS: Albumin 3.1 g/dL (3.2-4.8); Bilirubin, Total 3.4 mg/dL (0.2-1.0); Blood Urea Nitrogen 9 mg/dL (9-23); Calcium 8.3 mg/dL (8.7-10.4); Chloride 111 mmol/L (98-107)
--- NOTE | 2024-11-05 18:24 | DVHPN2 ---
Subjective Overnight events noted. Patient denies any seizures. Changes from previous H/P or p: No Changes Eyes: No Pain, No Vision change, No Conjunctivae inflammation, No Eyelid inflammation, No Other, No Redness ENT: No Ear pain, No Ear discharge, No Nose pain, No Nose discharge, No Nose congestion, No Mouth pain, No Mouth swelling, No Throat pain, No Throat swelling, No Other Cardiovascular: No Chest Pain, No Palpitations, No Orthopnea, No Paroxysmal Noc. Dyspnea, No Edema, No Lt Headedness, No Other Respiratory: No Cough, No Dry, No Shortness of breath, No SOB with excertion, No Wheezing, No Hemoptysis, No Pleuritic Pain, No Sputum, No Other Gastrointestinal: No Nausea, No Vomiting, No Abdominal Pain, No Diarrhea, No Constipation, No Melena, No Hematochezia, No Other Genitourinary: No Dysuria, No Frequency, No Incontinence, No Hematuria, No Retention, No Other Musculoskeletal: No other, No neck pain, No shoulder pain, No arm pain, No back pain, No hand pain, No leg pain, No foot pain Skin: No Rash, No Lesions, No Jaundice, No Bruising, No Other Objective Vitals Vital Signs Date Time Temp Pulse Resp B/P (MAP) Pulse Ox O2 Delivery O2 Flow Rate FiO2 11/05/24 16:36 97.6 65 16 144/84 (104) 99 97.6 11/05/24 08:00 Room Air* 0 21 Intake/Output Intake and Output 11/05/24 07:00 Intake Total 1050 ml Output Total 1950 ml Balance -900 ml Intake Oral 1050 ml Output Urine Total 1950 ml Exam HEENT pupils are reactive Neck is supple CV is S1-S2 regular rate and rhythm Respiratory are clear GI positive bowel sound Extremity no edema [employer]EE[employer]IST[employer] no motor deficit Medications Current Medications Medications Dose Ordered Sig/Johnnie Route Start Time Stop Time Status Last Admin Dose Admin Levothyroxine Sodium 25 mcg QAM@0600 PO 11/04/24 06:00 11/05/24 06:08 25 MCG Multivitamins 1 tab DAILY PO 11/03/24 10:00 11/05/24 10:06 1 TAB Sucralfate 1 gm QIDACHS PO 11/03/24 07:00 11/05/24 17:47 1 GM Ondansetron HCl 4 mg Q4HP PRN IV 11/03/24 07:00 Docusate Sodium 100 mg BIDPRN PRN PO 11/03/24 07:00 Nitroglycerin 0.4 mg Q5MINP PRN SL 11/03/24 07:00 Levetiracetam 100 ml @ 400 mls/hr BID IV 11/03/24 22:00 11/05/24 11:42 400 MLS/HR Pantoprazole Sodium 40 mg BID IV 11/03/24 22:00 11/05/24 11:42 40 MG Acetaminophen 650 mg Q4HP PRN PO 11/03/24 07:45 11/03/24 08:15 650 MG Acetaminophen/ Hydrocodone Bitart 1 tab Q6HPRN PRN PO 11/03/24 07:45 Cancel Thiamine HCl 100 mg DAILY PO 11/04/24 10:00 11/05/24 10:06 100 MG Spironolactone 25 mg BID PO 11/04/24 22:00 11/05/24 10:08 25 MG Chlordiazepoxide HCl 25 mg Q8HR PO 11/04/24 14:00 11/05/24 12:58 25 MG Lactulose 30 ml TID PO 11/05/24 22:00 Laboratory Results Laboratory Tests 11/05/24 10:08 Chemistry Test 11/05/24 10:08 Albumin 3.1 g/dL (3.2-4.8) L Calcium Level 8.3 mg/dL (8.7-10.4) L Total Protein 5.9 g/dL (5.7-8.2) LFT Test 11/05/24 10:08 Alanine Aminotransferase (ALT) 27 U/L (7-40) Alkaline Phosphatase 103 U/L (46-116) Aspartate Amino Transferase (AST) 57 U/L (13-40) H Total Bilirubin 3.4 mg/dL (0.2-1.0) H Assessment/Plan Assessment/Plan 44-year-old male with a known history of alcoholic liver cirrhosis, pancytopenia, hypothyroidism, chronic alcoholism, seizure disorder who initially presented to the hospital with seizures found to have 1. Breakthrough seizures 2. Seizure disorder 3. Alcohol withdrawal syndrome 4. Alcoholic liver cirrhosis 5. Pancytopenia secondary to liver disease 6. Hypothyroidism 7. Chronic alcoholism -continue Librium and taper as tolerated, replace electrolytes, check CMP Mag level -discharge plan. Plan discussed with: Patient My Orders Orders - KAYLEE CRONIN MD Procedure Category Date Status Time Lactulose Oral PHA 11/05/24 In Process 22:00 Comprehensive LAB 11/06/24 Verified Metabolic Panel 04:00 Magnesium LAB 11/06/24 Verified 04:00 Phosphorus LAB 11/06/24 Verified 04:00 Ammonia LAB 11/06/24 Verified 04:00 Date of Service: Nov 05, 2024 Billing Provider: KAYLEE CRONIN MD Common Visit Codes: [id number] INP/OBS CARE(MOD) KAYLEE CRONIN MD Nov 05, 2024 18:24
[2024-11-05] MEDS: LACTULOSE 20Gm/30ML SOLN PO SCH (22:01)
[2024-11-06 01:00] VITALS: BP 127/68; PULSE 72; RESP 16; TEMP 99.8; O2SAT 97
[2024-11-06 06:06] LABS: Alanine Aminotransferase 24 U/L (7-40); Alkaline Phosphatase 98 U/L (46-116); Anion Gap 10 (5-15); BUN/Creatinine Ratio 16.0 (10.0-20.0); Glucose 89 mg/dL (74-106); Potassium 3.8 mmol/L (3.5-5.1); Sodium 141 mmol/L (136-145)
[2024-11-06 06:07] LABS: Albumin 2.9 g/dL (3.2-4.8); Bilirubin, Total 2.8 mg/dL (0.2-1.0); Blood Urea Nitrogen 8 mg/dL (9-23); Calcium 8.5 mg/dL (8.7-10.4); Carbon Dioxide 20 mmol/L (20-31); Chloride 111 mmol/L (98-107); Magnesium 1.3 mg/dL (1.6-2.6); Total Protein 5.5 g/dL (5.7-8.2)
[2024-11-06 08:00] VITALS: PULSE 60; RESP 18; O2SAT 97
[2024-11-06 08:41] VITALS: BP 137/54; PULSE 64; RESP 16; TEMP 97.8; O2SAT 97
[2024-11-06 12:30] VITALS: BP 125/77; PULSE 66; RESP 18; TEMP 98.5; O2SAT 99
[2024-11-06] MEDS ORDERED: CHL25C PO ×2 (13:51→14:02)
[2024-11-06] MEDS ORDERED: GABA-1250 PO ×2 (14:04)
--- NOTE | 2024-11-06 14:08 | DVHDS2 ---
Discharge Summary Date of Admission Nov 03, 2024 at 06:47 Date of Discharge: Nov 06, 2024 Labs/Diagnostic Data: Laboratory Results Test 11/06/24 04:40 11/05/24 10:08 11/04/24 04:44 11/03/24 03:52 Sodium Level 141 mmol/L (136-145) Potassium Level 3.8 mmol/L (3.5-5.1) Chloride Level 111 mmol/L (98-107) Carbon Dioxide Level 20 mmol/L (20-31) Anion Gap 10 (5-15) Blood Urea Nitrogen 8 mg/dL (9-23) Creatinine 0.50 mg/dL (0.700-1.30) Glomerular Filtration Rate Calc 130 mL/min (>90) BUN/Creatinine Ratio 16.0 (10.0-20.0) Serum Glucose 89 mg/dL (74-106) Calcium Level 8.5 mg/dL (8.7-10.4) Phosphorus Level 3.8 mg/dL (2.4-5.1) Magnesium Level 1.3 mg/dL (1.6-2.6) Total Bilirubin 2.8 mg/dL (0.2-1.0) Aspartate Amino Transferase (AST) 46 U/L (13-40) Alanine Aminotransferase (ALT) 24 U/L (7-40) Alkaline Phosphatase 98 U/L (46-116) Ammonia 100 umol/L (11-32) Total Protein 5.5 g/dL (5.7-8.2) Albumin 2.9 g/dL (3.2-4.8) White Blood Count 1.8 10^3/uL (4.4-10.8) Red Blood Count 3.39 10^6/uL (4.5-5.90) Hemoglobin 8.0 g/dL (13.5-17.5) Hematocrit 24.5 % (41.0-53.0) Mean Corpuscular Volume 72.4 fL (80.0-100.0) Mean Corpuscular Hemoglobin 23.5 pg (28.0-32.0) Mean Corpuscular Hemoglobin Concent 32.5 g/dL (32.0-36.0) Red Cell Distribution Width 30.9 % (11.8-14.3) Platelet Count 40 10^3/uL (140-450) Mean Platelet Volume 9.2 fL (6.9-10.8) Neutrophils (%) (Auto) 52.9 % (37.0-80.0) Lymphocytes (%) (Auto) 30.5 % (10.0-50.0) Monocytes (%) (Auto) 12.9 % (0.0-12.0) Eosinophils (%) (Auto) 2.3 % (0.0-7.0) Basophils (%) (Auto) 1.4 % (0.0-2.0) Neutrophils # (Auto) 0.9 10 ^3/uL (1.6-8.6) Lymphocytes # (Auto) 0.5 10 ^3/uL (0.4-5.4) Monocytes # (Auto) 0.2 10 ^3/uL (0-1.3) Eosinophils # (Auto) 0 10 ^3/uL (0-0.8) Basophils # (Auto) 0 10 ^3/uL (0-0.2) Nucleated Red Blood Cells 0.1 % Differential Total Cells Counted 100.0 (100) Neutrophils % (Manual) 35 (37.0-80.0) Band Neutrophils % (Manual) 0 Lymphocytes % (Manual) 52 (10.0-50.0) Monocytes % (Manual) 11 (0-12) Eosinophils % (Manual) 2 (0-7) Basophils % (Manual) 0 (0.0-2.0) Metamyelocytes % (manual) 0 Myelocytes % (Manual) 0 Promyelocytes % (Manual) 0 Blast Cells % (Manual) 0 Reactive Lymphocytes 0 Platelet Estimate Decreased Hypochromasia (manual) Slight Anisocytosis (manual) Moderate Microcytosis Moderate Plasma/Serum Blood Alcohol 289.7 mg/dL (<10) Other Laboratory Tests 11/06/24 04:40 11/05/24 10:08 Brief Hx & Hospital Course: 44-year-old male with a known history of alcoholic liver cirrhosis, pancytopenia, hypothyroidism, chronic alcoholism, seizure disorder who initially presented to the hospital with seizures found to have breakthrough seizure as well as alcohol withdrawal syndrome. Patient was treated with the seizure medication as well as electrolytes were replaced. Patient was given thiamine folic acid as well. Patient does have a pancytopenia secondary to liver disease. Patient was seen by Neurology as well and currently cleared to be discharged. Patient is requesting to go home and he is stable to be discharged home. I will give by gabapentin 300 t.i.d. for five days for alcohol withdrawal. Patient understand , verbalized understanding and agreeable to plan. Please have a drug rehab as an outpatient. Condition at Discharge: Stable Final Diagnosis/Problems List 44-year-old male with a known history of alcoholic liver cirrhosis, pancytopenia, hypothyroidism, chronic alcoholism, seizure disorder who initially presented to the hospital with seizures found to have 1. Breakthrough seizures 2. Seizure disorder 3. Alcohol withdrawal syndrome 4. Alcoholic liver cirrhosis 5. Pancytopenia secondary to liver disease 6. Hypothyroidism 7. Chronic alcoholism Discharge Disposition: Home SNF Discharge Will this Physician continue t: No Discharge Instruct/Medications Diet: Cardiac 2g Na,low cholest Activity: No Restrictions, As Tolerated Follow Up/Referral: Follow up with the PCP in one week Follow up with your own neurologist in one week Medications: Gabapentin as prescribed. New Medications: Gabapentin (Gabapentin) 300 Mg Cap 1 CAP PO TID PRN for 5 Days, #15 CAP 5 Refills Continued Medications: Folic Acid (Folic Acid) 1 Mg Tab 1 MG PO DAILY for 30 Days, #30 TAB Furosemide (Lasix) 20 Mg Tb 1 TAB PO BID for 5 Days, #10 TAB 5 Refills Gabapentin (Gabapentin) 300 Mg Cap 1 CAP PO TID Hydroxyzine HCl (Hydroxyzine Hydrochloride) 25 Mg Tab 25 MG PO Q8HP PRN for 30 Days, #90 TAB Lactulose (Lactulose) 10 Gm Jorge 10 GM PO BID for 30 Days, #10 PACK Levetiracetam (Keppra Tablet) 500 Mg Tb 500 MG PO BID for 30 Days, #60 TAB Levothyroxine Sodium (Levothyroxine Sodium) 25 Mcg Tab 25 MCG PO QAM@0600 for 30 Days, #30 TAB Magnesium Oxide (Mgo) 400 Mg Tab 400 MG PO DAILY for 10 Days, #10 TAB Multiple Vitamin (Mvi Tab) 1 Tab Tb 1 TAB PO DAILY for 30 Days, #30 TAB Pantoprazole Sodium Sesquihydr (Pantoprazole Sodium) 40 Mg Tab 1 TAB PO BID Sertraline Hcl (Zoloft) 25 Mg Tab 1 TAB PO DAILY, #30 TAB 2 Refills Spironolactone (Aldactone) 25 Mg Tab 25 MG PO DAILY for 30 Days, #30 TAB Sucralfate (Carafate) 1 Gm Tab 1 GM OR QIDACHS for 30 Days, #120 TAB Thiamine Hcl (Vitamin B-1) 100 Mg Tb 100 MG PO DAILY for 30 Days, #30 TAB Discontinued Medications: Cephalexin Monohydrate (Cephalexin) 500 Mg Tab 1 TAB PO TID for 7 Days, #21 TAB Cyclobenzaprine Hcl (Cyclobenzaprine Hcl) 5 Mg Tab 1 TAB PO TID PRN, #30 TAB Disulfiram (Disulfiram) 250 Mg Tab 250 MG PO BID, TAB Folic Acid (Folic Acid) 1 Mg Tab 1 MG PO DAILY for 30 Days, #30 TAB Levetiracetam (Keppra Tablet) 500 Mg Tb 500 MG PO BID for 30 Days, #60 TAB Levothyroxine Sodium (Levothyroxine Sodium) 25 Mcg Tab 25 MCG PO QAM@0600 for 30 Days, #30 TAB Multiple Vitamin (Mvi Tab) 1 Tab Tb 1 TAB PO DAILY for 30 Days, #30 TAB Pantoprazole Sodium Sesquihydr (Protonix) 40 Mg Tab 40 MG PO DAILY, #30 TAB Spironolactone (Aldactone) 25 Mg Tab 1 TAB PO DAILY for 30 Days, #30 TAB 1 Refill Thiamine Hcl (Vitamin B-1) 100 Mg Tb 100 MG PO DAILY for 30 Days, #30 TAB Scheduled Cephalexin Monohydrate (Cephalexin), 1 TAB PO TID Disulfiram (Disulfiram), 250 MG PO BID, (Reported) Folic Acid (Folic Acid), 1 MG PO DAILY Folic Acid (Folic Acid), 1 MG PO DAILY Furosemide (Lasix), 1 TAB PO BID Gabapentin (Gabapentin), 1 CAP PO TID, (Reported) Lactulose (Lactulose), 10 GM PO BID Levetiracetam (Keppra Tablet), 500 MG PO BID Levetiracetam (Keppra Tablet), 500 MG PO BID Levothyroxine Sodium (Levothyroxine Sodium), 25 MCG PO QAM@0600 Levothyroxine Sodium (Levothyroxine Sodium), 25 MCG PO QAM@0600 Magnesium Oxide (Mgo), 400 MG PO DAILY Multiple Vitamin (Mvi Tab), 1 TAB PO DAILY Multiple Vitamin (Mvi Tab), 1 TAB PO DAILY Pantoprazole Sodium Sesquihydr (Pantoprazole Sodium), 1 TAB PO BID, (Reported) Pantoprazole Sodium Sesquihydr (Protonix), 40 MG PO DAILY Sertraline Hcl (Zoloft), 1 TAB PO DAILY Spironolactone (Aldactone), 1 TAB PO DAILY Spironolactone (Aldactone), 25 MG PO DAILY Sucralfate (Carafate), 1 GM OR QIDACHS Thiamine Hcl (Vitamin B-1), 100 MG PO DAILY Thiamine Hcl (Vitamin B-1), 100 MG PO DAILY Scheduled PRN Cyclobenzaprine Hcl (Cyclobenzaprine Hcl), 1 TAB PO TID PRN Gabapentin (Gabapentin), 1 CAP PO TID PRN Hydroxyzine HCl (Hydroxyzine Hydrochloride), 25 MG PO Q8HP PRN Discharge Statement: "Patient was advised to return to the ER or call 911 if any headaches, dizziness, shortness of breath, chest pain, abdominal pain, bleeding, fevers, or worsening of medical condition. Patient was counseled about treatment plan, medications, possible side effects, patientverbalized understanding. All questions were answered to the best of my ability. This discharge took greater then 30 minutes in planning, reviewing documentation, counseling the patient, and discussing with other team members." ASSESSMENT ASSESSMENT Assessment 44-year-old male with a known history of alcoholic liver cirrhosis, pancytopenia, hypothyroidism, chronic alcoholism, seizure disorder who initially presented to the hospital with seizures found to have 1. Breakthrough seizures 2. Seizure disorder 3. Alcohol withdrawal syndrome 4. Alcoholic liver cirrhosis 5. Pancytopenia secondary to liver disease 6. Hypothyroidism 7. Chronic alcoholism Date of Service: Nov 06, 2024 Billing Provider: KAYLEE CRONIN MD Common Visit Codes: [id number] DISCH DAY >30min KAYLEE CRONIN MD Nov 06, 2024 14:08
== END 2024-11-06 14:55 | disposition home or self-care (01) | DRG 53 ==
LOC: ER 01:46 → EDBD 01:46 → EDUNIT# 01:46 → ER 02:52 → OVERFLOW 06:47 → TELE-WESTW 23:54
PROVIDERS: ADMIT Hospitalist; ATTEND Hospitalist
DX: G40.909 Epilepsy, unspecified, not intractable, without status epilepticus (principal); D61.818 Other pancytopenia; E44.0 Moderate protein-calorie malnutrition; I50.32 Chronic diastolic (congestive) heart failure; E87.0 Hyperosmolality and hypernatremia; E72.20 Disorder of urea cycle metabolism, unspecified; K92.2 Gastrointestinal hemorrhage, unspecified; K70.30 Alcoholic cirrhosis of liver without ascites; E03.9 Hypothyroidism, unspecified; J44.9 Chronic obstructive pulmonary disease, unspecified; D64.9 Anemia, unspecified; F10.229 Alcohol dependence with intoxication, unspecified; F10.239 Alcohol dependence with withdrawal, unspecified; Z91.148 Patient's other noncompliance with medication regimen for other reason; Z87.891 Personal history of nicotine dependence; Z59.00 Homelessness unspecified; Z79.899 Other long term (current) drug therapy; Y90.8 Blood alcohol level of 240 mg/100 ml or more
CPT/HCPCS: 36415; 80048; 80053; 80320; 82140; 83735; 84100; 85007; 85025; 85027; 86850; 86870; 86900; 86901; 86902; 86922; 96361; 96374; 96375; 97163; G0378; J2405; J2470

== ENCOUNTER 2024-11-08 23:01 | Inpatient (IN) | payer MEDICAID ==
[~2024-11-08] VITALS: Ht 180.3 cm; Wt 103.0 kg
[~2024-11-08 23:01] MED LIST changes: +CHL25C PO
--- NOTE | 2024-11-09 00:19 | ED.PDOC ---
History of Present Illness HPI Comments 44-year-old male with a history of anemia, CHF, WI, gallstones, seizures, and alcohol abuse presents to the ED via emergency services for the chief complaint of an EtOH. Patient is noted to be a frequent Flyer here at [facility] in his noted to leave AMA upon every visit. Patient was noted to have left AMA from [facility], and notes that he fell and hit his face on this side walk on his way home. Patient is noted to have been found unresponsive in his friend's backyard, after drinking an unknown amount of liquor. In his noted to have notable trauma to his left eye and forehead with a surrounding erythema and bursitis. Patient denies any other associated sy mptoms, modifiers at this time, and answering questions appropriately. PHYSICAL EXAM: General: Awake, alert and oriented. Mild distress. Skin: Skin in warm, dry and intact. Appropriate color for ethnicity. HEENT: Notable left eye periorbital edema. Conjunctivae are clear without exudates or hemorrhage. Sclera is non-icteric. EOM are intact. No signs of nystagmus. Eyelids are normal in appearance without swelling or lesions. Oral mucosa is pink and moist Neck: The neck is supple with normal range of motion. No JVD. Cardiac: Heart rate and rhythm are normal. No murmurs, gallops, or rubs are auscultated. Respiratory: No signs of respiratory distress. Lung sounds are clear in all lobes bilaterally without rales, rhonchi, or wheezes. Abdominal: Abdomen is soft, non-tender without distention, guarding or rigidity. Bowel sounds are present and normoactive in all four quadrants. Extremities: Upper and lower extremities are atraumatic in appearance without deformity or edema. Neurological: The patient is awake, alert and oriented to person, place, and time with normal speech. Speech is clear. There is no facial asymmetry. Psychiatric: Appropriate mood and affect. Good judgement and insight. REVIEW OF SYSTEMS: General: No fever, no chills, or fatigue HEENT: No sore throat, no earache, no congestion, no neck pain. Cardiac: No chest pain. No palpitations. Lungs: No shortness of breath, no cough. GI: No nausea, no vomiting, no diarrhea, no constipation, no abdominal pain : No dysuria, frequency, or urgency. No hematuria. Musculoskeletal: No joint pain , no joint swelling, no extremity edema. Skin: No rash, no itching. Neuro: No headache, no dizziness, no weakness Chief Complaint: ETOH Time Seen by MD: 00:13 Primary Care Provider: UNKNOWN Reviewed Notes: Nurses Notes, Analytical Statistician Notes, Medications, Allergies Allergies: Coded Allergies: NO KNOWN ALLERGIES (Unverified , 01/02/13) Home Meds Active Scripts Gabapentin (Gabapentin) 300 Mg Cap, 1 CAP PO TID PRN for 5 Days, #15 CAP 5 Refills Prov:KAYLEE CRONIN MD 11/06/24 Thiamine Hcl (VITAMIN B-1) 100 Mg Tb, 100 MG PO DAILY for 30 Days, #30 TAB Prov:MICHELLE SAMUELS [facility] 10/23/24 Spironolactone (Aldactone) 25 Mg Tab, 25 MG PO DAILY for 30 Days, #30 TAB Prov:MICHELLE SAMUELS [facility] 10/23/24 Multiple Vitamin (Mvi Tab) 1 Tab Tb, 1 TAB PO DAILY for 30 Days, #30 TAB Prov:MICHELLE SAMUELS [facility] 10/23/24 Levothyroxine Sodium (Levothyroxine Sodium) 25 Mcg Tab, 25 MCG PO QAM@0600 for 30 Days, #30 TAB Prov:MICHELLE SAMUELS [facility] 10/23/24 Levetiracetam (KEPPRA TABLET) 500 Mg Tb, 500 MG PO BID for 30 Days, #60 TAB Prov:MICHELLE SAMUELS [facility] 10/23/24 Folic Acid (Folic Acid) 1 Mg Tab, 1 MG PO DAILY for 30 Days, #30 TAB Prov:MICHELLE SAMUELS [facility] 10/23/24 Cephalexin Monohydrate (Cephalexin) 500 Mg Tab, 1 TAB PO TID for 7 Days, #21 TAB Prov:AMENA MENDENHALL DO 10/19/24 Furosemide (Lasix) 20 Mg Tb, 1 TAB PO BID for 5 Days, #10 TAB 5 Refills Prov:AMENA MENDENHALL DO 10/19/24 Spironolactone (Aldactone) 25 Mg Tab, 1 TAB PO DAILY for 30 Days, #30 TAB 1 Refill Prov:CHELE GLEZ [facility] 10/06/24 Magnesium Oxide (Mgo) 400 Mg Tab, 400 MG PO DAILY for 10 Days, #10 TAB Prov:LATESHA SAMANO MD 12/18/23 Levothyroxine Sodium (Levothyroxine Sodium) 25 Mcg Tab, 25 MCG PO QAM@0600 for 30 Days, #30 TAB Prov:LATESHA SAMANO MD 12/18/23 Levetiracetam (KEPPRA TABLET) 500 Mg Tb, 500 MG PO BID for 30 Days, #60 TAB Prov:LATESHA SAMANO MD 12/18/23 Pantoprazole Sodium Sesquihydr (Protonix) 40 Mg Tab, 40 MG PO DAILY, #30 TAB Prov:LATESHA SAMANO MD 12/18/23 Folic Acid (Folic Acid) 1 Mg Tab, 1 MG PO DAILY for 30 Days, #30 TAB Prov:LATESHA SAMANO MD 12/18/23 Multiple Vitamin (Mvi Tab) 1 Tab Tb, 1 TAB PO DAILY for 30 Days, #30 TAB Prov:LATESHA SAMANO MD 12/18/23 Sucralfate (CARAFATE) 1 Gm Tab, 1 GM OR QIDACHS for 30 Days, #120 TAB Prov:LATESHA SAMANO MD 12/18/23 Thiamine Hcl (VITAMIN B-1) 100 Mg Tb, 100 MG PO DAILY for 30 Days, #30 TAB Prov:ALTESHA SAMANO MD 12/18/23 Hydroxyzine HCl (Hydroxyzine Hydrochloride) 25 Mg Tab, 25 MG PO Q8HP PRN for 30 Days, #90 TAB Prov:RITA WEBB [employer]SO[employer]ER 10/06/23 Sertraline Hcl (Zoloft) 25 Mg Tab, 1 TAB PO DAILY, #30 TAB 2 Refills Prov:RITA WEBB [employer]SO[employer]ER 10/06/23 Lactulose (Lactulose) 10 Gm Jorge, 10 GM PO BID for 30 Days, #10 PACK Prov:RITA WEBB [employer]SO[employer] T[employer]ER 10/06/23 Cyclobenzaprine Hcl (Cyclobenzaprine Hcl) 5 Mg Tab, 1 TAB PO TID PRN, #30 TAB Prov:LOC MAHER 05/26/22 Reported Medications Gabapentin (Gabapentin) 300 Mg Cap, 1 CAP PO TID 12/14/23 Pantoprazole Sodium Sesquihydr (Pantoprazole Sodium) 40 Mg Tab, 1 TAB PO BID 12/14/23 Disulfiram (DISULFIRAM) 250 Mg Tab, 250 MG PO BID, TAB 10/24/21 Information Source: Patient, Emergency Med Personnel Mode of Arrival: EMS Severity: Moderate Timing: Hours Duration: Since onset, Hours Prehospital treatment: 12 Lead EKG, Accucheck, Sight Mounter Past Medical History PAST MEDICAL HISTORY: Anemia, CHF, Gallstones, Liver, WI, Seizures, Thyroid Surgical History: Denies all surgeries Family History Family History: Family hx of liver renu Social History Smoker: Quit Less Than 1 Year Alcohol: Heavy Drugs: Denies Drug Use Lives In: Homeless Was a procedure done? Was a procedure done?: No Differential Dx Considerations may include: Possible drug consumption, alcohol use, intoxication, seizure disorder, chf X-Ray, Labs, Meds, VS Vital Signs Date Time Temp Pulse Resp B/P (MAP) Pulse Ox O2 Delivery O2 Flow Rate FiO2 11/08/24 23:27 98.2 94 17 132/61 96 98.2 Lab Test 11/09/24 00:22 Range/Units White Blood Count 3.0 #L 4.4-10.8 10^3/uL Red Blood Count 3.01 L 4.5-5.90 10^6/uL Hemoglobin 7.3 L 13.5-17.5 g/dL Hematocrit 21.7 #L 41.0-53.0 % Mean Corpuscular Volume 72.2 L 80.0-100.0 fL Mean Corpuscular Hemoglobin 24.1 L 28.0-32.0 pg Mean Corpuscular Hemoglobin Concent 33.4 32.0-36.0 g/dL Red Cell Distribution Width 32.2 H 11.8-14.3 % Platelet Count 58 L 140-450 10^3/uL Mean Platelet Volume 8.8 6.9-10.8 fL Neutrophils (%) (Auto) 52.3 37.0-80.0 % Lymphocytes (%) (Auto) 36.3 10.0-50.0 % Monocytes (%) (Auto) 9.9 0.0-12.0 % Eosinophils (%) (Auto) 0.8 0.0-7.0 % Basophils (%) (Auto) 0.7 0.0-2.0 % Neutrophils # (Auto) 1.6 1.6-8.6 10 ^3/uL Lymphocytes # (Auto) 1.1 0.4-5.4 10 ^3/uL Monocytes # (Auto) 0.3 0-1.3 10 ^3/uL Eosinophils # (Auto) 0 0-0.8 10 ^3/uL Basophils # (Auto) 0 0-0.2 10 ^3/uL Nucleated Red Blood Cells 0.1 % Platelet Estimate Decreased Hypochromasia (manual) Slight Anisocytosis (manual) Moderate Microcytosis Moderate Sodium Level 142 136-145 mmol/L Potassium Level 3.8 3.5-5.1 mmol/L Chloride Level 113 H 98-107 mmol/L Carbon Dioxide Level 17 L 20-31 mmol/L Anion Gap 12 5-15 Blood Urea Nitrogen 12 9-23 mg/dL Creatinine 0.61 L 0.700-1.30 mg/dL Glomerular Filtration Rate Calc 122 >90 mL/min BUN/Creatinine Ratio 19.7 10.0-20.0 Serum Glucose 88 74-106 mg/dL Calcium Level 8.2 L 8.7-10.4 mg/dL Magnesium Level 1.7 1.6-2.6 mg/dL Total Bilirubin 2.2 H 0.2-1.0 mg/dL Aspartate Amino Transferase (AST) 56 H 13-40 U/L Alanine Aminotransferase (ALT) 30 7-40 U/L Alkaline Phosphatase 105 46-116 U/L Total Protein 6.3 5.7-8.2 g/dL Albumin 3.3 3.2-4.8 g/dL Vitamin B12 Level 856 211-911 pg/mL Levetiracetam Level Pending Plasma/Serum Blood Alcohol 159.9 H <10 mg/dL Current Medications Medications (Trade) Dose Ordered Sig/Johnnie Route Start Time Stop Time Status Last Admin Levetiracetam 100 ml @ 400 mls/hr ONCE ONCE IV 11/09/24 00:15 11/09/24 00:29 DC 11/09/24 14:48 ATIENT: JIMBO EDOUARD JACCT: [id number]: [id number] : 1980 LOC: ER ROOM / BED: / AGE / SEX: 44 / M ADM STATUS: REG ER SERVICE 0012 ORDERING PHYSICIAN: LORENZA WONG MD PROCEDURE(s): HWOCT - HEAD WITHOUT CONTRAST REASON: Head injury, seizure ORDER NUMBER(s): [id number], ACCESSION NUMBER(s): [id number] Indication: Head injury, seizure Comparison: CT HEAD W WO CONTRAST on DOS: 11/02/24, CT HEAD WITHOUT CONTRAST on DOS: 10/22/24, CT HEAD WITHOUT CONTRAST on DOS: 10/10/24, CT ORBITS WO CONTRAST on DOS: 10/10/24, CT HEAD WITHOUT CONTRAST on DOS: 08/10/24 Technique: Utilizing a multislice CT scanner, a CT scan of the brain was performed without intravenous contrast. Coronal and sagittal reformatted images. All CT scans at this facility use dose modulation, iterative reconstruction, and/or weight based dosing when appropriate to reduce radiation dose to as low as reasonably achievable. Findings: There is no acute infarct, intracranial hemorrhage, or mass effect. There is no hydrocephalus or significant midline shift. chronic lacunar infarctions within bilateral basal ganglia. There is minimal chronic microvascular ischemic changes. No acute, depressed calvarial fractures. mild left supraorbital and prepatellar hematoma. Impression: 1. No acute intracranial process. 2. mild left supraorbital and prepatellar hematoma. Time of 1ST Reevaluation: 00:44 Reevaluation 1ST: Unchanged Patient Education/Counseling: Other (Need for admission) Family Education/Counseling: No Family Present SEPSIS Sepsis Screen Date sepsis recognized/suspect: Nov 08, 2024 Time Sepsis recognized/suspect: 2342 Recent Procedure: No On Antibiotic Therapy: No Respiratory Rate >20: No Heart Rate >90: Yes Temp<36 C (96.8 F) or >38.3 C: No SBP <90 or MAP <65 mmHG: No New Acute Mental Status Change: No Is the patient on CPAP, BIPAP,: No Physician Orders Levetiracetam (Keppra) (11/09/24 00:12) Seizure Precautions (11/09/24 ) Titrate Oxygen (11/09/24 00:12) Oxygen (11/09/24 ) Continous Pulse Oximetry (11/09/24 00:12) Saline Lock (11/09/24 00:12) Sight Mounter (11/09/24 ) Head Without Contrast (11/09/24 00:12) Etoh Withdrawal Assessment (11/09/24 05:16) Etoh Withdrawal Assessment NOW (11/09/24 05:16) Folic Acid... (11/09/24 10:01) Vital Signs Date Time Temp Pulse Resp B/P (MAP) Pulse Ox O2 Delivery O2 Flow Rate FiO2 11/08/24 23:27 98.2 94 17 132/61 96 98.2 Laboratory Tests Test 11/09/24 00:22 White Blood Count 3.0 10^3/uL (4.4-10.8) #L Departure 1 Departure Time of Disposition: 22:55 Impression: Primary Impression: Seizure disorder Additional Impressions: Head injury Congestive heart failure Disposition: ADMITTED INPATIENT Condition: Guarded Comments Patient admitted to hospitalist service for further treatment, evaluation and monitoring. Critical Care Note Critical Care Time?: No Stability Stability form required: No Heart Score Heart Score: Heart Score Response (Comments) Value History N/A 0 EKG N/A 0 Age N/A 0 Risk Factors N/A 0 Troponin N/A 0 Total 0 I personally scribed for LORENZA WONG MD ([email or web address]) on 11/09/24 at 00:19. Electronically submitted by Garry Camejo ([email or web address]). LORENZA WONG MD Nov 09, 2024 00:19
[2024-11-09 00:41] LABS: Hemoglobin 7.3 g/dL (13.5-17.5); Nucleated Red Blood Cells % 0.1 %
[2024-11-09 00:44] LABS: Hematocrit 21.7 % (41.0-53.0); Mean Corpuscular Hemoglobin 24.1 pg (28.0-32.0); Mean Corpuscular Volume 72.2 fL (80.0-100.0)
[2024-11-09 00:55] LABS: Alanine Aminotransferase 30 U/L (7-40); Albumin 3.3 g/dL (3.2-4.8); Alkaline Phosphatase 105 U/L (46-116); Anion Gap 12 (5-15); BUN/Creatinine Ratio 19.7 (10.0-20.0); Blood Urea Nitrogen 12 mg/dL (9-23); Glucose 88 mg/dL (74-106); Potassium 3.8 mmol/L (3.5-5.1); Sodium 142 mmol/L (136-145); Total Protein 6.3 g/dL (5.7-8.2)
[2024-11-09 01:00] LABS: Bilirubin, Total 2.2 mg/dL (0.2-1.0); Calcium 8.2 mg/dL (8.7-10.4); Carbon Dioxide 17 mmol/L (20-31); Chloride 113 mmol/L (98-107)
[2024-11-09 01:40] LABS: Anisocytosis Moderate
--- NOTE | 2024-11-09 02:46 | DVH ---
Indication: Head injury, seizure Comparison: CT HEAD W WO CONTRAST on DOS: 11/02/24, CT HEAD WITHOUT CONTRAST on DOS: 10/22/24, CT HEAD W ITHOUT CONTRAST on DOS: 10/10/24, CT ORBITS WO CONTRAST on DOS: 10/10/24, CT HEAD WITHOUT CONTRAST on D OS: 08/10/24 Technique: Utilizing a multislice CT scanner, a CT scan of the brain was performed without intravenou s contrast. Coronal and sagittal reformatted images. All CT scans at this facility use dose modulation, iterative reconstruction, and/or weight based dosi ng when appropriate to reduce radiation dose to as low as reasonably achievable. Findings: There is no acute infarct, intracranial hemorrhage, or mass effect. There is no hydrocephalus or sign ificant midline shift. chronic lacunar infarctions within bilateral basal ganglia. There is minimal chronic microvascular ischemic changes. No acute, depressed calvarial fractures. mild left supraorbital and prepatellar hematoma. Impression: 1. No acute intracranial process. 2. mild left supraorbital and prepatellar hematoma.
[2024-11-09] MEDS ORDERED: MORPHINE SULFATE INJ 2 MG/ml SYRG IV PRN (05:30)
[2024-11-09] MEDS ORDERED: ONDANSETRON HCL 4 MG/2 ML VIAL IV PRN (05:30)
--- NOTE | 2024-11-09 05:55 | DVHHPRES ---
History of Present Illness Resident Creating Document: ISAEL VALENTE RESIDENT History of Present Illness 44-year-old male with alcohol use disorder presents to the ER with history of fall on the sidewalk, the patient fall on his face and hit his head, he ingested unknown amount of alcohol before the fall. He develops left periorbital swelling followed by the trauma. He developed petechiae over his abdomen. The patient feels drowsy, excessive sensitivity to light, hand tremor. however he is oriented to time place and person. He denies any chest pain, shortness of que th, fever or abdominal pain. Past medical history: Seizure disorder, GI bleeding Past surgical history:? Family history: Noncontributory Allergies: No known allergies PCP none Code status: full code Review of Systems Eyes: Vision change, Other, Redness Other Periorbital swelling, abdominal petechiae Allergies: Coded Allergies: NO KNOWN ALLERGIES (Unverified , 01/02/13) Medications Current Medications Medications Dose Ordered Sig/Johnnie Route Start Time Stop Time Status Last Admin Dose Admin Thiamine HCl 100 mg DAILY PO 11/09/24 10:00 Folic Acid 1 mg DAILY PO 11/09/24 10:00 Folic Acid 1 mg/ Multivitamins 10 ml/Magnesium Sulfate 8 meq/ Thiamine HCl 100 mg/Dextrose 1,013.2 ml @ 125.001 mls/hr DAILY@1800 INJ 11/09/24 18:00 Chlordiazepoxide HCl 50 mg Q8H PO 11/09/24 05:30 11/09/24 21:31 Chlordiazepoxide HCl 50 mg Q12HR PO 11/10/24 10:00 11/10/24 22:01 Chlordiazepoxide HCl 25 mg Q12HR PO 11/11/24 10:00 11/11/24 22:01 Chlordiazepoxide HCl 25 mg QAM PO 11/12/24 07:00 11/12/24 07:01 Ondansetron HCl 4 mg Q4HP PRN IV 11/09/24 05:30 Morphine Sulfate 2 mg Q30M PRN IV 11/09/24 05:30 Exam Vital Signs Vital Signs Date Time Temp Pulse Resp B/P (MAP) Pulse Ox O2 Delivery O2 Flow Rate FiO2 11/08/24 23:27 98.2 94 17 132/61 96 98.2 Exam Pt is lying on bed General Appearance: Alert, Oriented X3, Cooperative, Mild distress HEENT: Left eye trauma, periorbital edema redness, vision loss (present from ), no lymphadenopathy noted. Mucous membranes moist/pink Respiratory: Clear to auscultation, Normal air movement, No added sounds Cardiovascular: Regular rate, Normal S1, Normal S2, No murmurs Abdominal/ : Active bowel sounds, Soft, no distention, no tenderness Extremities: No edema, Normal pulses, No tenderness/swelling Skin: No Significant rash, except past surgical scars Neuro: Normal speech, sensorimotor deficits none Psych/Mental Status: Mental status NL, Mood NL Nurse was there as lot technician during examination Labs/Xrays Labs Test 11/09/24 00:22 Range/Units White Blood Count 3.0 #L 4.4-10.8 10^3/uL Red Blood Count 3.01 L 4.5-5.90 10^6/uL Hemoglobin 7.3 L 13.5-17.5 g/dL Hematocrit 21.7 #L 41.0-53.0 % Mean Corpuscular Volume 72.2 L 80.0-100.0 fL Mean Corpuscular Hemoglobin 24.1 L 28.0-32.0 pg Mean Corpuscular Hemoglobin Concent 33.4 32.0-36.0 g/dL Red Cell Distribution Width 32.2 H 11.8-14.3 % Platelet Count 58 L 140-450 10^3/uL Mean Platelet Volume 8.8 6.9-10.8 fL Neutrophils (%) (Auto) 52.3 37.0-80.0 % Lymphocytes (%) (Auto) 36.3 10.0-50.0 % Monocytes (%) (Auto) 9.9 0.0-12.0 % Eosinophils (%) (Auto) 0.8 0.0-7.0 % Basophils (%) (Auto) 0.7 0.0-2.0 % Neutrophils # (Auto) 1.6 1.6-8.6 10 ^3/uL Lymphocytes # (Auto) 1.1 0.4-5.4 10 ^3/uL Monocytes # (Auto) 0.3 0-1.3 10 ^3/uL Eosinophils # (Auto) 0 0-0.8 10 ^3/uL Basophils # (Auto) 0 0-0.2 10 ^3/uL Nucleated Red Blood Cells 0.1 % Platelet Estimate Decreased Hypochromasia (manual) Slight Anisocytosis (manual) Moderate Microcytosis Moderate Sodium Level 142 136-145 mmol/L Potassium Level 3.8 3.5-5.1 mmol/L Chloride Level 113 H 98-107 mmol/L Carbon Dioxide Level 17 L 20-31 mmol/L Anion Gap 12 5-15 Blood Urea Nitrogen 12 9-23 mg/dL Creatinine 0.61 L 0.700-1.30 mg/dL Glomerular Filtration Rate Calc 122 >90 mL/min BUN/Creatinine Ratio 19.7 10.0-20.0 Serum Glucose 88 74-106 mg/dL Calcium Level 8.2 L 8.7-10.4 mg/dL Total Bilirubin 2.2 H 0.2-1.0 mg/dL Aspartate Amino Transferase (AST) 56 H 13-40 U/L Alanine Aminotransferase (ALT) 30 7-40 U/L Alkaline Phosphatase 105 46-116 U/L Total Protein 6.3 5.7-8.2 g/dL Albumin 3.3 3.2-4.8 g/dL SEPSIS Sepsis Screen Date sepsis recognized/suspect: Nov 08, 2024 Time Sepsis recognized/suspect: 2342 Recent Procedure: No On Antibiotic Therapy: No Respiratory Rate >20: No Heart Rate >90: Yes Temp<36 C (96.8 F) or >38.3 C: No SBP <90 or MAP <65 mmHG: No New Acute Mental Status Change: No Is the patient on CPAP, BIPAP,: No Physician Orders Comprehensive Metabolic Panel (11/09/24 00:12) Drug Screen (11/09/24 00:12) Urinalysis (11/09/24 00:12) Levetiracetam (Keppra) (11/09/24 00:12) Seizure Precautions (11/09/24 ) Titrate Oxygen (11/09/24 00:12) Oxygen (11/09/24 ) Continous Pulse Oximetry (11/09/24 00:12) Saline Lock (11/09/24 00:12) Material Man (11/09/24 ) Head Without Contrast (11/09/24 00:12) Blood Alcohol (11/09/24 00:12) Thiamine Tab (11/09/24 10:00) Folic Acid Tablet (11/09/24 10:00) Etoh Withdrawal Assessment (11/09/24 05:16) Etoh Withdrawal Assessment NOW (11/09/24 05:16) Folic Acid... (11/09/24 18:00) Chlordiazepoxide Hcl Capsule (Librium Ca (11/09/24 05:30) Chlordiazepoxide Hcl Capsule (Librium Ca (11/10/24 10:00) Chlordiazepoxide Hcl Capsule (Librium Ca (11/11/24 10:00) Chlordiazepoxide Hcl Capsule (Librium Ca (11/12/24 07:00) Admit (11/09/24 05:24) Allergies (11/09/24 05:24) Code Status (11/09/24 05:24) Ondansetron Hcl (Zofran) (11/09/24 05:30) Complete Blood Count (11/10/24 04:00) Comprehensive Metabolic Panel (11/10/24 04:00) Npo (Nothing By Mouth) Diet (11/09/24 Breakfast) Oxygen By Nasal Cannula (11/09/24 05:24) Stat Ekg For Chest Pain (11/09/24 05:24) Notify Of Changes From Base (11/09/24 05:24) Human Resource Internship For 24 Hours (11/09/24 05:24) Emergency Dysrhythmia Protocol (11/09/24 05:24) Rhythm Strips Once Every Shift (11/09/24 05:24) Morphine Sulfate Injection (11/09/24 05:30) Vital Signs Date Time Temp Pulse Resp B/P (MAP) Pulse Ox O2 Delivery O2 Flow Rate FiO2 11/08/24 23:27 98.2 94 17 132/61 96 98.2 Laboratory Tests Test 11/09/24 00:22 White Blood Count 3.0 10^3/uL (4.4-10.8) #L Assessment/Plan Assessment/Plan Alcohol withdrawal Periorbital swelling due to Mechanical fall CIWA score: 12 CIWA protocol started with lorazepam and chlordiazepoxide IV fluid, thiamine, folic acid given CT head without contrast: No acute intracranial process. Mild left supraorbital and prepatellar hematoma. Acetaminophen for pain Pancytopenia WBC 3, hemoglobin 7.3, (MCV 72.2), platelet count 58 Continue further evaluation for hematologic malignancy Follow up with heme Onc Seizure disorder Levetiracetam GI prophylaxis: Pantoprazole DVT prophylaxis: Not indicated Diet: NPO Goals of care discussed with the patient for more than 27 minutes: Full code status Case discussed with Dr. Hammond , patient and RN Plan discussed with: Patient, Other (RN) My Orders Orders - ISAEL VALENTE RESIDENT Procedure Category Date Status Time Admit ADMIT 11/09/24 Transmitted 05:24 Allergies [facility] 11/09/24 In Process 05:24 Code Status CODE 11/09/24 Transmitted 05:24 Ondansetron Hcl PHA 11/09/24 In Process (Zofran) 05:30 Complete Blood Count LAB 11/10/24 Verified 04:00 Comprehensive LAB 11/10/24 Verified Metabolic Panel 04:00 Npo (Nothing By DIET 11/09/24 Transmitted Mouth) Diet Breakfast Oxygen By Nasal RT 11/09/24 Transmitted Cannula 05:24 Stat Ekg For Chest [facility] 11/09/24 In Process Pain 05:24 Notify Md Of Changes [facility] 11/09/24 In Process From Base 05:24 Human Resource Internship For [facility] 11/09/24 In Process 24 Hours 05:24 Emergency Dysrhythmia [facility] 11/09/24 In Process Protocol 05:24 Rhythm Strips Once [facility] 11/09/24 In Process Every Shift 05:24 Morphine Sulfate PHA 11/09/24 In Process Injection 05:30 Date of Service: Nov 09, 2024 Billing Provider: SARBJIT HAMMOND MD Common Visit Codes: 99888-DTBIAPP INP/OBS CARE (HIGH) Secondary Visit Codes: [id number] CARE PLAN 30 MINUTES ISAEL VALENTE Nov 09, 2024 05:55
[2024-11-09] MEDS ORDERED: LORazepam 2MG/ML-1ML VIAL IV PRN (08:30)
[2024-11-09] MEDS ORDERED: ACETAMINOPHEN 500 MG TAB or CAP PO PRN (08:45)
[2024-11-09 09:56] LABS: INR 1.23 (0.9-1.15); Prothrombin Time 12.8 sec (9.3-11.8)
[2024-11-09] MEDS ORDERED: THIAMINE HCL 100 MG TAB PO SCH (10:00)
[2024-11-09] MEDS ORDERED: FOLIC ACID 1 MG TAB PO SCH (10:00)
[2024-11-09] MEDS ORDERED: GABAPENTIN 300 MG CAP PO SCH ×2 (10:00→14:00)
[2024-11-09] MEDS: THIAMINE 100mg/ml INJ (200mg/2ml VIAL) IV ONE (13:39)
[2024-11-09] MEDS: FOLIC ACID 1 MG TAB PO ONE (13:39)
[2024-11-09] MEDS: levETIRAcetam 500 MG TAB PO SCH (13:40)
[2024-11-09 14:42] VITALS: PULSE 72; RESP 14; O2SAT 97
[2024-11-09] MEDS: PANTOPRAZOLE 40 MG/10 ML VIAL INJ IV ONE (14:48)
[2024-11-09] MEDS: levETIRAcetam 1000 mg/100ml 100 ML IV ONE (14:48)
[2024-11-09] MEDS: SODIUM CHLORIDE 0.9% 1,000 ML IV ONE ×2 (14:49→15:08)
[2024-11-09] MEDS: FOLIC ACID 1 MG, MULTIPLE VITAMIN 10 ML, MAGNESIUM SULF SDV 50% 8 MEQ, THIAMINE INJ 100... INJ SCH (15:27)
[2024-11-09] MEDS: FERROUS SULFATE 325mg EC TAB PO ONE (15:27)
[2024-11-09] MEDS: LEVOTHYROXINE SODIUM 25 MCG TAB PO ONE (15:27)
[2024-11-09] MEDS: GABAPENTIN 300 MG CAP PO ONE (15:32)
[2024-11-09 16:01] LABS: Urine Protein, UAD Negative (Negative)
--- NOTE | 2024-11-09 16:02 | DVHPNRES ---
Progress Note Date Seen: Nov 09, 2024 Resident Creating Document: DASIA RUSS SANJEEV Has the PT tested + for MRSA If YES, has PT been informed?: No Medical Necessity Reason Pt with a Central, PICC or Fol: No Subjective Review of Systems 44-year-old male with alcohol use disorder presents to the ER with history of fall on the sidewalk, the patient fall on his face and hit his head, he ingested unknown amount of alcohol before the fall. He develops left periorbital swelling followed by the trauma. He developed petechiae over his abdomen. The patient feels drowsy, excessive sensitivity to light, hand tremor. however he is oriented to time place and person. He denies any chest pain, shortness of breath, fever or abdominal pain. Past medical history: Seizure disorder, GI bleeding Past surgical history:? Family history: Noncontributory Allergies: No known allergies PCP none Patient seen and examined at the bedside. Patient is feeling better since admission. But still complained of headache. Objective vital signs Vital Sign Date Time Temp Pulse Resp B/P (MAP) Pulse Ox O2 Delivery O2 Flow Rate FiO2 11/09/24 14:42 72 14 127/68 (87) 97 11/08/24 23:27 98.2 98.2 medications Current Medications Medications Dose Ordered Sig/Johnnie Route Start Time Stop Time Status Last Admin Dose Admin Folic Acid 1 mg/ Multivitamins 10 ml/Magnesium Sulfate 8 meq/ Thiamine HCl 100 mg/Dextrose 1,013.2 ml @ 125.001 mls/hr DAILY@1800 INJ 11/09/24 10:01 11/09/24 15:27 125.001 MLS/HR Ondansetron HCl 4 mg Q4HP PRN IV 11/09/24 05:30 Gabapentin 300 mg TID PO 11/09/24 14:00 Hold Levetiracetam 500 mg BID PO 11/09/24 10:00 Pantoprazole Sodium 40 mg DAILY IV 11/10/24 10:00 Lorazepam 1 mg Q2HPRN PRN IV 11/09/24 08:30 Ferrous Sulfate 325 mg BIDWM PO 11/09/24 18:00 Acetaminophen 500 mg Q8HP PRN PO 11/09/24 08:45 Levothyroxine Sodium 25 mcg QAM@0600 PO 11/10/24 06:00 Examination General Appearance: Alert, Oriented place and person, disoriented to time HEENT: Left periorbital swelling and left forehead erosion with crusted blood Respiratory: Clear to auscultation, Normal air movement Cardiovascular: Regular rate, Normal S1, Normal S2, No murmurs, no chest wall tenderness Abdominal: Normal bowel sounds, Soft, No tenderness, No hepatospenomegaly, No masses Extremities: No clubbing, No cyanosis, No edema, Normal pulses, No tenderness/swelling Skin: No rashes, No breakdown, No significant lesion Neuro: Normal gait, Normal speech, Strength at 5/5 X4 ext, Normal tone, Sensation intact, Cranial nerves 3-12 NL, Reflexes 2+ Psych/Mental Status: Mental status NL, Mood NL laboratory and microbiology Laboratory Tests 11/09/24 00:22 Test 11/09/24 00:22 Range/Units Serum Glucose 88 74-106 mg/dL Labs and/or images reviewed: Labs reviewed by me, Image(s) reviewed by me Problem List/Assessment/Plan Problem List/Assessment/Plan Acute toxic encephalopathy, likely due to alcohol use disorder Possible seizure breakthrough Liver cirrhosis, likely due to alcohol use disorder Pancytopenia, likely due to liver cirrhosis Possible alcohol withdrawal CIWA score upon admission was 12, today CIWA [address] scan shows no acute intracranial abnormalities Plan/recommendation * Ativan p.r.n. * IV fluid * Banana bag, folic acid and thiamine * Continue home meds levetiracetam and levothyroxine * Seizure precaution DIET: Regular light DVT PROPHYLAXIS: Lovenox BOWEL REGIMEN: Colace CODE STATUS: Goal of care discussed for more than 18 minutes, full code DISPOSITION: Med/surge Patient's status and plan discussed with the patient. Case discussed with Dr. Clark. Plan discussed with: Patient, Other (RN) My Orders My Orders Orders - DASIA RUSS RESDIALEXANDER Procedure Category Date Status Time Gabapentin Capsule PHA 11/09/24 In Process (Neurontin Capsule) 14:00 Levetiracetam Tablet PHA 11/09/24 In Process (Keppra Tablet) 10:00 Lorazepam 2mg/Ml Inj PHA 11/09/24 In Process (Ativan Inj) 08:30 Etoh Withdrawal BERT 11/09/24 In Process Assessment 08:22 Electrocardigram EKG 11/09/24 Logged 08:34 Ferrous Sulfate Tablet PHA 11/09/24 In Process 18:00 Pantoprazole PHA 11/10/24 In Process (Protonix) 10:00 Levothyroxine Tablet PHA 11/10/24 In Process (Synthroid Tablet) 06:00 Sodium Chloride 0.9% PHA 11/09/24 In Process 10:30 Cardiac DIET 11/09/24 Transmitted Diet-2gna,Lofat,Lochol Lunch * Wound Consult CONS 11/09/24 Transmitted Date of Service: Nov 09, 2024 Billing Provider: CAROLYN CLARK MD Common Visit Codes: [id number] INP/OBS CARE(HIGH) DASIA RUSS RESDIENT Nov 09, 2024 16:02 CAROLYN CLARK MD Nov 11, 2024 22:42
[2024-11-09 16:06] LABS: Amphetamine Screen, Urine Neg (NEGATIVE); Barbiturate Scree,Urine Neg (NEGATIVE); Benzodiazephine Screen, Urine Pos (NEGATIVE); Cannabinoid Screen, Urine Neg (NEGATIVE); Cocaine Screen, Urine Neg (NEGATIVE); Opiate Scree,Urine Neg (NEGATIVE); Phencyclidine Screen, Urine Neg (NEGATIVE)
[2024-11-09] MEDS: FERROUS SULFATE 325mg EC TAB PO SCH (17:56)
[2024-11-09 19:58] VITALS: PULSE 80; RESP 15; O2SAT 100
[2024-11-09 21:00] VITALS: BP 135/72; PULSE 62; RESP 16; TEMP 97.6; O2SAT 99
[2024-11-09 21:14] LABS: Hemoglobin 8.1 g/dL (13.5-17.5)
[2024-11-09 21:16] LABS: Hematocrit 24.6 % (41.0-53.0)
[2024-11-09 23:55] VITALS: BP 138/63; PULSE 64; RESP 14; TEMP 98.2; O2SAT 100
[2024-11-10 01:00] VITALS: BP 147/62; PULSE 64; RESP 19; TEMP 97.8; O2SAT 100
[2024-11-10 05:00] VITALS: BP 145/90; PULSE 57; RESP 18; TEMP 98.1; O2SAT 100
[2024-11-10 05:37] VITALS: PULSE 58; RESP 18; O2SAT 99
[2024-11-10] MEDS: LEVOTHYROXINE SODIUM 25 MCG TAB PO SCH (06:12)
[2024-11-10 08:00] VITALS: PULSE 49; PULSE 60; RESP 18; O2SAT 100
[2024-11-10 09:00] VITALS: BP 142/80; PULSE 60; RESP 18; TEMP 98; O2SAT 100
[2024-11-10] MEDS: PANTOPRAZOLE 40 MG/10 ML VIAL INJ IV SCH (09:23)
[2024-11-10 09:59] LABS: Hemoglobin 8.1 g/dL (13.5-17.5)
[2024-11-10 10:02] LABS: Hematocrit 24.8 % (41.0-53.0); Mean Corpuscular Hemoglobin 23.8 pg (28.0-32.0); Mean Corpuscular Volume 73.3 fL (80.0-100.0); Nucleated Red Blood Cells % 0.2 %
[2024-11-10 10:03] LABS: Potassium 3.8 mmol/L (3.5-5.1); Sodium 141 mmol/L (136-145)
[2024-11-10 10:21] LABS: Chloride 110 mmol/L (98-107)
[2024-11-10 10:28] LABS: Anion Gap 10 (5-15); Carbon Dioxide 21 mmol/L (20-31)
[2024-11-10 10:29] LABS: Calcium 8.6 mg/dL (8.7-10.4)
[2024-11-10 10:33] LABS: Alanine Aminotransferase 34 U/L (7-40); BUN/Creatinine Ratio 13.1 (10.0-20.0); Glucose 77 mg/dL (74-106)
[2024-11-10 10:34] LABS: Alkaline Phosphatase 124 U/L (46-116); Blood Urea Nitrogen 8 mg/dL (9-23); Total Protein 6.7 g/dL (5.7-8.2)
[2024-11-10 10:35] LABS: Albumin 3.6 g/dL (3.2-4.8)
[2024-11-10 10:44] LABS: Bilirubin, Total 2.8 mg/dL (0.2-1.0)
[2024-11-10] MEDS ORDERED: FURO1TAB33 PO (21:10)
[2024-11-10] MEDS ORDERED: THIA100T10 PO (21:12)
[2024-11-10] MEDS ORDERED: FOLI-119 PO (21:12)
[2024-11-10] MEDS ORDERED: MULTTAB99 PO (21:12)
[2024-11-10] MEDS ORDERED: KEP500T PO (21:12)
[2024-11-10] MEDS ORDERED: LEVO25TA6 PO (21:12)
[2024-11-10] MEDS ORDERED: CHL25C PO (21:15)
--- NOTE | 2024-11-11 20:29 | DVHDS2 ---
Discharge Summary Date of Admission Nov 09, 2024 at 05:24 Date of Discharge: Nov 10, 2024 Labs/Diagnostic Data: Laboratory Results Test 11/10/24 09:28 11/09/24 20:46 11/09/24 15:30 11/09/24 14:35 White Blood Count 2.6 10^3/uL (4.4-10.8) Red Blood Count 3.39 10^6/uL (4.5-5.90) Hemoglobin 8.1 g/dL (13.5-17.5) Hematocrit 24.8 % (41.0-53.0) Mean Corpuscular Volume 73.3 fL (80.0-100.0) Mean Corpuscular Hemoglobin 23.8 pg (28.0-32.0) Mean Corpuscular Hemoglobin Concent 32.5 g/dL (32.0-36.0) Red Cell Distribution Width 32.7 % (11.8-14.3) Platelet Count 62 10^3/uL (140-450) Mean Platelet Volume 8.6 fL (6.9-10.8) Neutrophils (%) (Auto) 34.0 % (37.0-80.0) Lymphocytes (%) (Auto) 45.4 % (10.0-50.0) Monocytes (%) (Auto) 15.9 % (0.0-12.0) Eosinophils (%) (Auto) 3.7 % (0.0-7.0) Basophils (%) (Auto) 1.0 % (0.0-2.0) Neutrophils # (Auto) 0.9 10 ^3/uL (1.6-8.6) Lymphocytes # (Auto) 1.2 10 ^3/uL (0.4-5.4) Monocytes # (Auto) 0.4 10 ^3/uL (0-1.3) Eosinophils # (Auto) 0.1 10 ^3/uL (0-0.8) Basophils # (Auto) 0 10 ^3/uL (0-0.2) Nucleated Red Blood Cells 0.2 % Platelet Estimate Decreased Sodium Level 141 mmol/L (136-145) Potassium Level 3.8 mmol/L (3.5-5.1) Chloride Level 110 mmol/L (98-107) Carbon Dioxide Level 21 mmol/L (20-31) Anion Gap 10 (5-15) Blood Urea Nitrogen 8 mg/dL (9-23) Creatinine 0.61 mg/dL (0.700-1.30) Glomerular Filtration Rate Calc 122 mL/min (>90) BUN/Creatinine Ratio 13.1 (10.0-20.0) Serum Glucose 77 mg/dL (74-106) Calcium Level 8.6 mg/dL (8.7-10.4) Total Bilirubin 2.8 mg/dL (0.2-1.0) Aspartate Amino Transferase (AST) 57 U/L (13-40) Alanine Aminotransferase (ALT) 34 U/L (7-40) Alkaline Phosphatase 124 U/L (46-116) Total Protein 6.7 g/dL (5.7-8.2) Albumin 3.6 g/dL (3.2-4.8) Plasma/Serum Blood Alcohol 17.4 mg/dL (<10) Urine Color Yellow (Yellow) Urine Clarity Clear (Clear) Urine pH 6.0 (5.0-9.0) Urine Specific [place] 1.023 (1.001-1.035) Urine Protein Negative (Negative) Urine Ketones Negative (Negative) Urine Blood Negative /uL (Negative) Urine Nitrite Negative (Negative) Urine Bilirubin Negative (Negative) Urine Urobilinogen 4 mg/dL (Negative) Urine Leukocyte Esterase Negative /uL (Negative) Urine RBC 2 /hpf (0 - 3) Urine Microscopic WBC 1 /HPF (0-3) Urine Squamous Epithelial Cells Few /hpf (<5) Urine Bacteria None seen /hpf (None Seen) Urine Mucus Few (None Seen) Urine Glucose Normal mg/dL (Normal) Urine Opiates Screen Neg (NEGATIVE) Urine Fentanyl Screen Neg (NEGATIVE) Urine Barbiturates Screen Neg (NEGATIVE) Urine Phencyclidine Screen Neg (NEGATIVE) Urine Amphetamines Screen Neg (NEGATIVE) Urine Benzodiazepines Screen Pos (NEGATIVE) Urine Cocaine Screen Neg (NEGATIVE) Urine Cannabinoids Screen Neg (NEGATIVE) POC Glucose 99 mg/dl (70-106) Test 11/09/24 09:11 11/09/24 08:37 11/09/24 08:34 11/09/24 00:22 Prothrombin Time 12.8 sec (9.3-11.8) Prothrombin Time INR 1.23 (0.9-1.15) Vitamin D 25-Hydroxy 38.4 ng/mL (30.0-100) Thyroid Stimulating Hormone (TSH) 0.59 uIU/mL (0.55-4.78) Hypochromasia (manual) Slight Anisocytosis (manual) Moderate Microcytosis Moderate Magnesium Level 1.7 mg/dL (1.6-2.6) Vitamin B12 Level 856 pg/mL (211-911) Levetiracetam Level <2.0 ug/mL (10.0-40.0) Other Laboratory Tests 11/10/24 09:28 Brief Hx & Hospital Course: 44-year-old male with alcohol use disorder presents to the ER with history of fall on the sidewalk, the patient fall on his face and hit his head, he ingested unknown amount of alcohol before the fall. He develops left periorbital swelling followed by the trauma. He developed petechiae over his abdomen. The patient feels drowsy, excessive sensitivity to light, hand tremor. however he is oriented to time place and person. He denies any chest pain, shortness of breath, fever or abdominal pain. not in withdrawal. patient left AMA Condition at Discharge: Stable Final Diagnosis/Problems List Acute toxic encephalopathy, likely due to alcohol use disorder Possible seizure breakthrough Liver cirrhosis, likely due to alcohol use disorder Pancytopenia, likely due to liver cirrhosis Possible alcohol withdrawal Discharge Disposition: AMA Discharge Instruct/Medications Scheduled Cephalexin Monohydrate (Cephalexin), 1 TAB PO TID Disulfiram (Disulfiram), 250 MG PO BID, (Reported) Folic Acid (Folic Acid), 1 MG PO DAILY Folic Acid (Folic Acid), 1 MG PO DAILY Furosemide (Lasix), 1 TAB PO DAILY Gabapentin (Gabapentin), 1 CAP PO TID, (Reported) Lactulose (Lactulose), 10 GM PO BID Levetiracetam (Keppra Tablet), 500 MG PO BID Levetiracetam (Keppra Tablet), 500 MG PO BID Levothyroxine Sodium (Levothyroxine Sodium), 25 MCG PO QAM@0600 Levothyroxine Sodium (Levothyroxine Sodium), 25 MCG PO QAM@0600 Magnesium Oxide (Mgo), 400 MG PO DAILY Multiple Vitamin (Mvi Tab), 1 TAB PO DAILY Multiple Vitamin (Mvi Tab), 1 TAB PO DAILY Pantoprazole Sodium Sesquihydr (Pantoprazole Sodium), 1 TAB PO BID, (Reported) Pantoprazole Sodium Sesquihydr (Protonix), 40 MG PO DAILY Sertraline Hcl (Zoloft), 1 TAB PO DAILY Spironolactone (Aldactone), 1 TAB PO DAILY Spironolactone (Aldactone), 25 MG PO DAILY Sucralfate (Carafate), 1 GM OR QIDACHS Thiamine Hcl (Vitamin B-1), 100 MG PO DAILY Thiamine Hcl (Vitamin B-1), 100 MG PO DAILY Scheduled PRN Chlordiazepoxide Hcl (Librium), 25 MG PO TIDPRN PRN Cyclobenzaprine Hcl (Cyclobenzaprine Hcl), 1 TAB PO TID PRN Gabapentin (Gabapentin), 1 CAP PO TID PRN Hydroxyzine HCl (Hydroxyzine Hydrochloride), 25 MG PO Q8HP PRN Discharge Statement: "Patient was advised to return to the ER or call 911 if any headaches, dizziness, shortness of breath, chest pain, abdominal pain, bleeding, fevers, or worsening of medical condition. Patient was counseled about treatment plan, medications, possible side effects, patientverbalized understanding. All questions were answered to the best of my ability. This discharge took greater then 30 minutes in planning, reviewing documentation, counseling the patient, and discussing with other team members." ASSESSMENT ASSESSMENT Assessment Date of Service: Nov 11, 2024 Billing Provider: CAROLYN CLARK MD Common Visit Codes: 25016-DAW/OBS DISCH DAY >30min CAROLYN CLARK MD Nov 11, 2024 20:29
== END 2024-11-10 11:20 | disposition left against medical advice (07) | DRG 52 ==
LOC: EDBD 23:01 → ER 23:01 → OVERFLOW 11-09 05:24 → TELE-WESTW 11-10 03:53
PROVIDERS: ADMIT Student in an Organized Health Care Education/Training Program; ATTEND Student in an Organized Health Care Education/Training Program
DX: G92.8 Other toxic encephalopathy (principal); D61.818 Other pancytopenia; S09.8XXA Other specified injuries of head, initial encounter; G40.909 Epilepsy, unspecified, not intractable, without status epilepticus; K70.30 Alcoholic cirrhosis of liver without ascites; Z53.29 Procedure and treatment not carried out because of patient's decision for other reasons; I50.9 Heart failure, unspecified; F10.10 Alcohol abuse, uncomplicated; F10.139 Alcohol abuse with withdrawal, unspecified; Z79.899 Other long term (current) drug therapy; Z87.891 Personal history of nicotine dependence; Z59.00 Homelessness unspecified; W18.39XA Other fall on same level, initial encounter; Y93.89 Activity, other specified; Y92.89 Other specified places as the place of occurrence of the external cause; Y99.8 Other external cause status; Y90.6 Blood alcohol level of 120-199 mg/100 ml; R23.3 Spontaneous ecchymoses
CPT/HCPCS: 36415; 70450; 80053; 80307; 80320; 81001; 82306; 82542; 82607; 82962; 83735; 84443; 85014; 85018; 85025; 85610; 87081; 96365; 96375; G0378; J2470

== ENCOUNTER 2024-11-10 18:05 | Emergency (ER) | payer MEDICAID ==
[~2024-11-10] VITALS: Ht 198.1 cm; Wt 103.0 kg
[~2024-11-10 18:05] MED LIST changes: -CHL25C PO
--- NOTE | 2024-11-10 18:24 | ED.PDOC ---
History of Present Illness HPI Comments 44-year-old male who came to ER for dizziness. Patient is seen here multiple times for alcohol intoxication and seizure disorder. Was admitted yesterday for the same issues, however patient signed AMA today, since he claimed nobody is there to pick pack worker his son from school. Patient coming in today because he feels dizzy. He denied drinking any alcohol or any recent seizure episodes. REVIEW OF SYSTEMS: No fever, no chills, or fatigue HEENT: No sore throat, no earache, no congestion, no neck pain. Cardiac: No chest pain. No palpitations. Lungs: No shortness of breath, no cough. GI: No nausea, no vomiting, no diarrhea, no constipation, no abdominal pain : No dysuria, frequency, or urgency. No hematuria. Musculoskeletal: No joint pain , no joint swelling, no extremity edema. Skin: No rash, no itching. Neuro: No headache, (+) dizziness, no weakness PHYSICAL EXAM: General: Awake, alert and oriented. No acute distress. Skin: Skin in warm, dry and intact without rashes or lesions. HEENT: Bruising lateral left eye. Conjunctivae are clear without exudates or hemorrhage. Sclera is non-icteric. Neck: Normal range of motion. No JVD. Cardiac: Regular rate Respiratory: No signs of respiratory distress. No Stridor. Extremities: Bilateral lower extremity edema Neurological: The patient is awake, alert and oriented to person, place, and time with normal speech. Speech is clear. There is no facial asymmetry. Psychiatric: Appropriate mood and affect. Good judgement and insight. Chief Complaint: Dizziness Time Seen by MD: 18:24 Primary Care Provider: UNKNOWN Reviewed Notes: Nurses Notes Allergies: Coded Allergies: NO KNOWN ALLERGIES (Unverified , 01/02/13) Home Meds Active Scripts Chlordiazepoxide Hcl (Librium) 25 Mg Cp, 25 MG PO TIDPRN PRN for 3 Days, #9 CAP Take every 8 hours as needed for alcohol withdrawal symptoms. Do not take with alcohol. Prov:LORENZA WONG MD 11/10/24 Thiamine Hcl (VITAMIN B-1) 100 Mg Tb, 100 MG PO DAILY for 30 Days, #30 TAB Prov:LORENZA WONG MD 11/10/24 Multiple Vitamin (Mvi Tab) 1 Tab Tb, 1 TAB PO DAILY for 30 Days, #30 TAB Prov:LORENZA WONG MD 11/10/24 Levothyroxine Sodium (Levothyroxine Sodium) 25 Mcg Tab, 25 MCG PO QAM@0600 for 30 Days, #30 TAB Prov:LORENZA WONG MD 11/10/24 Levetiracetam (KEPPRA TABLET) 500 Mg Tb, 500 MG PO BID for 30 Days, #60 TAB Prov:LORENZA WONG MD 11/10/24 Folic Acid (Folic Acid) 1 Mg Tab, 1 MG PO DAILY for 30 Days, #30 TAB Prov:LORENZA WONG MD 11/10/24 Furosemide (Lasix) 20 Mg Tb, 1 TAB PO DAILY for 30 Days, #30 TAB 5 Refills Prov:LORENZA WONG MD 11/10/24 Gabapentin (Gabapentin) 300 Mg Cap, 1 CAP PO TID PRN for 5 Days, #15 CAP 5 R efills Prov:KAYLEE CRONIN MD 11/06/24 Spironolactone (Aldactone) 25 Mg Tab, 25 MG PO DAILY for 30 Days, #30 TAB Prov:MICHELLE SAMUELS RESIDENT 10/23/24 Cephalexin Monohydrate (Cephalexin) 500 Mg Tab, 1 TAB PO TID for 7 Days, #21 TAB Prov:AMENA MENDENHALL DO 10/19/24 Spironolactone (Aldactone) 25 Mg Tab, 1 TAB PO DAILY for 30 Days, #30 TAB 1 Refill Prov:CHELE GLEZ RESIDENT 10/06/24 Magnesium Oxide (Mgo) 400 Mg Tab, 400 MG PO DAILY for 10 Days, #10 TAB Prov:LATESHA SAMANO MD 12/18/23 Levothyroxine Sodium (Levothyroxine Sodium) 25 Mcg Tab, 25 MCG PO QAM@0600 for 30 Days, #30 TAB Prov:LATESHA SAMANO MD 12/18/23 Levetiracetam (KEPPRA TABLET) 500 Mg Tb, 500 MG PO BID for 30 Days, #60 TAB Prov:LATESHA SAMANO MD 12/18/23 Pantoprazole Sodium Sesquihydr (Protonix) 40 Mg Tab, 40 MG PO DAILY, #30 TAB Prov:LATESHA SAMANO MD 12/18/23 Folic Acid (Folic Acid) 1 Mg Tab, 1 MG PO DAILY for 30 Days, #30 TAB Prov:LATESHA SAMANO MD 12/18/23 Multiple Vitamin (Mvi Tab) 1 Tab Tb, 1 TAB PO DAILY for 30 Days, #30 TAB Prov:LATESHA SAMANO MD 12/18/23 Sucralfate (CARAFATE) 1 Gm Tab, 1 GM OR QIDACHS for 30 Days, #120 TAB Prov:LATESHA SAMANO MD 12/18/23 Thiamine Hcl (VITAMIN B-1) 100 Mg Tb, 100 MG PO DAILY for 30 Days, #30 TAB Prov:LATESHA SAMANO MD 12/18/23 Hydroxyzine HCl (Hydroxyzine Hydrochloride) 25 Mg Tab, 25 MG PO Q8HP PRN for 30 Days, #90 TAB Prov:RITA WEBB [employer] ROOM WORKER 10/06/23 Sertraline Hcl (Zoloft) 25 Mg Tab, 1 TAB PO DAILY, #30 TAB 2 Refills Prov:RITA WEBB [employer] ROOM WORKER 10/06/23 Lactulose (Lactulose) 10 Gm Jorge, 10 GM PO BID for 30 Days, #10 PACK Prov:RITA WEBB [employer] ROOM WORKER 10/06/23 Cyclobenzaprine Hcl (Cyclobenzaprine Hcl) 5 Mg Tab, 1 TAB PO TID PRN, #30 TAB Prov:LOC MAHER 05/26/22 Reported Medications Gabapentin (Gabapentin) 300 Mg Cap, 1 CAP PO TID 12/14/23 Pantoprazole Sodium Sesquihydr (Pantoprazole Sodium) 40 Mg Tab, 1 TAB PO BID 12/14/23 Disulfiram (DISULFIRAM) 250 Mg Tab, 250 MG PO BID, TAB 10/24/21 Information Source: Patient Mode of Arrival: Ambulatory Severity: Moderate Timing: Hours Past Medical History PAST MEDICAL HISTORY: Anemia, CHF, Gallstones, Liver, [place], Seizures, Thyroid Surgical History: Denies all surgeries Family History Family History: Family hx of liver renu Social History Smoker: Quit Less Than 1 Year Alcohol: Heavy Drugs: Denies Drug Use Lives In: Homeless Was a procedure done? Was a procedure done?: No EKG EKG : Comments MOST RECENT EKG REVIEWED. Differential Dx Considerations may include: Anemia, electrolyte imbalance, dehydration, alcohol intoxication, dizziness, seizure X-Ray, Labs, Meds, VS Vital Signs Date Time Temp Pulse Resp B/P (MAP) Pulse Ox O2 Delivery O2 Flow Rate FiO2 11/10/24 23:35 74 20 100 Room Air 11/10/24 23:35 98.2 74 13 127/74 (91) 100 98.2 11/10/24 22:53 98.0 80 16 121/58 (79) 100 98.0 11/10/24 20:17 128/76 11/10/24 20:05 77 18 98 Room Air* 0 21 11/10/24 20:04 98.5 77 18 129/76 (93) 98 98.5 11/10/24 18:07 98.6 79 18 137/76 95 98.6 Lab Test 11/10/24 18:28 Range/Units White Blood Count 2.5 L 4.4-10.8 10^3/uL Red Blood Count 3.20 L 4.5-5.90 10^6/uL Hemoglobin 7.5 L 13.5-17.5 g/dL Hematocrit 23.3 L 41.0-53.0 % Mean Corpuscular Volume 72.7 L 80.0-100.0 fL Mean Corpuscular Hemoglobin 23.5 L 28.0-32.0 pg Mean Corpuscular Hemoglobin Concent 32.4 32.0-36.0 g/dL Red Cell Distribution Width 31.5 H 11.8-14.3 % Platelet Count 56 L 140-450 10^3/uL Mean Platelet Volume 8.3 6.9-10.8 fL Neutrophils (%) (Auto) 48.0 37.0-80.0 % Lymphocytes (%) (Auto) 35.5 10.0-50.0 % Monocytes (%) (Auto) 13.2 H 0.0-12.0 % Eosinophils (%) (Auto) 1.3 0.0-7.0 % Basophils (%) (Auto) 2.0 0.0-2.0 % Neutrophils # (Auto) 1.2 L 1.6-8.6 10 ^3/uL Lymphocytes # (Auto) 0.9 0.4-5.4 10 ^3/uL Monocytes # (Auto) 0.3 0-1.3 10 ^3/uL Eosinophils # (Auto) 0 0-0.8 10 ^3/uL Basophils # (Auto) 0 0-0.2 10 ^3/uL Nucleated Red Blood Cells 0.1 % Platelet Estimate Decreased Large Platelets Few Sodium Level 141 136-145 mmol/L Potassium Level 4.1 3.5-5.1 mmol/L Chloride Level 112 H 98-107 mmol/L Carbon Dioxide Level 18 L 20-31 mmol/L Anion Gap 11 5-15 Blood Urea Nitrogen 9 9-23 mg/dL Creatinine 0.84 0.700-1.30 mg/dL Glomerular Filtration Rate Calc 111 >90 mL/min BUN/Creatinine Ratio 10.7 10.0-20.0 Serum Glucose 159 H 74-106 mg/dL Calcium Level 8.5 L 8.7-10.4 mg/dL Total Bilirubin 3.4 H 0.2-1.0 mg/dL Aspartate Amino Transferase (AST) 57 H 13-40 U/L Alanine Aminotransferase (ALT) 32 7-40 U/L Alkaline Phosphatase 117 H 46-116 U/L B-Type Natriuretic Peptide 80.42 0-100 pg/mL Total Protein 6.6 5.7-8.2 g/dL Albumin 3.5 3.2-4.8 g/dL Plasma/Serum Blood Alcohol 31.0 H <10 mg/dL Current Medications Medications (Trade) Dose Ordered Sig/Johnnie Route Start Time Stop Time Status Last Admin Furosemide (Lasix Tablet) 40 mg ONCE ONCE PO 11/10/24 19:30 11/10/24 19:31 DC 11/10/24 20:17 Levetiracetam (Keppra Tablet) 500 mg ONCE ONCE PO 11/10/24 19:30 11/10/24 19:31 DC 11/10/24 20:17 Chlordiazepoxide HCl (Librium Capsule) 50 mg ONCE ONCE PO 11/10/24 19:45 11/10/24 19:46 DC 11/10/24 20:17 Time of 1ST Reevaluation: 18:22 Reevaluation 1ST: Unchanged Patient Education/Counseling: Need For Follow Up Family Education/Counseling: No Family Present SEPSIS Sepsis Screen Date sepsis recognized/suspect: Nov 10, 2024 Time Sepsis recognized/suspect: 1809 Recent Procedure: No On Antibiotic Therapy: No Respiratory Rate >20: No Heart Rate >90: No Temp<36 C (96.8 F) or >38.3 C: No SBP <90 or MAP <65 mmHG: No New Acute Mental Status Change: No Is the patient on CPAP, BIPAP,: No Physician Orders Chest Portable (11/10/24 18:19) Head Without Contrast (11/10/24 18:59) Vital Signs Date Time Temp Pulse Resp B/P (MAP) Pulse Ox O2 Delivery O2 Flow Rate FiO2 11/10/24 23:35 74 20 100 Room Air 11/10/24 23:35 98.2 74 13 127/74 (91) 100 98.2 11/10/24 22:53 98.0 80 16 121/58 (79) 100 98.0 11/10/24 20:17 128/76 11/10/24 20:05 77 18 98 Room Air* 0 21 11/10/24 20:04 98.5 77 18 129/76 (93) 98 98.5 11/10/24 18:07 98.6 79 18 137/76 95 98.6 Laboratory Tests Test 11/10/24 18:28 White Blood Count 2.5 10^3/uL (4.4-10.8) L Medications Medications Dose Ordered Sig/Johnnie Route Start Time Stop Time Status Last Admin Dose Admin Chlordiazepoxide HCl 50 mg ONCE ONCE PO 11/10/24 19:45 11/10/24 19:46 DC 11/10/24 20:17 Furosemide 40 mg ONCE ONCE PO 11/10/24 19:30 11/10/24 19:31 DC 11/10/24 20:17 Levetiracetam 500 mg ONCE ONCE PO 11/10/24 19:30 11/10/24 19:31 DC 11/10/24 20:17 Departure 1 Departure Time of Disposition: 21:23 Impression: Primary Impression: Dizzy Additional Impressions: Pancytopenia Liver cirrhosis Alcohol abuse Congestive heart failure Hypothyroidism Seizure disorder Disposition: HOME / SELF CARE / HOMELESS Condition: Stable Additional Instructions: ED DISCHARGE INSTRUCTIONS Instructions: Please read all instructions provided in this packet carefully. Avoid drinking alcohol. Take Librium/chlordiazepoxide as needed for alcohol withdrawal symptoms. Although you have been discharged from the Emergency Department, this does not mean that you have a "clean bill of health". No definitive diagnosis for your symptoms has been made today. It is possible that you are in the process of developing a serious illness. This is why you must return to the ED without fail if any new or worsening symptoms (especially if you are unable to get your medications or your symptoms include severe alcohol withdrawal symptoms, seizure, chest pain, trouble breathing, abdominal pain, fever, headache, confusion, trouble seeing, or trouble walking) It is also very important that you see a primary care provider (PCP) within the next 3-5 days to follow up. If you are unable to get an appointment, return to the ED for re-evaluation. Your medications have been prescribed to [facility] [id number] [place] [id number] Hours: 9:00 am -730 pm Mon-Fri, 9:00 am-3:00 pm Sat Sun Drinking and Your Health Drinking too much alcohol on a regular basis harms your liver, nervous system, heart, and brain. It can cause health problems or make them worse. These problems include: Cirrhosis or pancreatitis. High blood pressure. Osteoporosis. Certain types of cancer, including breast cancer. Stroke. A brain disorder called Wernicke-Korsakoff syndrome. Heavy alcohol use also can cause stomach problems, interactions between medicines and alcohol, and sexual problems. It can lead to violence, accidents, social isolation, and problems at work, school, or home. You also may have legal problems, such as traffic tickets or car crashes, as a result of drinking. Drinking alcohol can cause unique problems for older adults and people who are or who have other health conditions. Drinking also makes symptoms of mental health conditions worse. When you have a drinking problem and a mental health condition, it's called a dual diagnosis. It's very important to treat all mental health conditions, such as depression. You may drink less when mental health conditions are treated. How much alcohol is safe to drink? Experts don't know if alcohol is safe in any amount. If you choose to drink alcohol, the ramos is to keep your drinking at low to moderate levels. People who drink too much are hurting their health. Heavy drinking can cause all kinds of problems, from stomach and sexual problems to stroke and liver disease. It can also lead to problems at work, school, or home and to drunk driving and violence. It may be hard to know if you are drinking too much. Because of things like age, sex, weight, and health history, alcohol affects people differently. But here's what experts say: If you don't drink, it's best not to start. If you do drink, limit how much you drink. A standard drink is 12 fl oz (355 mL) of beer, 5 fl oz (148 mL) of wine, or 1.5 fl oz (44 mL) of hard liquor. Experts recommend that: Women have no more than 1 drink a day or 7 drinks a week. Men have no more than 2 drinks a day or 14 drinks a week. If you are 65 years and older, you may want to be even more cautious about the amount of alcohol you drink. Or you may not want to drink at all. This is because alcohol affects older adults differently. Experts consider excessive alcohol use to be high-risk drinking. This includes: Having more than 4 drinks in a day or more than 8 drinks a week if you are a woman. Having more than 5 drinks in a day or more than 15 drinks a week if you are a man. Binge drinking. This means drinking more than 4 drinks within 2 hours if you are a woman or more than 5 drinks within 2 hours if you are a man. It's important to remember that the only way to guarantee that drinking alcohol will not harm you at all is to not drink at all. When is drinking alcohol unhealthy or unsafe? There are certain times when drinking any amount of alcohol is unhealthy. You shouldn't drink if: You need to drive a car or operate other machinery. You are . Drinking during makes a miscarriage or alcohol syndrome more likely. A child who was exposed to alcohol in the womb may have physical and emotional problems. These problems can range from mild difficulties to severe defects. You take certain medicines. Ask your doctor or pharmacist if you can safely drink alcohol with any of the medicines you take. Common medicines that interact with alcohol include: Acetaminophen (such as Tylenol). Antibiotics. Antihistamines. Aspirin and other medicines to prevent clotting of blood (anticoagulants). Tranquilizers. Some medicines to treat depression (antidepressants) or other mental disorders. Any medicine that can make you drowsy. (Check the label.) You have certain health problems. Ask your doctor if you can safely drink alcohol if you have any of the following problems: Liver, stomach, and intestine problems. Heart failure and high blood pressure. Certain blood disorders. Mental health problems. LOCAL ADDICTION TREATMENT CENTERS: [facility] [id number] [address] [facility] [address] [facility] [place] [address] [facility] treatment [facility] [address] Opens 9?AM Fri [facility] [address] [address] It is very important that you follow up with your primary care physician (PCP). You can call your insurance company or check your insurance card to find out who your PCP is. Or call [phone] to schedule an appointment with a new primary care provider. WHY YOU NEED A PCP: Establishing and regularly seeing a PCP and undergoing routine screenings are vital for maintaining good health. Your PCP acts as your main healthcare partner, helping you stay healthy, manage chronic conditions, and detect potential problems early. Routine screenings, like mammograms or colonoscopies, can catch diseases like cancer early when treatment is often more effective. A screening test is like a quick check-up your doctor does to see if there are any problems starting in your body, even when you feel okay, so they can find them early when they're easier to fix. Why Establish a Relationship with a Primary Care Physician (PCP)? Preventive Care: Your PCP focuses on preventing illness through regular checkups, vaccinations, and health advice tailored to your needs. Chronic Disease Management: If you have a chronic condition, like diabetes or high blood pressure, your PCP can help you manage it effectively through monitoring, medication management, and lifestyle recommendations. Early Detection: Regular visits allow your PCP to track your health over time, identify subtle changes, and order necessary screenings or tests to catch potential problems early. Trusted Resource: Your PCP gets to know you, your medical history, and your concerns, making them a trusted resource for all your health-related questions. Referrals: If you need specialized care, your PCP will refer you to the appropriate specialists and help coordinate your care. Continuity of Care: Your PCP ensures that your healthcare is coordinated, especially after hospital stays or visits to other specialists. Why are Routine Screenings Important? Early Detection: Many serious illnesses like cancer, diabetes and heart disease, can be treated more successfully when detected early. Screenings like lab tests, blood pressure checks, mammograms, colonoscopies, and Pap smears are designed to catch these diseases early. Preventing Disease: Some screenings can actually help prevent diseases from developing. Peace of Mind: Knowing that you are up-to-date on your screenings can provide peace of mind and reduce anxiety about potential health problems. In summary, establishing a relationship with a primary care physician and following their recommendations for routine screenings is important for staying healthy and managing your health effectively. It's an investment in your well- being that can pay off in the long run. e-Prescriptions Chlordiazepoxide Hcl (Librium) 25 Mg Cp 25 MG PO TIDPRN PRN for 3 Days, #9 CAP Take every 8 hours as needed for alcohol withdrawal symptoms. Do not take with alcohol. Prov: LORENZA WONG MD 11/10/24 Thiamine Hcl (VITAMIN B-1) 100 Mg Tb 100 MG PO DAILY for 30 Days, #30 TAB Prov: LORENZA WONG MD 11/10/24 Multiple Vitamin (Mvi Tab) 1 Tab Tb 1 TAB PO DAILY for 30 Days, #30 TAB Prov: LORENZA WONG MD 11/10/24 Levothyroxine Sodium (Levothyroxine Sodium) 25 Mcg Tab 25 MCG PO QAM@0600 for 30 Days, #30 TAB Prov: LORENZA WONG MD 11/10/24 Levetiracetam (KEPPRA TABLET) 500 Mg Tb 500 MG PO BID for 30 Days, #60 TAB Prov: LORENZA WONG MD 11/10/24 Folic Acid (Folic Acid) 1 Mg Tab 1 MG PO DAILY for 30 Days, #30 TAB Prov: LORENZA WONG MD 11/10/24 Furosemide (Lasix) 20 Mg Tb 1 TAB PO DAILY for 30 Days, #30 TAB 5 Refills Prov: LORENZA WONG MD 11/10/24 Comments MDM: 44-year-old male with a known history of: Congestive heart failure (CHF) Alcoholic liver cirrhosis 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 Patient was admitted from November 03 to November 06. At that time, he was deemed stable for discharge and was provided with a 30-day supply of his home medications. He was advised to follow up with Neurology as an outpatient. The patient subsequently presented to the ED yesterday following a fall with a head injury and was admitted. However, the patient left AMA from the hospital this morning. He returned to the emergency department this evening reporting dizziness. Neuroimaging performed yesterday was negative for acute intracranial pathology. The patient currently reports mild dizziness with no focal neurological deficits on examination. He denies chest pain, shortness of breath, and seizure activity. Repeat neuroimaging was performed today due to the patient's liver disease and mildly elevated INR (International Normalized Ratio). The repeat neuroimaging remains negative for intracranial hemorrhage or other acute processes. Vital signs are currently stable. Patient is deemed stable for discharge and is advised to follow up as an outpatient with prompt re-evaluation by his primary care provider (PCP) and Neurology. He was educated on the importance of adhering to his treatment regimen to prevent complications related to his chronic illnesses. The importance of alcohol cessation was discussed, and the patient was provided with resources for alcohol abuse treatment. - I discussed treatments and results with patient Decision regarding hospitalization or escalation of hospital level of care: Risks and benefits of admission for further treatment of patient's condition was considered however due to patient's stable condition patient will be discharged to follow up closely or return to care for worsening of condition or inability to follow up. Critical Care Note Critical Care Time?: No Stability Stability form required: No Heart Score Heart Score: Heart Score Response (Comments) Value History N/A 0 EKG N/A 0 Age N/A 0 Risk Factors N/A 0 Troponin N/A 0 Total 0 I personally scribed for LORENZA WONG MD ([email or web address]) on 11/10/24 at 18:24. Electronically submitted by Fareed Lau ([email or web address]). LORENZA WONG MD Nov 10, 2024 18:24
[2024-11-10 18:42] LABS: Hematocrit 23.3 % (41.0-53.0); Hemoglobin 7.5 g/dL (13.5-17.5); Mean Corpuscular Hemoglobin 23.5 pg (28.0-32.0); Mean Corpuscular Volume 72.7 fL (80.0-100.0); Nucleated Red Blood Cells % 0.1 %
[2024-11-10 18:56] LABS: Alanine Aminotransferase 32 U/L (7-40); Albumin 3.5 g/dL (3.2-4.8); Anion Gap 11 (5-15); BUN/Creatinine Ratio 10.7 (10.0-20.0); Potassium 4.1 mmol/L (3.5-5.1); Sodium 141 mmol/L (136-145); Total Protein 6.6 g/dL (5.7-8.2)
[2024-11-10 18:58] LABS: Alkaline Phosphatase 117 U/L (46-116); Bilirubin, Total 3.4 mg/dL (0.2-1.0); Blood Urea Nitrogen 9 mg/dL (9-23); Calcium 8.5 mg/dL (8.7-10.4); Carbon Dioxide 18 mmol/L (20-31); Chloride 112 mmol/L (98-107); Glucose 159 mg/dL (74-106)
--- NOTE | 2024-11-10 19:02 | DVH ---
INDICATION: chf TECHNIQUE: Frontal view of the chest. COMPARISON: XY CHEST TWO VIEWS ROUTINE on DOS: 11/02/24, XY CHEST XRAY 1 VIEW on DOS: 11/01/24, XY CHEST PORTABLE on DOS: 10/20/24, XY CHEST PORTABLE on DOS: 10/19/24, XY CHEST TWO VIEWS ROUTINE on DOS: 5 FINDINGS: . The heart and mediastinal contours are grossly unremarkable. There is no evidence of pleural disea se. The lungs are clear. The bony structures of the chest are intact without fracture. IMPRESSION: 1. No evidence of acute disease.
[2024-11-10 20:05] VITALS: PULSE 77; RESP 18; O2SAT 98
[2024-11-10] MEDS: FUROSEMIDE 20 MG TAB PO ONE (20:17)
[2024-11-10] MEDS: levETIRAcetam 500 MG TAB PO ONE (20:17)
--- NOTE | 2024-11-10 20:56 | DVH ---
EXAM: CT HEAD WITHOUT CONTRAST INDICATION: Recent head injury, headache, dizziness TECHNIQUE: CT of the head without intravenous contrast. Radiation Dose Information: CT Dose: CTDI volume is 58.79 mGy. Dose-length product is 1158.44 mGy*cm The dose indicators for CT are the volume Computed Tomography (CT) Dose Index (CTDIvol) and the Dose Length Product (DLP), and are measured in units of mGy and mGy-cm, respectively. These indicators are not patient dose, but values generated from the CT scanner acquisition factors. The report includes radiation exposure data for exposures received during this examination. COMPARISON: CT HEAD WITHOUT CONTRAST on DOS: 11/09/24, CT HEAD W WO CONTRAST on DOS: 11/02/24, CT HEAD W ITHOUT CONTRAST on DOS: 10/22/24 FINDINGS: There is no evidence of acute intracranial hemorrhage, extra-axial collection, mass effect, midline s hift, herniation or hydrocephalus. Small lacunar infarct right basal ganglion The ventricles, sulci and cisterns are age appropriate. The armstrong-white differentiation is intact. Patchy periventricular and subcortical white matter hypoattenuation is nonspecific but may be related to small vessel ischemic disease. The visualized paranasal sinuses and mastoid air cells are clear. The surrounding soft tissues and osseous structures are unremarkable. IMPRESSION: 1. No acute intracranial abnormality. HS:Y
[2024-11-10] MEDS ORDERED: FURO1TAB33 PO (21:10)
[2024-11-10] MEDS ORDERED: LEVO25TA6 PO (21:12)
[2024-11-10] MEDS ORDERED: MULTTAB99 PO (21:12)
[2024-11-10] MEDS ORDERED: THIA100T10 PO (21:12)
[2024-11-10] MEDS ORDERED: FOLI-119 PO (21:12)
[2024-11-10] MEDS ORDERED: KEP500T PO (21:12)
[2024-11-10] MEDS ORDERED: CHL25C PO (21:15)
[2024-11-10 23:35] VITALS: BP 127/74; PULSE 74; RESP 20; TEMP 98.2; O2SAT 100
== END 2024-11-10 23:35 | disposition home or self-care (01) ==
LOC: ER 18:05
DX: D61.818 Other pancytopenia (principal); K74.69 Other cirrhosis of liver; F10.129 Alcohol abuse with intoxication, unspecified; E03.9 Hypothyroidism, unspecified; G40.909 Epilepsy, unspecified, not intractable, without status epilepticus; R42 Dizziness and giddiness; I50.9 Heart failure, unspecified; Z87.891 Personal history of nicotine dependence; Z86.2 Personal history of diseases of the blood and blood-forming organs and certain disorders involving the immune mechanism; Z79.899 Other long term (current) drug therapy; Z79.890 Hormone replacement therapy; Z59.00 Homelessness unspecified; Y90.8 Blood alcohol level of 240 mg/100 ml or more
CPT/HCPCS: 36415; 70450; 71045; 80053; 80320; 83880; 85025

== ENCOUNTER 2024-11-24 19:51 | Emergency (ER) | payer MEDICAID ==
[~2024-11-24] VITALS: Ht 198.1 cm; Wt 133.2 kg
[~2024-11-24 19:51] MED LIST changes: +CHL25C PO
[2024-11-24 19:57] VITALS: BP 167/75; PULSE 68; RESP 18; TEMP 98.7
--- NOTE | 2024-11-24 20:52 | DVH ---
CHEST RADIOGRAPH Indication: SOB, BLE edema Technique: 1 view Comparison: XY CHEST PORTABLE on DOS: 11/10/24, XY CHEST XRAY 1 VIEW on DOS: 11/01/24, XY CHEST PORTABLE on DOS: 10/20/24, XY CHEST PORTABLE on DOS: 10/19/24, XY CHEST PORTABLE on DOS: 02/24/24 FINDINGS: Lines and Tubes: None Lungs/Pleura: No focal consolidation, pleural effusion or pneumothorax. Cardiomediastinum: Unremarkable. Other: No acute osseous abnormality. IMPRESSION: 1. No acute cardiopulmonary abnormality or change from prior exam.
[2024-11-24 21:15] LABS: Hemoglobin 7.7 g/dL (13.5-17.5)
[2024-11-24 21:17] LABS: Hematocrit 23.4 % (41.0-53.0); Mean Corpuscular Hemoglobin 24.4 pg (28.0-32.0); Mean Corpuscular Volume 74.7 fL (80.0-100.0); Nucleated Red Blood Cells % 0.2 %
--- NOTE | 2024-11-24 21:21 | ED.PDOC ---
History of Present Illness HPI Comments 64-year-old male who came to ER for bilateral lower extremity swelling. Patient does have history of congestive heart failure, liver cirrhosis, seizures, alcohol intoxication, anemia and GI bleed. Patient was admitted her few days ago for anemia, congestive heart failure, status post blood transfusion, patient left AMA. For the past 3 days, with worsening bipedal edema. Denies any chest pains or shortness a breath Chief Complaint: Lower Extremity Time Seen by MD: 21:21 Primary Care Provider: UNKNOWN Reviewed Notes: Nurses Notes Allergies: Coded Allergies: NO KNOWN ALLERGIES (Unverified , 01/02/13) Home Meds Active Scripts Ferrous Sulfate (FERROUS SULFATE) 325 Mg Tb, 1 TAB PO DAILY for 60 Days, #60 TAB 3 Refills Prov:LISE JASON MD 11/24/24 Multiple Vitamins W/ Minerals (Mvi W/ Minerals Tab) 1 Tab Tb, 1 TAB GT BID for 60 Days, #120 TAB Prov:LISE JASON MD 11/24/24 Bumetanide (Bumetanide) 2 Mg Tab, 1 TAB PO BID, #60 TAB 3 Refills Prov:LISE JASON MD 11/24/24 Chlordiazepoxide Hcl (Librium) 25 Mg Cp, 25 MG PO TIDPRN PRN for 3 Days, #9 CAP Take every 8 hours as needed for alcohol withdrawal symptoms. Do not take with alcohol. Prov:LORENZA WONG MD 11/10/24 Thiamine Hcl (VITAMIN B-1) 100 Mg Tb, 100 MG PO DAILY for 30 Days, #30 TAB Prov:LORENZA WONG MD 11/10/24 Multiple Vitamin (Mvi Tab) 1 Tab Tb, 1 TAB PO DAILY for 30 Days, #30 TAB Prov:LORENZA WONG MD 11/10/24 Levothyroxine Sodium (Levothyroxine Sodium) 25 Mcg Tab, 25 MCG PO QAM@0600 for 30 Days, #30 TAB Prov:LORENZA WONG MD 11/10/24 Levetiracetam (KEPPRA TABLET) 500 Mg Tb, 500 MG PO BID for 30 Days, #60 TAB Prov:LORENZA WONG MD 11/10/24 Folic Acid (Folic Acid) 1 Mg Tab, 1 MG PO DAILY for 30 Days, #30 TAB Prov:LORENZA WONG MD 11/10/24 Furosemide (Lasix) 20 Mg Tb, 1 TAB PO DAILY for 30 Days, #30 TAB 5 Refills Prov:LORENZA WONG MD 11/10/24 Gabapentin (Gabapentin) 300 Mg Cap, 1 CAP PO TID PRN for 5 Days, #15 CAP 5 Refills Prov:KAYLEE CRONIN MD 11/06/24 Spironolactone (Aldactone) 25 Mg Tab, 25 MG PO DAILY for 30 Days, #30 TAB Prov:MICHELLE SAMUELS RESIDENT 10/23/24 Cephalexin Monohydrate (Cephalexin) 500 Mg Tab, 1 TAB PO TID for 7 Days, #21 TAB Prov:AMENA MENDENHALL DO 10/19/24 Spironolactone (Aldactone) 25 Mg Tab, 1 TAB PO DAILY for 30 Days, #30 TAB 1 Refill Prov:CHELE GLEZ RESIDENT 10/06/24 Magnesium Oxide (Mgo) 400 Mg Tab, 400 MG PO DAILY for 10 Days, #10 TAB Prov:LATESHA SAMANO MD 12/18/23 Levothyroxine Sodium (Levothyroxine Sodium) 25 Mcg Tab, 25 MCG PO QAM@0600 for 30 Days, #30 TAB Prov:LATESHA SAMANO MD 12/18/23 Levetiracetam (KEPPRA TABLET) 500 Mg Tb, 500 MG PO BID for 30 Days, #60 TAB Prov:LATESHA SAMANO MD 12/18/23 Pantoprazole Sodium Sesquihydr (Protonix) 40 Mg Tab, 40 MG PO DAILY, #30 TAB Prov:LATESHA SAMANO MD 12/18/23 Folic Acid (Folic Acid) 1 Mg Tab, 1 MG PO DAILY for 30 Days, #30 TAB Prov:LATESHA SAMANO MD 12/18/23 Multiple Vitamin (Mvi Tab) 1 Tab Tb, 1 TAB PO DAILY for 30 Days, #30 TAB Prov:LATESHA SAMANO MD 12/18/23 Sucralfate (CARAFATE) 1 Gm Tab, 1 GM OR QIDACHS for 30 Days, #120 TAB Prov:LATESHA SAMANO MD 12/18/23 Thiamine Hcl (VITAMIN B-1) 100 Mg Tb, 100 MG PO DAILY for 30 Days, #30 TAB Prov:LATESHA SAMANO MD 12/18/23 Hydroxyzine HCl (Hydroxyzine Hydrochloride) 25 Mg Tab, 25 MG PO Q8HP PRN for 30 Days, #90 TAB Prov:RITA WEBB NP 10/06/23 Sertraline Hcl (Zoloft) 25 Mg Tab, 1 TAB PO DAILY, #30 TAB 2 Refills Prov:RITA WEBB NP 10/06/23 Lactulose (Lactulose) 10 Gm Jorge, 10 GM PO BID for 30 Days, #10 PACK Prov:RITA WEBB NP 10/06/23 Cyclobenzaprine Hcl (Cyclobenzaprine Hcl) 5 Mg Tab, 1 TAB PO TID PRN, #30 TAB Prov:LOC MAHER 05/26/22 Reported Medications Gabapentin (Gabapentin) 300 Mg Cap, 1 CAP PO TID 12/14/23 Pantoprazole Sodium Sesquihydr (Pantoprazole Sodium) 40 Mg Tab, 1 TAB PO BID 12/14/23 Disulfiram (DISULFIRAM) 250 Mg Tab, 250 MG PO BID, TAB 10/24/21 Information Source: Patient Mode of Arrival: Ambulatory Severity: Moderate Timing: Days Duration: Since onset Past Medical History PAST MEDICAL HISTORY: Anemia, CHF, Gallstones, Liver, [place], Seizures, Thyroid Past Medical History (Other): GI bleed Surgical History: Denies all surgeries Family History Family History: Family hx of liver renu Social History Smoker: Quit Less Than 1 Year Alcohol: Heavy Drugs: Denies Drug Use Lives In: Homeless Constitutional: denies: chills, diaphoresis, fatigue, fever, malaise, sweats, weakness, others EENTM: denies: blurred vision, double vision, ear bleeding, ear discharge, ear drainage, ear pain, ear ringing, eye pain, eye redness, hearing loss, mouth katt n, mouth swelling, nasal discharge, nose bleeding, nose congestion, nose pain, photophobia, tearing, throat pain, throat swelling, voice changes, others Respiratory: denies: cough, hemoptysis, orthopnea, SOB at rest, shortness of breath, SOB with excertion, stridor, wheezing, others Cardiovascular: reports: edema; denies: chest pain, dizzy spells, diaphoresis, Dyspnea on exertion, irregular heart beat, left arm pain, lightheadedness, palpitations, PND, syncope, others Gastrointestinal: denies: abdomen distended, abdominal pain, blood streaked bowels, constipated, diarrhea, dysphagia, difficulty swallowing, hematemesis, melena, nausea, poor appetite, poor fluid intake, rectal bleeding, rectal pain, vomiting, others Genitourinary: denies: burning, dysuria, flank pain, frequency, hematuria, incontinence, penile discharge, penile sore, pain, testicle pain, testicle swelling, urgency, others Neurological: denies: dizziness, fainting, headache, left sided numbness, left sided weakness, numbness, paresthesia, pre-existing deficit, right sided numbness, right sided weakness, seizure, speech problems, tingling, tremors, weakness, others Musculoskeletal: denies: back pain, gout, joint pain, joint swelling, muscle pain, muscle stiffness, neck pain, others Integumetry: denies: bruises, change in color, change in hair/nails, dryness, laceration, lesions, lumps, rash, wounds, others Allergic/Immunocompromised: denies: Difficulty Healing, Frequent Infections, Hives, Itching, others Hematologic/Lymphatic: denies: anemia, blood clots, easy bleeding, easy bruising, swollen glands, others Endocrine: denies: excessive hunger, excessive sweating, excessive thirst, excessive urination, flushing, intolerance to cold, intolerance to heat, unexplained weight gain, unexplained weight loss, others Psychiatric: denies: anxiety, bipolar disorder, depression, hopeless, panic disorder, schizophrenia, sleepless, suicidal, others Physical Exam General Appearance: No Apparent Distress, Normal HEENT: Normal ENT Inspection, Pharynx Normal, TMs Normal Neck: Full Range of Motion, Non-Tender, Normal, Normal Inspection Respiratory: Chest Non-Tender, Lungs Clear, No Accessory Muscle Use, No Respiratory Distress, Normal Breath Sounds Cardiovascular: No Edema, No JVD, No Murmur, No Gallop, Normal Peripheral Pulses, Regular Rate/Rhythm Breast Exam: Deferred Gastrointestinal: No Organomegaly, Non Tender, No Pulsatile Mass, Normal Bowel Sounds, Soft Genitalia: Deferred Pelvic: Deferred Rectal: Deferred Extremities: Leg edema, Normal capillary refill, Normal range of motion, Pedal edema, Swelling Musculoskeletal : Apperance: Normal Neurologic: Alert, meat hanger II-XII nml as Tested, No Motor Deficits, Normal Affect, Normal Mood, No Sensory Deficits Cerebellar Function: Normal Reflexes: Normal Skin: Dry, Normal Color, Warm Lymphatic: No Adenopathy Was a procedure done? Was a procedure done?: No Differential Dx Considerations may include: Anemia, electrolyte imbalance, congestive heart failure, liver cirrhosis, alcohol intoxication, medication noncompliance X-Ray, Labs, Meds, VS Vital Signs Date Time Temp Pulse Resp B/P (MAP) Pulse Ox O2 Delivery O2 Flow Rate FiO2 11/24/24 19:57 98.7 68 18 167/75 99 98.7 Lab Test 11/25/24 00:11 11/24/24 20:36 Range/Units Troponin I High Sensitivity 17 16 </=54 ng/L White Blood Count 3.1 L 4.4-10.8 10^3/uL Red Blood Count 3.14 L 4.5-5.90 10^6/uL Hemoglobin 7.7 L 13.5-17.5 g/dL Hematocrit 23.4 L 41.0-53.0 % Mean Corpuscular Volume 74.7 L 80.0-100.0 fL Mean Corpuscular Hemoglobin 24.4 L 28.0-32.0 pg Mean Corpuscular Hemoglobin Concent 32.7 32.0-36.0 g/dL Red Cell Distribution Width 32.2 H 11.8-14.3 % Platelet Count 85 L 140-450 10^3/uL Mean Platelet Volume 8.4 6.9-10.8 fL Neutrophils (%) (Auto) 57.6 37.0-80.0 % Lymphocytes (%) (Auto) 26.2 10.0-50.0 % Monocytes (%) (Auto) 13.7 H 0.0-12.0 % Eosinophils (%) (Auto) 0.8 0.0-7.0 % Basophils (%) (Auto) 1.7 0.0-2.0 % Neutrophils # (Auto) 1.8 1.6-8.6 10 ^3/uL Lymphocytes # (Auto) 0.8 0.4-5.4 10 ^3/uL Monocytes # (Auto) 0.4 0-1.3 10 ^3/uL Eosinophils # (Auto) 0 0-0.8 10 ^3/uL Basophils # (Auto) 0.1 0-0.2 10 ^3/uL Nucleated Red Blood Cells 0.2 % Sodium Level 141 136-145 mmol/L Potassium Level 4.4 3.5-5.1 mmol/L Chloride Level 111 H 98-107 mmol/L Carbon Dioxide Level 21 20-31 mmol/L Anion Gap 9 5-15 Blood Urea Nitrogen 10 9-23 mg/dL Creatinine 0.57 L 0.700-1.30 mg/dL Glomerular Filtration Rate Calc 125 >90 mL/min BUN/Creatinine Ratio 17.5 10.0-20.0 Serum Glucose 90 74-106 mg/dL Calcium Level 8.8 8.7-10.4 mg/dL Total Bilirubin 2.3 H 0.2-1.0 mg/dL Aspartate Amino Transferase (AST) 56 H 13-40 U/L Alanine Aminotransferase (ALT) 28 7-40 U/L Alkaline Phosphatase 103 46-116 U/L B-Type Natriuretic Peptide 183.22 0-100 pg/mL Total Protein 7.1 5.7-8.2 g/dL Albumin 3.5 3.2-4.8 g/dL CHEST RADIOGRAPH Indication: SOB, BLE edema Technique: 1 view Comparison: XY CHEST PORTABLE on DOS: 11/10/24, XY CHEST XRAY 1 VIEW on DOS: 11/01/24, XY CHEST PORTABLE on DOS: 10/20/24, XY CHEST PORTABLE on DOS: 10/19/24, XY CHEST PORTABLE on DOS: 02/24/24 FINDINGS: Lines and Tubes: None Lungs/Pleura: No focal consolidation, pleural effusion or pneumothorax. Cardiomediastinum: Unremarkable. Other: No acute osseous abnormality. IMPRESSION: 1. No acute cardiopulmonary abnormality or change from prior exam. Time of 1ST Reevaluation: 21:17 Reevaluation 1ST: Unchanged Patient Education/Counseling: Diagnosis, Treatment Family Education/Counseling: No Family Present SEPSIS Sepsis Screen Date sepsis recognized/suspect: Nov 24, 2024 Time Sepsis recognized/suspect: 1956 Recent Procedure: No On Antibiotic Therapy: No Respiratory Rate >20: No Heart Rate >90: No Temp<36 C (96.8 F) or >38.3 C: No SBP <90 or MAP <65 mmHG: No New Acute Mental Status Change: No Is the patient on CPAP, BIPAP,: No Physician Orders Electrocardigram (11/24/24 20:26) Chest Xray 1 View (11/24/24 20:26) Vital Signs Date Time Temp Pulse Resp B/P (MAP) Pulse Ox O2 Delivery O2 Flow Rate FiO2 11/24/24 19:57 98.7 68 18 167/75 99 98.7 Laboratory Tests Test 11/24/24 20:36 White Blood Count 3.1 10^3/uL (4.4-10.8) L Departure 1 Departure Time of Disposition: 23:00 Impression: Primary Impression: Pancytopenia Additional Impressions: Alcohol abuse Peripheral edema Disposition: HOME / SELF CARE / HOMELESS Condition: Stable e-Prescriptions Ferrous Sulfate (FERROUS SULFATE) 325 Mg Tb 1 TAB PO DAILY for 60 Days, #60 TAB 3 Refills Prov: LISE JASON MD 11/24/24 Multiple Vitamins W/ Minerals (Mvi W/ Minerals Tab) 1 Tab Tb 1 TAB GT BID for 60 Days, #120 TAB Prov: LISE JASON MD 11/24/24 Bumetanide (Bumetanide) 2 Mg Tab 1 TAB PO BID, #60 TAB 3 Refills Prov: LISE JASON MD 11/24/24 Discharged With: Self Critical Care Note Critical Care Time?: No Stability Stability form required: No Heart Score Heart Score: Heart Score Response (Comments) Value History N/A 0 EKG N/A 0 Age N/A 0 Risk Factors N/A 0 Troponin N/A 0 Total 0 I personally scribed for LISE JASON MD ([email or web address]) on 11/24/24 at 21:21. Electronically submitted by Fareed Lau ([email or web address]). I personally scribed for LISE JASON MD ([email or web address]) on 11/24/24 at 21:22. Electronically submitted by Fareed Lau ([email or web address]). LISE JASON MD Nov 24, 2024 21:21
[2024-11-24 21:24] LABS: Alanine Aminotransferase 28 U/L (7-40); Albumin 3.5 g/dL (3.2-4.8); Alkaline Phosphatase 103 U/L (46-116); Anion Gap 9 (5-15); BUN/Creatinine Ratio 17.5 (10.0-20.0); Blood Urea Nitrogen 10 mg/dL (9-23); Calcium 8.8 mg/dL (8.7-10.4); Carbon Dioxide 21 mmol/L (20-31); Glucose 90 mg/dL (74-106); Potassium 4.4 mmol/L (3.5-5.1); Sodium 141 mmol/L (136-145); Total Protein 7.1 g/dL (5.7-8.2)
[2024-11-24 21:28] LABS: Bilirubin, Total 2.3 mg/dL (0.2-1.0); Chloride 111 mmol/L (98-107)
[2024-11-24] MEDS ORDERED: MULT-351 GT (23:58)
[2024-11-24] MEDS ORDERED: BUME2TAB5 PO (23:58)
[2024-11-24] MEDS ORDERED: FER325T PO (23:58)
[2024-11-25 05:31] VITALS: O2SAT 100
== END 2024-11-25 05:59 | disposition home or self-care (01) ==
LOC: ER 19:51
DX: D61.818 Other pancytopenia (principal); F10.10 Alcohol abuse, uncomplicated; R60.9 Edema, unspecified; Z79.899 Other long term (current) drug therapy
CPT/HCPCS: 36415; 71045; 80053; 83880; 84484; 85025